=== PATIENT | male | born 1935 | race Caucasian/White ===

== ENCOUNTER → 2025-08-05 | Outpatient (CLI) | payer MEDICARE, SELFPAY ==
--- NOTE | 2025-08-05 10:46 | CDU_ITS ---
Reason For Study Reason For Study: Carotid stenosis Rt. Velocities/BP Lt. Velocities/BP Prox CCA 40.4/10.7 cm/sec. Prox CCA 45.8/9.5 cm/sec. Mid CCA 43/13.3 cm/sec. Mid CCA 43.6/13 cm/sec. Dist CCA 35.1/11.6 cm/sec. Dist CCA 35.1/12.3 cm/sec. Prox ICA 55.1/14.5 cm/sec. Prox ICA 96.1/34.8 cm/sec. Mid ICA 81.5/25.8 cm/sec. Mid ICA 72.8/22.5 cm/sec. Dist ICA 59.8/20.1 cm/sec. Dist ICA 91.2/24.9 cm/sec. Rt. ICA/CCA = 1.90. Lt. ICA/CCA = 2.20. Prox ECA 47.2/4.5 cm/sec. Prox ECA 33.6/3.7 cm/sec. Rt. Vert. 33/10.9 cm/sec. Lt. Vert. 40.9/15.4 cm/sec. Right Extracranial There is intimal thickening but no significant atherosclerotic plaque noted in the right common carotid artery. There is heterogeneous, irregular atherosclerotic plaque noted in the right internal carotid artery. There is heterogeneous, irregular atherosclerotic plaque noted in the right external carotid artery. Antegrade flow is noted in the right vertebral artery. Left Extracranial There is homogeneous, smooth atherosclerotic plaque noted in the left common carotid artery. There is heterogeneous, irregular atherosclerotic plaque noted in the left internal carotid artery. There is heterogeneous, irregular atherosclerotic plaque noted in the left external carotid artery. Antegrade flow is noted in the left vertebral artery. Procedure Carotid Duplex 80251. This is a Carotid Duplex examination using B-mode, color flow and specral Doppler. Exam performed in department. VL/Carotid Duplex Ultrasound Interpretation Summary Mild (<50%) stenosis right extracranial internal carotid. Mild (<50%) stenosis left extracranial internal carotid. Patent and antegrade vertebrals bilaterally. Mild (<50%) stenosis right extracr anial internal carotid. Mild (<50%) stenosis left extracranial internal carotid. Patent and antegrade vertebrals bilaterally. Limited due to calcific shadowing, alternative imaging may be beneficial. Ordering Physician: Jon Woodruff Performed By: Liliya Hare RVT
[2025-08-05 11:58] LABS: Cholesterol 104 mg/dL (<=200); Low Density Lipoprotein Calc. 63 mg/dL; Triglycerides 82 mg/dL; Very Low Density Lipoprotein 16 mg/dL (5-40); cholesterol:hdl ratio screen 4.21
== END | disposition home or self-care (01) ==
LOC: CVS 10:27
PROVIDERS: Referring Provider Internal Medicine Cardiovascular Disease; Visit Provider Internal Medicine Cardiovascular Disease
DX: I65.23 Occlusion and stenosis of bilateral carotid arteries (principal); I10 Essential (primary) hypertension; I35.0 Nonrheumatic aortic (valve) stenosis; E78.2 Mixed hyperlipidemia
CPT/HCPCS: 36415; 80061; 93880

== ENCOUNTER → 2025-08-26 | Outpatient (CLI) | payer MEDICARE, SELFPAY ==
--- NOTE | 2025-08-26 10:43 | ECHOD_ITS ---
Reason For Study Reason For Study: AORTIC VALVE STENOSIS Procedure This was a 2D Doppler, Color Flow transthoracic echocardiogram. Exam performed in department. Left Ventricle Normal LV size. Mild concentric left ventricular hypertrophy. The left ventricular ejection fraction is 45 %. At least stage I diastolic dysfunction. Right Ventricle Normal right ventricle. Atria There is severe biatrial dilatation. Mitral Valve Moderate prolapse of the posterior mitral valve leaflet. Moderate to severe anteriorly directed mitral valve regurgitation. Tricuspid Valve Mild-Moderate (1-2+) tricuspid valve insufficiency. Right ventricular systolic pressure estimated to be 78 mmHg. Aortic Valve Moderately calcified aortic valve. Mild aortic valve stenosis with mean peak gradient of 8 mmHg. Valve area 1.4 cm??. Trivial aortic valve insufficiency. Pulmonic Valve The pulmonic valve is not well visualized. Great Vessels Normal sized aortic root. Pericardium/Pleural Small loculated pericardial effusion. MMode/2D Measurements & Calculations LVIDd: 4.3 cm IVSd: 1.4 cm LVOT diam: 2.0 cm LVIDs: 3.0 cm LVPWd: 1.1 cm LVOT area: 3.2 cm2 RVDd: 4.2 cm FS: 30.7 % Ao root diam: 3.4 cm LAV(MOD-bp): 93.3 ml LVAd ap4: 34.0 cm2 LAV(MOD-bp) Indexed: 47.5 ml/m2 LVLd ap4: 8.4 cm LAV(MOD-sp2): 88.8 ml EDV(MOD-sp4): 114.7 ml LAV(MOD-sp4): 96.3 ml EDV(sp4-el): 116.9 ml LVAs ap4: 20.9 cm2 LVLs ap4: 7.2 cm ESV(MOD-sp4): 55.5 ml ESV(sp4-el): 51.6 ml EF(MOD-sp4): 51.6 % EF(sp4-el): 55.8 % SV(MOD-sp4): 59.2 ml SV(sp4-el): 65.3 ml LA A4 area: 28.6 cm2 SI(MOD-sp4): 30.2 ml/m2 LA dimension(2D): 5.1 cm RA A4 area: 29.6 cm2 TAPSE: 1.7 cm Doppler Measurements & Calculations MV E max papi: 130.4 cm/sec Ao V2 max: 197.1 cm/sec LV V1 max: 84.4 cm/sec Ao max P.6 mmHg LV V1 max P.9 mmHg Ao V2 mean: 135.3 cm/sec LV V1 mean P.4 mmHg Ao mean P.2 mmHg LV V1 mean: 54.0 cm/sec Ao V2 VTI: 30.4 cm LV V1 VTI: 13.7 cm AV (velocity ratio): 0.45 HUGO(I,D): 1.4 cm2 HUGO(V,D): 1.4 cm2 SV(LVOT): 43.3 ml PA V2 max: 51.5 cm/sec TR max papi: 396.9 cm/sec TR max P.0 mmHg ECHO/Echo Complete Interpretation Summary Mild concentric left ventricular hypertrophy. The left ventricular ejection fraction is 45 %. At least stage I diastolic dysfunction. There is severe biatrial dilatation. Moderate prolapse of the posterior mitral valve leaflet. Moderate to severe ant eriorly directed mitral valve regurgitation. Mild-Moderate (1-2+) tricuspid valve insufficiency. Right ventricular systolic pressure estimated to be 78 mmHg. Moderately calcified aortic valve. Mild aortic valve stenosis with mean peak gr adient of 8 mmHg. Valve area 1.4 cm??. Small loculated pericardial effusion. Consider CT scan chest for further evalua tion. Ordering Physician: Jon Woodruff Referring Physician: Jon Woodruff Performed By: Nelida Frost RDCS
== END | disposition home or self-care (01) ==
LOC: CVS 10:42
PROVIDERS: Referring Provider Internal Medicine Cardiovascular Disease; Visit Provider Internal Medicine Cardiovascular Disease
DX: I35.0 Nonrheumatic aortic (valve) stenosis (principal)
CPT/HCPCS: 93306

== ENCOUNTER 2025-09-10 12:38 | Inpatient (IN) | payer MEDICARE, SELFPAY ==
[2025-09-10] VITALS (13 sets, daily range): BP systolic 148–170; BP diastolic 55–122; PULSE 74–83; RESP 16–77; TEMP 36.6–36.8; O2SAT 84–95; BMI 25.9; BMI 22.8
--- NOTE | 2025-09-10 14:22 | EKG12_ITS ---
Test Reason : SOB Blood Pressure : */* mmHG Vent. Rate : 75 BPM Atrial Rate : * BPM P-R Int : * ms QRS Dur : 104 ms QT Int : 410 ms P-R-T Axes : * 37 46 degrees QTcB Int : 457 ms Atrial fibrillation Minimal voltage criteria for LVH, may be normal variant ( Brennan product ) Nonspecific T wave abnormality Abnormal ECG Confirmed by SONIA RODRIGES, RONNIE ([id number]), editor house organ LA ROMO ([id number]) on 09/13/2025 9:19:16 AM Referred By: Confirmed By: RONNIE SCOTT MD
--- NOTE | 2025-09-10 14:34 | ED.VIS.DYS ---
HPI History of Present Illness Chief Complaint: Shortness of Breath Informant: patient and spouse/S.O. Onset/Context/Timing Onset: Days Context: gradual Timing: Continuous Quality: Positive for Orthopnea Current Severity: Mild Maximum Severity: Mild Worsened by: Exertion and Lying flat Relieved by: Nothing Associated Symptoms Negative for cough Chest Pain: Positive for None Narrative Narrative: 89-year-old male for history of triple bypass with A-fib on Eliquis also history of myelodysplastic syndrome. History of CHF. EF of 45%. Patient states he is put on about 18 pounds of weight over the last week. Increase water both lower extremities. Decreased urine output. Denies any chest pain. He said he is more short of breath with any type of exertion lying supine. Lacks endurance. PE Risk Factors: Negative for Cancer, OCP + Smoking + > 35, Prior DVT or PE, Recent immobilization, Recent surgery or Recent travel Prior similar symptoms: Yes Recent Illness/Hospitalization: No PFSH PFSH Medical History Edema Atrial fibrillation Iron deficiency anemia Obstructive sleep apnea Lipoprotein deficiency disorder Diverticular disease of colon Essential hypertension History of pulmonary embolus (PE) (12/2007) Myelodysplastic syndrome Essential thrombocytosis Atherosclerosis of coronary artery of [place] heart without angina pectoris Home Medications ?Medication ?Instructions ?Recorded ?Last Taken ?Type cholecalciferol (vitamin D3) 125 125 mcg PO DAILY 07/14/21 Unknown History mcg (5,000 unit) capsule apixaban 5 mg tablet (Eliquis) 5 mg PO BID 07/29/25 Unknown History furosemide 20 mg tablet (Lasix) 20 mg PO QAM 07/29/25 Unknown History hydroxyurea 500 mg capsule 500 mg PO DAILY 07/29/25 Unknown History metoprolol succinate 100 mg 100 mg PO QDAY #90 tabs 07/29/25 Unknown Rx tablet,extended release 24 hr rosuvastatin 5 mg tablet 5 mg PO QDAY #90 tabs 07/29/25 Unknown Rx losartan 50 mg tablet 50 mg PO BID #180 tabs 09/08/25 Unknown Rx Allergy/AdvReac Type Severity Reaction Status Date / Time No Known Allergies Allergy Verified 09/10/25 12:39 Surgical History History of coronary artery bypass surgery (12/31/07) History of left heart catheterization (12/29/07) Social History Smoking Status: Former smoker substance use type: does not use ROS ROS ED ROS Narrative Orthopnea. Shortness of breath. Lower extremity edema. Weight gain. Constitutional Constitutional ED: Denies chills or fever(s) Eyes Eyes: Denies blurry vision ENT ENT ED: Denies ear pain Cardiovascular Cardiovascular: Denies chest pain Respiratory/Chest Respiratory/Chest: Denies cough or dyspnea Gastrointestinal Gastrointestinal: Denies abdominal pain Genitourinary Genitourinary ED: Reports other Details: Decreased urination. Dribbling. ; Denies dysuria or hematuria Musculoskeletal Musculoskeletal: Denies arthralgias or back pain Integumentary Denies abscess or Abrasions Neurologic Neurologic: Denies headache(s) Psychiatric Psychiatric: Denies anxiety or depression Endocrine Endocrinology: Denies cold intolerance Hematologic/Lymphatic Hematologic/Lymphatic: Denies easy bleeding, easy bruising or lymphadenopathy Allergic/Immunologic Allergic/Immunologic ED: Denies mouth swelling, tongue swelling or urticaria EXAM Physical Exam Narrative Exam Narrative: 89-year-old male sitting upright in bed Eitel signs are stable pulse ox 95% on room air. No hypoxia. No distress. at bedside. H EENT exam pupils round react light. Moist mutes members. Neck nontender. No JVD. Lungs clear to auscultation bilaterally. Heart A-fib. 4/6 diastolic murmur. Chest wall nontender. Abdomen soft nontender. External exam uncircumcised male edematous genitalia. Moving all 4 extremities. 2+ pitting edema both lower extremities. Calves nontender no cords. Neurologically he is awake alert. Answering questions following commands. Const Vital Signs: 09/10/25 12:39 09/10/25 12:50 09/10/25 13:32 Temperature 97.8 F Temperature Source Temporal Pulse Rate 83 74 Respiratory Rate 18 18 Respiratory Effort Normal Non-Labored Respiratory Depth Normal Respiratory Pattern Normal Blood Pressure 155/111 H 164/107 H Blood Pressure Mean 125 126 Pulse Ox 95 91 Oxygen Delivery Method Room Air Room Air Room Air 09/10/25 14:18 09/10/25 14:44 09/10/25 15:00 Temperature Temperature Source Pulse Rate 78 79 Respiratory Rate 18 30 H Respiratory Effort Respiratory Depth Respiratory Pattern Blood Pressure 168/107 H 149/55 H Blood Pressure Mean 127 86 Pulse Ox 93 93 92 Oxygen Delivery Method Room Air Room Air 09/10/25 16:00 Temperature Temperature Source Pulse Rate 74 Respiratory Rate 77 H Respiratory Effort Respiratory Depth Respiratory Pattern Blood Pressure 151/112 H Blood Pressure Mean 125 Pulse Ox 94 Oxygen Delivery Method MDM MDM MDM Narrative Medical decision making narrative: He does not have any endurance. Denies any fever or chills. 89-year-old male short of breath primarily orthopneic and with exertion. No chest pain. Weight gain of somewhere around 18 pounds. Suspect secondary to CHF. Cardiac workup. He is having difficulty urinating Curtis catheter will be placed. Most likely will receive a diuretic. Labs, exam and history are consistent with CHF. Patient be given IV Lasix. I have the hospitalist on page for admission. Patient is doing well at 5:49 PM. Awaiting admission. History & Record Review Discussion w/independent historian: Patient and Family Additional record(s) reviewed:: Prior inpatient record, Prior outpatient record, Prior ED visit and Prior labs Lab Data Attestation: I reviewed the patient's lab results. Lab results narrative: CBC shows a white count 13.1. H&H 12.5 and 40. Platelets 548. Chemistries show gap 11. Normal BUN and creatinine of 17 and 1. Glucose 86. Initial troponin 62. BNP 14,196. Chest x-ray consistent with CHF. Labs: Laboratory Results - last 24 hr 09/10/25 09/10/25 09/10/25 14:30 15:30 16:25 WBC 13.1 H RBC 4.27 L Hgb 12.5 L Hct 40.9 MCV 95.8 H MCH 29.3 MCHC 30.6 L RDW Std Deviation 96.4 H RDW Coeff of [place] 27.8 H Plt Count 548 H MPV 12.1 H Immature Gran % (Auto) 0.600 Neut % (Auto) 76.1 H Lymph % (Auto) 14.1 L [place] % (Auto) 7.0 Eos % (Auto) 1.3 Baso % (Auto) 0.9 Absolute Neuts (auto) 10.0 H Absolute Lymphs (auto) 1.84 Nucleated RBC % 0.3 Polychromasia 1+ Basophilic Stippling 1+ Ovalocytes 2+ Sodium Cancelled Cancelled 142 Potassium Cancelled Cancelled 4.7 Chloride Cancelled Cancelled 106 Carbon Dioxide Cancelled Cancelled 25.1 Anion Gap Cancelled Cancelled 11 BUN Cancelled Cancelled 17 Creatinine Cancelled Cancelled 1.08 Estim Creat Clear Calc Cancelled Cancelled 50.90 Est GFR (MDRD) Non-Af Cancelled Cancelled 66 BUN/Creatinine Ratio Cancelled Cancelled 15.3 Glucose Cancelled Cancelled 86 Calcium Cancelled Cancelled 9.2 Troponin T High Sens Cancelled Cancelled 62 H* NT pro BNP II Cancelled Cancelled 55701 H Radiography Chest X-Ray - ED: 2 View and Read by ED Physician Diagnostic Testing: Clinical Impression(s) from Imaging Studies Chest X-Ray 09/10/25 15:05 IMPRESSION: CHF with bilateral pleural effusions and bibasilar atelectasis. Follow-up recommended to ensure complete resolution Remote CABG Reading Location: [id number] Chest x-ray, 2 views, AP and lateral, interpreted by myself and radiologist. Shows CHF with bilateral small pleural effusions. Rhythm Strip Rhythm Strip: A-fib Rate: 75 Ectopy: None EKG Initial EKG: Attestation: I personally reviewed and interpreted this EKG as follows: Interpretation: Atrial Fibrillation Comments: A-fib rate of 75 no acute signs of HI or ischemia. Discharge Plan Dx/Rx/DC Orders Clinical Impression: Congestive heart failure, Chronic a-fib, Hx of CABG, Chronic anticoagulation, Myelodysplastic syndrome Disposition Disposition: Acute Care Hospital [facility]
[2025-09-10 14:45] LABS: Hematocrit 40.9 % (40-54); Hemoglobin 12.5 g/dL (13.0-16.5); Immature Granulocytes Count 0.080 X10^3/uL (0.0-0.0); Mean Corp Hgb Conc 30.6 g/dL (32-36); Mean Corpuscular Volume 95.8 fL (80-94); Mean Platelet Vol. 12.1 fl (6.2-12.0); NRBC Flagged by Analyzer 0.3 % (0-5); POSITIVE MORPHOLOGY YES; Platelet Count 548 K/mm3 (150-450); RBC Distribution Width CV 27.8 % (11.6-14.6); RBC Distribution Width SD 96.4 fl (35.1-43.9); Red Blood Count 4.27 M/mm3 (4.6-6.2); White Blood Count 13.1 K/mm3 (4.4-11.0)
--- NOTE | 2025-09-10 15:05 | RAD_ITS ---
PROCEDURE: CHEST PA AND LATERAL 09/10/2025 REASON FOR EXAM: CHEST PAIN TECHNIQUE: Procedure Code: RADCXR Modality: DX Procedure: CHEST PA AND LATERAL COMPARISON: None FINDINGS: Hardware: EKG leads overlie the chest Heart: Remote CABG Mediastinum: The mediastinal contour is unremarkable. Lungs: Chronic interstitial changes in both lung hicks with superimposed interstitial edema, bilateral pleural effusions and likely atelectasis. Findings suggest CHF. Follow-up recommended to ensure complete resolution Bones: Bony structures show degenerative change RAD/Chest PA and Lateral IMPRESSION: CHF with bilateral pleural effusions and bibasilar atelectasis. Follow-up antonio mmended to ensure complete resolution Remote CABG Reading Location: [id number]
--- OUTSIDE RECORDS SUMMARY | 2025-09-10 15:15 | XMS RPT_ITS | CCD ---
Author Organization [facility] Care Team Providers Care Member Of Congress Name Role Phone Ministerio Elias MD Primary Care Provider TRENT FOURNIER MD Attending Unavailbrandon ELIAS MD, DR MANDEL Primary Care Unavailable JADA RODRIGES, DR MANDEL Primary Care Unavailable TATE RODRIGES, DR LOUISE Consulting Unavailbrandon HOFFMAN MD, ARIA Bee Attending Unavailable Ministerio Elias MD Primary Care Provider [phone] Ministerio Elias MD Primary Care Provider Jada RODRIGES, Dr. Mandel Primary Care Provider [phone] Jada RODRIGES, Dr. Mandel Referring Provider [phone] Ranjan RODRIGES, Dr. Webb Attending Provider LYNNETTE BELLAMY Referring Unavailable NEENAFebruary FARM DEMONSTRATOR Admitting Unavailable NEENAFebruary FARM DEMONSTRATOR Primary Care Unavailable NEENAFebruary FARM DEMONSTRATOR Attending Unavailable MINISTERIO ELIAS MD Referring Unavailable DESMOND AMAYA Admitting Unavailable DESMOND AMAYA Primary Care Unavailable DESMOND AMAYA Attending Unavailable MINISTERIO ELIAS MD Consulting Unavailable PROVIDER, UNKNOWN Consulting Unavailable PROVIDER, UNKNOWN Consulting Unavailable PROVIDER, UNKNOWN Consulting Unavailable MINISTERIO ELIAS MD Admitting Unavailable MINISTERIO ELIAS MD Primary Care Unavailable MINISTERIO ELIAS MD Attending Unavailable MINISTERIO ELIAS MD Admitting Unavailable MINISTERIO ELIAS MD Primary Care Unavailable MINISTERIO ELIAS MD Attending Unavailable NEENAFebruary FARM DEMONSTRATOR Attending Unavailable LYNNETTE BELLAMY Referring Unavailable NEENAFebruary FARM DEMONSTRATOR Admitting Unavailable NEENAFebruary FARM DEMONSTRATOR Primary Care Unavailable MINISTERIO ELIAS MD Admitting Unavailable MINISTERIO ELIAS MD Primary Care Unavailable MINISTERIO ELIAS MD Consulting Unavailable MINISTERIO ELIAS MD Attending Unavailable PROVIDER, UNKNOWN Consulting Unavailable PROVIDER, UNKNOWN Consulting Unavailable PROVIDER, UNKNOWN Consulting Unavailable Latgianni RODRIGES, Dr. Mandel Primary Care Physician Ranjan RODRIGES, Dr. Webb Attending Physician Ranjan RODRIGES, Dr. Webb Referring Provider Care Physician, No Primary Primary Care Physicia n Unavailable Deidra RODRIGES, Dr. Morrison Attending Physician Chalino LOADER OPERATOR SUPERVISOR-C, Viv Attending Physician Care Physician, No Primary Primary Care Unava ilable Chalino CABA, Viv Attending Unavailable Ranjan, Jon Referring Unavailable Care Physician, No Primary Primary Care Unava ilable Prince Gay Attending Unavailable Ranjan, Jon Attending Unavailable Care Physician, No Primary Primary Care Unava ilable Ranjan, Jon Referring Unavailable Ranjan, Jon Attending Unavailable Care Physician, No Primary Primary Care Unava ilable Ranjan, Jon Referring Unavailable Ranjan, Jon Attending Unavailable Latouf, Butros Referring Unavailable Latouf, Butros Primary Care Unavailable Ranjan, Jon Attending Unavailable Care Physician, No Primary Primary Care Unava ilable JULIET RUIZ Attending Unavailable LATOUF, BUTROS Primary Care Unavailable LATOUF, BUTROS Primary Care Unavailable LATOUF, BUTROS Primary Care Unavailable JULIET RUIZ Attending Unavailable MASCI, EFRA A Referring Unavailable LATOUF, BUTROS Primary Care Unavailable LATOUF, BUTROS Primary Care Unavailable LATOUF, BUTROS Primary Care Unavailable KELIN, EFRA A Attending Unavailable MASCHeidi, EFRA A Referring Unavailable LATOUF, BUTROS Primary Care Unavailable LATOUF, BUTROS Primary Care Unavailable MASCI, EFRA A Referring Unavailable LATOUF, BUTROS Primary Care Unavailable MASCI, EFRA A Referring Unavailable LATOUF, BUTROS Primary Care Unavailable LATOUF, BUTROS Primary Care Unavailable Medications Current Medications Medication Drug Class(es) Dates Sig (Normalized) Sig (Original) apixaban 5 mg oral tablet (20 sources) Factor Xa Inhibitor Start: 07-29-2025 take 1 tablet by mouth twice daily take 1 tablet by mouth twice farrah ly apixaban (ELIQUIS) 5 mg tab(s) Take 5 mg by mouth two times a day. Active Comment on above: Take 5 mg by mouth t wo times a day. cholecalciferol 0.125 mg oral capsule (2 sources) Vitamin D Start: 07-14-2021 take 1 capsule by mouth once daily cholecalciferol, vitamin D3, (VITAMIN D3 ORAL) (20 sources) take 5000 [IU] by mouth once daily cholecalciferol, vitamin D3, (VITAMIN D3 ORAL) Take 5,000 Units by mouth once daily. Active take 5000 [IU] by mouth once farrah ly cholecalciferol, vitamin D3, (VITAMIN D3 ORAL) Take 5,000 Units by mouth once daily. 0 Active Comment on above: Take 5,000 Units by mouth once daily. furosemide 20 mg oral tablet (20 sources) Loop Diuretic Start: 07-29-2025 take 1 tablet by mouth once daily in the morning take 1 tablet by mouth once adithya y furosemide (LASIX) 20 mg tablet Take 20 mg by mouth once daily. Active Comment on above: Take 20 mg by mouth once daily. hydroxyurea 500 mg oral capsule (20 sources) Antimetabolite Start: 07-29-2025 take 1 capsule by mouth once daily Start: 11-06-2024 End: 01-25-2025 take 1 capsule by mouth once daily hydroxyurea (HYDREA) 500 mg capsule Indications: Essential thrombocytosis (HCC) Take 1 capsule by mouth once daily. 90 capsule 3 01/25/2025 Active Start: 06-21-2023 End: 11-06-2024 take 2 capsules by mouth once daily, then take 1 capsule by mouth once daily hydroxyurea (HYDREA) 500 mg capsule Indications: Essential thrombocytosis (HCC) Take 2 capsules by mouth once daily. TAKE 1 CAPSULE BY MOUTH ONCE DAILY. 180 capsule 3 06/21/2023 11/06/2024 Discontinued Start: 06-28-2021 End: 07-29-2025 take 1 capsule by mouth twice daily Hydroxyurea 500 mg capsule Discontinued 500 mg PO .COMPLEX June 28, 2021 8:22am July 29, 2025 9:59am 500 mg PO BID on ; Start: 05-09-2021 End: 06-21-2023 take 1 capsule by mouth once daily Hydroxyurea 500 mg capsule Discontinued 500 mg PO DAILY June 27, 2021 12:00am June 28, 2021 8:25am Comment on above: TAKE 1 CAPSULE BY MO [facility] ONCE DAILY ON SATURDAY, SATURDAY, SATURDAY, SATURDAY, AND ONE CAPSULE TWICE DAILY ON SATURDAY, SATURDAY, AND SATURDAY TAKE 1 CAPSULE BY MO [facility] ONCE DAILY. Take 2 capsules by [facility] once daily. TAKE 1 CAPSULE BY MOUTH ONCE DAILY. losartan potassium 50 mg oral tablet (20 sources) Angiotensin 2 Receptor Lexi Start: 07-14-2021 take 1 tablet by mouth once daily Start: 07-14-2021 End: 07-14-2021 take 1 tablet by mouth once daily Losartan 25 mg tablet Discontinued 25 mg PO DAILY July 14, 2021 12:00am July 14, 2021 2:52pm take 1 tablet by aramis twice daily losartan (COZAAR) 50 mg tablet Take 50 mg by mouth two times a day. 0 Active take 2 tablets by mo uth twice daily losartan (COZAAR) 25 mg tablet Take 50 mg by mouth twice daily. 0 Active take 1 tablet by aramis twice daily losartan (COZAAR) 25 mg tablet Take 25 mg by mouth twice daily. 0 Active Comment on above: Take 25 mg by mouth twice daily. Take 50 mg by mouth twice daily. Take 50 mg by mouth two times a day. 24 hr metoprolol succinate 100 mg extended release oral tablet (5 sources) beta-Adrenergic Lexi Start: 07-29-2025 End: 07-29-2025 take 1 tablet by mouth once daily Start: 07-29-2025 End: 07-29-2025 take 1 tablet by mouth twice daily Metoprolol Tartrate 25 mg tablet Discontinued 25 mg PO TWICE A DAY July 29, 2025 12:00am July 29, 2025 10:34am metoprolol tartrate, short a cting, (LOPRESSOR) 12.5 mg tab (20 sources) metoprolol tartr ate, short acting, (LOPRESSOR) 12.5 mg tab Take 25 mg by mouth two times a day. Active metoprolol tartr ate, short acting, (LOPRESSOR) 12.5 mg tab Take 25 mg by mouth two times a day. 0 Active metoprolol tartr ate, short acting, (LOPRESSOR) 12.5 mg tab Take 25 mg by mouth every 12 hours. 0 Active Comment on above: Take 25 mg by mouth every 12 hours. rosuvastatin calcium 5 mg oral tablet (20 sources) HMG-CoA Reductase Inhibitor Start: 07-29-2025 End: 07-29-2025 take 1 tablet by mouth once daily Start: 07-29-2025 End: 07-29-2025 take 1 tablet by mouth once daily Rosuvastatin 20 mg tablet Discontinued 20 mg PO daily July 29, 2025 12:00am July 29, 2025 10:38am Start: 07-14-2021 End: 07-15-2025 Rosuvastatin (Crestor) 10 mg tablet Discontinued 10 mg PO .M,W,F 60 3 July 14, 2021 12:00am July 15, 2025 4:20pm take 1 tablet by aramis th once daily rosuvastatin (CRESTOR) 20 mg tablet Take 20 mg by mouth once daily. Active Comment on above: Take 20 mg by mouth once daily. tiZANidine 2 mg oral tablet (5 sources) Central alpha-2 Adrenergic Agonist Start: 03-08-2025 take 1 tablet by mouth every six hours as needed tiZANidine (ZANAFLEX) 2 mg tablet Take 2 mg by mouth four times a day as needed. 03/08/2025 Active Completed/Discontinued Medications Medication Drug Class(es) Dates Sig (Normalized) Sig (Original) amLODIPine 5 mg oral tablet (20 sources) Dihydropyridine Calcium Channel Lexi Start: 07-29-2025 End: 07-29-2025 take 1 tablet by mouth once daily Amlodipine 5 mg tablet Discontinued 5 mg PO daily July 29, 2025 12:00am July 29, 2025 10:34am Start: 02-12-2024 take 1 tablet by aramis th once daily amLODIPine (NORVASC) 5 mg tablet Take 1 tablet by mouth once daily. 02/12/2024 Active Comment on above: Take 1 tablet by aramis th once daily. ascorbic acid 226 mg / beta carotene 48443 unt / cuprous oxide 0.8 mg / dl-alpha tocopheryl acetate 200 unt / zinc oxide 34.8 mg oral capsule (1 source) Vitamin C Start: 07-14-2021 End: 07-29-2025 Vitamins A,C,E-Mpyu-Xbwofz (Icaps Areds) 14,320-226-200 ayir-zf-pusg capsule Discontinued 1 NMA PO TWICE A DAY July 14, 2021 12:00am July 29, 2025 9:59am aspirin 81 mg delayed release oral tablet (20 sources) Platelet Aggregation Inhibitor, Nonsteroidal Anti-inflammatory Drug Start: 06-27-2021 End: 07-29-2025 Aspirin (Adult Low Dose Aspirin) 81 mg tablet,delayed release (DR/EC) Discontinued 81 mg PO DAILY June 27, 2021 12:00am July 29, 2025 10:39am Start: 08-19-2009 take 1 tablet by aramis th once daily ASPIRIN 81 MG CHEWABLE TAB Indications: Low grade myelodysplastic syndrome lesions (HCC) , Unspecified diseases of blood and blood-forming organs Take 81 mg by mouth once daily. 0 08/19/2009 Active Comment on above: Take one(1) tablet d aily. Take 81 mg by mouth once daily. carvedilol 12.5 mg oral tablet (18 sources) alpha-Adrenergic Lexi, beta-Adrenergic Lexi Start: 07-14-2021 End: 07-15-2025 take 6.25 mg by mouth twice daily at mealtime Carvedilol 12.5 mg tablet Discontinued 6.25 mg PO TWICE A DAY July 14, 2021 2:33pm July 15, 2025 4:20pm must administer with a meal/food Start: 06-27-2021 End: 07-14-2021 take 1 tablet by mouth twice daily at mealtime Carvedilol 12.5 mg tablet Discontinued 12.5 mg PO TWICE A DAY June 27, 2021 12:00am July 14, 2021 2:37pm must administer with a meal/food take 1 tablet by aramis th twice daily carvedilol (COREG) 25 mg tablet Take 25 mg by mouth twice daily. 0 Active Comment on above: Take 25 mg by mouth twice daily. CPAP (6 sources) End: 01-31-2025 CPAP Device and supplies: 5-20 cm h2o during sleep Started 03/24/2024 01/31/2025 Discontinued CPAP Device and supplies: 5-20 cm h2o during sleep Started 03/24/2024 Active simvastatin 20 mg oral tablet (16 sources) HMG-CoA Reductase Inhibitor Start: 06-27-2021 End: 07-14-2021 take 1 tablet by mouth at bedtime Simvastatin 20 mg tablet Discontinued 20 mg PO AT BEDTIME June 27, 2021 12:00am July 14, 2021 2:33pm Comment on above: Take 20 mg by mouth once daily. traMADol hydrochloride 50 mg oral tablet (5 sources) Opioid Agonist Start: 02-24-2025 End: 07-21-2025 take 1 tablet by mouth every eight hours as needed traMADol (ULTRAM) 50 mg tablet Take 50 mg by mouth three times a day as needed. 02/24/2025 07/21/2025 Discontinued Vit C,D-Pd-Zphlp-Lutein- Zeaxan (Preservision Areds-2) 250-90-40-1 mg capsule (2 sources) Start: 06-27-2021 End: 07-29-2025 take 2 capsules by mouth twice daily Vit C,M-Bv-Unqli-Lutei n-Zeaxan (Preservision Areds-2) 250-90-40-1 mg capsule Discontinued 1 {tbl} PO TWICE A DAY June 27, 2021 12:00am July 29, 2025 9:59am VIT C/E/ZN/COPPR/LUTEIN/ ZEAXAN (PRESERVISION AREDS 2 ORAL) (19 sources) End: 02-12-2024 VIT C/E/ZN/COPPR/LUTEI N/ZEAXAN (PRESERVISION AREDS 2 ORAL) Take 1 tablet by mouth twice daily. 0 02/12/2024 Discontinued VIT C/E/ZN/COPPR /LUTEIN/ZEAXAN (PRESERVISION AREDS 2 ORAL) Take 1 tablet by mouth twice daily. 0 Active Comment on above: Take 1 tablet by aramis th twice daily. Vitamins A,C,I-Qakb-Vwogxv (Icaps Areds) 14,320-226-200 ktut-kl-clmg capsule (1 source) Start: 07-14-2021 End: 07-29-2025 Vitamins A,C,E-Ggih-Hmmoni (Icaps Areds) 14,320-226-200 nxdu-ku-uqdv capsule Discontinued 1 NMA PO TWICE A DAY July 14, 2021 12:00am July 29, 2025 9:59am Problems Active Problems Problem Classification Problem Date Documented Da te Episodic/Chronic Cardiac dysrhythmias (5 sources) Atrial fibrillation; Translations: [Unspecified atrial fibrillation] Onset: 07-29-2025 07-29-2025 Chronic Coronary atherosclerosis and other heart disease (7 sources) Coronary arteriosclerosis; Translations: [Atherosclerotic heart disease of [place] coronary artery without angina pectoris] Onset: 07-29-2025 07-29-2025 Chronic Coronary atherosclerosis and other heart disease (1 source) Presence of aortocoronary bypass graft; Translations: [Presence of aortocoronary bypass graft] Onset: 07-29-2025 Episodic Deficiency and other anemia (3 sources) Macrocytic anemia; Translations: [Nutritional anemia, unspecified] 03-25-2024 Episodic Deficiency and other anemia (2 sources) Anemia; Translations: [Anemia, unspecified] 01-31-2025 Episodic Deficiency and other anemia (1 source) Anemia, unspecified; Translations: [Anemia, unspecified type] Onset: 07-21-2025 Episodic Disorders of lipid metabolism (9 sources) Dyslipidemia; Translations: [Hyperlipidemia, unspecified] Onset: 02-24-2025 07-29-2025 Chronic Essential hypertension (5 sources) Essential hypertension; Translations: [Essential (primary) hypertension] Onset: 07-29-2025 07-14-2021 Chronic Heart valve disorders (6 sources) Aortic valve stenosis; Translations: [Nonrheumatic aortic (valve) stenosis] Onset: 07-29-2025 07-29-2025 Chronic Malaise and fatigue (2 sources) Fatigue; Translations: [Other fatigue] 07-14-2021 Episodic Neoplasms of unspecified nature or uncertain behavior (20 sources) Essential thrombocythemia; Translations: [Essential (hemorrhagic) thrombocythemia] Onset: 12-28-2010 Chronic Occlusion or stenosis of precerebral arteries (2 sources) Bilateral stenosis of carotid arteries; Translations: [Occlusion and stenosis of bilateral carotid arteries] Onset: 08-13-2025 08-02-2025 Chronic Residual codes; unclassified (2 sources) Obstructive sleep apnea syndrome; Translations: [Obstructive sleep apnea (adult) (pediatric)] 07-15-2025 Chronic Residual codes; unclassified (3 sources) Obstructive sleep apnea (adult) (pediatric); Translations: [Obstructive sleep apnea (adult) (pediatric)] Onset: 07-12-2025 Chronic Residual codes; unclassified (4 sources) Bilateral lower limb edema; Translations: [Localized edema] 07-29-2025 Episodic Residual codes; unclassified (1 source) Localized edema; Translations: [Localized edema] Onset: 07-29-2025 Episodic Past or Other Problems Problem Classification Problem Date Documented Date Episodic/Chronic Deficiency and other anemia (1 source) Iron deficiency anemia, unspecified; Translations: [Iron deficiency anemia, unspecified] Onset: 02-24-2025 Episodic Deficiency and other anemia (1 source) Nutritional anemia, unspecified; Translations: [Macrocytic anemia] Onset: 01-25-2025 Episodic Neoplasms of unspecified nature or uncertain behavior (13 sources) Myelodysplastic syndrome (clinical); Translations: [Other myelodysplastic syndromes] Onset: 01-31-2025 01-31-2025 Episodic Other hematologic conditions (20 sources) Disorder of hematopoietic structure; Translations: [Disease of blood and blood-forming organs, unspecified] Onset: 09-24-2007 09-24-2007 Episodic Other non-epithelial cancer of skin (20 sources) Malignant neoplasm of skin; Translations: [Other and unspecified malignant neoplasm of skin, site unspecified] Onset: 12-10-2007 12-10-2007 Episodic Other screening for suspected conditions (not mental disorders or infectious disease) (3 sources) Raised prostate specific antigen; Translations: [Elevated prostate specific antigen [PSA]] Onset: 02-24-2025 07-14-2024 Episodic Results Test Name Value Interpretation Reference Range Facility [facility] 09-06-2025 [facility] Telephone (HEMAWS) KSENIA GALLARDO ([id number]) 1935 M Date Time Provider Department 09/06/25 EFRA NEVILLE During your visit today, we recorded the following information about you: Sarbjit Maldonado 09/06/2025 3:07 PM Signed Patient is calling in asking if reviewed his lab work results from 08/20/25? Please advise. Efra Helm DO 09/06/2025 3:22 PM Signed Yes, sorry I didn't address previously. Hemoglobin 10.9 g/dL which is stable compared to February and April of this year. Platelet count 412,000 which is slightly over normal. Recommend continuing same dose of Hydrea and rechecking on a monthly basis. DO Nayely Daugherty Melanie, LPN 09/06/2025 3:25 PM Signed Attempted to contact patient, jigar hernandez. DORITA Muhammad Melanie, LPN 09/06/2025 4:49 PM Signed Patient notified. Monalisa Laurent LPN Allergies As of Date: 09/06/2025 (No Known Allergies) Date Reviewed: 07/21/2025 Reviewed by: Juliet Ruiz APRN.FARM DEMONSTRATOR - Fully Assessed Reason for Visit: Results [95] Prescriptions as of 09/06/2025 - tiZANidine (ZANAFLEX) 2 mg tablet Take 2 mg by mouth four times a day as needed. - hydroxyurea (HYDREA) 500 mg capsule Take 1 capsule by mouth once daily. - apixaban (ELIQUIS) 5 mg tab(s) Take 5 mg by mouth two times a day. - furosemide (LASIX) 20 mg tablet Take 20 mg by mouth once daily. - amLODIPine (NORVASC) 5 mg tablet Take 1 tablet by mouth once daily. - metoprolol tartrate, short acting, (LOPRESSOR) 12.5 mg tab Take 25 mg by mouth two times a day. - cholecalciferol, vitamin D3, (VITAMIN D3 ORAL) Take 5,000 Units by mouth once daily. - rosuvastatin (CRESTOR) 20 mg tablet Take 20 mg by mouth once daily. - losartan (COZAAR) 50 mg tablet Take 50 mg by mouth once daily. - ASPIRIN 81 MG CHEWABLE TAB Take 81 mg by mouth once daily. Problem List As Of Date 09/06/2025 Noted Resolved BLOOD DISEASE NOS [D75.9] 09/24/2007 MALIG NEOPLASM SKIN NOS [173.9] 12/10/2007 Essential thrombocytosis [D47.3] 12/28/2010 MDS (myelodysplastic syndrome), low grade (HCC)*01/31/2025 Encounter Status:Closed by SARBJIT MALDONADO on 09/06/25 Normal [facility] Echo Completeon 08-26-2025 Echo Complete [facility] [address] [place] [address] Echo Complete 08/26/25 1047 MR#: [id number] Acct: [id number] Name: KSENIA GALLARDO Rep #: [id number] : [id number] 89 From: Jon Woodruff MD Attending Dr: Dr. Jon Woodruff MD Status: REG CLI Ordering Dr: Jon Woodruff MD Date: 08/26/25 Location: [facility] Sex: M C Admitted: Reason For Study Reason For Study: AORTIC VALVE STENOSIS Procedure This was a 2D Doppler, Color Flow transthoracic echocardiogram. Exam performed in department. Left Ventricle Normal LV size. Mild concentric left ventricular hypertrophy. The left ventricular ejection fraction is 45 %. At least stage I diastolic dysfunction. Right Ventricle Normal right ventricle. Atria There is severe biatrial dilatation. Mitral Valve Moderate prolapse of the posterior mitral valve leaflet. Moderate to severe anteriorly directed mitral valve regurgitation. Tricuspid Valve Mild-Moderate (1-2+) tricuspid valve insufficiency. Right ventricular systolic pressure estimated to be 78 mmHg. Aortic Valve Moderately calcified aortic valve. Mild aortic valve stenosis with mean peak gradient of 8 mmHg. Valve area 1.4 cm??. Trivial aortic valve insufficiency. Pulmonic Valve The pulmonic valve is not well visualized. Great Vessels Normal sized aortic root. Pericardium/Pleural Small loculated pericardial effusion. MMode/2D Measurements Calculations LVIDd: 4.3 cm IVSd: 1.4 cm LVOT diam: 2.0 cm LVIDs: 3.0 cm LVPWd: 1.1 cm LVOT area: 3.2 cm2 RVDd: 4.2 cm FS: 30.7 % Ao root diam: 3.4 cm LAV(MOD-bp): 93.3 ml LVAd ap4: 34.0 cm2 LAV(MOD-bp) Indexed: 47.5 ml/m2 LVLd ap4: 8.4 cm LAV(MOD-sp2): 88.8 ml EDV(MOD-sp4): 114.7 ml LAV(MOD-sp4): 96.3 ml EDV(sp4-el): 116.9 ml LVAs ap4: 20.9 cm2 LVLs ap4: 7.2 cm ESV(MOD-sp4): 55.5 ml ESV(sp4-el): 51.6 ml EF(MOD-sp4): 51.6 % EF(sp4-el): 55.8 % SV(MOD-sp4): 59.2 ml SV(sp4-el): 65.3 ml LA A4 area: 28.6 cm2 SI(MOD-sp4): 30.2 ml/m2 LA dimension(2D): 5.1 cm RA A4 area: 29.6 cm2 TAPSE: 1.7 cm Doppler Measurements Calculations MV E max papi: 130.4 cm/sec Ao V2 max: 197.1 cm/sec LV V1 max: 84.4 cm/sec Ao max P.6 mmHg LV V1 max P.9 mmHg Ao V2 mean: 135.3 cm/sec LV V1 mean P.4 mmHg Ao mean P.2 mmHg LV V1 mean: 54.0 cm/sec Ao V2 VTI: 30.4 cm LV V1 VTI: 13.7 cm AV (velocity ratio): 0.45 HUGO(I,D): 1.4 cm2 HUGO(V,D): 1.4 cm2 SV(LVOT): 43.3 ml PA V2 max: 51.5 cm/sec TR max papi: 396.9 cm/sec TR max P.0 mmHg ECHO/Echo Complete Interpretation Summary Mild concentric left ventricular hypertrophy. The left ventricular ejection fraction is 45 %. At least stage I diastolic dysfunction. There is severe biatrial dilatation. Moderate prolapse of the posterior mitral valve leaflet. Moderate to severe anteriorly directed mitral valve regurgitation. Mild-Moderate (1-2+) tricuspid valve insufficiency. Right ventricular systolic pressure estimated to be 78 mmHg. Moderately calcified aortic valve. Mild aortic valve stenosis with mean peak gradient of 8 mmHg. Valve area 1.4 cm??. Small loculated pericardial effusion. Consider CT scan chest for further evaluation. Ordering Physician: Jon Woodruff Referring Physician: Jon Woodruff Performed By: Nelida Frost RAYRAY 08/26/25 1304 Date Jon Woodruff MD CC: Dr. Jon Woodruff MD; No Primary Care Physician Date Dictated: 08/26/25 1047 Date Transcribed: 08/26/25 1304 Attorney General: Signed [facility] Differential pane l (Bld)on 08-20-2025 Basophils (Bld) [#/Vol] 0.11 10*3/uL High <0.11 [facility] Comment on above: Order Comment: Speci men Type: BLOOD SPECIMEN Ordering Facility: [facility] Address: [address] [place] [address] Performed By: #### 5 7021-8 #### [facility] CLIA [id number] [address] [place] [address] [place] Basophils/100 WBC (Bld) 1.1 % Normal [facility] Comment on above: Order Comment: Speci men Type: BLOOD SPECIMEN Ordering Facility: [facility] Address: [address] [place] [address] Performed By: #### 5 7021-8 #### [facility] CLIA [id number] [address] [place] [address] [place] Differential cell count method Nom (Bld) Auto Normal [facility] Comment on above: Order Comment: Speci men Type: BLOOD SPECIMEN Ordering Facility: [facility] Address: [address] [place] [address] Performed By: #### 5 7021-8 #### [facility] CLIA [id number] [address] [place] [address] [place] Eosinophils (Bld) [#/Vol] 0.20 10*3/uL Normal <0.46 [facility] Comment on above: Order Comment: Speci men Type: BLOOD SPECIMEN Ordering Facility: [facility] Address: [address] [place] [address] Performed By: #### 5 7021-8 #### [facility] CLIA [id number] [address] [place] [address] [place] Eosinophils/100 WBC (Bld) 2.0 % Normal [facility] Comment on above: Order Comment: Speci men Type: BLOOD SPECIMEN Ordering Facility: [facility] Address: [address] [place] [address] Performed By: #### 5 7021-8 #### [facility] CLIA [id number] [address] [place] [address] [place] Erythrocyte distribution width (RBC) [Ratio] 26.9 % High 11.5-15.0 [facility] Comment on above: Order Comment: Speci men Type: BLOOD SPECIMEN Ordering Facility: [facility] Address: [address] [place] [address] Performed By: #### 5 7021-8 #### [facility] CLIA [id number] [address] [place] [address] [place] Hematocrit (Bld) [Volume fraction] 35.2 % Low 39.0-51.0 [facility] Comment on above: Order Comment: Speci men Type: BLOOD SPECIMEN Ordering Facility: [facility] Address: [address] [place] [address] Performed By: #### 5 7021-8 #### [facility] [id number] [address] [place] [address] [place] Hemoglobin (Bld) [Mass/Vol] 10.9 g/dL Low 13.0-17.0 [facility] Comment on above: Order Comment: Speci men Type: BLOOD SPECIMEN Ordering Facility: [facility] Address: [address] [place] [address] Performed By: #### 5 7021-8 #### [facility] CLIA [id number] [address] [place] [address] [place] Immature granulocytes (Bld) [#/Vol] 0.05 10*3/uL Normal <0.10 [facility] Comment on above: Order Comment: Speci men Type: BLOOD SPECIMEN Ordering Facility: [facility] Address: [address] [place] [address] Performed By: #### 5 7021-8 #### [facility] [id number] [address] [place] [address] [place] Immature granulocytes/100 WBC (Bld) 0.5 % Normal [facility] Comment on above: Order Comment: Speci men Type: BLOOD SPECIMEN Ordering Facility: [facility] Address: [address] [place] [address] Performed By: #### 5 7021-8 #### [facility] CLIA [id number] [address] [place] [address] [place] Lymphocytes (Bld) [#/Vol] 1.77 10*3/uL Normal 1.00-4.00 [facility] Comment on above: Order Comment: Speci men Type: BLOOD SPECIMEN Ordering Facility: [facility] Address: [address] [place] [address] Performed By: #### 5 7021-8 #### [facility] CLIA [id number] [address] [place] [address] [place] Lymphocytes/100 WBC (Bld) 17.9 % Normal [facility] Comment on above: Order Comment: Speci men Type: BLOOD SPECIMEN Ordering Facility: [facility] Address: [address] [place] [address] Performed By: #### 5 7021-8 #### [facility] CLIA [id number] [address] [place] [address] [place] MCH (RBC) [Entitic mass] 28.8 pg Normal 26.0-34.0 [facility] Comment on above: Order Comment: Speci men Type: BLOOD SPECIMEN Ordering Facility: [facility] Address: [address] [place] [address] Performed By: #### 5 7021-8 #### [facility] CLIA [id number] [address] [place] [address] [place] MCHC (RBC) [Mass/Vol] 31.0 g/dL Normal 30.5-36.0 [facility] Comment on above: Order Comment: Speci men Type: BLOOD SPECIMEN Ordering Facility: [facility] Address: [address] [place] [address] Performed By: #### 5 7021-8 #### [facility] CLIA [id number] [address] [place] [address] [place] MCV (RBC) [Entitic vol] 93.1 fL Normal 80.0-100.0 [facility] Comment on above: Order Comment: Speci men Type: BLOOD SPECIMEN Ordering Facility: [facility] Address: [address] [place] [address] Performed By: #### 5 7021-8 #### [facility] CLIA [id number] [address] [place] [address] [place] Monocytes (Bld) [#/Vol] 0.65 10*3/uL Normal <0.87 [facility] Comment on above: Order Comment: Speci men Type: BLOOD SPECIMEN Ordering Facility: [facility] Address: [address] [place] [address] Performed By: #### 5 7021-8 #### [facility] CLIA [id number] [address] [place] [address] [place] Monocytes/100 WBC (Bld) 6.6 % Normal [facility] Comment on above: Order Comment: Speci men Type: BLOOD SPECIMEN Ordering Facility: [facility] Address: [address] [place] [address] Performed By: #### 5 7021-8 #### [facility] CLIA [id number] [address] [place] [address] [place] Neutrophils (Bld) [#/Vol] 7.13 10*3/uL Normal 1.45-7.50 [facility] Comment on above: Order Comment: Speci men Type: BLOOD SPECIMEN Ordering Facility: [facility] Address: [address] [place] [address] Performed By: #### 5 7021-8 #### [facility] CLIA [id number] [address] [place] [address] [place] Neutrophils/100 WBC (Bld) 71.9 % Normal [facility] Comment on above: Order Comment: Speci men Type: BLOOD SPECIMEN Ordering Facility: [facility] Address: [address] [place] [address] Performed By: #### 5 7021-8 #### [facility] CLIA [id number] [address] [place] [address] [place] Nucleated RBC (Bld) [#/Vol] 0.03 10*3/uL High <0.01 [facility] Comment on above: Order Comment: Speci men Type: BLOOD SPECIMEN Ordering Facility: [facility] Address: [address] [place] [address] Performed By: #### 5 7021-8 #### [facility] [id number] [address] [place] [address] [place] Nucleated RBC/100 WBC (Bld) [Ratio] 0.3 /100 WBC Normal [facility] Comment on above: Order Comment: Speci men Type: BLOOD SPECIMEN Ordering Facility: [facility] Address: [address] [place] [address] Performed By: #### 5 7021-8 #### [facility] [id number] [address] [place] [address] [place] Platelet mean volume (Bld) [Entitic vol] 11.0 fL Normal 9.0-12.7 [facility] Comment on above: Order Comment: Speci men Type: BLOOD SPECIMEN Ordering Facility: [facility] Address: [address] [place] [address] Performed By: #### 5 7021-8 #### [facility] [id number] [address] [place] [address] [place] Platelets (Bld) [#/Vol] 412 10*3/uL High 150-400 [facility] Comment on above: Order Comment: Speci men Type: BLOOD SPECIMEN Ordering Facility: [facility] Address: [address] [place] [address] Result Comment: No c lot detected. Performed By: #### 5 7021-8 #### [facility] CLIA [id number] [address] [place] [address] [place] RBC (Bld) [#/Vol] 3.78 10*6/uL Low 4.20-6.00 [facility] Comment on above: Order Comment: Speci men Type: BLOOD SPECIMEN Ordering Facility: [facility] Address: [address] [place] [address] Performed By: #### 5 7021-8 #### [facility] CLIA [id number] [address] [place] [address] [place] WBC (Bld) [#/Vol] 9.91 10*3/uL Normal 3.70-11.00 [facility] Comment on above: Order Comment: Speci men Type: BLOOD SPECIMEN Ordering Facility: [facility] Address: [address] [place] [address] Performed By: #### 5 7021-8 #### [facility] CLIA [id number] [address] [place] [address] [place] Calculated very low density lipoprotein (VLDL) cholesterol measurementOrdered By: Jon Woodruff on 08-05-2025 Calculated very low density lipoprotein (VLDL) cholesterol measurement 16 mg/dL 5-40 [facility] Carotid Duplex Ultrasoundon 08-05-2025 Carotid Duplex Ultrasound [facility] [address] [place] [address] Carotid Duplex Ultrasound 08/05/25 1059 MR#: [id number] Acct: [id number] Name: KSENIA GALLARDO Rep #: [id number] : 1935 89 From: Prince Gay MD Attending Dr: Dr. Jon Woodruff MD Status: REG CLI Ordering Dr: Jon Woodruff MD Date: 08/05/25 Location: CVS Sex: M C Admitted: Reason For Study Reason For Study: Carotid stenosis Rt. Velocities/BP Lt. Velocities/BP Prox CCA 40.4/10.7 cm/sec. Prox CCA 45.8/9.5 cm/sec. Mid CCA 43/13.3 cm/sec. Mid CCA 43.6/13 cm/sec. Dist CCA 35.1/11.6 cm/sec. Dist CCA 35.1/12.3 cm/sec. Prox ICA 55.1/14.5 cm/sec. Prox ICA 96.1/34.8 cm/sec. Mid ICA 81.5/25.8 cm/sec. Mid ICA 72.8/22.5 cm/sec. Dist ICA 59.8/20.1 cm/sec. Dist ICA 91.2/24.9 cm/sec. Rt. ICA/CCA = 1.90. Lt. ICA/CCA = 2.20. Prox ECA 47.2/4.5 cm/sec. Prox ECA 33.6/3.7 cm/sec. Rt. Vert. 33/10.9 cm/sec. Lt. Vert. 40.9/15.4 cm/sec. Right Extracranial There is intimal thickening but no significant atherosclerotic plaque noted in the right common carotid artery. There is heterogeneous, irregular atherosclerotic plaque noted in the right internal carotid artery. There is heterogeneous, irregular atherosclerotic plaque noted in the right external carotid artery. Antegrade flow is noted in the right vertebral artery. Left Extracranial There is homogeneous, smooth atherosclerotic plaque noted in the left common carotid artery. There is heterogeneous, irregular atherosclerotic plaque noted in the left internal carotid artery. There is heterogeneous, irregular atherosclerotic plaque noted in the left external carotid artery. Antegrade flow is noted in the left vertebral artery. Procedure Carotid Duplex 40579. This is a Carotid Duplex examination using B-mode, color flow and specral Doppler. Exam performed in department. VL/Carotid Duplex Ultrasound Interpretation Summary Mild (<50%) stenosis right extracranial internal carotid. Mild (<50%) stenosis left extracranial internal carotid. Patent and antegrade vertebrals bilaterally. Mild (<50%) stenosis right extracranial internal carotid. Mild (<50%) stenosis left extracranial internal carotid. Patent and antegrade vertebrals bilaterally. Limited due to calcific shadowing, alternative imaging may be beneficial. Ordering Physician: Jon Woodruff Performed By: Liliya Hare RVT 08/05/25 1500 Date Prince Gay MD CC: Dr. Jon Woodruff MD; No Primary Care Physician Date Dictated: 08/05/25 1059 Date Transcribed: 08/05/25 1500 Attorney General: Signed Normal [facility] Duplex ultrasound of carotid artery reportOrdered By: Prince Gay on 08-05-2025 Study report [facility] [address] [place] [address] Carotid Duplex Ultrasound 08/05/25 1059 MR#: [id number] Acct: [id number] Name: KSENIA GALLARDO Rep #:[id number] : 1935 89 From: Prince Balderas Attending Dr: Dr. Jon Woodruff MD Status: REG CLI Ordering Dr: Jon Woodruff MD Date: Location: CVS Sex: M C Admitted: Reason For Study Reason For Study: Carotid stenosis Rt. Velocities/BP Lt. Velocities/BP Prox CCA 40.4/10.7 cm/sec. Prox CCA 45.8/9.5 cm/sec. Mid CCA 43/13.3 cm/sec. Mid CCA 43.6/13 cm/sec. Dist CCA 35.1/11.6 cm/sec. Dist CCA 35.1/12.3 cm/sec. Prox ICA 55.1/14.5 cm/sec. Prox ICA 96.1/34.8 cm/sec. Mid ICA 81.5/25.8 cm/sec. Mid ICA 72.8/22.5 cm/sec. Dist ICA 59.8/20.1 cm/sec. Dist ICA 91.2/24.9 cm/sec. Rt. ICA/CCA = 1.90. Lt. ICA/CCA = 2.20. Prox ECA 47.2/4.5 cm/sec. Prox ECA 33.6/3.7 cm/sec. Rt. Vert. 33/10.9 cm/sec. Lt. Vert. 40.9/15.4 cm/sec. Right Extracranial There is intimal thickening but no significant atherosclerotic plaque noted in the right common carotid artery. There is heterogeneous, irregular atherosclerotic plaque noted in the right internal carotid artery. There is heterogeneous, irregular atherosclerotic plaque noted in the right external carotid artery. Antegrade flow is noted in the right vertebral artery. Left Extracranial There is homogeneous, smooth atherosclerotic plaque noted in the left common carotid artery. There is heterogeneous, irregular atherosclerotic plaque noted in the left internal carotid artery. There is heterogeneous, irregular atherosclerotic plaque noted in the left external carotid artery. Antegrade flowis noted in the left vertebral artery. Procedure Carotid Duplex [address]254. This is a Carotid Duplex examination using B-mode, color flow and specral Doppler. Exam performed in department. VL/Carotid Duplex Ultrasound Interpretation Summary Mild (<50%) stenosis right extracranial internal carotid. Mild (<50%) stenosis left extracranial internal carotid. Patent and antegrade vertebrals bilaterally. Mild (<50%) stenosis right extracranial internal carotid. Mild (<50%) stenosis left extracranial internal carotid. Patent and antegrade vertebrals bilaterally. Limited due to calcific shadowing, alternative imaging may be beneficial. Ordering Physician: Jon Woodruff Performed By: Liliya Hare RVT 08/05/25 1500 Date _ Prince Gay MD CC: Dr. Jon Woodruff MD; No Primary Care Physician ~ Date Dictated: 08/05/25 1059 Date Transcribed: 08/05/25 1500 Attorney General: Signed [facility] Work Phone: LDL calc ser/plasOrdered By: Jon Woodruff on 08-05-2025 Cholesterol in LDL [Mass/Vol] 63 mg/dL [facility] Comment on above: Nxoabyeztp=316-859 m g/dL & Higher Iuly=160 mg/dL or greaterFriedwald Equation for LDL-C Lipid Profileon 08-05-2025 CHOL:HDL 4.21 Normal [facility] Comment on above: Performed By: #### L 500.4100 #### [facility] [address] [place], [place], [id number] Cholesterol [Mass/Vol] 104 mg/dL Normal <=200 [facility] Comment on above: Result Comment: Chol esterol level, Desirable <200 mg/dL Borderline high cholesterol 200-239 mg/dL High cholesterol >=240 mg/dL Recommendations of the NCEP Adult Treatment Panel for the following risk-cutoff thresholds for the [place] population. Performed By: #### L 500.4100 #### [facility] [address] [place], [place], [id number] Cholesterol in HDL [Mass/Vol] 25 mg/dL Low [facility] Comment on above: Result Comment: [place]lin onal Cholesterol Education Program (NCEP) guidelines: <40 mg/dL: Low HDL-cholesterol (major risk factor for CHD) >= 60 mg/dL: High HDL-cholesterol (negative risk factor for CHD) HDL-cholesterol is affected by a number of factors, e.g. smoking, exercise, hormones, sex and age. Performed By: #### L 500.4100 #### [facility] [address] [place], [address] Cholesterol in LDL [Mass/Vol] 63 mg/dL Normal [facility] Comment on above: Result Comment: Bord oqppvq=015-956 mg/dL Higher Swyp=023 mg/dL or greater Friedwald Equation for LDL-C Performed By: #### L 500.4100 #### [facility] [address] [place], [address] Cholesterol in VLDL [Mass/Vol] 16 mg/dL Normal 5-40 [facility] Comment on above: Performed By: #### L 500.4100 #### [facility] [address] [place], [address] Triglyceride [Mass/Vol] 82 mg/dL Normal [facility] Comment on above: Result Comment: The drugs N-Acetylcysteine and Metamizole may falsely depress this assay. Normal range: <150 mg/dL Borderline High: 150-199 mg/dL High: 200-499 mg/dL Very High: >500 mg/dL Performed By: #### L 500.4100 #### [facility] [address] [place], [address] Screening total cholesterol/ high density lipoprotein (HDL) cholesterol ratioOrdered By: Jon Woodruff on 08-05-2025 Cholesterol.total/Chol esterol in HDL [Mass ratio] 4.21 {ratio} [facility] Serum or plasma cholesterol in HDL measurement (mass/volume)Ordered By: Jon Woodruff on 08-05-2025 Cholesterol in HDL [Mass/Vol] 25 mg/dL Low >40 [facility] Comment on above: National Cholesterol Education Program (NCEP) guidelines:<40 mg/dL: Low HDL-cholesterol (major risk factor for CHD)>= 60 mg/dL: High HDL-cholesterol (negative risk factor for CHD)HDL-cholesterol is affected by a number of factors, e.g. smoking, exercise, hormones, sex and age. Serum or plasma cholesterol measurement (mass/volume)Ordered By: Jon Woodruff on 08-05-2025 Cholesterol [Mass/Vol] 104 mg/dL <201 [facility] Comment on above: Cholesterol level, D esirable <200 mg/dLBorderline high cholesterol 200-239 mg/dLHigh cholesterol >=240 mg/dLRecommendations of the NCEP Adult Treatment Panel for the following risk-cutoff thresholds for the [place] population. Triglycerides measurementOrd ered By: Jon Woodruff on 08-05-2025 Triglyceride [Mass/Vol] 82 mg/dL <199 [facility] Comment on above: The drugs N-Acetylcy steine and Metamizole may falsely depress this assay. Normal range: <150 mg/dLBorderline High: 150-199 mg/dLHigh: 200-499 mg/dLVery High: >500 mg/dL Cardiology Visit Reporton Cardiology Visit Report [facility] [address] [place] [address] OFFICE VISIT Date of Service: 07/29/25 MR#: [id number] Acct: [id number] Name: KSENIA GALLARDO Rep #: [id number] : 1935 Provider: Dr. Jon Woodruff MD Age/Sex: 89/M Location: [facility] [place] Status: Signed HPI HPI History of Present Illness Details: This gentleman has past medical history significant for coronary artery disease status post three- vessel CABG in 2007, last coronary angiography revealed atretic VERA to the LAD however the white [place] LAD itself was noted to have only 30% lesion. SVGs to the diagonal and obtuse marginal branch were noted to be patent. Also history of aortic valve stenosis, atrial fibrillation, dyslipidemia and hypertension. Patient is here to establish cardiac care with us. Denies any chest pains or shortness of breath either at rest or with exertion. Denies orthopnea or PND. Complains of lower extremity edema since his medications were changed. Denies any palpitations. Patient was previously taking apixaban however he stopped it after experiencing a nosebleed. Denies any frequent falls. Intake Vital Signs 07/14/21 14:23 07/29/25 10:05 Height 6 ft 6 ft Weight: 169 lb 169 lb BMI 22.9 22.9 BP 144/84 H Blood Pressure Location Rt brachial Position Sitting Respiration 18 Pulse 100 Pulse Source Monitor Intake Visit Reasons: AFIB (NEENA) Imaging System Administrator Required: No Accompanied by: Is patient in pain?: No Allergies No Known Allergies Allergy (Unverified 07/29/25 09:52) Medications ???Medication ???Instructions ???Recorded ???Confirmed ???Type aspirin 81 mg tablet,delayed 81 mg PO DAILY 06/27/21 07/29/25 H istory release (Adult Low Dose Aspirin) cholecalciferol (vitamin D3) 125 125 mcg PO DAILY 07/14/21 07/29/25 History mcg (5,000 unit) capsule losartan 50 mg tablet 50 mg PO DAILY #90 tabs 07/14/21 0 07/15/25 Rx amlodipine 5 mg tablet 5 mg PO QDAY 07/29/25 07/29/25 His tory apixaban 5 mg tablet (Eliquis) 5 mg PO BID 07/29/25 07/29/25 Hist ory furosemide 20 mg tablet (Lasix) 20 mg PO QAM 07/29/25 07/29/25 His tory hydroxyurea 500 mg capsule 500 mg PO DAILY 07/29/25 07/29/25 History metoprolol tartrate 25 mg tablet 25 mg PO BID 07/29/25 07/29/25 His tory rosuvastatin 20 mg tablet 20 mg PO QDAY 07/29/25 07/29/25 Hi story Ejection fraction %: 55 Have you fallen in the past year?: Yes (tripped and slid down wall) [facility] Medical History (Updated 07/29/25 @ 10:[address] Jon Woodruff MD) Edema Atrial fibrillation Iron deficiency anemia Obstructive sleep apnea Lipoprotein deficiency disorder Diverticular disease of colon Essential hypertension History of pulmonary embolus (PE) (12/2007) Myelodysplastic syndrome Essential thrombocytosis Atherosclerosis of coronary artery of white earth heart without angina pectoris Surgical History History of coronary artery bypass surgery (12/31/07) History of left heart catheterization (12/29/07) Social History (Updated 07/15/25 @ 16:27 by Linnea Kelley LPN) Smoking Status: Former smoker substance use type: does not use ROS Const Const: Positive for fatigue and weakness Eyes Eyes: Negative for change in vision ENT ENT: Negative for dizziness or balance problems Cardio Chest Pain: No Palpitations: No Edema: Bilateral Resp Respiratory: Positive for SOB with activity; Negative for SOB at rest or SOB orthopnea SOB lying down GI GI: Negative nausea or heartburn Musc Musc: Negative for balance problems Neuro Neuro: Positive for weakness; Negative for dizziness, lightheadedness, near syncope or syncope Endo Endo: Positive for fatigue Cardiology Exam Exam Narrative No apparent distress. No carotid bruit. Heart sounds 1 and 2 noted. 3/6 systolic murmur at apex and base. Chest clear to auscultation bilaterally. Alert oriented x 3. 2+ bilateral lower extremity edema. Supplemental Info Supplemental Information Labs: No Data to Display Diagnostics: Electrocardiogram Pulmonary: No Data to Display Past Visits: Cardiology Visit 07/29/25 Assessment and Plan Assessment and Plan (1) Coronary artery disease: Status: Chronic Plan: CABG in 2007. VERA to the LAD atretic however white earth LAD without any significant lesions. Beta-blockers. Risk factor modification. Change metoprolol to extended release 100 mg daily. (2) History of coronary artery bypass surgery: Status: Acute Comment: CABG x 3:VERA to LAD, SVG to Diagonal and marginal 12/31/07 Plan: See #1 above. (3) Aortic valve stenosis: Status: Chronic Plan: Check echocardiogram. (4) Atrial fibrillation: Status: Chronic Plan: (more content not included)... Normal [facility] CBC W Auto Differential pane l (Bld)on 07-21-2025 Basophils (Bld) [#/Vol] 0.07 10*3/uL Normal <0.11 [facility] Comment on above: Order Comment: Mikey pires Type: BLOOD SPECIMEN Ordering Facility: [facility] Address: [address] [place] [address] Performed By: #### 5 7021-8 #### [facility] CLIA [id number] [address] [place], [place] [id number] [place] Basophils/100 WBC (Bld) 0.9 % Normal [facility] Comment on above: Order Comment: Mikey pires Type: BLOOD SPECIMEN Ordering Facility: [facility] Address: [address] [place] [address] Performed By: #### 5 7021-8 #### [facility] CLIA [id number] [address] [place] [address] [place] Differential cell count method Nom (Bld) Auto Normal [facility] Comment on above: Order Comment: Speci men Type: BLOOD SPECIMEN Ordering Facility: [facility] Address: [address] [place] [address] Performed By: #### 5 7021-8 #### [facility] CLIA [id number] [address] [place] [address] [place] Eosinophils (Bld) [#/Vol] 0.15 10*3/uL Normal <0.46 [facility] Comment on above: Order Comment: Speci men Type: BLOOD SPECIMEN Ordering Facility: [facility] Address: [address] [place] [address] Performed By: #### 5 7021-8 #### [facility] CLIA [id number] [address] [place] [address] [place] Eosinophils/100 WBC (Bld) 1.8 % Normal [facility] Comment on above: Order Comment: Speci men Type: BLOOD SPECIMEN Ordering Facility: [facility] Address: [address] [place] [address] Performed By: #### 5 7021-8 #### [facility] CLIA [id number] [address] [place] [address] [place] Erythrocyte distribution width (RBC) [Ratio] 26.6 % High 11.5-15.0 [facility] Comment on above: Order Comment: Speci men Type: BLOOD SPECIMEN Ordering Facility: [facility] Address: [address] [place], [place] [address] Performed By: #### 5 7021-8 #### [facility] CLIA [id number] [address] [place] [address] [place] Hematocrit (Bld) [Volume fraction] 39.1 % Normal 39.0-51.0 [facility] Comment on above: Order Comment: Speci men Type: BLOOD SPECIMEN Ordering Facility: [facility] Address: [address] [place] [address] Performed By: #### 5 7021-8 #### [facility] CLIA [id number] [address] [place] [address] [place] Hemoglobin (Bld) [Mass/Vol] 11.9 g/dL Low 13.0-17.0 [facility] Comment on above: Order Comment: Speci men Type: BLOOD SPECIMEN Ordering Facility: [facility] Address: [address] [place] [address] Performed By: #### 5 7021-8 #### [facility] CLIA [id number] [address] [place] [address] [place] Immature granulocytes (Bld) [#/Vol] 0.04 10*3/uL Normal <0.10 [facility] Comment on above: Order Comment: Speci men Type: BLOOD SPECIMEN Ordering Facility: [facility] Address: [address] [place] [address] Performed By: #### 5 7021-8 #### [facility] CLIA [id number] [address] [place] [address] [place] Immature granulocytes/100 WBC (Bld) 0.5 % Normal [facility] Comment on above: Order Comment: Speci men Type: BLOOD SPECIMEN Ordering Facility: [facility] Address: [address] [place] [address] Performed By: #### 5 7021-8 #### [facility] CLIA [id number] [address] [place] [address] [place] Lymphocytes (Bld) [#/Vol] 1.67 10*3/uL Normal 1.00-4.00 [facility] Comment on above: Order Comment: Speci men Type: BLOOD SPECIMEN Ordering Facility: [facility] Address: [address] [place] [address] Performed By: #### 5 7021-8 #### [facility] CLIA [id number] [address] [place] [address] [place] Lymphocytes/100 WBC (Bld) 20.4 % Normal [facility] Comment on above: Order Comment: Speci men Type: BLOOD SPECIMEN Ordering Facility: [facility] Address: [address] [place] [address] Performed By: #### 5 7021-8 #### [facility] CLIA [id number] [address] [place] [address] [place] MCH (RBC) [Entitic mass] 29.8 pg Normal 26.0-34.0 [facility] Comment on above: Order Comment: Speci men Type: BLOOD SPECIMEN Ordering Facility: [facility] Address: [address] [place] [address] Performed By: #### 5 7021-8 #### [facility] CLIA [id number] [address] [place] [address] [place] MCHC (RBC) [Mass/Vol] 30.4 g/dL Low 30.5-36.0 [facility] Comment on above: Order Comment: Speci men Type: BLOOD SPECIMEN Ordering Facility: [facility] Address: [address] [place] [address] Performed By: #### 5 7021-8 #### [facility] CLIA [id number] [address] [place] [address] [place] MCV (RBC) [Entitic vol] 97.8 fL Normal 80.0-100.0 [facility] Comment on above: Order Comment: Speci men Type: BLOOD SPECIMEN Ordering Facility: [facility] Address: [address] [place] [address] Performed By: #### 5 7021-8 #### [id number] [address] [place] [address] [place] Monocytes (Bld) [#/Vol] 0.53 10*3/uL Normal <0.87 [facility] Comment on above: Order Comment: Speci men Type: BLOOD SPECIMEN Ordering Facility: [facility] Address: [address] [place] [address] Performed By: #### 5 7021-8 #### [facility] CLIA [id number] [address] [place] [address] [place] Monocytes/100 WBC (Bld) 6.5 % Normal [facility] Comment on above: Order Comment: Speci men Type: BLOOD SPECIMEN Ordering Facility: [facility] Address: [address] [place] [address] Performed By: #### 5 7021-8 #### [facility] CLIA [id number] [address] [place] [address] [place] Neutrophils (Bld) [#/Vol] 5.74 10*3/uL Normal 1.45-7.50 [facility] Comment on above: Order Comment: Speci men Type: BLOOD SPECIMEN Ordering Facility: [facility] Address: [address] [place] [address] Performed By: #### 5 7021-8 #### [facility] CLIA [id number] [address] [place] [address] [place] Neutrophils/100 WBC (Bld) 69.9 % Normal [facility] Comment on above: Order Comment: Speci men Type: BLOOD SPECIMEN Ordering Facility: [facility] Address: [address] [place] [address] Performed By: #### 5 7021-8 #### [facility] CLIA [id number] [address] [place] [address] [place] Nucleated RBC (Bld) [#/Vol] 10*3/uL Normal <0.01 [facility] Comment on above: Order Comment: Speci men Type: BLOOD SPECIMEN Ordering Facility: [facility] Address: [address] [place] [address] Performed By: #### 5 7021-8 #### [facility] CLIA [id number] [address] [place] [address] [place] Nucleated RBC/100 WBC (Bld) [Ratio] 0.0 /100 WBC Normal [facility] Comment on above: Order Comment: Speci men Type: BLOOD SPECIMEN Ordering Facility: [facility] Address: [address] [place] [address] Performed By: #### 5 7021-8 #### [facility] CLIA [id number] [address] [place] [address] [place] Platelet mean volume (Bld) [Entitic vol] 10.7 fL Normal 9.0-12.7 [facility] Comment on above: Order Comment: Speci men Type: BLOOD SPECIMEN Ordering Facility: [facility] Address: [address] [place] [address] Performed By: #### 5 7021-8 #### [facility] CLIA [id number] [address] [place] [address] [place] Platelets (Bld) [#/Vol] 393 10*3/uL Normal 150-400 [facility] Comment on above: Order Comment: Speci men Type: BLOOD SPECIMEN Ordering Facility: [facility] Address: [address] [place] [address] Performed By: #### 5 7021-8 #### [facility] CLIA [id number] [address] [place] [address] [place] RBC (Bld) [#/Vol] 4.00 10*6/uL Low 4.20-6.00 [facility] Comment on above: Order Comment: Speci men Type: BLOOD SPECIMEN Ordering Facility: [facility] Address: [address] [place] [address] Performed By: #### 5 7021-8 #### [facility] CLIA [id number] [address] [place] [address] [place] WBC (Bld) [#/Vol] 8.20 10*3/uL Normal 3.70-11.00 [facility] Comment on above: Order Comment: Speci men Type: BLOOD SPECIMEN Ordering Facility: [facility] Address: [address] [id number] Performed By: #### 5 7021-8 #### [facility] CLIA [id number] [address] [place] CNOVSPon 07-21-2025 CNOVSP Visit (SP) Office (HEMAWS) GRIFFINMARICEL MUÑIZT ([id number]) 1935 M Date Time Provider Department 07/21/25 11:00 AM JULIET RUIZ During your visit today, we recorded the following information about you: Temperature Pulse Blood pressure Weight 97.5 degrees 91/minute 173/109 76.4 kg Juliet Ruiz APRN.FARM DEMONSTRATOR 07/21/2025 1:16 PM Signed Chief Complaint Patient presents with: Established Patient HPI: Ksenia Gallardo is a 89 year old male who presents here today for follow up ET/MDS. Per Dr. Neville's previous note: H/o essential thrombocytosis, BILL-2 positive, as well as myelodysplastic syndrome. He also has a history of coronary artery disease, status post CABG earlier in 2008. On Hydrea since 11/2009. Pt. here today with family member. Pt. self discontinued eliquis-prescribed by communications analyst. Appetite:I eat what I want when I want it. Wt. down 4# since last visit. Energy level:Poor. Denies fevers or recent illness. Resp:denies cough or sob Cardiac:denies chest pain/palpitations-fol lowed by cards GI:denies abd pain, n/v, moving bowels regularly :denies dysuria/hematuria Extrem:denies new pain Neuro:denies symptoms of neuropathy Skin:denies rashes Heme:denies bleeding, pt. stopped eliquis, taking baby asa +easy bruising The ROS is otherwise negative. Past medical history, appointments, medications, allergies reviewed. No changes. EXAM: BP 173/109 Pulse 91 Temp 36.4 ?C (97.5 ?F) (Temporal) Wt 76.4 kg (168 lb 6.9 oz) SpO2 98% BMI 24.66 kg/m? APPEARANCE Well appearing, alert, in no acute distress, well-hydrated HEART RRR with normal S1 and S2, no murmurs LUNG clear to auscultation LYMPH NODES No cervical lymphadenopathy, No supraclavicular lymphadenopathy, and No axillary lymphadenopathy. ABDOMEN bowel sounds normoactive, soft, non-tender EXTREMITIES No edema NEURO Awake, alert and oriented x 3, Normal gait, and No involuntary motions. SKIN Skin color, texture, turgor normal, no suspicious rashes or lesions LABS: Latest Ref Rng 04/21/2025 05/17/2025 07/21/2025 WBC 3.70 - 11.00 k/uL 9.70 9.20 8.20 RBC 4.20 - 6.00 m/uL 3.90 (L) 3.78 (L) 4.00 (L) Hemoglobin 13.0 - 17.0 g/dL 11.3 (L) 11.1 (L) 11.9 (L) Hematocrit 39.0 - 51.0 % 37.4 (L) 35.7 (L) 39.1 MCV 80.0 - 100.0 fL 95.9 94.4 97.8 MCH 26.0 - 34.0 pg 29.0 29.4 29.8 MCHC 30.5 - 36.0 g/dL 30.2 (L) 31.1 30.4 (L) RDW-CV 11.5 - 15.0 % 26.4 (H) 27.8 (H) 26.6 (H) Platelet Count 150 - 400 k/uL 457 (H) 572 (H) 393 MPV 9.0 - 12.7 fL 10.7 12.2 10.7 Neut% % 70.5 68.1 69.9 Abs Neut (ANC) 1.45 - 7.50 k/uL 6.83 6.27 5.74 Lymph% % 21.2 22.2 20.4 Abs Lymph 1.00 - 4.00 k/uL 2.06 2.04 1.67 [place]% % 5.9 6.3 6.5 Abs [place] <0.87 k/uL 0.57 0.58 0.53 Eosin% % 1.0 1.3 1.8 Abs Eosin <0.46 k/uL 0.10 0.12 0.15 Baso% % 0.9 0.8 0.9 Abs Baso <0.11 k/uL 0.09 0.07 0.07 Immature Gran % % 0.5 1.3 0.5 IMMATURE GRANS (ABS) <0.10 k/uL 0.05 0.12 (H) 0.04 NRBC /100 WBC 0.3 0.2 0.0 Absolute nRBC <0.01 k/uL 0.03 (H) 0.02 (H) <0.01 DTYPE Auto Auto Auto Iron studies: Pending ASSESSMENT/PLAN: 1. Essential thrombocytosis - ICD9: 238.71, ICD10: D47.3 (primary diagnosis) 2. MDS (myelodysplastic syndrome), low grade (HCC) - ICD9: 238.72, ICD10: D46.Z Per Dr. 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 -Diagnosed with atrial fibrillation and started on anticoagulation. -Bone marrow biopsy in detail. MDS/MPN overlap. -Reviewed CBC. Anemia overall stable. No bleeding issues. Discussed continued dosing hydroxyurea at 500 mg daily. Plan: -Continue Hydrea -Continue ASA daily. -Continue apixaban. -Will discuss luspatercept next OV. -Follow-up with cardiology and PCP for management of other modifiable cardiac risk factors including BP. - Overall tolerating hydrea/asa well. - Reviewed CBC with pt. and family member. - Iron studies pending. - Pt. asked same questions multiple times. - Advised pt. to continue current dose of hydrea. - Continue baby asa. - Advised pt. to call his communications analyst and let them know that he stopped eliquis. - Continue follow up with PCP for routine care. - Continue CBC monthly. - Follow up with Dr. Neville in 3 months with CBC/iron studies. - Pt. aware to call office with any questions/concerns. The patient indicates understanding of these issues and agrees with the plan. All documentation from previous visit of 04/21/25-Dr. Neville/myself was copied and pasted, documentation has been reviewed and edited as necessary for today's visit. Juliet Ruiz APRN.CNP Allergies As of Date: 07/21/2025 (No Known Allergies) Date Reviewed: 07/21/2025 Reviewed by: Juliet Ruiz APRN.FARM DEMONSTRATOR - Fully Assessed Reason for Visit: Established Patient [175] Primary Visit Diagnosis:Essential thrombocytosis [D47.3] Other Visit Diagnosis:MDS (myelodysplastic syndrome), low grade (HCC) [D46.Z] Follow (more content not included)... Normal [facility] Ferritin SerPl-ncon 2024 Ferritin [Mass/Vol] 482.0 ng/mL Normal 30.3-565.7 [facility] Comment on above: Order Comment: Speci men Type: BLOOD SPECIMEN Ordering Facility: [facility] Address: [address] [place], [place] [address] Performed By: #### 5 7021-8 #### [id number] [address] [place] [address] [place] Iron and Iron binding capaci [facility] 07-21-2025 Iron [Mass/Vol] 67 ug/dL Normal 41-186 [facility] Comment on above: Order Comment: Speci men Type: BLOOD SPECIMEN Ordering Facility: [facility] Address: [address] [place] [address] Performed By: #### 5 7021-8 #### [facility] CLIA [id number] [address] [place] [address] [place] Iron binding capacity [Mass/Vol] 252 ug/dL Normal 232-386 [facility] Comment on above: Order Comment: Speci men Type: BLOOD SPECIMEN Ordering Facility: [facility] Address: [address] [place] [address] Performed By: #### 5 7021-8 #### [facility] CLIA [id number] [address] [place] [address] Iron/TIBC [Molar ratio] 26.6 % Normal 15.0-57.0 [facility] Comment on above: Order Comment: Speci men Type: BLOOD SPECIMEN Ordering Facility: [facility] Address: [address] [place] [address] Performed By: #### 5 7021-8 #### [facility] CLIA [id number] [address] [place] [address] CMP with eGFRon 07-05-2025 AGE 89 years Normal [facility] Comment on above: Performed By: #### 2 53462 #### [facility],[address] [place] [address] Albumin [Mass/Vol] 3.8 g/dL Normal 3.4 - 5.0 [facility] Comment on above: Performed By: #### 2 65144 #### [facility],[address] [place] [address]262 Albumin/Globulin [Mass ratio] 2.0 {ratio} High 0.9 - 1.6 [facility] Comment on above: Performed By: #### 2 74854 #### [facility],[address] [place] [address] ALK PHOS 65 U/L Normal 46 - 116 [facility] Comment on above: Performed By: #### 2 97177 #### [facility],[address] [place] [address]4513 ALT [Catalytic activity/Vol] 23 U/L Normal 16 - 63 [facility] Comment on above: Performed By: #### 2 20885 #### [facility],[address] [place] [address]82 Anion gap [Moles/Vol] 12 mmol/L Normal 10 - 20 [facility] Comment on above: Performed By: #### 2 15353 #### [facility],[address] [place] [address] AST [Catalytic activity/Vol] 24 U/L Normal 15 - 37 [facility] Comment on above: Performed By: #### 2 77395 #### [facility],[address] [place] [address] B/C RATIO 10 ratio Normal 0 - 30 [facility] Comment on above: Performed By: #### 2 05786 #### [facility],[address] [place] [address] Bilirubin [Mass/Vol] 0.9 mg/dL Normal 0.2 - 1.0 [facility] Comment on above: Performed By: #### 2 09149 #### [facility],[address] [place] [address] Calcium [Mass/Vol] 9.0 mg/dL Normal 8.5 - 10.1 [facility] Comment on above: Performed By: #### 2 76799 #### [facility],[address] [place] [address] Chloride [Moles/Vol] 107 mmol/L Normal 98 - 107 [facility] Comment on above: Performed By: #### 2 35460 #### [facility],[address] [place] [address]16 CMP with eGFR Normal [facility] Comment on above: Result Comment: COMP REHENSIVE METABOLIC PANEL Performed By: #### 2 68160 #### [facility],[address] [place] [address] CO2 [Moles/Vol] 31.5 mmol/L Normal 21.0 - 32.0 [facility] Comment on above: Performed By: #### 2 77460 #### [facility],[address] [place] [address]853 Creatinine [Mass/Vol] 1.15 mg/dL Normal 0.70 - 1.30 [facility] Comment on above: Performed By: #### 2 10871 #### [facility],[address] [place] [address] 54782 eGFR 60 ML/MINUTE Normal 60 - 999 [facility] Comment on above: Performed By: #### 2 54793 #### [facility],[address] [place] [address]67 GFR/1.73 sq M.predicted among non-blacks MDRD (S/P/Bld) [Vol rate/Area] mL/min/{1.73_m2} Normal 60 - 999 [facility] Comment on above: Result Comment: ACCO RDING TO THE NATIONAL KIDNEY DISEASE EDUCATION PROGRAM(NKDE), A NORMAL eGFR IS A VALUE GREATER THAN OR EQUAL TO 60 ML/MIN/1.73 SQ METERS. CHRONIC KIDNEY DISEASE: <60mL/MIN/1.73 SQ METERS KIDNEY FAILURE: <15mL/MIN/1.73 SQ METERS THIS TEST SHOULD ONLY BE USED FOR PATIENTS 18 YEARS OF AGE AND OLDER. Performed By: #### 2 55396 #### [address] [address] Globulin (S) [Mass/Vol] 1.9 g/dL Normal 1.5 - 3.8 [facility] Comment on above: Performed By: #### 2 84082 #### [facility],[address] [place] [address] 12597 Glucose [Mass/Vol] 94 mg/dL Normal 74 - 106 [facility] Comment on above: Performed By: #### 2 01184 #### [address] [address] Potassium [Moles/Vol] 4.1 mmol/L Normal 3.5 - 5.1 [facility] Comment on above: Performed By: #### 2 20250 #### [facility],[address] [place] [address]002 Protein [Mass/Vol] 5.7 g/dL Low 6.4 - 8.2 [facility] Comment on above: Performed By: #### 2 81736 #### [facility],[address] [place] [address] Sodium [Moles/Vol] 146 mmol/L High 136 - 145 [facility] Comment on above: Performed By: #### 2 92913 #### [facility],[address] [place] [address] Urea nitrogen [Mass/Vol] 12 mg/dL Normal 7 - 18 [facility] Comment on above: Performed By: #### 2 92087 #### [facility],[address] [place] [address] MAGNESIUMon 07-05-2025 Magnesium [Mass/Vol] 2.2 mg/dL Normal 1.8 - 2.4 [facility] Comment on above: Performed By: #### 2 30125 #### [facility],[address] [place], [place] [address] CBC W Auto Differential pane l (Bld)on 05-17-2025 Basophils (Bld) [#/Vol] 0.07 10*3/uL Normal <0.11 [facility] Comment on above: Order Comment: Speci men Type: BLOOD SPECIMEN Ordering Facility: [facility] Address: [address] [place] [address] Performed By: #### 5 7021-8 #### [facility] CLIA [id number] [address] [place] [address] [place] Basophils/100 WBC (Bld) 0.8 % Normal [facility] Comment on above: Order Comment: Speci men Type: BLOOD SPECIMEN Ordering Facility: [facility] Address: [address] [place] [address] Performed By: #### 5 7021-8 #### [facility] CLIA [id number] [address] [place] [address] [place] Differential cell count method Nom (Bld) Auto Normal [facility] Comment on above: Order Comment: Speci men Type: BLOOD SPECIMEN Ordering Facility: [facility] Address: [facility] [place] [address] Performed By: #### 5 7021-8 #### [facility] CLIA [id number] [address] [place] [address] [place] Eosinophils (Bld) [#/Vol] 0.12 10*3/uL Normal <0.46 [facility] Comment on above: Order Comment: Speci men Type: BLOOD SPECIMEN Ordering Facility: [facility] Address: [address] [place] [address] Performed By: #### 5 7021-8 #### [facility] CLIA [id number] [address] [place] [address] [place] Eosinophils/100 WBC (Bld) 1.3 % Normal [facility] Comment on above: Order Comment: Speci men Type: BLOOD SPECIMEN Ordering Facility: [facility] Address: [address] [place] [address] Performed By: #### 5 7021-8 #### [facility] CLIA [id number] [address] [place] [address] [place] Erythrocyte distribution width (RBC) [Ratio] 27.8 % High 11.5-15.0 [facility] Comment on above: Order Comment: Speci men Type: BLOOD SPECIMEN Ordering Facility: [facility] Address: [address] [place] [address] Performed By: #### 5 7021-8 #### [facility] CLIA [id number] [address] [place] [address] [place] Hematocrit (Bld) [Volume fraction] 35.7 % Low 39.0-51.0 [facility] Comment on above: Order Comment: Speci men Type: BLOOD SPECIMEN Ordering Facility: [facility] Address: [address] [place] [address] Performed By: #### 5 7021-8 #### [facility] CLIA [id number] [address] [place] [address] [place] Hemoglobin (Bld) [Mass/Vol] 11.1 g/dL Low 13.0-17.0 [facility] Comment on above: Order Comment: Speci men Type: BLOOD SPECIMEN Ordering Facility: [facility] Address: [address] [place], [place] [address] Performed By: #### 5 7021-8 #### [facility] CLIA [id number] [address] [place] [address] [place] Immature granulocytes (Bld) [#/Vol] 0.12 10*3/uL High <0.10 [facility] Comment on above: Order Comment: Speci men Type: BLOOD SPECIMEN Ordering Facility: [facility] Address: [address] [place], [place] [address] Performed By: #### 5 7021-8 #### [facility] CLIA [id number] [address] [place] [address] [place] Immature granulocytes/100 WBC (Bld) 1.3 % Normal [facility] Comment on above: Order Comment: Speci men Type: BLOOD SPECIMEN Ordering Facility: [facility] Address: [address] [place] [address] Performed By: #### 5 7021-8 #### [facility] CLIA [id number] [address] [place] [address] [place] Lymphocytes (Bld) [#/Vol] 2.04 10*3/uL Normal 1.00-4.00 [facility] Comment on above: Order Comment: Speci men Type: BLOOD SPECIMEN Ordering Facility: [facility] Address: [address] [place] [address] Performed By: #### 5 7021-8 #### [facility] CLIA [id number] [address] [place], [place] [id number] [place] Lymphocytes/100 WBC (Bld) 22.2 % Normal [facility] Comment on above: Order Comment: Speci men Type: BLOOD SPECIMEN Ordering Facility: [facility] Address: [address] [place] [address] Performed By: #### 5 7021-8 #### [facility] CLIA [id number] [address] [place] [address] [place] MCH (RBC) [Entitic mass] 29.4 pg Normal 26.0-34.0 [facility] Comment on above: Order Comment: Speci men Type: BLOOD SPECIMEN Ordering Facility: [facility] Address: [address] [place] [address] Performed By: #### 5 7021-8 #### [facility] CLIA [id number] [address] [place] [address] [place] MCHC (RBC) [Mass/Vol] 31.1 g/dL Normal 30.5-36.0 [facility] Comment on above: Order Comment: Speci men Type: BLOOD SPECIMEN Ordering Facility: [facility] Address: [address] [place] [address] Performed By: #### 5 7021-8 #### [facility] CLIA [id number] [address] [place] [address] [place] MCV (RBC) [Entitic vol] 94.4 fL Normal 80.0-100.0 [facility] Comment on above: Order Comment: Speci men Type: BLOOD SPECIMEN Ordering Facility: [facility] Address: [address] [place] [address] Performed By: #### 5 7021-8 #### [facility] CLIA [id number] [address] [place] [address] [place] Monocytes (Bld) [#/Vol] 0.58 10*3/uL Normal <0.87 [facility] Comment on above: Order Comment: Speci men Type: BLOOD SPECIMEN Ordering Facility: [facility] Address: [address] [place] [address] Performed By: #### 5 7021-8 #### [facility] CLIA [id number] [address] [place] [address] [place] Monocytes/100 WBC (Bld) 6.3 % Normal [facility] Comment on above: Order Comment: Speci men Type: BLOOD SPECIMEN Ordering Facility: [facility] Address: [address] [place] [address] Performed By: #### 5 7021-8 #### [facility] CLIA [id number] [address] [place] [address] [place] Neutrophils (Bld) [#/Vol] 6.27 10*3/uL Normal 1.45-7.50 [facility] Comment on above: Order Comment: Speci men Type: BLOOD SPECIMEN Ordering Facility: [facility] Address: [address] [place] [address] Performed By: #### 5 7021-8 #### [facility] CLIA [id number] [address] [place] [address] [place] Neutrophils/100 WBC (Bld) 68.1 % Normal [facility] Comment on above: Order Comment: Speci men Type: BLOOD SPECIMEN Ordering Facility: [facility] Address: [address] [place] [address] Performed By: #### 5 7021-8 #### [facility] CLIA [id number] [address] [place] [address] [place] Nucleated RBC (Bld) [#/Vol] 0.02 10*3/uL High <0.01 [facility] Comment on above: Order Comment: Speci men Type: BLOOD SPECIMEN Ordering Facility: [facility] Address: [address] [place] [address] Performed By: #### 5 7021-8 #### [facility] CLIA [id number] [address] [place] [address] [place] Nucleated RBC/100 WBC (Bld) [Ratio] 0.2 /100 WBC Normal [facility] Comment on above: Order Comment: Speci men Type: BLOOD SPECIMEN Ordering Facility: [facility] Address: [address] [place] [address] Performed By: #### 5 7021-8 #### [facility] CLIA [id number] [address] [place] [address] [place] Platelet mean volume (Bld) [Entitic vol] 12.2 fL Normal 9.0-12.7 [facility] Comment on above: Order Comment: Speci lexis Type: BLOOD SPECIMEN Ordering Facility: [facility] Address: [address] [place] [address] Performed By: #### 5 7021-8 #### [facility] CLIA [id number] [address] [place] [address] [place] Platelets (Bld) [#/Vol] 572 10*3/uL High 150-400 [facility] Comment on above: Order Comment: Speci men Type: BLOOD SPECIMEN Ordering Facility: [facility] Address: [address] [place] [address] Result Comment: No c lot detected. Performed By: #### 5 7021-8 #### [facility] CLIA [id number] [address] [place] [address] [place] RBC (Bld) [#/Vol] 3.78 10*6/uL Low 4.20-6.00 [facility] Comment on above: Order Comment: Speci men Type: BLOOD SPECIMEN Ordering Facility: [facility] Address: [address] [place] [address] Performed By: #### 5 7021-8 #### [facility] CLIA [id number] [address] [place] [address] [place] WBC (Bld) [#/Vol] 9.20 10*3/uL Normal 3.70-11.00 [facility] Comment on above: Order Comment: Speci men Type: BLOOD SPECIMEN Ordering Facility: [facility] Address: [address] [place] [address] Performed By: #### 5 7021-8 #### [facility] CLIA [id number] [address] [place] [address] [place] CBC W Auto Differential pane l (Bld)on 04-21-2025 Basophils (Bld) [#/Vol] 0.09 10*3/uL Normal <0.11 [facility] Comment on above: Order Comment: Speci men Type: BLOOD SPECIMEN Ordering Facility: [facility] Address: [address] [place] [address] Performed By: #### 5 7021-8 #### [facility] CLIA [id number] [address] [place] [address] [place] Basophils/100 WBC (Bld) 0.9 % Normal [facility] Comment on above: Order Comment: Speci men Type: BLOOD SPECIMEN Ordering Facility: [facility] Address: [address] [place] [address] Performed By: #### 5 7021-8 #### [facility] CLIA [id number] [address] [place] [address] [place] Differential cell count method Nom (Bld) Auto Normal [facility] Comment on above: Order Comment: Speci men Type: BLOOD SPECIMEN Ordering Facility: [facility] Address: [address] [place] [address] Performed By: #### 5 7021-8 #### [facility] CLIA [id number] [address] [place] [address] [place] Eosinophils (Bld) [#/Vol] 0.10 10*3/uL Normal <0.46 [facility] Comment on above: Order Comment: Speci men Type: BLOOD SPECIMEN Ordering Facility: [facility] Address: [facility] [place] [address] Performed By: #### 5 7021-8 #### [facility] CLIA [id number] [address] [place] [address] [place] Eosinophils/100 WBC (Bld) 1.0 % Normal [facility] Comment on above: Order Comment: Speci men Type: BLOOD SPECIMEN Ordering Facility: [facility] Address: [address] [place] [address] Performed By: #### 5 7021-8 #### [facility] CLIA [id number] [address] [place] [address] [place] Erythrocyte distribution width (RBC) [Ratio] 26.4 % High 11.5-15.0 [facility] Comment on above: Order Comment: Speci men Type: BLOOD SPECIMEN Ordering Facility: [facility] Address: [address] [place] [address] Performed By: #### 5 7021-8 #### [facility] CLIA [id number] [address] [place] [address] [place] Hematocrit (Bld) [Volume fraction] 37.4 % Low 39.0-51.0 [facility] Comment on above: Order Comment: Speci men Type: BLOOD SPECIMEN Ordering Facility: [facility] Address: [address] [place] [address] Performed By: #### 5 7021-8 #### [facility] CLIA [id number] [address] [place] [address] [place] Hemoglobin (Bld) [Mass/Vol] 11.3 g/dL Low 13.0-17.0 [facility] Comment on above: Order Comment: Speci men Type: BLOOD SPECIMEN Ordering Facility: [facility] Address: [address] [place] [address] Performed By: #### 5 7021-8 #### [facility] CLIA [id number] [address] [place] [address] [place] Immature granulocytes (Bld) [#/Vol] 0.05 10*3/uL Normal <0.10 [facility] Comment on above: Order Comment: Speci men Type: BLOOD SPECIMEN Ordering Facility: [facility] Address: [address] [place] [address] Performed By: #### 5 7021-8 #### [facility] CLIA [id number] [address] [place] [address] [place] Immature granulocytes/100 WBC (Bld) 0.5 % Normal [facility] Comment on above: Order Comment: Speci men Type: BLOOD SPECIMEN Ordering Facility: [facility] Address: [address] [place] [address] Performed By: #### 5 7021-8 #### [facility] CLIA [id number] [address] [place] [address] [place] Lymphocytes (Bld) [#/Vol] 2.06 10*3/uL Normal 1.00-4.00 [facility] Comment on above: Order Comment: Speci men Type: BLOOD SPECIMEN Ordering Facility: [facility] Address: [address] [place] [address] Performed By: #### 5 7021-8 #### [facility] CLIA [id number] [address] [place] [address] [place] Lymphocytes/100 WBC (Bld) 21.2 % Normal [facility] Comment on above: Order Comment: Speci men Type: BLOOD SPECIMEN Ordering Facility: [facility] Address: [address] [place] [address] Performed By: #### 5 7021-8 #### [facility] CLIA [id number] [address] [place] [address] [place] MCH (RBC) [Entitic mass] 29.0 pg Normal 26.0-34.0 [facility] Comment on above: Order Comment: Speci men Type: BLOOD SPECIMEN Ordering Facility: [facility] Address: [address] [place] [address] Performed By: #### 5 7021-8 #### [facility] CLIA [id number] [address] [place] [address] [place] MCHC (RBC) [Mass/Vol] 30.2 g/dL Low 30.5-36.0 [facility] Comment on above: Order Comment: Speci men Type: BLOOD SPECIMEN Ordering Facility: [facility] Address: [address] [place] [address] Performed By: #### 5 7021-8 #### [facility] CLIA [id number] [address] [place] [address] [place] MCV (RBC) [Entitic vol] 95.9 fL Normal 80.0-100.0 [facility] Comment on above: Order Comment: Speci men Type: BLOOD SPECIMEN Ordering Facility: [facility] Address: [address] [place] [address] Performed By: #### 5 7021-8 #### [facility] CLIA [id number] [address] [place] [address] [place] Monocytes (Bld) [#/Vol] 0.57 10*3/uL Normal <0.87 [facility] Comment on above: Order Comment: Speci men Type: BLOOD SPECIMEN Ordering Facility: [facility] Address: [address] [place] [address] Performed By: #### 5 7021-8 #### [facility] CLIA [id number] [address] [place] [address] [place] Monocytes/100 WBC (Bld) 5.9 % Normal [facility] Comment on above: Order Comment: Speci men Type: BLOOD SPECIMEN Ordering Facility: [facility] Address: [address] [place] [address] Performed By: #### 5 7021-8 #### [facility] CLIA [id number] [address] [place] [address] [place] Neutrophils (Bld) [#/Vol] 6.83 10*3/uL Normal 1.45-7.50 [facility] Comment on above: Order Comment: Speci men Type: BLOOD SPECIMEN Ordering Facility: [facility] Address: [address] [place] [address] Performed By: #### 5 7021-8 #### [facility] CLIA [id number] [address] [place] [address] [place] Neutrophils/100 WBC (Bld) 70.5 % Normal [facility] Comment on above: Order Comment: Speci men Type: BLOOD SPECIMEN Ordering Facility: [facility] Address: [address] [place] [address] Performed By: #### 5 7021-8 #### [facility] CLIA [id number] [address] [place] [address] [place] Nucleated RBC (Bld) [#/Vol] 0.03 10*3/uL High <0.01 [facility] Comment on above: Order Comment: Speci men Type: BLOOD SPECIMEN Ordering Facility: [facility] Address: [address] [place] [address] Performed By: #### 5 7021-8 #### [facility] CLIA [id number] [address] [place] [address] [place] Nucleated RBC/100 WBC (Bld) [Ratio] 0.3 /100 WBC Normal [facility] Comment on above: Order Comment: Speci men Type: BLOOD SPECIMEN Ordering Facility: [facility] Address: [address] [place] [address] Performed By: #### 5 7021-8 #### [facility] CLIA [id number] [address] [place] [address] [place] Platelet mean volume (Bld) [Entitic vol] 10.7 fL Normal 9.0-12.7 [facility] Comment on above: Order Comment: Speci men Type: BLOOD SPECIMEN Ordering Facility: [facility] Address: [address] [place] [address] Performed By: #### 5 7021-8 #### [facility] CLIA [id number] [address] [place] [address] [place] Platelets (Bld) [#/Vol] 457 10*3/uL High 150-400 [facility] Comment on above: Order Comment: Speci men Type: BLOOD SPECIMEN Ordering Facility: [facility] Address: [address] [place] [address] Performed By: #### 5 7021-8 #### [facility] CLIA [id number] [address] [place] [address] [place] RBC (Bld) [#/Vol] 3.90 10*6/uL Low 4.20-6.00 [facility] Comment on above: Order Comment: Speci men Type: BLOOD SPECIMEN Ordering Facility: [facility] Address: [address] [place] [address] Performed By: #### 5 7021-8 #### [facility] CLIA [id number] [address] [place] [address] [place] WBC (Bld) [#/Vol] 9.70 10*3/uL Normal 3.70-11.00 [facility] Comment on above: Order Comment: Speci men Type: BLOOD SPECIMEN Ordering Facility: [facility] Address: [address] [place] [address] Performed By: #### 5 7021-8 #### [facility] CLIA [id number] [address] [place] [address] [place] CNOVSPon 04-21-2025 CNOVSP Visit (SP) Office ([facility]) KSENIA GALLARDO ([id number]) 1935 M Date Time Provider Department 04/21/25 11:00 AM JULIET RUIZ During your visit today, we recorded the following information about you: Pulse Respiration Blood pressure Weight 63/minute 14/minute 126/70 78.5 kg Juilet uRiz, [employer] 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 Per Dr. Neville's previous note: H/o essential thrombocytosis, BILL-2 positive, as well as myelodysplastic syndrome. He also has a history of coronary artery disease, status post CABG earlier in 2008. On Hydrea since 11/2009. Requested appointment today to discuss recent lab work and symptoms. Pt. here today with family member. Appetite:It's not great. Wt. down Energy level:Poor. Denies fevers or recent illness. Resp:denies cough or sob Cardiac:denies chest pain/palpitations-fol lowed by cards GI:denies abd pain, n/v, moving bowels regularly :denies dysuria/hematuria Extrem:denies new pain Neuro:denies symptoms of neuropathy Skin:denies rashes Heme:denies bleeding, on eliquis, +easy bruising The ROS is otherwise negative. Past medical history, appointments, medications, allergies reviewed. No changes. EXAM: BP 126/70 Pulse 63 Resp 14 Wt 78.5 kg (173 lb 1 oz) SpO2 95% BMI 25.34 kg/m? APPEARANCE Well appearing, alert, in no acute distress, well-hydrated HEART RRR with normal S1 and S2, no murmurs LUNG clear to auscultation LYMPH NODES No cervical lymphadenopathy, No supraclavicular lymphadenopathy, and No axillary lymphadenopathy. ABDOMEN bowel sounds normoactive, soft, non-tender EXTREMITIES chronic BLE edema NEURO Awake, alert and oriented x 3, using walking stick, and No involuntary motions. SKIN Skin color, texture, turgor normal, no suspicious rashes or lesions LABS: Latest Ref Rng 11/16/2024 03/24/2025 04/21/2025 WBC 3.70 - 11.00 k/uL 6.89 8.72 9.70 RBC 4.20 - 6.00 m/uL 3.64 (L) 3.81 (L) 3.90 (L) Hemoglobin 13.0 - 17.0 g/dL 10.7 (L) 11.2 (L) 11.3 (L) Hematocrit 39.0 - 51.0 % 34.5 (L) 36.4 (L) 37.4 (L) MCV 80.0 - 100.0 fL 94.8 95.5 95.9 MCH 26.0 - 34.0 pg 29.4 29.4 29.0 MCHC 30.5 - 36.0 g/dL 31.0 30.8 30.2 (L) RDW-CV 11.5 - 15.0 % 26.1 (H) 26.2 (H) 26.4 (H) Platelet Count 150 - 400 k/uL 424 (H) 474 (H) 457 (H) MPV 9.0 - 12.7 fL 10.7 11.5 10.7 Neut% % 64.4 70.2 70.5 Abs Neut (ANC) 1.45 - 7.50 k/uL 4.44 6.12 6.83 Lymph% % 26.6 21.4 21.2 Abs Lymph 1.00 - 4.00 k/uL 1.83 1.87 2.06 [place]% % 5.2 5.8 5.9 Abs [place] <0.87 k/uL 0.36 0.51 0.57 Eosin% % 2.6 1.4 1.0 Abs Eosin <0.46 k/uL 0.18 0.12 0.10 Baso% % 0.6 0.7 0.9 Abs Baso <0.11 k/uL 0.04 0.06 0.09 Immature Gran % % 0.6 0.5 0.5 IMMATURE GRANS (ABS) <0.10 k/uL 0.04 0.04 0.05 NRBC /100 WBC 0.0 0.3 0.3 Absolute nRBC <0.01 k/uL <0.01 0.03 (H) 0.03 (H) DTYPE Auto Auto Auto ASSESSMENT/PLAN: 1. Essential thrombocytosis - ICD9: 238.71, ICD10: D47.3 (primary diagnosis) 2. MDS (myelodysplastic syndrome), low grade (HCC) - ICD9: 238.72, ICD10: D46.Z 3. Anemia, unspecified type - ICD9: 285.9, ICD10: D64.[address] 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 -Diagnosed with atrial fibrillation and started on anticoagulation. -Bone marrow biopsy in detail. MDS/MPN overlap. -Reviewed CBC. Anemia overall stable. No bleeding issues. Discussed continued dosing hydroxyurea at 500 mg daily. Plan: -Continue Hydrea -Continue ASA daily. -Continue apixaban. -Will discuss luspatercept next OV. -Follow-up with cardiology and PCP for management of other modifiable cardiac risk factors including BP. - Overall tolerating hydrea/eliquis/asa well. - Reviewed CBC with pt. and family member. - Pt. asked same questions multiple times. - Advised pt. to continue current dose of hydrea. - Continue eliquis/asa. - Continue follow up with PCP for routine care. - Continue CBC monthly. - Follow up with Dr. Neville in 3 months with CBC/iron studies. - Pt. aware to call office with any questions/concerns. The patient indicates understanding of these issues and agrees with the plan. Discussed case with Dr. Neville who agrees with treatment plan. All documentation from previous visit of 01/25/25-Dr. Neville was copied and pasted, documentation has been reviewed and edited as necessary for today's visit. Juliet Ruiz APRN.MAXIMUS Referring Provider: EFRA NEVILLE [[id number]] Allergies As of Date: 04/21/2025 (No Known Allergies) Date Reviewed: 04/21/2025 Reviewed by: Juliet Ruiz APRN.FARM DEMONSTRATOR - Fully Assessed Reason for Visit: Recheck [92] Primary Visit Diagnosis:Essential thrombocytosis [D47.3] Other Visit Diagnoses:MDS (myelodysplastic syndrome), low grade (HCC) [D46.Z] Anemia, unspecified type [D64.9] Follow-up and Disposition Histor (more content not included)... [facility] ([facility]) GRIFFINMARY KAYKSENIA ([id number]) 1935 M Date Time Provider Department 04/21/25 EFRA NEVILLE During your visit today, we recorded the following information about you: Efra Neville, 04/21/2025 12:57 PM Signed Can let him know blood counts are stable. Continue current dose of Hydrea and recheck CBC in a month. Jacklyn Ortega LPN 04/21/2025 1:11 PM Signed No answer, will try again. DORITA Schwartz Melanie, LPN 04/21/2025 1:56 PM Signed Patient notified and is scheduled for labs in 1 month. Monalisa Laurent LPN Allergies As of Date: 04/21/2025 (No Known Allergies) Date Reviewed: 04/21/2025 Reviewed by: Juliet Ruiz APRN.FARM DEMONSTRATOR - Fully Assessed Reason for Visit: Results [95] Prescriptions as of 04/21/2025 - traMADol (ULTRAM) 50 mg tablet Take 50 mg by mouth three times a day as needed. - tiZANidine (ZANAFLEX) 2 mg tablet Take 2 mg by mouth four times a day as needed. - hydroxyurea (HYDREA) 500 mg capsule Take 1 capsule by mouth once daily. - apixaban (ELIQUIS) 5 mg tab(s) Take 5 mg by mouth two times a day. - furosemide (LASIX) 20 mg tablet Take 20 mg by mouth once daily. - amLODIPine (NORVASC) 5 mg tablet Take 1 tablet by mouth once daily. - metoprolol tartrate, short acting, (LOPRESSOR) 12.5 mg tab Take 25 mg by mouth two times a day. - cholecalciferol, vitamin D3, (VITAMIN D3 ORAL) Take 5,000 Units by mouth once daily. - rosuvastatin (CRESTOR) 20 mg tablet Take 20 mg by mouth once daily. - losartan (COZAAR) 50 mg tablet Take 50 mg by mouth once daily. - ASPIRIN 81 MG CHEWABLE TAB Take 81 mg by mouth once daily. Problem List As Of Date 04/21/2025 Noted Resolved BLOOD DISEASE NOS [D75.9] 09/24/2007 MALIG NEOPLASM SKIN NOS [173.9] 12/10/2007 Essential thrombocytosis [D47.3] 12/28/2010 MDS (myelodysplastic syndrome), low grade (HCC)*01/31/2025 Encounter Status:Closed by MONALISA LAURENT on 04/21/25 Normal [facility] CBC W Auto Differential pane l (Bld)on 03-24-2025 Basophils (Bld) [#/Vol] 0.06 10*3/uL Normal <0.11 [facility] Comment on above: Order Comment: Speci men Type: BLOOD SPECIMEN Ordering Facility: [facility] Address: [address] [place] [address] Performed By: #### 5 7021-8 #### [facility] CLIA [id number] [address] [place] [address] [place] Basophils/100 WBC (Bld) 0.7 % Normal [facility] Comment on above: Order Comment: Speci men Type: BLOOD SPECIMEN Ordering Facility: [facility] Address: [address] [place] [address] Performed By: #### 5 7021-8 #### [facility] CLIA [id number] [address] [place] [address] [place] Differential cell count method Nom (Bld) Auto Normal [facility] Comment on above: Order Comment: Speci men Type: BLOOD SPECIMEN Ordering Facility: [facility] Address: [address] [place] [address] Performed By: #### 5 7021-8 #### [facility] CLIA [id number] [address] [place] [address] [place] Eosinophils (Bld) [#/Vol] 0.12 10*3/uL Normal <0.46 [facility] Comment on above: Order Comment: Speci men Type: BLOOD SPECIMEN Ordering Facility: [facility] Address: [address] [place] [address] Performed By: #### 5 7021-8 #### [facility] CLIA [id number] [address] [place] [address] [place] Eosinophils/100 WBC (Bld) 1.4 % Normal [facility] Comment on above: Order Comment: Speci men Type: BLOOD SPECIMEN Ordering Facility: [facility] Address: [address] [place] [address] Performed By: #### 5 7021-8 #### [facility] CLIA [id number] [address] [place] [address] [place] Erythrocyte distribution width (RBC) [Ratio] 26.2 % High 11.5-15.0 [facility] Comment on above: Order Comment: Speci men Type: BLOOD SPECIMEN Ordering Facility: [facility] Address: [address] [place] [address] Performed By: #### 5 7021-8 #### [facility] CLIA [id number] [address] [place] [address] [place] Hematocrit (Bld) [Volume fraction] 36.4 % Low 39.0-51.0 [facility] Comment on above: Order Comment: Speci men Type: BLOOD SPECIMEN Ordering Facility: [facility] Address: [address] [place] [address] Performed By: #### 5 7021-8 #### [facility] CLIA [id number] [address] [place] [address] [place] Hemoglobin (Bld) [Mass/Vol] 11.2 g/dL Low 13.0-17.0 [facility] Comment on above: Order Comment: Speci men Type: BLOOD SPECIMEN Ordering Facility: [facility] Address: [address] [place] [address] Performed By: #### 5 7021-8 #### [facility] CLIA [id number] [address] [place] [address] [place] Immature granulocytes (Bld) [#/Vol] 0.04 10*3/uL Normal <0.10 [facility] Comment on above: Order Comment: Speci men Type: BLOOD SPECIMEN Ordering Facility: [facility] Address: [address] [place] [address] Performed By: #### 5 7021-8 #### [facility] CLIA [id number] [address] [place] [address] [place] Immature granulocytes/100 WBC (Bld) 0.5 % Normal [facility] [facility] Comment on above: Order Comment: Speci men Type: BLOOD SPECIMEN Ordering Facility: [facility] Address: [address] [place] [address] Performed By: #### 5 7021-8 #### [facility] CLIA [id number] [address] [place] [address] [place] Lymphocytes (Bld) [#/Vol] 1.87 10*3/uL Normal 1.00-4.00 [facility] Comment on above: Order Comment: Speci men Type: BLOOD SPECIMEN Ordering Facility: [facility] Address: [address] [place] [address] Performed By: #### 5 7021-8 #### [facility] CLIA [id number] [address] [place] [address] [place] Lymphocytes/100 WBC (Bld) 21.4 % Normal [facility] Comment on above: Order Comment: Speci men Type: BLOOD SPECIMEN Ordering Facility: [facility] Address: [address] [place] [address] Performed By: #### 5 7021-8 #### [facility] CLIA [id number] [address] [place] [address] [place] MCH (RBC) [Entitic mass] 29.4 pg Normal 26.0-34.0 [facility] Comment on above: Order Comment: Speci men Type: BLOOD SPECIMEN Ordering Facility: [facility] Address: [address] [place] [address] Performed By: #### 5 7021-8 #### [facility] CLIA [id number] [address] [place] [address] [place] MCHC (RBC) [Mass/Vol] 30.8 g/dL Normal 30.5-36.0 [facility] Comment on above: Order Comment: Speci men Type: BLOOD SPECIMEN Ordering Facility: [facility] Address: [address] [place] [address] Performed By: #### 5 7021-8 #### [facility] CLIA [id number] [address] [place] [address] [place] MCV (RBC) [Entitic vol] 95.5 fL Normal 80.0-100.0 [facility] Comment on above: Order Comment: Speci men Type: BLOOD SPECIMEN Ordering Facility: [facility] Address: [address] [place] [address] Performed By: #### 5 7021-8 #### [id number] [address] [place] [address] [place] Monocytes (Bld) [#/Vol] 0.51 10*3/uL Normal <0.87 [facility] Comment on above: Order Comment: Speci men Type: BLOOD SPECIMEN Ordering Facility: [facility] Address: [address] [place] [address] Performed By: #### 5 7021-8 #### [facility] CLIA [id number] [address] [place] [address] [place] Monocytes/100 WBC (Bld) 5.8 % Normal [facility] Comment on above: Order Comment: Speci men Type: BLOOD SPECIMEN Ordering Facility: [facility] Address: [address] [place] [address] Performed By: #### 5 7021-8 #### [facility] CLIA [id number] [address] [place] [address] [place] Neutrophils (Bld) [#/Vol] 6.12 10*3/uL Normal 1.45-7.50 [facility] Comment on above: Order Comment: Speci men Type: BLOOD SPECIMEN Ordering Facility: [facility] Address: [address] [place] [address] Performed By: #### 5 7021-8 #### [facility] CLIA [id number] [address] [place] [address] [place] Neutrophils/100 WBC (Bld) 70.2 % Normal [facility] Comment on above: Order Comment: Speci men Type: BLOOD SPECIMEN Ordering Facility: [facility] Address: [address] [place] [address] Performed By: #### 5 7021-8 #### [facility] CLIA [id number] [address] [place] [address] [place] Nucleated RBC (Bld) [#/Vol] 0.03 10*3/uL High <0.01 [facility] Comment on above: Order Comment: Speci men Type: BLOOD SPECIMEN Ordering Facility: [facility] Address: [address] [place] [address] Performed By: #### 5 7021-8 #### [facility] CLIA [id number] [address] [place] [address] [place] Nucleated RBC/100 WBC (Bld) [Ratio] 0.3 /100 WBC Normal [facility] Comment on above: Order Comment: Speci men Type: BLOOD SPECIMEN Ordering Facility: [facility] Address: [address] [place] [address] Performed By: #### 5 7021-8 #### [facility] CLIA [id number] [address] [place] [address] [place] Platelet mean volume (Bld) [Entitic vol] 11.5 fL Normal 9.0-12.7 [facility] Comment on above: Order Comment: Speci men Type: BLOOD SPECIMEN Ordering Facility: [facility] Address: [address] [place] [address] Performed By: #### 5 7021-8 #### [facility] CLIA [id number] [address] [place] [address] [place] Platelets (Bld) [#/Vol] 474 10*3/uL High 150-400 [facility] Comment on above: Order Comment: Speci men Type: BLOOD SPECIMEN Ordering Facility: [facility] Address: [address] [place] [address] Performed By: #### 5 7021-8 #### [facility] CLIA [id number] [address] [place] [address] [place] RBC (Bld) [#/Vol] 3.81 10*6/uL Low 4.20-6.00 [facility] Comment on above: Order Comment: Speci men Type: BLOOD SPECIMEN Ordering Facility: [facility] Address: [address] [place] [address] Performed By: #### 5 7021-8 #### [facility] CLIA [id number] [address] [place] [address] [place] WBC (Bld) [#/Vol] 8.72 10*3/uL Normal 3.70-11.00 [facility] Comment on above: Order Comment: Speci men Type: BLOOD SPECIMEN Ordering Facility: [facility] Address: [address] [place] [address] Performed By: #### 5 7021-8 #### [facility] CLIA [id number] [address] [place] [address] [place] FERRITIN [CCL]on 02-25-2025 Ferritin [Mass/Vol] 532.0 ng/mL Normal 30.3-565.7 [facility] Comment on above: Result Comment: [facility] [place] [id number] Kurtis Huntley III, M.D. [id number] Performed By: #### 2 53765 #### [facility],[address] [place] [address] 57664 T4, FREE [CCL]on 02-25-2025 Free T4 [Mass/Vol] 1.1 ng/dL Normal 0.9-1.7 [facility] Comment on above: Result Comment: [facility] [address] [place] [address] Kurtis Huntley III, M.D. [id number] Performed By: #### 2 89118 #### [facility],[address] [place] [address] 49038 CBC + DIFFon 02-24-2025 ANISO 1+ Normal [facility] Comment on above: Performed By: #### 2 46673 #### [facility],[address] [place] [address] 58499 Baso # 0.06 x10EE3/UL Normal 0.00 - 0.10 [facility] Comment on above: Performed By: #### 2 12554 #### [facility],[address] [place] [address] 26387 Basophils/100 WBC (Bld) 0.4 % Normal 0.0 - 2.0 [facility] Comment on above: Performed By: #### 2 29704 #### [facility],[address] [place] [address] 57970 CBC + DIFF Normal [facility] Comment on above: Result Comment: CBC- COMPLETE BLOOD COUNT Performed By: #### 2 42526 #### [facility],[address] [place] [address] 52972 CELL COUNT 100 Normal [facility] Comment on above: Performed By: #### 2 41369 #### [facility],[address] [place] [address] 01751 EO # 0.09 x10EE3/UL Normal 0.00 - 0.50 [facility] Comment on above: Performed By: #### 2 32865 #### [facility],[address] [place] [address] Eosinophils/100 WBC (Bld) 0.6 % Normal 0.0 - 7.0 [facility] Comment on above: Performed By: #### 2 98918 #### [facility],[address] [place] [address] Erythrocyte distribution width (RBC) [Ratio] 28.6 % High 12.0 - 15.6 [facility] Comment on above: Performed By: #### 2 64687 #### [facility],[address] [place] [address] Hematocrit (Bld) [Volume fraction] 38.7 % Low 40.0 - 52.0 [facility] Comment on above: Performed By: #### 2 25036 #### [facility],[address] [place], [place] [address] Hemoglobin (Bld) [Mass/Vol] 12.1 g/dL Low 13.0 - 17.5 [facility] Comment on above: Performed By: #### 2 98897 #### [facility],[address] [place] [address] 19102 Lymph # 2.18 x10EE3/UL Normal 0.80 - 2.80 [facility] Comment on above: Performed By: #### 2 65421 #### [facility],[address] [place], [place] [address] Lymphocytes/100 WBC (Bld) 15.4 % Low 20.0 - 45.0 [facility] Comment on above: Performed By: #### 2 78164 #### [facility],[address] [place] [address] 90604 Lymphocytes/100 WBC (Bld) 15 % Low 20 - 45 [facility] Comment on above: Performed By: #### 2 75925 #### [facility],[address] [place] [address] 00942 MANUAL DIFF SEE BELOW Normal [facility] Comment on above: Performed By: #### 2 80781 #### [facility],[address] [place] [address] MCH (RBC) [Entitic mass] 30 pg Normal 27 - 33 [facility] Comment on above: Performed By: #### 2 95389 #### [facility],[address] [place] [address] MCHC 31 X10 3 Low 32 - 36 [facility] Comment on above: Performed By: #### 2 10474 #### [facility],[address] [place], [place] [address] MCV (RBC) [Entitic vol] 97 fL Normal 81 - 98 [facility] Comment on above: Performed By: #### 2 05342 #### [facility],[address] [place] [address] MICROCYTES 1+ Normal [facility] Comment on above: Performed By: #### 2 05851 #### [facility],[address] [place], [place] [address] [place] # 0.53 x10EE3/UL Normal 0.20 - 1.00 [facility] Comment on above: Performed By: #### 2 54576 #### [facility],[address] [place], [place] [address] MONOS 8 % Normal 0 - 10 [facility] Comment on above: Performed By: #### 2 41065 #### [facility],[address] [place] [address] MONOS % 3.7 % Normal 0.0 - 10.0 [facility] Comment on above: Performed By: #### 2 73955 #### [facility],[address] [place] [address] Morphology Chau (Bld) [Interp] SEE BELOW Normal [facility] Comment on above: Performed By: #### 2 17969 #### [facility],[address] [place] [address] Neut # 11.29 x10EE3/UL High 1.50 - 7.10 [facility] Comment on above: Performed By: #### 2 08611 #### [facility],[address] [place] [address] Neutrophils/100 WBC (Bld) 79.8 % High 46.0 - 76.0 [facility] Comment on above: Performed By: #### 2 86602 #### [facility],[address] [place] [address] PLATELET 613 x10EE3/UL High 150 - 450 [facility] Comment on above: Performed By: #### 2 00865 #### [facility],[address] [place] [address] Platelet mean volume (Bld) [Entitic vol] 10.2 fL Normal 6.4 - 10.5 [facility] Comment on above: Result Comment: AUTO MATED DIFFERENTIAL Performed By: #### 2 75262 #### [facility],[address] [place], [place] [address] PLT EST INCREASED Normal [facility] Comment on above: Performed By: #### 2 62895 #### [place] [address] POLYCHROM 1+ Normal [facility] Comment on above: Performed By: #### 2 77066 #### [facility],[address] [place] [address] RBC 3.99 x 10EE6/UL Low 4.50 - 6.00 [facility] Comment on above: Performed By: #### 2 90818 #### [facility],[address] [place] [address] 35743 SEGS 77 % High 46 - 76 [facility] Comment on above: Performed By: #### 2 92594 #### [facility],[address] [place] [address] 42137 WBC 14.2 x 10EE3/UL High 4.5 - 10.8 [facility] Comment on above: Performed By: #### 2 46018 #### [facility],[address] [place] [address] 24215 Other 1+ OVALOCYTES Normal [facility] Comment on above: Performed By: #### 2 74109 #### [facility],[address] [place] [address] 47671 Baso # 0.07 x10EE3/UL Normal 0.00 - 0.10 [facility] Comment on above: Performed By: #### 2 95881 #### [facility],[address] [place] [address] 49324 Basophils/100 WBC (Bld) 0.5 % Normal 0.0 - 2.0 [facility] Comment on above: Performed By: #### 2 40485 #### [facility],[address] [place] [address] 90483 EO 3.0 % Normal 0.0 - 7.0 [facility] Comment on above: Performed By: #### 2 85649 #### [facility],[address] [place] [address] 73255 EO # 0.06 x10EE3/UL Normal 0.00 - 0.50 [facility] Comment on above: Performed By: #### 2 76212 #### [facility],[address] [place] [address] 69631 Eosinophils/100 WBC (Bld) 0.5 % Normal 0.0 - 7.0 [facility] Comment on above: Performed By: #### 2 88486 #### [facility],[address] [place] [address] 50666 Hematocrit (Bld) [Volume fraction] 35.6 % Low 40.0 - 52.0 [facility] Comment on above: Performed By: #### 2 43360 #### [facility],[address] [place] [address] 16989 Hemoglobin (Bld) [Mass/Vol] 11.6 g/dL Low 13.0 - 17.5 [facility] Comment on above: Performed By: #### 2 76700 #### [facility],[address] [place] [address] HYPOCHROM 1+ Normal [facility] Comment on above: Performed By: #### 2 34060 #### [facility],[address] [place] [address] 67358 Lymph # 1.47 x10EE3/UL Normal 0.80 - 2.80 [facility] Comment on above: Performed By: #### 2 09713 #### [facility],[address] [place] [address] 69290 Lymphocytes/100 WBC (Bld) 11.1 % Low 20.0 - 45.0 [facility] Comment on above: Performed By: #### 2 30807 #### [facility],[address] [place] [address] 49472 MCH (RBC) [Entitic mass] 31 pg Normal 27 - 33 [facility] Comment on above: Performed By: #### 2 27363 #### [facility],[address] [place] [address] 18313 MCHC 33 X10 3 Normal 32 - 36 [facility] Comment on above: Performed By: #### 2 45202 #### [facility],[address] [place] [address] 84309 MCV (RBC) [Entitic vol] 96 fL Normal 81 - 98 [facility] Comment on above: Performed By: #### 2 76285 #### [facility],[address] [place] [address] 14130 [place] # 0.58 x10EE3/UL Normal 0.20 - 1.00 [facility] Comment on above: Performed By: #### 2 56967 #### [facility],[address] [place] [address] 70118 MONOS % 4.4 % Normal 0.0 - 10.0 [facility] Comment on above: Performed By: #### 2 62793 #### [facility],[address] [place] [address] 18890 Neut # 11.13 x10EE3/UL High 1.50 - 7.10 [facility] Comment on above: Performed By: #### 2 21970 #### [facility],[address] [place] [address] 75329 Neutrophils/100 WBC (Bld) 83.6 % High 46.0 - 76.0 [facility] Comment on above: Performed By: #### 2 22614 #### [facility],[address] [place] [address] 85075 PLATELET 530 x10EE3/UL High 150 - 450 [facility] Comment on above: Performed By: #### 2 23468 #### [facility],[address] [place] [address] 72055 Platelet mean volume (Bld) [Entitic vol] 9.9 fL Normal 6.4 - 10.5 [facility] Comment on above: Result Comment: AUTO MATED DIFFERENTIAL Performed By: #### 2 20746 #### [facility],[address] [place] [address] 65476 RBC 3.70 x 10EE6/UL Low 4.50 - 6.00 [facility] Comment on above: Performed By: #### 2 67409 #### [facility],[address] [place] [address] 57999 SEGS 89 % High 46 - 76 [facility] Comment on above: Performed By: #### 2 42591 #### [facility],[address] [place] [address] 04705 WBC 13.3 x 10EE3/UL High 4.5 - 10.8 [facility] Comment on above: Performed By: #### 2 39873 #### [facility],[address] [place] [address] 15373 CHEST 1 VIEWon 02-24-2025 CHEST 1 VIEW [place] [address] Patient: KSENIA GALLARDO Phone#: : [phone] Age: 89 Gender: M Pt. Type: ER Account: [id number] Location: [facility] Ordering: DESMOND AMAYA Exam Date: 02/24/2025/12:01 Family Phys: MINISTERIO JADA Charge Code: [id number] Physician: Archer Order #: [id number] Dose#: PROCEDURE: X-RAY CHEST 1 VIEW COMPARISON: None. INDICATIONS: Trauma. FINDINGS: LUNGS: Bilateral increased interstitial markings. VASCULATURE: Increased vascularity CARDIAC: Cardiomegaly MEDIASTINUM: Normal. No visible mass or adenopathy. PLEURA: Elevation of the right hemidiaphragm. Atelectasis at the left lung base. BONES: Median sternotomy wires are present. OTHER: Monitoring leads project across the thorax. CONCLUSION: 1. Cardiomegaly increased pulmonary vascularity, correlate for CHF 2. Increased interstitial markings most likely secondary to interstitial edema given the above findings though cannot exclude infiltrates. Dictated by: Regina Rogers MD on 02/24/2025 at 12:32 Approved by: Regina Rogers MD on 02/24/2025 at 12:33 Normal [facility] CMP with eGFRon 02-24-2025 AGE 89 years Normal [facility] Comment on above: Performed By: #### 2 62331 #### [facility],[address] [place] [address] 38430 Albumin [Mass/Vol] 4.3 g/dL Normal 3.4 - 5.0 [facility] Comment on above: Performed By: #### 2 60816 #### [facility],[address] [place] [address] 99613 Albumin/Globulin [Mass ratio] 1.4 {ratio} Normal 0.9 - 1.6 [facility] Comment on above: Performed By: #### 2 60051 #### [facility],[address] [place] [address] 03170 ALK PHOS 66 U/L Normal 46 - 116 [facility] Comment on above: Performed By: #### 2 95762 #### [facility],[address] [place] [address] 79936 ALT [Catalytic activity/Vol] 26 U/L Normal 16 - 63 [facility] Comment on above: Performed By: #### 2 68860 #### [facility],[address] [place] [address] 06719 Anion gap [Moles/Vol] 11 mmol/L Normal 10 - 20 [facility] Comment on above: Performed By: #### 2 57865 #### [facility],[address] [place] [address] 22474 AST [Catalytic activity/Vol] 29 U/L Normal 15 - 37 [facility] Comment on above: Performed By: #### 2 11767 #### [facility],[address] [place] [address] 44159 B/C RATIO 16 ratio Normal 0 - 30 [facility] Comment on above: Performed By: #### 2 45654 #### [facility],[address] [place] [address] 99290 Bilirubin [Mass/Vol] 1.6 mg/dL High 0.2 - 1.0 [facility] Comment on above: Performed By: #### 2 69817 #### [facility],[address] [place] [address] 48234 Calcium [Mass/Vol] 9.0 mg/dL Normal 8.5 - 10.1 [facility] Comment on above: Performed By: #### 2 46854 #### [facility],[address] [place] [address] 99156 Chloride [Moles/Vol] 106 mmol/L Normal 98 - 107 [facility] Comment on above: Performed By: #### 2 92686 #### [facility],[address] [place] [address] 28149 CMP with eGFR Normal [facility] Comment on above: Result Comment: COMP REHENSIVE METABOLIC PANEL Performed By: #### 2 82386 #### [facility],[address] [place] [address] 65706 CO2 [Moles/Vol] 28.5 mmol/L Normal 21.0 - 32.0 [facility] Comment on above: Performed By: #### 2 68598 #### [facility],[address] [place] [address] 92477 Creatinine [Mass/Vol] 1.04 mg/dL Normal 0.70 - 1.30 [facility] Comment on above: Performed By: #### 2 46087 #### [facility],[address] [place] [address] 34246 GFR/1.73 sq M.predicted among non-blacks MDRD (S/P/Bld) [Vol rate/Area] mL/min/{1.73_m2} Normal 60 - 999 [facility] Comment on above: Performed By: #### 2 43556 #### [facility],[address] [place] [address] 76714 Result Comment: ACCO RDING TO THE NATIONAL KIDNEY DISEASE EDUCATION PROGRAM(NKDE), A NORMAL eGFR IS A VALUE GREATER THAN OR EQUAL TO 60 ML/MIN/1.73 SQ METERS. CHRONIC KIDNEY DISEASE: <60mL/MIN/1.73 SQ METERS KIDNEY FAILURE: <15mL/MIN/1.73 SQ METERS THIS TEST SHOULD ONLY BE USED FOR PATIENTS 18 YEARS OF AGE AND OLDER. Globulin (S) [Mass/Vol] 3.1 g/dL Normal 1.5 - 3.8 [facility] Comment on above: Performed By: #### 2 62849 #### [facility],[address] [place] [address] 10701 Glucose [Mass/Vol] 113 mg/dL High 74 - 106 [facility] Comment on above: Performed By: #### 2 50382 #### [facility],[address] [place] [address] 73083 Potassium [Moles/Vol] 4.6 mmol/L Normal 3.5 - 5.1 [facility] Comment on above: Performed By: #### 2 22912 #### [facility],[address] [place] [address] 62051 Protein [Mass/Vol] 7.4 g/dL Normal 6.4 - 8.2 [facility] Comment on above: Performed By: #### 2 43857 #### [facility],[address] [place] [address] 19108 Sodium [Moles/Vol] 141 mmol/L Normal 136 - 145 [facility] Comment on above: Performed By: #### 2 17981 #### [facility],[address] [place] [address] 47043 Urea nitrogen [Mass/Vol] 17 mg/dL Normal 7 - 18 [facility] Comment on above: Performed By: #### 2 78467 #### [facility],[address] [place] [address] 69015 AGE 89 years Normal [facility] Comment on above: Performed By: #### 2 93656 #### [facility],[address] [place] [address] 43348 Albumin [Mass/Vol] 4.1 g/dL Normal 3.4 - 5.0 [facility] Comment on above: Performed By: #### 2 77030 #### [facility] [place] [address] 46721 Albumin/Globulin [Mass ratio] 1.4 {ratio} Normal 0.9 - 1.6 [facility] Comment on above: Performed By: #### 2 14466 #### [facility],[address] [place] [address] 64402 ALK PHOS 65 U/L Normal 46 - 116 [facility] Comment on above: Performed By: #### 2 80222 #### [facility],[address] [place] [address] 24273 ALT [Catalytic activity/Vol] 24 U/L Normal 16 - 63 [facility] Comment on above: Performed By: #### 2 [id number] #### [facility],[address] [place] [address] 88388 Anion gap [Moles/Vol] 12 mmol/L Normal 10 - 20 [facility] Comment on above: Performed By: #### 2 03984 #### [facility],[address] [place] [address] 27501 AST [Catalytic activity/Vol] 27 U/L Normal 15 - 37 [facility] Comment on above: Performed By: #### 2 76630 #### [facility],[address] [place] [address] 24967 B/C RATIO 18 ratio Normal 0 - 30 [facility] Comment on above: Performed By: #### 2 46487 #### [facility],[address] [place] [address] 48970 Bilirubin [Mass/Vol] 1.6 mg/dL High 0.2 - 1.0 [facility] Comment on above: Performed By: #### 2 57075 #### [facility],[address] [place] [address] 28319 Calcium [Mass/Vol] 8.8 mg/dL Normal 8.5 - 10.1 [facility] Comment on above: Performed By: #### 2 58680 #### [facility],[address] [place] [address] 69535 Chloride [Moles/Vol] 105 mmol/L Normal 98 - 107 [facility] Comment on above: Performed By: #### 2 05837 #### [facility],[address] [place] [address] 89936 CMP with eGFR Normal [facility] Comment on above: Result Comment: COMP REHENSIVE METABOLIC PANEL Performed By: #### 2 65368 #### [facility],[address] [place] [address] 57286 CO2 [Moles/Vol] 27.8 mmol/L Normal 21.0 - 32.0 [facility] Comment on above: Performed By: #### 2 11183 #### [facility],[address] [place] [address] 73002 Creatinine [Mass/Vol] 1.07 mg/dL Normal 0.70 - 1.30 [facility] Comment on above: Performed By: #### 2 34993 #### [facility],[address] [place] [address] 99067 GFR/1.73 sq M.predicted among non-blacks MDRD (S/P/Bld) [Vol rate/Area] mL/min/{1.73_m2} Normal 60 - 999 [facility] Comment on above: Performed By: #### 2 00517 #### [facility],[address] [place] [address] 33563 Result Comment: ACCO RDING TO THE NATIONAL KIDNEY DISEASE EDUCATION PROGRAM(NKDE), A NORMAL eGFR IS A VALUE GREATER THAN OR EQUAL TO 60 ML/MIN/1.73 SQ METERS. CHRONIC KIDNEY DISEASE: <60mL/MIN/1.73 SQ METERS KIDNEY FAILURE: <15mL/MIN/1.73 SQ METERS THIS TEST SHOULD ONLY BE USED FOR PATIENTS 18 YEARS OF AGE AND OLDER. Globulin (S) [Mass/Vol] 3.0 g/dL Normal 1.5 - 3.8 [facility] Comment on above: Performed By: #### 2 04149 #### [facility],[address] [place] [address] 58761 Glucose [Mass/Vol] 124 mg/dL High 74 - 106 [facility] Comment on above: Performed By: #### 2 82822 #### [facility],[address] [place] [address] 90152 Potassium [Moles/Vol] 4.1 mmol/L Normal 3.5 - 5.1 [facility] Comment on above: Performed By: #### 2 52965 #### [facility],[address] [place] [address] 19766 Protein [Mass/Vol] 7.1 g/dL Normal 6.4 - 8.2 [facility] Comment on above: Performed By: #### 2 30042 #### [facility],[address] [place] [address] 56180 Sodium [Moles/Vol] 141 mmol/L Normal 136 - 145 [facility] Comment on above: Performed By: #### 2 30913 #### [facility],[address] [place] [address] 05777 Urea nitrogen [Mass/Vol] 19 mg/dL High 7 - 18 [facility] Comment on above: Performed By: #### 2 63784 #### [facility],[address] [place] [address] 44845 CORONAVIRUS (SARS) ANTIGEN T ESTon 02-24-2025 EXTERNAL QC DONE? YES Normal [facility] Comment on above: Performed By: #### 2 68063 #### [facility],[address] [place] [address] 98900 INTERNAL CONTROL PASS Normal [facility] Comment on above: Performed By: #### 2 42263 #### [facility],[address] [place] [address] 69041 SARS ANTIGEN Negative Normal NORMAL: NEGATIVE [facility] Comment on above: Performed By: #### 2 33463 #### [facility],[address] [place] [address] 57860 SEND TO ? NO Normal [facility] Comment on above: Result Comment: SARS -CoV-2 THIS TEST IS BEING USED UNDER THE FDA EUA PROCEDURE. THIS ASSAY HAS BEEN VALIDATED AT [facility] FOR USE WITH NASAL AND NASOPHARYNGEAL SWAB SPECIMENS. INTERPRETIVE DATA TEST RESULTS SHOULD ALWAYS BE CONSIDERED IN THE CONTEXT OF CLINICAL OBSERVATIONS AND EPIDEMIOLOGICAL DATA IN MAKING FINAL DIAGNOSIS AND PATIENT MANAGEMENT DECISIONS. PATIENT MANAGEMENT SHOULD FOLLOW CURRENT CDC GUIDELINES. THE CARON SARS ANTIGEN ROB DOES NOT DIFFERENTIATE BETWEEN SARS-CoV & SARS-CoV-2. A POSITIVE TEST RESULT INDICATES THE PRESENCE OF SARS-CoV-2 NUCLEOCAPSID PROTEIN ANTIGEN, AND THE PATIENT IS INFECTED WITH THE VIRUS AND PRESUMED TO BE CONTAGIOUS. A NEGATIVE TEST RESULT FOR THIS TEST MEANS THAT SARS-CoV-2 NUCLEOCAPSID PROTEIN ANTIGEN WAS NOT PRESENT IN THE SPECIMEN ABOVE THE LIMIT OF DETECTION. HOWEVER, A NEGATIVE RESULT DOES NOT RULE OUT COVID-19 AND SHOULD NOT BE USED THE SOLE BASIS FOR TREATMENT OR PATIENT MANAGEMENT DECISIONS. A NEGATIVE RESULT DOES NOT EXCLUDE THE POSSIBILITY OF COVID-19. NEGATIVE RESULTS, FROM PATIENTS WITH SYMPTOM ONSET BEYOND FIVE DAYS, SHOULD BE TREATED PRESUMPTIVE AND CONFIRMATION WITH A MOLECULAR ASSAY, IF NECESSARY, FOR PATIENT MANAGEMENT, MAY BE PERFORMED. WHEN DIAGNOSTIC TESTING IS NEGATIVE, THE POSSIBLILTY OF A FALSE NEGATIVE RESULT SHOULD BE CONSIDERED IN THE CONTEXT OF A PATIENT'S RECENT EXPOSURES AND THE PRESENCE OF CLINICAL SIGNS AND SYMPTOMS CONSISTENT WITH COVID-19. THE POSSIBILITY OF A FALSE NEGATIVE RESULT SHOULD ESPECIALLY BE CONSIDERED IF THE PATIENT'S RECENT EXPOSURES OR CLINICAL PRESENTATION INDICATE THAT COVID-19 IS LIKELY, AND DIAGNOSTIC TESTS FOR OTHER CAUSES OF ILLNESS (e.g., OTHER RESPIRATORY ILLNESS) ARE NEGATIVE. IF COVID-19 IS STILL SUSPECTED BASED ON EXPOSURE HISTORY TOGETHER WITH OTHER CLINICAL FINDINGS, RE-TESTING SHOULD BE CONSIDERED BY HEALTHCARE PROVIDERS IN CONSULTATION WITH PUBLIC HEALTH AUTHORITIES. Performed By: #### 2 [id number] #### [address] [address] [address] BRAIN W/O CONTRASTon 04-0 CT BRAIN W/O CONTRAST [place] [address] Patient: KSENIA GALLARDO Phone#: : 1935 Age: 89 Gender: M Pt. Type: ER Account: [id number] Location: 052 Ordering: DESMOND AMAYA Exam Date: 02/24/2025/12:23 Family Phys: BUTROS LATOUF Charge Code: [id number] Physician: Archer Order #: [id number] Dose#: 52.30 PROCEDURE: CT BRAIN WITHOUT CONTRAST COMPARISON: None. INDICATIONS: Trauma. TECHNIQUE: CT images were obtained without contrast material. All CT scans at this facility use dose modulation, iterative reconstruction, and/or weight based dosing when appropriate to reduce radiation dose to as low as reasonably achievable. IV CONTRAST: No IV contrast used,0ml TOTAL DOSE: 52.30 CTDIvol(mGy) FINDINGS: CEREBRUM: No edema, hemorrhage, mass. Global atrophy. Periventricular patchy deep cerebral white matter hypodensities, in a patient this age group most consistent with small vessel ischemic disease. Bilateral lacunar infarcts in the basal ganglia. CEREBELLUM: No edema, hemorrhage, mass. Global atrophy. BRAINSTEM: No edema, hemorrhage, mass, or inappropriate atrophy. CSF SPACES: Ventricles, cisterns, and sulci are proportionate to the degree of atrophy and symmetric in size and configuration. No subarachnoid hemorrhage, or mass. SKULL: No mass or other significant visible lesion. SINUSES: Limited views demonstrate no significant mucosal thickening or fluid. ORBITS: [place] ocular lenses are absent. OTHER: Atherosclerotic calcifications of the intracranial arteries. Material in the left external auditory canal, likely cerumen. CONCLUSION: 1. No appreciable acute intracranial abnormality. Note: An acute ischemic event or extension of a chronic ischemic process may not be initially evident on CT. 2. Global atrophy and atherosclerosis 3. Small vessel ischemic disease Continued Report - Page 2 of 2 Patient: KSENIA GALLARDO Phone#: : 1935 Age: 89 Gender: M Pt. Type: ER Account: [id number] Location: 052 Ordering: DESMOND AMAYA Exam Date: 02/24/2025/12:23 Family Phys: BUTROS LATOUF Charge Code: [id number] Physician: Archer Order #: [id number] Dose#: 52.30 Dictated by: Regina Rogers MD on 02/24/2025 at 12:39 Approved by: Regina Rogers MD on 02/24/2025 at 12:44 Normal [facility] CT CERVICAL W/O CONTRASTon 0 02-24-2025 CT CERVICAL W/O CONTRAST [address] [address] Patient: KSENIA GALLARDO Phone#: : 1935 Age: 89 Gender: M Pt. Type: ER Account: [id number] Location: [facility] Ordering: DESMOND AMAYA Exam Date: 02/24/2025/12:23 Family Phys: MINISTERIO ELIAS Charge Code: [id number] Physician: Archer Order #: [id number] Dose#: 13.00 PROCEDURE: CT CERVICAL WITHOUT CONTRAST COMPARISON: None. INDICATIONS: Trauma. TECHNIQUE: Multi-planar CT images were created without intravenous contrast. All CT scans at this facility use dose modulation, iterative reconstruction, and/or weight-based dosing when appropriate to reduce radiation dose to as low as reasonably achievable. IV CONTRAST: No IV contrast used,0ml TOTAL DOSE: 13.00 CTDIvol(mGy) FINDINGS: CRANIOCERVICAL AREA: Normal foramen magnum with no Chiari malformation. PARASPINAL AREA: Normal with no visible mass. BONES: Degenerative changes of the right TMJ. Vertebral bodies are maintained in height and alignment. No fracture or subluxation. Dens is intact. The lateral masses are symmetric. CERVICAL DISC LEVELS: C2-C3: Posterior disc bulge contributes to spinal canal narrowing. C3-C4: Disc height loss, uncovertebral hypertrophy and facet arthropathy contributes to severe right osseous foraminal narrowing C4-C5: Disc height loss and uncovertebral hypertrophy contributes to moderate right and mild left osseous foraminal narrowing C5-C6: Disc height loss and disc bulge contributes to at least mild bilateral foraminal narrowing C6-C7: Disc height loss without significant osseous foraminal narrowing C7-T1: Disc height loss without significant osseous foraminal narrowing CONCLUSION: 1. No appreciable acute osseous abnormality. 2. Multilevel degenerative changes with multilevel osseous foraminal narrowing. [address] [address] Patient: KSENIA GALLARDO Phone#: : 1935 Age: 89 Gender: M Pt. Type: ER Account: [id number] Location: 052 Ordering: DESMOND AMAYA Exam Date: 02/24/2025/12:23 Family Phys: BUTROS LATOUF Charge Code: [id number] Physician: Archer Order #: [id number] Dose#: 13.00 Dictated by: Regina Rogers MD on 02/24/2025 at 12:44 Approved by: Regina Rogers MD on 02/24/2025 at 12:48 Normal [facility] CT LUMBAR W/O CONTRASTon CT LUMBAR W/O CONTRAST [address] [address] Patient: KSENIA GALLARDO Phone#: : 1935 Age: 89 Gender: M Pt. Type: ER Account: [id number] Location: 052 Ordering: DESMOND LEMMÓNICA Exam Date: 02/24/2025/12:28 Family Phys: BUTROS LATOUF Charge Code: [id number] Physician: Archer Order #: [id number] Dose#: 35.80 PROCEDURE: CT LUMBAR SPINE WITHOUT CONTRAST COMPARISON: None. INDICATIONS: Fall with pain. TECHNIQUE: After obtaining the patient's consent, multi-planar CT images were created without intravenous contrast material. All CT scans at this facility use dose modulation, iterative reconstruction, and/or weight based dosing when appropriate to reduce radiation dose to as low as reasonably achievable. IV CONTRAST: No IV contrast used,0ml TOTAL DOSE: 35.80 CTDIvol(mGy) FINDINGS: PARASPINAL AREA: Normal with no visible mass. BONES: Acute fracture of the superior endplate of T12, series 6, image 40 and series 5, image 45. The fracture line involves the anterior and middle columns. Acute fractures of the right L1 and L2 transverse processes. Grade 1 anterolisthesis of L4 on L5. Facet arthropathy in the lower lumbar spine. Mild leftward curvature of the lumbar spine. Hemangiomas noted in the L4 and L1 vertebral bodies. OTHER: Small left pleural effusion. Low-attenuation lesions in the kidneys, incompletely characterized without contrast. Diverticulosis of the sigmoid colon. Calcifications in the gallbladder. LUMBAR DISC LEVELS: L1-L2: Disc height loss contributes to at least mild bilateral osseous foraminal narrowing L2-L3: Disc height loss contributes to at least mild bilateral osseous foraminal narrowing. L3-L4: Disc height loss and facet arthropathy contributes to at least moderate right and mild left osseous foraminal narrowing in the spinal canal narrowing L4-L5: Circumferential disc bulge and anterolisthesis contributes to at least moderate spinal canal narrowing. Continued Report - Page 2 of 2 Patient: KSENIA GALLARDO Phone#: : 1935 Age: 89 Gender: M Pt. Type: ER Account: [id number] Location: [facility] Ordering: DESMOND AMAYA Exam Date: 02/24/2025/12:28 Family Phys: MINISTERIO ELIAS Charge Code: [id number] Physician: Archer Order #: [id number] Dose#: 35.80 L5-S1: No significant disc/facet abnormality, spinal stenosis, or foraminal stenosis. CONCLUSION: 1. T12 superior endplate compression fracture involving the anterior and middle columns. 2. L1 and L2 right acute transverse process fractures 3. Cholelithiasis 4. 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 Medication Administration Record [address] [address] [id number] 02/24/2025 Patient: KSENIA GALLARDO Sex: Male : 1935 Age: 89y MEASUREMENTS: Wt: 78.9 kg, Ht/Wellington: 72.0 in, BMI: 23.60 ALLERGIES: No known drug allergies Medication Ordered Medication Administration Date/Time 1 of 1 Normal [facility] ED NURSES CLINICAL NOTEon ED NURSES CLINICAL NOTE Nurse Narrative Nurse Clinical Narrative [facility] [address] [place] [address] [id number] 02/24/2025 Patient: KSENIA GALLARDO Sex: Male : 1935 Age: 89y Disposition: Discharge to Home Disposition Decision Time: 14:14 02/24/2025 Departure Time: 14:49 02/24/2025 TRIAGE Arrived by private vehicle. Historian: (patient). Patient has a primary care physician. Primary physician (Jada). Triage time: 10:59 02/24/2025. Acuity: LEVEL 3. Chief Complaint: FALL. Slipped. (Pt tripped over his left foot, causing him to slide down the wall. Pt landed on his right side.). Location of injuries: right yarsani, lower back and right hand. Occurred at home. Occurred 22:00 02/23/2025. No loss of consciousness. Patient is on anticoagulation (blood thinner) therapy: includes eliquis. Pre-hospital notification of patient arrival was not received. 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 SEPSIS SCREEN: NEGATIVE. SIRS criteria negative. No possible sources of infection. -- 11:02/24/25 EDT Janna Anand R.N. 11:18 02/24/25. BP: 164/94 MAP: 117. HR: 87. RR: 14. O2 saturation: 94% Temperature: 97.9 F. Pain level now 10. -- 11:02/24/25 EDT Janna Anand R.N. Measurements: 11:02/24/25 Wt: 78.9 kg, Ht/Wellington: 72.0 in, BMI: 23.60 -- 11:02/24/25 EDT Janna Anand R.N. 1 of 4 Nurse Narrative Medications: losartan 50 mg tablet: 50 mg once a day for hypertension. -- 11:02/24/25 EDT Janna Anand R.N. amLODIPine 5 mg tablet: 5 mg once a day . -- 11:02/24/25 JERRYT Janna Anand R.N. rosuvastatin 20 mg tablet -- 11:02/24/25 JERRYT Janna Anand R.N.Updated through eRx -- 11:02/24/25 JERRYT Kota Santiago R.N. metoprolol tartrate 25 mg tablet: 1 tablet twice a day. -- 11:02/24/25 JERRYT Kota Santiago R.N. Eliquis 5 mg tablet: 1 tablet twice a day. -- 11:02/24/25 JERRYT Kota Santiago R.N. Vitamin D3 125 mcg (5,000 unit) tablet: 1 tablet once a day. -- 11:02/24/25 JERRYT Kota Santiago R.N. aspirin 81 mg tablet,delayed release: 1 tablet once a day. -- 11:02/24/25 JERRYT Kota Santiago R.N. hydroxyurea 500 mg capsule: TAKE 1 CAPSULE BY MOUTH ONCE DAILY Stopped 02/24/2025. -- 11:02/24/25 JERRYT Kota Santiago R.N. hydroxyurea 500 mg capsule: TAKE 1 CAPSULE BY MOUTH ONCE DAILY -- 11:02/24/25 JERRYT Kota Santiago R.N. rosuvastatin 20 mg tablet: 1 tablet once a day. -- 11:02/24/25 JERRYT Kota Santiago R.N. Allergies: no known drug allergies -- 11:02/24/25 JERRYT Janna Anand R.N. Problems: Hypertension -- 11:09 02/24/25 TOBIAS Anand R.N. Hypercholesterolemia -- 11:02/24/25 JERRYT Janna Anand R.N. Atrial Fibrillation -- 11:10 02/24/25 JERRYT Janna Anand R.N. Anemia -- 11:10 02/24/25 JERRYT Janna Anand R.N. Leukemia. (BILL 2) -- 11:12 02/24/25 JERRYT Janna Anand R.N. Skin Cancer -- 11:13 02/24/25 JERRYT Janna Anand R.N. ADDITIONAL SURGERIES: Coronary Artery Bypass Graft -- 11:12 02/24/25 TOBIAS Anand R.N. Adenoidectomy -- 11:13 02/24/25 TOBIAS Anand R.N. Appendectomy -- 11:02/24/25 TOBIAS Anand R.N. Tonsillectomy -- 11:02/24/25 TOBIAS Anand R.N. Skin disease screening -- 11:02/24/25 TOBIAS Anand R.N. 2 of 4 Nurse Narrative History 10:59 02/24/25. PAST MEDICAL HX: Other immunizations: received pneumonia: first and second dose. SOCIAL HX: Never smoker. No alcohol use or drug use. The patient has not traveled outside the [place] Infectious disease exposure: No infectious disease exposure. ABUSE ASSESSMENT: The patient answered yes to the question(s) Do you feel safe in your home? and no to the question(s) Are you afraid to go home?. SELF HARM ASSESSMENT: Self harm assessment was performed. The patient answered no to the question(s) Have you recently felt down, depressed, or hopeless? and Do you have thoughts of harming or killing yourself?. -- 11:02/24/25 TOBIAS Anand R.N. 11:48 02/24/25. FALL RISK ASSESSMENT: Fall risk assessment completed. Risk factors identified include patient age greater than 65 years, history of fall and impairment of mobility. Fall interventions initiated. Side rails up x2. Bed in low position. Brakes on. Patient identified as a fall risk. Call light in reach of patient. Instructed not to get up without assistance. -- 11:53 02/24/25 TOBIAS Anand R.N. Interventions 10:59 02/24/25. Advanced care plan discussed with patient. Patient does not have advanced directive. Patient has a living will (full code). -- 11:02/24/25 TOBIAS Anand R.N. PHYSICAL ASSESSMENT 11:02/24/25. Ambulatory to room. GENERAL / NEURO / PSYCH: Alert. Oriented X 4. ( Pt tripped over his left shoe causing him to slide down the wall. Pt had no LOC.). HEENT: Head: tenderness and swelling present in the right forehead. RESPIRATORY: Respirations not labored. Chest nontender. Breath sounds within nor (more content not included)... Normal [facility] ED ORDER SHEET (CPOE ONLY)on 02-24-2025 ED ORDER SHEET (CPOE ONLY) Order Sheet Order Sheet [facility] [address] [place] [address] [id number] 02/24/2025 Patient: KSENIA GALLARDO Sex: Male : 1935 Age: 89y MEASUREMENTS: Wt: 78.9 kg, Ht/Wellington: 72.0 in, BMI: 23.60 ALLERGIES: No known drug allergies MEDICATION/IV/DRIP/FL UID ORDERS Order Description Priority Entered Acknowledged Completed LAB ORDERS Order Description Priority Entered Acknowledged Collected Completed CBC w Diff Stat Stat 11:06 02/24/2025 11:21 02/24/2025 Lazaro Lawrence D.OSonali R.Brandon CMP Stat Stat 11:06 02/24/2025 11:21 02/24/2025 Lazaro Lawrence D.OSonali RCarlos Troponin-I Stat Stat 11:06 02/24/2025 11:21 02/24/2025 Lazaro Lawrence D.O. RCarlos EKG - ED Stat Stat 11:06 02/24/2025 11:21 02/24/2025 Desmond Anand, 1 of 3 Order Sheet Janie Amaya RCarlos Urinalysis Stat Stat 11:06 02/24/2025 11:21 02/24/2025 Lazaro Lawrence D.O. RCarlos Flu Swab (Influenzae Stat 11:06 02/24/2025 11:21 02/24/2025 AAg) Stat Lazaro Lawrence D.O. RCarlos Rapid COVID (SARS) Stat 11:06 02/24/2025 11:21 02/24/2025 ANTIGEN TEST Stat Lazaro Lawrence D.O. RSonaliNSonali DIAGNOSTIC STUDY ORDERS Order Description Priority Entered Acknowledged Completed Chest 1V Stat Stat 11:06 02/24/2025 11:21 Desmond Amaya, 02/24/2025 Janie Anand, R.N. Reason for Study: weakness CT Brain wo Cont Stat Stat 11:06 02/24/2025 11:21 Desmond Amaya, 02/24/2025 Janie Anand, R.N. Reason for Study: Head Injury CT C-Spine wo Cont Stat Stat 11:06 02/24/2025 11:21 Desmond Amaya, 02/24/2025 Janie Anand, R.N. Reason for Study: Trauma/Injury 2 of 3 Order Sheet Hand R 3V Stat Stat 11:06 02/24/2025 11:21 Desmond Amaya, 02/24/2025 Janie Anand, R.N. Reason for Study: Trauma/Injury CT L-Spine wo Cont Stat Stat 11:06 02/24/2025 11:21 Desmond Amaya, 02/24/2025 Janie Anand, R.N. Reason for Study: fall with pain US RUQ Stat Stat 13:04 02/24/2025 13:09 Desmond Amaya, 02/24/2025 Sherrie.Elizabeth Anand, R.N. Reason for Study: cholelithasis on ct with elevated bilirubin STAFF ORDERS Order Description Priority Entered Acknowledged Collected Completed IV Saline Lock 11:06 02/24/2025 11:21 02/24/2025 Lazaro Lawrence D.O. R.N. [Electronically signed by Desmond Amaya D.O. (02/24/2025 14:20 EDT)] 3 of 3 Normal [facility] ED PHYSICIAN CLINICAL REPORT on 02-24-2025 ED PHYSICIAN CLINICAL REPORT Narrative Physician Clinical [address] [address] [id number] 02/24/2025 Patient: KSENIA GALLARDO Sex: Male : 1935 Age: 89y Disposition: Discharge Disposition Decision Time: 14:14 02/24/2025 Measurements Wt: 78.9 kg, Ht/Wellington: 72.0 in, BMI: 23.60 Initial Vital Sign Measured Time BP MAP HR RR O2Sat ETCO2 Temp Pain GCS RTS 11:18 02/24/2025 164/94 117 87 14 94% 97.9 F 3 Time Seen: 11:02 02/24/2025. Arrived- By private vehicle. Historian- patient. HISTORY OF PRESENT ILLNESS Chief Complaint: FALL. Location of injuries- head, lower back and right hand. (Patient became off balance while taking off his sweatshirt last night at home. Fell back against the wall and slid down. Has some pain to his right head as well as hand. Also has some pain in his lower back. Today feeling weak. Denies any fever, chills, nausea, vomiting, chest pain, shortness of breath, abdominal pain, urinary symptoms.). PAST HISTORY Anemia Atrial Fibrillation Hypercholesterolemia Hypertension Narrative Leukemia: (BILL 2) Skin Cancer Surgeries: Adenoidectomy Appendectomy Coronary Artery Bypass Graft Skin disease screening Tonsillectomy Medications: amLODIPine 5 mg tablet: 5 mg once a day . aspirin 81 mg tablet,delayed release: 1 tablet once a day. Eliquis 5 mg tablet: 1 tablet twice a day. hydroxyurea 500 mg capsule: TAKE 1 CAPSULE BY MOUTH ONCE DAILY hydroxyurea 500 mg capsule: TAKE 1 CAPSULE BY MOUTH ONCE DAILY Stopped 02/24/2025. losartan 50 mg tablet: 50 mg once a day for hypertension. metoprolol tartrate 25 mg tablet: 1 tablet twice a day. rosuvastatin 20 mg tablet: 1 tablet once a day. Vitamin D3 125 mcg (5,000 unit) tablet: 1 tablet once a day. Allergies: no known drug allergies SOCIAL HISTORY No alcohol use or drug use. ADDITIONAL NOTES The nursing notes have been reviewed. PHYSICAL EXAM Vital Signs: Have been reviewed. Appearance: Alert. No acute distress. Head: Head non-tender. No swelling of head. Eyes: EOM intact. Narrative ENT: No dental injury. Pharynx normal. Neck: Painless ROM. Non-tender. CVS: Heart sounds normal. Pulses normal. Respiratory: Breath sounds normal. Chest nontender. Abdomen: No visible injury. Soft and nontender. Back: Moderate soft-tissue and vertebral tenderness in the lumbar area. Skin: (Ecchymosis to the right dorsal hand). Extremities: Pelvis stable. Extremities atraumatic. Neuro: No motor deficit. No sensory deficit. LABS, X-RAYS, AND EKG 12-LEAD EKG: EKG time: 10:54 02/24/2025. Normal sinus rhythm. Rate: 85. Normal P waves. Non-specific ST segment / T wave abnormalities. PVC. The study has been interpreted contemporaneously by me. Interpretation time: 10:56 02/24/2025. X-Rays: Right hand negative. The X-rays were independently viewed by me and interpreted by the radiologist. CT C-Spine: No acute disease. CT Head: No acute disease. Laboratory Tests: CBC + DIFF Final LOS: 02/24/2025 11:58:00 EDT MsgRcvd: 02/24/2025 13:00 EDT Lab Test Result Reference Status Received Comments 02/24/2025 13:00 CBC-COMPLETE CBC + DIFF Final EDT BLOOD COUNT 13.3 x 10/UL 02/24/2025 13:00 WBC 4.5 - 10.8 Final Above high normal EDT 3.70 x 10/UL 02/24/2025 13:00 RBC 4.50 - 6.00 Final Below low normal EDT 11.6 g/dl 02/24/2025 13:00 HEMOGLOBIN 13.0 - 17.5 Final Below low normal EDT 3 of 23 Narrative Lab Test Result Reference Status Received Comments 35.6 % 02/24/2025 13:00 HEMATOCRIT 40.0 - 52.0 Final Below low normal EDT 02/24/2025 13:00 MCV 96 fl 81 - 98 Final EDT 02/24/2025 13:00 MCH 31 pg 27 - 33 Final EDT 02/24/2025 13:00 MCHC 33 X10 3 32 - 36 Final EDT 28.6 % 02/24/2025 13:00 RDW/CV 12.0 - 15.6 Final Above high normal EDT 530 x10/UL 02/24/2025 13:00 PLATELET 150 - 450 Final Above high normal EDT 02/24/2025 13:00 AUTOMATED MPV 9.9 fl 6.4 - 10.5 Final EDT DIFFERENTIAL 83.6 % 02/24/2025 13:00 NEUT % 46.0 - 76.0 Final Above high normal EDT 11.1 % 02/24/2025 13:00 LYMPH % 20.0 - 45.0 Final Below low normal EDT 02/24/2025 13:00 MONOS % 4.4 % 0.0 - 10.0 Final EDT 02/24/2025 13:00 EO % 0.5 % 0.0 - 7.0 Final EDT 02/24/2025 13:00 BASO % 0.5 % 0.0 - 2.0 Final EDT 02/24/2025 13:00 Lymph # 1.47 x10/UL 0.80 - 2.80 Final EDT 4 of 23 Narrative Lab Test Result Reference Status Received Comments 11.13 x10/UL 02/24/2025 13:00 Neut # 1.50 - 7.10 Final Above high normal EDT 02/24/2025 13:00 [place] # 0.58 x10/UL 0.20 - 1.00 Final EDT 02/24/2025 13:00 EO # 0.06 x10/UL 0.00 - 0.50 Final EDT 02/24/2025 13:00 Baso # 0.07 x10/UL 0.00 - 0.10 Final EDT 02/24/2025 13:00 MANUAL DIFF SEE BELOW Final EDT 89 % (more content not included)... Normal [facility] [place] [facility] ED [facility] BILLon 02-24-[address] [place] [address] [id number] 02/24/2025 Patient: KSENIA GALLARDO Sex: Male : 1935 Age: 89y Item Professional Category Description Facility Code Code Quantity Fee Total Nurse/E/M EMERGENCY 207331 1 $0.00 $0.00 DEPARTMENT VISIT HIGH/URGENT SEVERITY (04222-91) Grand Total $0.00 Providers Desmond Amaya D.O. Chief Complaint FALL. Principal Diagnosis Stable T12 fracture. Stable L1 transverse process fracture; stable L2 transverse process fracture. Cholelithiasis. Urinary tract infection. 1 of 2 [facility] ICD-10 Codes N39.0: Urinary tract infection, site not specified S22.081A: Stable burst fracture of T11-T12 vertebra, initial encounter for closed fracture K80.20: Calculus of gallbladder without cholecystitis without obstruction 2 of 2 Normal [facility] [place] [facility] ED VISIT SUMMARYon ED VISIT SUMMARY Visit Overview Visit Overview [facility] [address] [place] [address] [phone] 02/24/2025 Patient: KSENIA GALLARDO Sex: Male : 1935 Age: 89y 02/24/2025 03:18 PM EDT ED Arrival:10:52 02/24/2025 EDT Status: Recent Travel:no Language:eng Adv Directive:No Isolation Status: Ethnicity:N Fall Risk:risk Infectious Disease Exposure:no Measurements:6' / 182.9 Self-Harm Status:risk Sepsis Screen:negative cm 174.0 lb / 78.9 kg Chief Complaint:slipped, (22:00 02/23/2025), ([place]), and (Pt tripped over his left foot, causing him to slide down the wall. Pt landed on his right side. ) ALLERGIES No Known Drug Allergies HOME MEDICATIONS amLODIPine 5 mg tablet: 5 mg once a day . aspirin 81 mg tablet,delayed release: 1 tablet once a day. Eliquis 5 mg tablet: 1 tablet twice a day. hydroxyurea 500 mg capsule: TAKE 1 CAPSULE BY MOUTH ONCE DAILY Stopped 02/24/2025. 1 of 4 Visit Overview hydroxyurea 500 mg capsule: TAKE 1 CAPSULE BY MOUTH ONCE DAILY losartan 50 mg tablet: 50 mg once a day for hypertension. metoprolol tartrate 25 mg tablet: 1 tablet twice a day. rosuvastatin 20 mg tablet: 1 tablet once a day. Vitamin D3 125 mcg (5,000 unit) tablet: 1 tablet once a day. PAST MEDICAL HISTORY / PROBLEMS Anemia Atrial Fibrillation Hypercholesterolemia Hypertension Leukemia. (BILL 2) Other immunizations: received pneumonia: first and second dose Skin Cancer PAST SURGICAL HISTORY Adenoidectomy Appendectomy Coronary Artery Bypass Graft Skin disease screening Tonsillectomy SOCIAL HISTORY Smoking status: No Alcohol use: No Drug use: No ED COURSE MEDICATIONS GIVEN IN EMERGENCY DEPARTMENT IV SITE INFORMATION INTAKE OUTPUT 2 of 4 Visit Overview REASSESMENT (most recent) 12:45 02/24/25. The patient reports no complaints and the patient is resting quietly. Call light placed in reach. Side rails up x 2. Bed placed in lowest position. Brakes of bed on. VITAL SIGNS First Vitals Last Vitals Temp 11:18 02/24/25 97.9 F Temp 14:49 02/24/25 98.2 F BP 11:18 02/24/25 164/94 BP 14:49 02/24/25 164/92 HR 11:18 02/24/25 87 HR 14:49 02/24/25 92 RR 11:18 02/24/25 14 RR 14:49 02/24/25 16 O2 Sat 11:18 02/24/25 94% O2 Sat 14:49 02/24/25 97% Pain 11:18 02/24/25 3 Pain 14:49 02/24/25 0 ETCO2 11:18 02/24/25 ETCO2 14:49 02/24/25 GCS 11:18 02/24/25 GCS 14:49 02/24/25 RTS 11:18 02/24/25 RTS 14:49 02/24/25 PROCEDURES NURSING INTERVENTIONS LABS / STUDIES LABS / STUDIES ORDERED CBC w Diff Chest 1V CMP CT Brain wo Cont CT C-Spine wo Cont CT L-Spine wo Cont EKG - ED Flu Swab (Influenzae AAg) Hand R 3V Rapid COVID (SARS) ANTIGEN TEST Troponin-I Urinalysis US RUQ 3 of 4 Visit Overview CLINICAL IMPRESSION CHOLELITHIASIS STABLE L1 TRANSVERSE PROCESS FRACTURE; STABLE L2 TRANSVERSE PROCESS FRACTURE STABLE T12 FRACTURE URINARY TRACT INFECTION 4 of 4 Normal [facility] [place] [facility] ED VITALS FLOW SHEETon 02-24 ED VITALS FLOW SHEET Vitals Vital Sign Flow Sheet [facility] [address] [facility] [facility] [place] [address] [phone] 02/24/2025 Patient: KSENIA GALLARDO Sex: Male : 1935 Age: 89y Measurements Wt: 78.9 kg, Ht/[place]: 72.0 in, BMI: 23.60 Measured Time BP MAP HR RR O2Sat ETCO2 Temp Pain GCS RTS 14:49 02/24/2025 164/92 116 92 16 97% 98.2 F 0 14:40 02/24/2025 87 90% 14:35 02/24/2025 88 93% 14:30 02/24/2025 80 90% 14:29 02/24/2025 162/87 118 88 14:25 02/24/2025 90 92% 14:20 02/24/2025 80 92% 14:15 02/24/2025 88 93% 14:14 02/24/2025 158/100 110 86 14:10 02/24/2025 85 95% 14:05 02/24/2025 85 88% 14:00 02/24/2025 88 93% 13:59 02/24/2025 156/90 107 84 13:55 02/24/2025 84 91% 13:50 02/24/2025 91 93% 1 of 2 Vitals Measured Time BP MAP HR RR O2Sat ETCO2 Temp Pain GCS RTS 13:45 02/24/2025 92 94% 13:44 02/24/2025 155/95 115 89 13:40 02/24/2025 89 95% 13:35 02/24/2025 90 93% 13:30 02/24/2025 88 90% 13:30 02/24/2025 166/99 127 91 13:25 02/24/2025 85 95% 13:20 02/24/2025 95 96% 13:15 02/24/2025 78% 13:05 02/24/2025 86 88% 13:00 02/24/2025 81 93% 12:59 02/24/2025 164/104 124 90 12:55 02/24/2025 88 92% 12:50 02/24/2025 87 93% 12:45 02/24/2025 84 91% 12:44 02/24/2025 151/93 112 91 12:40 02/24/2025 82 94% 11:18 02/24/2025 164/94 117 87 14 94% 97.9 F 3 2 of 2 Normal [facility] [place] [facility] Ferritin SerPl-mCncon 2024 Ferritin [Mass/Vol] 532.0 ng/mL Normal 30.3-565.7 [facility] Comment on above: Order Comment: Speci men Type: BLOOD SPECIMEN Ordering Facility: [facility] Address: [facility] [place] [address] Performed By: #### 5 7021-8 #### [facility] CLIA [id number] [address] [id number] [place] HAND RT MIN 3 VIEWSon 2024 HAND RT MIN 3 VIEWS [facility] [address] [place], [place] [address] Patient: KSENIA GALLARDO Phone#: : 1935 Age: 89 Gender: M Pt. Type: ER Account: [id number] Location: [facility] Ordering: DESMOND AMAYA Exam Date: 02/24/2025/12:02 Family Phys: MINISTERIO ELIAS Charge Code: [id number] Physician: Archer Order #: [id number] Dose#: PROCEDURE: X-RAY HAND RT COMPLETE MIN 3 VIEWS COMPARISON: None. INDICATIONS: Trauma. FINDINGS: BONES: Diffuse bony demineralization. Joint space loss, sclerosis and subluxation at the 1st carpometacarpal articulation. Spurring at the base of the 4th and 5th middle phalanx. Spurring at the 5th DIP articulation. Joint space loss at the 2nd and 3rd MCP articulation. Joint space loss at the 2nd DIP articulation. No fracture or dislocation. SOFT TISSUES: Negative. No visible soft tissue swelling. EFFUSION: None visible. OTHER: Negative. CONCLUSION: 1. No acute osseous abnormality 2. Chronic changes at the 1st metacarpal articulation 3. Polyarticular osteoarthritis changes Dictated by: Regina Rogers MD on 02/24/2025 at 12:33 Approved by: Regina Rogers MD on 02/24/2025 at 12:37 Normal [facility] [place] [facility] INFLUENZA VIRUS RAPID A/Bon 02-24-2025 INFLUENZA VIRUS RAPID A/B INFLUENZA A NEGATIVE INFLUENZA B NEGATIVE INTERNAL NEG QC PASS INTERNAL POS QC PASS EXTERNAL QC DONE? YES SEND TO IC? NO A NEGATIVE TEST RESULT DOES NOT EXCLUDE INFECTION WITH INFLUENZA A OR B. THEREFORE, THE RESULTS OBTAINED FROM THIS FLU TEST SHOULD BE USED IN CONJUCTION WITH CLINICAL FINDINGS TO MAKE AN ACCURATE DIAGNOSIS. A POSITIVE RESULT DOES NOT RULE OUT CO-INFECTIONS WITH OTHER PATHOGENS OR IDENTIFY ANY SPECIFIC INFLUENZA A VIRUS SUBTYPE.CO-INFECTION WITH INFLUENZA A AND B IS RARE. IT IS RECOMMENDED THAT DUAL POSITIVE RESULTS BE CONFIRMED BY VIRAL CULTURE OR AN FDA-CLEARED INFLUENZA A AND B MOLECULAR ASSAY. INDIVIDUALS WHO HAVE RECEIVED NASALLY ADMINISTERED INFLUENZA A VACCINE MAY TEST POSITIVE IN COMMERCIALLY AVAILABLE INFLUENZA RAPID DIAGNOSTIC TESTS FOR UP TO THREE DAYS. RESULT CRITICAL? NO Normal [facility] [place] [facility] Comment on above: Performed By: #### 2 13120 #### [facility] [place] [facility],[address] [place] [address]3957 IRON AND TIBCon 02-24-2025 %SATURATION 17 % Normal [facility] Comment on above: Performed By: #### 2 67771 #### [facility] [place] [facility],[address] [place] [address]1269 Iron [Mass/Vol] 49 ug/dL Low 65 - 175 [facility] Comment on above: Performed By: #### 2 89997 #### [facility] [place] [facility],[address] [place] [address] 45817 TIBC 291 ug/dl Normal 250 - 450 [facility] [place] [facility] Comment on above: Performed By: #### 2 61736 #### [facility] [place] [facility],[address] [place] [address] 44874 UIBC 242 ug/dL Normal 155 - 355 [facility] [place] [facility] Comment on above: Performed By: #### 2 09283 #### [facility] [place] [facility],[address] [place] [address] 72663 LIPID PROFILEon 02-24-2025 Cholesterol [Mass/Vol] 97 mg/dL Normal 0 - 240 [facility] Comment on above: Performed By: #### 2 33421 #### [facility] [place] [facility],[address] [place] [address] 83584 Cholesterol in HDL [Mass/Vol] 36 mg/dL Low 40 - 60 [facility] [place] [facility] Comment on above: Performed By: #### 2 81518 #### [facility] [place] [facility],[address] [place] [address] 86518 Cholesterol in LDL [Mass/Vol] 50 mg/dL Normal 0 - 129 [facility] [place] [facility] Comment on above: Performed By: #### 2 02787 #### [facility] [place] [facility],[address] [place] [address] Cholesterol.total/Chol esterol in HDL [Mass ratio] 2.7 {ratio} Normal 0.0 - 5.0 [facility] [place] [facility] Comment on above: Performed By: #### 2 52376 #### [facility] [place] [facility],[address] [place] [address] Lipid 1996 panel Normal [facility] Comment on above: Result Comment: LIPI D PROFILE Performed By: #### 2 36049 #### [facility] [place] [facility],[address] [place] [address] Triglyceride [Mass/Vol] 53 mg/dL Normal 0 - 150 [facility] [place] [facility] Comment on above: Performed By: #### 2 10772 #### [facility] [place] [facility],[address] [place] [address] T4 Free SerPl-mCncon 025 Free T4 [Mass/Vol] 1.1 ng/dL Normal 0.9-1.7 [facility] Comment on above: Order Comment: Speci men Type: BLOOD SPECIMEN Ordering Facility: [facility] Address: [address] [place] [address] Performed By: #### 5 7021-8 #### [facility] CLIA [id number] [address] [place] [address] [place] TROPONINon 02-24-2025 HS TROPONIN 18.6 pg/mL Normal 0.0 - 76.2 [facility] [place] [facility] Comment on above: Performed By: #### 2 37228 #### [facility] [place] [facility],[address] [place], [place] [address] TSHon 02-24-2025 TSH Qn 6.42 m[IU]/L High 0.35 - 3.74 [facility] Comment on above: Performed By: #### 2 19438 #### [facility] [place] [facility],[address] [place], [place] [address] URINALYSISon 02-24-2025 Amorphous 1+ Normal [facility] [place] [facility] Comment on above: Performed By: #### 2 41843 #### [facility] [place] [facility],[address] [place] [address] 93026 Bacteria 1+ Normal [facility] [place] [facility] Comment on above: Performed By: #### 2 42357 #### [facility] [place] [facility],[address] [place] [address] 32672 Bilirubin Ql (U) Negative Normal NORMAL: NEGATIVE [facility] [place] [facility] Comment on above: Performed By: #### 2 70539 #### [facility] [place] [facility],[address] [place] [address] Casts SEE BELOW Normal [facility] [place] [facility] Comment on above: Performed By: #### 2 01510 #### [facility] [place] [facility],[address] [place], [place] [address] Clarity (U) clear Normal NORMAL: CLEAR [facility] Comment on above: Performed By: #### 2 40846 #### [facility] [place] [facility],[address] [place], [place] [address] Color (U) zeinab Normal NORMAL: YELLOW [facility] [place] [facility] Comment on above: Performed By: #### 2 22700 #### [facility] [place] [facility],[address] [place] [address] 44426 Crystals LM Nom (Urine sed) NONE Normal [facility] [place] [facility] Comment on above: Performed By: #### 2 84603 #### [facility] [place] [facility],[address] [place] [address] 27790 Epi Cells FEW Normal [facility] Comment on above: Performed By: #### 2 24605 #### [facility] [place] [facility],[address] [place] [address] 63374 Glucose Ql (U) NORM Normal NORMAL: NORMAL [facility] [place] [facility] Comment on above: Performed By: #### 2 29718 #### [facility] [place] [facility],[address] [place] [address] 89826 Hemoglobin Ql (U) 10 Abnormal NORMAL: NEGATIVE [facility] [place] [facility] Comment on above: Performed By: #### 2 24872 #### [facility] [place] [facility],[address] [place] [address] 06119 Hyaline 1-5 Normal NORMAL: NONE [facility] Comment on above: Performed By: #### 2 38641 #### [facility] [place] [facility],[address] [place] [address] 15097 Ketone Negative Normal NORMAL: NEGATIVE [facility] [place] [facility] Comment on above: Performed By: #### 2 99974 #### [facility] [place] [facility],[address] [place] [address] Leukocytes 100 Abnormal NORMAL: NEGATIVE [facility] [place] [facility] Comment on above: Performed By: #### 2 41348 #### [facility] [place] [facility],[address] [place] [address] Mucous 1+ Normal [facility] [place] [facility] Comment on above: Performed By: #### 2 49223 #### [facility] [place] [facility],[address] [place] [address] 14320 Nitrite Ql (U) Negative Normal NORMAL: NEGATIVE [facility] Comment on above: Performed By: #### 2 07452 #### [facility] [place] [facility],[address] [place] [address] 96007 pH (U) 6 [pH] Normal NORMAL: 5.0-8.0 [facility] Comment on above: Performed By: #### 2 11426 #### [facility] [place] [facility],[address] [place] [address] 58915 Protein Ql (U) 100 Abnormal NORMAL: NEGATIVE [facility] Comment on above: Performed By: #### 2 11386 #### [facility] [place] [facility],[address] [place] [address] 95313 Rbc 0-5 Normal 0-3/hpf [facility] Comment on above: Performed By: #### 2 30329 #### [facility] [place] [facility],[address] [place], [place] [address] Sp Shirley 1.020 Normal NORMAL: 1.010-1.030 [facility] Comment on above: Performed By: #### 2 64587 #### [facility] [place] [facility],[address] [place] [address] Specimen Type UNSPECIFIED Normal [facility] Comment on above: Performed By: #### 2 03026 #### [facility] [place] [facility],[address] [place] [address] Urinalysis dipstick W Reflex Microscopic panel (U) SEE BELOW Normal [facility] [place] [facility] Comment on above: Result Comment: MICR OSCOPIC Performed By: #### 2 87776 #### [facility] [place] [facility],[address] [place] [address] Urobilinog 1 Abnormal NORMAL: NORMAL [facility] Comment on above: Performed By: #### 2 57165 #### [facility] [place] [facility],[address] [place] [address] Wbc 11-15 Normal 0-5/hpf [facility] Comment on above: Performed By: #### 2 15122 #### [facility] [place] [facility],[address] [place] [address] Yeast NONE Normal [facility] Comment on above: Performed By: #### 2 06652 #### [facility] [place] [facility],[address] [place] [address] US RUQ (GB/PANCREAS)on 02-24 US RUQ (GB/PANCREAS) [place] [address] Patient: KSENIA GALLARDO Phone#: : 1935 Age: 89 Gender: M Pt. Type: ER Account: [id number] Location: 2 Ordering: DESMOND AMAYA Exam Date: 02/24/2025/13:10 Family Phys: BUTROS LATOUF Charge Code: [id number] Physician: Archer Order #: [id number] Dose#: PROCEDURE: RUQ (GB) ULTRASOUND COMPARISON: None. INDICATIONS: Cholelithisis FINDINGS: LIVER: Hepatic cysts are present in the right lobe. BILIARY: Gallbladder calculi are present measuring 12 and 8 millimeters respectively. The common bile duct is 7.2 millimeters. Intraductal calculus is not demonstrated. There is no evidence of intrahepatic biliary dilatation. PANCREAS: Normal. No visible mass, abnormal atrophy, or ductal dilatation. RIGHT KIDNEY: There is a 3.2 centimeter right renal cyst. OTHER: Negative. CONCLUSION: 1. Cholelithiasis. 2. Common bile duct is 7.2 millimeters in diameter. Intraductal calculus is not demonstrated. 3. Right hepatic cysts 4. Right renal cyst. DICTATED BY: KIARRA MAURO MD ON 02/24/2025 AT 14:00 APPROVED BY: KIARRA MAURO MD ON 02/24/2025 AT 14:04 Normal [facility] CBC W Auto Differential pane l (Bld)on 01-25-2025 Basophils (Bld) [#/Vol] 0.09 10*3/uL Normal <0.11 [facility] Comment on above: Order Comment: Speci men Type: BLOOD SPECIMEN Ordering Facility: [facility] Address: [address] [place] [address] Performed By: #### 5 7021-8 #### [facility] CLIA [id number] [address] [place] [address] [place] Basophils/100 WBC (Bld) 0.9 % Normal [facility] Comment on above: Order Comment: Speci men Type: BLOOD SPECIMEN Ordering Facility: [facility] Address: [address] [place] [address] Performed By: #### 5 7021-8 #### [facility] CLIA [id number] [address] [place] [address] [place] Differential cell count method Nom (Bld) Auto Normal [facility] Comment on above: Order Comment: Speci men Type: BLOOD SPECIMEN Ordering Facility: [facility] Address: [address] [place] [address] Performed By: #### 5 7021-8 #### [facility] CLIA [id number] [address] [place] [address] [place] Eosinophils (Bld) [#/Vol] 0.21 10*3/uL Normal <0.46 [facility] Comment on above: Order Comment: Speci men Type: BLOOD SPECIMEN Ordering Facility: [facility] Address: [address] [place] [address] Performed By: #### 5 7021-8 #### [facility] CLIA [id number] [address] [place] [address] [place] Eosinophils/100 WBC (Bld) 2.1 % Normal [facility] Comment on above: Order Comment: Speci men Type: BLOOD SPECIMEN Ordering Facility: [facility] Address: [address] [place] [address] Performed By: #### 5 7021-8 #### [facility] CLIA [id number] [address] [place] [address] [place] Erythrocyte distribution width (RBC) [Ratio] 26.8 % High 11.5-15.0 [facility] Comment on above: Order Comment: Speci men Type: BLOOD SPECIMEN Ordering Facility: [facility] Address: [address] [place] [address] Performed By: #### 5 7021-8 #### [facility] CLIA [id number] [address] [place] [address] [place] Hematocrit (Bld) [Volume fraction] 37.8 % Low 39.0-51.0 [facility] Comment on above: Order Comment: Speci men Type: BLOOD SPECIMEN Ordering Facility: [facility] Address: [address] [place] [address] Performed By: #### 5 7021-8 #### [facility] CLIA [id number] [address] [place] [address] [place] Hemoglobin (Bld) [Mass/Vol] 11.3 g/dL Low 13.0-17.0 [facility] Comment on above: Order Comment: Speci men Type: BLOOD SPECIMEN Ordering Facility: [facility] Address: [address] [place] [address] Performed By: #### 5 7021-8 #### [facility] CLIA [id number] [address] [place] [address] [place] Immature granulocytes (Bld) [#/Vol] 0.04 10*3/uL Normal <0.10 [facility] Comment on above: Order Comment: Speci men Type: BLOOD SPECIMEN Ordering Facility: [facility] Address: [address] [place] [address] Performed By: #### 5 7021-8 #### [facility] CLIA [id number] [address] [place] [address] [place] Immature granulocytes/100 WBC (Bld) 0.4 % Normal [facility] Comment on above: Order Comment: Speci men Type: BLOOD SPECIMEN Ordering Facility: [facility] Address: [address] [place] [address] Performed By: #### 5 7021-8 #### [facility] CLIA [id number] [address] [place] [address] [place] Lymphocytes (Bld) [#/Vol] 2.42 10*3/uL Normal 1.00-4.00 [facility] Comment on above: Order Comment: Speci men Type: BLOOD SPECIMEN Ordering Facility: [facility] Address: [address] [place] [address] Performed By: #### 5 7021-8 #### [facility] CLIA [id number] [address] [place] [address] [place] Lymphocytes/100 WBC (Bld) 24.3 % Normal [facility] Comment on above: Order Comment: Speci men Type: BLOOD SPECIMEN Ordering Facility: [facility] Address: [address] [place] [address] Performed By: #### 5 7021-8 #### [facility] CLIA [id number] [address] [place] [address] STATES [facility] MCH (RBC) [Entitic mass] 29.6 pg Normal 26.0-34.0 [facility] Comment on above: Order Comment: Speci men Type: BLOOD SPECIMEN Ordering Facility: [facility] Address: [address] [place] [address] Performed By: #### 5 7021-8 #### [facility] CLIA [id number] [address] [place] [address] [place] MCHC (RBC) [Mass/Vol] 29.9 g/dL Low 30.5-36.0 [facility] Comment on above: Order Comment: Speci men Type: BLOOD SPECIMEN Ordering Facility: [facility] Address: [address] [place] [address] Performed By: #### 5 7021-8 #### [id number] [address] [place] [address] [place] MCV (RBC) [Entitic vol] 99.0 fL Normal 80.0-100.0 [facility] Comment on above: Order Comment: Speci men Type: BLOOD SPECIMEN Ordering Facility: [facility] Address: [address] [place] [address] Performed By: #### 5 7021-8 #### [facility] CLIA [id number] [address] [place] [address] [place] Monocytes (Bld) [#/Vol] 0.56 10*3/uL Normal <0.87 [facility] Comment on above: Order Comment: Speci men Type: BLOOD SPECIMEN Ordering Facility: [facility] Address: [address] [place] [address] Performed By: #### 5 7021-8 #### [id number] [address] [place] [address] [place] Monocytes/100 WBC (Bld) 5.6 % Normal [facility] Comment on above: Order Comment: Speci men Type: BLOOD SPECIMEN Ordering Facility: [facility] Address: [address] [place] [address] Performed By: #### 5 7021-8 #### [facility] CLIA [id number] [address] [place] [address] [place] Neutrophils (Bld) [#/Vol] 6.65 10*3/uL Normal 1.45-7.50 [facility] Comment on above: Order Comment: Speci men Type: BLOOD SPECIMEN Ordering Facility: [facility] Address: [address] [place] [address] Performed By: #### 5 7021-8 #### [facility] CLIA [id number] [address] [place] [address] [place] Neutrophils/100 WBC (Bld) 66.7 % Normal [facility] Comment on above: Order Comment: Speci men Type: BLOOD SPECIMEN Ordering Facility: [facility] Address: [address] [place] [address] Performed By: #### 5 7021-8 #### [facility] CLIA [id number] [address] [place] [address] [place] Nucleated RBC (Bld) [#/Vol] 0.03 10*3/uL High <0.01 [facility] Comment on above: Order Comment: Speci men Type: BLOOD SPECIMEN Ordering Facility: [facility] Address: [address] [place] [address] Performed By: #### 5 7021-8 #### [facility] CLIA [id number] [address] [place] [address] [place] Nucleated RBC/100 WBC (Bld) [Ratio] 0.3 /100 WBC Normal [facility] Comment on above: Order Comment: Speci men Type: BLOOD SPECIMEN Ordering Facility: [facility] Address: [address] [place], [place] [address] Performed By: #### 5 7021-8 #### [facility] CLIA [id number] [address] [place] [address] [place] Platelet mean volume (Bld) [Entitic vol] 11.4 fL Normal 9.0-12.7 [facility] Comment on above: Order Comment: Speci men Type: BLOOD SPECIMEN Ordering Facility: [facility] Address: [address] [place], [place] [address] Performed By: #### 5 7021-8 #### [facility] CLIA [id number] [address] [place] [address] [place] Platelets (Bld) [#/Vol] 488 10*3/uL High 150-400 [facility] Comment on above: Order Comment: Speci men Type: BLOOD SPECIMEN Ordering Facility: [facility] Address: [address] [place], [place] [address] Performed By: #### 5 7021-8 #### [facility] CLIA [id number] [address] [place] [address] [place] RBC (Bld) [#/Vol] 3.82 10*6/uL Low 4.20-6.00 [facility] Comment on above: Order Comment: Speci men Type: BLOOD SPECIMEN Ordering Facility: [facility] Address: [address] [place] [address] Performed By: #### 5 7021-8 #### [facility] CLIA [id number] [address] [place] [address] [place] WBC (Bld) [#/Vol] 9.97 10*3/uL Normal 3.70-11.00 [facility] Comment on above: Order Comment: Speci men Type: BLOOD SPECIMEN Ordering Facility: [facility] Address: [address] [place] [address] Performed By: #### 5 7021-8 #### [facility] MANAS [id number] [address] [place] [address] [place] CNOVSPon 01-25-2025 CNOVSP Visit (SP) Office (HEMAWS) ZOYAKSENIA ([id number]) 1935 M Date Time Provider Department 01/25/25 10:10 AM EFRA NEVILLE During your visit today, we recorded the following information about you: Temperature Pulse Blood pressure Weight 97.1 degrees 78/minute 167/95 84.4 kg Efra Neville DO 01/31/2025 7:43 PM Signed Diagnosis: 1) ET with possible MDS. HPI: The patient is a 89-year-old male who has a history of essential thrombocytosis, BILL-2 positive, as well as myelodysplastic syndrome. He also has a history of coronary artery disease, status post CABG earlier in 2008. On Hydrea since 11/2009. Requested appointment today to discuss recent lab work and symptoms. Interim history: No subjective change. All verified today. Continues apixaban for atrial fibrillation. Remains on ASA--endorses has been inconsistently taking. No unusual bleeding. No excessive bruising. Fatigued, but stable. Swelling in the ankles--left chronic since CABG. PMH, medications and allergies personally reviewed by me today. Any changes documented in appropriate section. ROS: Constitutional: No episodes of fever or acute infection otherwise since last seen. Neuro: Denies PITTMAN, vertigo and imbalance. No symptoms of neuropathy. HEENT: No recent change in voice or hearing. Resp: No chronic or recurring cough. No wheezing or sputum production. No history of hemoptysis. CVS: See above. GI: Denies reflux, n/v, change in bowel habits and abdominal pain. : No dysuria or gross hematuria. Endo: No hot flashes. Derm: No rash. MS: No musculoskeletal pain including joint, bone and back pain. Heme: See above. Psych: Normal mood. PHYSICAL EXAM: Vitals: Blood pressure 167/95, pulse 78, temperature 36.2 ?C (97.1 ?F), temperature source Temporal, weight 84.4 kg (186 lb), SpO2 98%. Fatiuged-appearing and in no acute distress. EYES: Sclerae are anicteric bilaterally. LYMPHATIC: There is no palpable cervical or supraclavicular adenopathy. CARDIOVASCULAR: Rhythm is regular with occasional ectopy. ABDOMEN: The abdomen is nondistended. Stable mild splenomegaly. No tenderness. Extremities: B/L symmetric swelling LEs. ASSESSMENT AND PLAN: (D47.3) Essential thrombocytosis (HCC) (primary encounter diagnosis) (D64.9) Anemia, unspecified type -ET with overlap MDS. -Diagnosed with atrial fibrillation and started on anticoagulation. -Bone marrow biopsy in detail. MDS/MPN overlap. -Reviewed CBC. Anemia overall stable. No bleeding issues. Discussed continued dosing hydroxyurea at 500 mg daily. Plan: -Continue Hydrea -Continue ASA daily. -Continue apixaban. -Will discuss luspatercept next OV. -Follow-up with cardiology and PCP for management of other modifiable cardiac risk factors including BP. Portions of this documentation were copied and pasted from my previous office visit note dated 06/23/2024 in order to provide a cohesive continuity of the history. The note has been reviewed and edited and updated as necessary. Efra Neville DO Referring Provider: EFRA NEVILLE [[id number]] Allergies As of Date: 01/25/2025 (No Known Allergies) Date Reviewed: 01/25/2025 Reviewed by: Char Santiago Ma, MA - Fully Assessed Reason for Visit: Established Patient [175] Primary Visit Diagnosis:Essential thrombocytosis [D47.3] Other Visit Diagnoses:MDS (myelodysplastic syndrome), low grade (HCC) [D46.Z] Anemia, unspecified type [D64.9] Order(s):hydroxyurea (HYDREA) 500 mg capsuleTake 1 capsule by mouth once daily.Disp: 90 capsuleRfl: 3 Level of Service: OFFICE/OUTPATIENT ESTABLISHED MOD MDM 30 MIN [41531] Additional E/M codes: VISIT CPLX INHERENT EANDM ASSOC WITH MED * Follow-up and Disposition History for Encounter Date Provider Department Center 01/25/2025 [id number] NEVILLE [facility] Prescriptions as of 01/31/2025 - hydroxyurea (HYDREA) 500 mg capsule Take 1 capsule by mouth once daily. - apixaban (ELIQUIS) 5 mg tab(s) Take 5 mg by mouth two times a day. - furosemide (LASIX) 20 mg tablet Take 20 mg by mouth once daily. - amLODIPine (NORVASC) 5 mg tablet Take 1 tablet by mouth once daily. - metoprolol tartrate, short acting, (LOPRESSOR) 12.5 mg tab Take 25 mg by mouth two times a day. - cholecalciferol, vitamin D3, (VITAMIN D3 ORAL) Take 5,000 Units by mouth once daily. - rosuvastatin (CRESTOR) 20 mg tablet Take 20 mg by mouth once daily. - losartan (COZAAR) 50 mg tablet Take 50 mg by mouth once daily. - ASPIRIN 81 MG CHEWABLE TAB Take 81 mg by mouth once daily. Problem List As Of Date 01/25/2025 Noted Resolved BLOOD DISEASE NOS [D75.9] 09/24/2007 MALIG NEOPLASM SKIN NOS [173.9] 12/10/2007 Essential thrombocytosis [D47.3] 12/28/2010 Encounter Status:Closed by EFRA NEVILLE on 01/31/25 [facility] 11-22-2024 [facility] Telephone (HILDA) KSENIA GALLARDO ([id number]) 1935 M Date Time Provider Department 11/22/24 EFRA NEVILLE During your visit today, we recorded the following information about you: Efra Neville, 11/22/2024 12:16 PM Signed Blood counts are still doing well. Continue Hydrea 500 mg daily and recheck CBC with office visit in about 2 months. Dali Loza LPN 11/23/2024 8:41 AM Signed Spoke with pt. Informed to continue Hydrea 500 mg daily recheck CBC and OV in about [address] Neville. Informed our PSS will reach out to him to get appts. Scheduled . Pt. Voiced understanding DORITA Quan Angela 11/23/2024 10:49 AM Signed Spoke with patient and scheduled as directed Ashley Pineda Allergies As of Date: 11/22/2024 (No Known Allergies) Date Reviewed: 07/14/2024 Reviewed by: Linnea Diamond LPN - Fully Assessed Reason for Visit: Results [95] Prescriptions as of 11/23/2024 - hydroxyurea (HYDREA) 500 mg capsule Take 1 capsule by mouth once daily. - CPAP Device and supplies: 5-20 cm h2o during sleep Started 03/24/2024 - apixaban (ELIQUIS) 5 mg tab(s) Take 5 mg by mouth two times a day. - furosemide (LASIX) 20 mg tablet Take 20 mg by mouth once daily. - amLODIPine (NORVASC) 5 mg tablet Take 1 tablet by mouth once daily. - metoprolol tartrate, short acting, (LOPRESSOR) 12.5 mg tab Take 25 mg by mouth two times a day. - cholecalciferol, vitamin D3, (VITAMIN D3 ORAL) Take 5,000 Units by mouth once daily. - rosuvastatin (CRESTOR) 20 mg tablet Take 20 mg by mouth once daily. - losartan (COZAAR) 50 mg tablet Take 50 mg by mouth once daily. - ASPIRIN 81 MG CHEWABLE TAB Take 81 mg by mouth once daily. Problem List As Of Date 11/22/2024 Noted Resolved BLOOD DISEASE NOS [D75.9] 09/24/2007 MALIG NEOPLASM SKIN NOS [173.9] 12/10/2007 Essential thrombocytosis [D47.3] 12/28/2010 Encounter Status:Closed by ASHLEY PINEDA on 11/23/24 Normal [facility] CBC W Auto Differential pane l (Bld)on 11-16-2024 Basophils (Bld) [#/Vol] 0.04 10*3/uL Normal <0.11 [facility] Comment on above: Order Comment: Speci men Type: BLOOD SPECIMEN Ordering Facility: [facility] Address: [address] [place] [address] Performed By: #### 5 7021-8 #### [facility] CLIA [id number] [address] [place] [address] [place] Basophils/100 WBC (Bld) 0.6 % Normal [facility] Comment on above: Order Comment: Speci men Type: BLOOD SPECIMEN Ordering Facility: [facility] Address: [address] [place] [address] Performed By: #### 5 7021-8 #### [facility] CLIA [id number] [address] [place] [address] [place] Differential cell count method Nom (Bld) Auto Normal [facility] Comment on above: Order Comment: Speci men Type: BLOOD SPECIMEN Ordering Facility: [facility] Address: [address] [place] [address] Performed By: #### 5 7021-8 #### [facility] CLIA [id number] [address] [place] [address] [place] Eosinophils (Bld) [#/Vol] 0.18 10*3/uL Normal <0.46 [facility] Comment on above: Order Comment: Speci men Type: BLOOD SPECIMEN Ordering Facility: [facility] Address: [address] [place] [address] Performed By: #### 5 7021-8 #### [facility] CLIA [id number] [address] [place] [address] [place] Eosinophils/100 WBC (Bld) 2.6 % Normal [facility] Comment on above: Order Comment: Speci men Type: BLOOD SPECIMEN Ordering Facility: [facility] Address: [address] [place] [address] Performed By: #### 5 7021-8 #### [facility] CLIA [id number] [address] [place] [address] [place] Erythrocyte distribution width (RBC) [Ratio] 26.1 % High 11.5-15.0 [facility] Comment on above: Order Comment: Speci men Type: BLOOD SPECIMEN Ordering Facility: [facility] Address: [address] [place] [address] Performed By: #### 5 7021-8 #### [facility] CLIA [id number] [address] [place] [address] [place] Hematocrit (Bld) [Volume fraction] 34.5 % Low 39.0-51.0 [facility] Comment on above: Order Comment: Speci men Type: BLOOD SPECIMEN Ordering Facility: [facility] Address: [address] [place] [address] Performed By: #### 5 7021-8 #### [facility] CLIA [id number] [address] [place] [address] [place] Hemoglobin (Bld) [Mass/Vol] 10.7 g/dL Low 13.0-17.0 [facility] Comment on above: Order Comment: Speci men Type: BLOOD SPECIMEN Ordering Facility: [facility] Address: [address] [place] [address] Performed By: #### 5 7021-8 #### [facility] CLIA [id number] [address] [place] [address] [place] Immature granulocytes (Bld) [#/Vol] 0.04 10*3/uL Normal <0.10 [facility] Comment on above: Order Comment: Speci men Type: BLOOD SPECIMEN Ordering Facility: [facility] Address: [address] [place] [address] Performed By: #### 5 7021-8 #### [facility] CLIA [id number] [address] [place] [address] [place] Immature granulocytes/100 WBC (Bld) 0.6 % Normal [facility] Comment on above: Order Comment: Speci men Type: BLOOD SPECIMEN Ordering Facility: [facility] Address: [address] [place] [id number] Performed By: #### 5 7021-8 #### [facility] CLIA [id number] [address] [place] [address] [place] Lymphocytes (Bld) [#/Vol] 1.83 10*3/uL Normal 1.00-4.00 [facility] Comment on above: Order Comment: Speci men Type: BLOOD SPECIMEN Ordering Facility: [facility] Address: [address] [place] [address] Performed By: #### 5 7021-8 #### [facility] CLIA [id number] [address] [place] [address] [place] Lymphocytes/100 WBC (Bld) 26.6 % Normal [facility] Comment on above: Order Comment: Speci men Type: BLOOD SPECIMEN Ordering Facility: [facility] Address: [address] [place] [address] Performed By: #### 5 7021-8 #### [facility] CLIA [id number] [address] [place] [address] [place] MCH (RBC) [Entitic mass] 29.4 pg Normal 26.0-34.0 [facility] Comment on above: Order Comment: Speci men Type: BLOOD SPECIMEN Ordering Facility: [facility] Address: [address] [place] [address] Performed By: #### 5 7021-8 #### [facility] CLIA [id number] [address] [place] [address] [place] MCHC (RBC) [Mass/Vol] 31.0 g/dL Normal 30.5-36.0 [facility] Comment on above: Order Comment: Speci men Type: BLOOD SPECIMEN Ordering Facility: [facility] Address: [address] [place] [address] Performed By: #### 5 7021-8 #### [facility] CLIA [id number] [address] [place] [address] [place] MCV (RBC) [Entitic vol] 94.8 fL Normal 80.0-100.0 [facility] Comment on above: Order Comment: Speci men Type: BLOOD SPECIMEN Ordering Facility: [facility] Address: [address] [place] [address] Performed By: #### 5 7021-8 #### [facility] CLIA [id number] [address] [place] [address] [place] Monocytes (Bld) [#/Vol] 0.36 10*3/uL Normal <0.87 [facility] Comment on above: Order Comment: Speci men Type: BLOOD SPECIMEN Ordering Facility: [facility] Address: [address] [place] [address] Performed By: #### 5 7021-8 #### [facility] CLIA [id number] [address] [place] [address] [place] Monocytes/100 WBC (Bld) 5.2 % Normal [facility] Comment on above: Order Comment: Speci men Type: BLOOD SPECIMEN Ordering Facility: [facility] Address: [address] [place] [address] Performed By: #### 5 7021-8 #### [facility] CLIA [id number] [address] [place] [address] [place] Neutrophils (Bld) [#/Vol] 4.44 10*3/uL Normal 1.45-7.50 [facility] Comment on above: Order Comment: Speci men Type: BLOOD SPECIMEN Ordering Facility: [facility] Address: [address] [place] [address] Performed By: #### 5 7021-8 #### [facility] CLIA [id number] [address] [place] [address] [place] Neutrophils/100 WBC (Bld) 64.4 % Normal [facility] Comment on above: Order Comment: Speci men Type: BLOOD SPECIMEN Ordering Facility: [facility] Address: [address] [place] [address] Performed By: #### 5 7021-8 #### [facility] CLIA [id number] [address] [place] [address] [place] Nucleated RBC (Bld) [#/Vol] 10*3/uL Normal <0.01 [facility] Comment on above: Order Comment: Speci men Type: BLOOD SPECIMEN Ordering Facility: [facility] Address: [address] [place] [address] Performed By: #### 5 7021-8 #### [facility] CLIA [id number] [address] [place] [address] [place] Nucleated RBC/100 WBC (Bld) [Ratio] 0.0 /100 WBC Normal [facility] Comment on above: Order Comment: Speci men Type: BLOOD SPECIMEN Ordering Facility: [facility] Address: [address] [place] [address] Performed By: #### 5 7021-8 #### [facility] CLIA [id number] [address] [place] [address] [place] Platelet mean volume (Bld) [Entitic vol] 10.7 fL Normal 9.0-12.7 [facility] Comment on above: Order Comment: Speci men Type: BLOOD SPECIMEN Ordering Facility: [facility] Address: [address] [place] [address] Performed By: #### 5 7021-8 #### [facility] CLIA [id number] [address] [place] [address] [place] Platelets (Bld) [#/Vol] 424 10*3/uL High 150-400 [facility] Comment on above: Order Comment: Speci men Type: BLOOD SPECIMEN Ordering Facility: [facility] Address: [address] [place] [address] Performed By: #### 5 7021-8 #### [facility] CLIA [id number] [address] [place] [address] [place] RBC (Bld) [#/Vol] 3.64 10*6/uL Low 4.20-6.00 [facility] Comment on above: Order Comment: Speci men Type: BLOOD SPECIMEN Ordering Facility: [facility] Address: [address] [place], [place] [address] Performed By: #### 5 7021-8 #### [facility] CLIA [id number] [address] [place] [address] [place] WBC (Bld) [#/Vol] 6.89 10*3/uL Normal 3.70-11.00 [facility] Comment on above: Order Comment: Speci men Type: BLOOD SPECIMEN Ordering Facility: [facility] Address: [address] [place], [place] [address] Performed By: #### 5 7021-8 #### [facility] CLIA [id number] [address] [place] [address] [place] CBC W Auto Differential pane l (Bld)on 09-16-2024 Basophils (Bld) [#/Vol] 0.06 10*3/uL Normal <0.11 [facility] Comment on above: Order Comment: Speci men Type: BLOOD SPECIMEN Ordering Facility: [facility] Address: [address] [place] [address] Performed By: #### 5 7021-8 #### [facility] CLIA [id number] [address] [place] [address] [place] Basophils/100 WBC (Bld) 0.8 % Normal [facility] Comment on above: Order Comment: Speci men Type: BLOOD SPECIMEN Ordering Facility: [facility] Address: [address] [place] [address] Performed By: #### 5 7021-8 #### [facility] CLIA [id number] [address] [place] [address] [place] Differential cell count method Nom (Bld) Auto Normal [facility] Comment on above: Order Comment: Speci men Type: BLOOD SPECIMEN Ordering Facility: [facility] Address: [address] [place] [address] Performed By: #### 5 7021-8 #### [facility] CLIA [id number] [address] [place] [address] [place] Eosinophils (Bld) [#/Vol] 0.13 10*3/uL Normal <0.46 [facility] Comment on above: Order Comment: Speci men Type: BLOOD SPECIMEN Ordering Facility: [facility] Address: [address] [place] [address] Performed By: #### 5 7021-8 #### [id number] [address] [place] [address] [place] Eosinophils/100 WBC (Bld) 1.7 % Normal [facility] Comment on above: Order Comment: Speci men Type: BLOOD SPECIMEN Ordering Facility: [facility] Address: [address] [place] [address] Performed By: #### 5 7021-8 #### [facility] [id number] [address] [place] [address] [place] Erythrocyte distribution width (RBC) [Ratio] 25.2 % High 11.5-15.0 [facility] Comment on above: Order Comment: Speci men Type: BLOOD SPECIMEN Ordering Facility: [facility] Address: [address] [place] [address] Performed By: #### 5 7021-8 #### [facility] CLIA [id number] [address] [place] [address] [place] Hematocrit (Bld) [Volume fraction] 38.1 % Low 39.0-51.0 [facility] Comment on above: Order Comment: Speci men Type: BLOOD SPECIMEN Ordering Facility: [facility] Address: [address] [place] [address] Performed By: #### 5 7021-8 #### [facility] CLIA [id number] [address] [place] [address] [place] Hemoglobin (Bld) [Mass/Vol] 11.7 g/dL Low 13.0-17.0 [facility] Comment on above: Order Comment: Speci men Type: BLOOD SPECIMEN Ordering Facility: [facility] Address: [address] [place], [place] [address] Performed By: #### 5 7021-8 #### [facility] CLIA [id number] [address] [place] [address] [place] Immature granulocytes (Bld) [#/Vol] 0.03 10*3/uL Normal <0.10 [facility] Comment on above: Order Comment: Speci men Type: BLOOD SPECIMEN Ordering Facility: [facility] Address: [address] [place] [address] Performed By: #### 5 7021-8 #### [facility] CLIA [id number] [address] [place] [address] [place] Immature granulocytes/100 WBC (Bld) 0.4 % Normal [facility] Comment on above: Order Comment: Speci men Type: BLOOD SPECIMEN Ordering Facility: [facility] Address: [address] [place] [address] Performed By: #### 5 7021-8 #### [facility] CLIA [id number] [address] [place] [address] [place] Lymphocytes (Bld) [#/Vol] 1.80 10*3/uL Normal 1.00-4.00 [facility] Comment on above: Order Comment: Speci men Type: BLOOD SPECIMEN Ordering Facility: [facility] Address: [address] [place] [address] Performed By: #### 5 7021-8 #### [facility] CLIA [id number] [address] [place] [address] [place] Lymphocytes/100 WBC (Bld) 23.3 % Normal [facility] Comment on above: Order Comment: Speci men Type: BLOOD SPECIMEN Ordering Facility: [facility] Address: [address] [place] [address] Performed By: #### 5 7021-8 #### [facility] CLIA [id number] [address] [place] [address] [place] MCH (RBC) [Entitic mass] 29.3 pg Normal 26.0-34.0 [facility] Comment on above: Order Comment: Speci men Type: BLOOD SPECIMEN Ordering Facility: [facility] Address: [address] [place] [address] Performed By: #### 5 7021-8 #### [id number] [address] [place] [address] [place] MCHC (RBC) [Mass/Vol] 30.7 g/dL Normal 30.5-36.0 [facility] Comment on above: Order Comment: Speci men Type: BLOOD SPECIMEN Ordering Facility: [facility] Address: [address] [place] [address] Performed By: #### 5 7021-8 #### [id number] [address] [place] [address] [place] MCV (RBC) [Entitic vol] 95.5 fL Normal 80.0-100.0 [facility] Comment on above: Order Comment: Speci men Type: BLOOD SPECIMEN Ordering Facility: [facility] Address: [address] [place] [address] Performed By: #### 5 7021-8 #### [facility] CLIA [id number] [address] [place] [address] [place] Monocytes (Bld) [#/Vol] 0.46 10*3/uL Normal <0.87 [facility] Comment on above: Order Comment: Speci men Type: BLOOD SPECIMEN Ordering Facility: [facility] Address: [address] [place] [address] Performed By: #### 5 7021-8 #### [facility] CLIA [id number] [address] [place] [address] [place] Monocytes/100 WBC (Bld) 6.0 % Normal [facility] Comment on above: Order Comment: Speci men Type: BLOOD SPECIMEN Ordering Facility: [facility] Address: [address] [place] [address] Performed By: #### 5 7021-8 #### [facility] CLIA [id number] [address] [place] [address] [place] Neutrophils (Bld) [#/Vol] 5.23 10*3/uL Normal 1.45-7.50 [facility] Comment on above: Order Comment: Speci men Type: BLOOD SPECIMEN Ordering Facility: [facility] Address: [address] [place] [address] Performed By: #### 5 7021-8 #### [facility] CLIA [id number] [address] [place] [address] [place] Neutrophils/100 WBC (Bld) 67.8 % Normal [facility] Comment on above: Order Comment: Speci men Type: BLOOD SPECIMEN Ordering Facility: [facility] Address: [address] [place] [address] Performed By: #### 5 7021-8 #### [facility] CLIA [id number] [address] [place] [address] [place] Nucleated RBC (Bld) [#/Vol] 0.02 10*3/uL High <0.01 [facility] Comment on above: Order Comment: Speci men Type: BLOOD SPECIMEN Ordering Facility: [facility] Address: [address] [place] [address] [place] [address] Performed By: #### 5 7021-8 #### [facility] CLIA [id number] [address] [place] [address] [place] Nucleated RBC/100 WBC (Bld) [Ratio] 0.3 /100 WBC Normal [facility] Comment on above: Order Comment: Speci men Type: BLOOD SPECIMEN Ordering Facility: [facility] Address: [address] [place] [address] Performed By: #### 5 7021-8 #### [facility] CLIA [id number] [address] [place] [address] [place] Platelet mean volume (Bld) [Entitic vol] 10.5 fL Normal 9.0-12.7 [facility] Comment on above: Order Comment: Speci men Type: BLOOD SPECIMEN Ordering Facility: [facility] Address: [facility] [place] [id number] Performed By: #### 5 7021-8 #### [facility] CLIA [id number] [address] [place] [address] [place] Platelets (Bld) [#/Vol] 398 10*3/uL Normal 150-400 [facility] Comment on above: Order Comment: Speci men Type: BLOOD SPECIMEN Ordering Facility: [facility] Address: [address] [place] [address] Performed By: #### 5 7021-8 #### [facility] CLIA [id number] [address] [place] [address] [place] RBC (Bld) [#/Vol] 3.99 10*6/uL Low 4.20-6.00 [facility] Comment on above: Order Comment: Speci men Type: BLOOD SPECIMEN Ordering Facility: [facility] Address: [address] [place] [address] Performed By: #### 5 7021-8 #### [facility] CLIA [id number] [address] [place] [address] [place] WBC (Bld) [#/Vol] 7.71 10*3/uL Normal 3.70-11.00 [facility] Comment on above: Order Comment: Speci men Type: BLOOD SPECIMEN Ordering Facility: [facility] Address: [address] [place] [address] [place] [address] Performed By: #### 5 7021-8 #### [facility] CLIA [id number] [address] [place] [id number] [place] UA DIP, URINE (POC)on 2023 BILIRUBIN UA (POCT) Negative Negative [facility] CLARITY UA (POCT) Slightly Cloudy [facility] COLOR UA (POCT) Dark yellow [facility] GLUCOSE UA (POCT) Negative Negative mg/dL [facility] Hemoglobin Ql (U) Negative Negative [facility] Interpretation and review of laboratory results Abnormal [facility] KETONE UA (POCT) Negative Negative mg/dL [facility] LEUKOCYTES UA (POCT) Trace Abnormal Negative [facility] NITRITE UA (POCT) Negative Negative [facility] PH UA (POCT) 6.0 4.5 - 8.0 [facility] Protein Ql (U) 30 mg/dL Abnormal Negative [facility] SPECIFIC GRAVITY UA (POCT) 1.025 1.005 - 1.030 [facility] UROBILINOGEN UA (POCT) 0.2 Mary l E.U./dL [facility] Location:[facility], [address] [facility], [place], [place], [address] [place] [address] POINT OF CARE [facility] BONE MARROW BIOPSYon 024 Juliet Ruiz APRN.CNP 06/04/2024 2:17 PM BONE MARROW BIOPSY Date/Start Time: 06/04/2024 1:40 PM Date/Stop Time: 06/04/2024 1:57 PM Performed by: Juliet Ruiz APRN.FARM DEMONSTRATOR Authorized by: Juliet Ruiz APRN.CNP Where was Patient When this Procedure was Performed [facility] Ambulatory Informed Consent Consent Obtained: Written Okay Protocol A moment to CARE was completed. SIGN IN Personnel directly involved with the procedure wore the appropriate PPE. Special Equipment: Yes Patient/Surrogate Stated/Verified: Patient name, Date of , Relevant allergies and Intended procedure TIME OUT Intended patient and procedure match the source document(s). Consent documented and matches the intended procedure. Relevant labs, photos, and/or imaging studies have been reviewed. Correct side/site marked and visible. Medications required for procedure verified. No fire risk assessment and interventions applicable. No implant(s) inserted. Pre-Procedure Details: The area was prepped with povidone Iodine (Betadine) and allowed to dry. A sterile partial body drape was applied following the usual aseptic technique. Medications: Local Anesthesia (see MAR): Lidocaine 1% Procedure Details: Patient Position: Left lateral decubitus Aspiration Laterality: Unilateral Aspiration Site: Right posterior superior iliac crest Biopsy Laterality: Unilateral Biopsy Site: Right posterior sperior iliac crest Plerts biopsy system was used. Using aseptic technique, bone marrow aspiration was performed. A touch prep was taken. Core biopsy was obtained 1 cm. The core biopsy was confirmed. Number of External Insertion Sites: 1 Pressure dressing applied to Bone Marrow site(s). Hemostasis maintained. Assisting Clinician(s): Jacklyn Ortega LPN, Karly Tafoya MA Post-Procedure Details: Patient Tolerance: Patient tolerated the procedure well with no immediate complications Immediate Complications: N/A Estimated Blood Loss: none Specimens Sent: bone marrow analysis, bone marrow chromosome analysis, DNA extraction and flow cytometry Teaching Complete: Bone Marrow Biopsy Post-procedure teaching complete Post-procedure care was reviewed and explained. Patient instructed to communicate complaints of redness, swelling, increased or unresolved pain, bleeding chills, bruising, and/or fever. Patient verbalized understanding. SIGN OUT All specimen containers correctly labeled. All instruments, equipment, possible retained foreign bodies accounted for. Post-procedure follow-up management communicated and Plan of Care Visit completed when applicable [facility] FOLATE, SERUMon 03-26-2024 Folate [Mass/Vol] 8.4 ng/mL 4.7 - PINF ng/mL [facility] No Panel Informationon 03-26 Interpretation and review of laboratory results Normal [facility] VITAMIN B12on 03-26-2024 Cobalamin (Vitamin B12) [Mass/Vol] 391 pg/mL 232 - 1245 pg/mL [facility] CBC W Auto Differential pane l (Bld)on 03-25-2024 Basophils (Bld) [#/Vol] 0.11 10*3/uL [facility] Basophils/100 WBC (Bld) 1.2 % [facility] Differential cell count method Nom (Bld) Auto [facility] Eosinophils (Bld) [#/Vol] 0.15 10*3/uL [facility] Eosinophils/100 WBC (Bld) 1.7 % [facility] Erythrocyte distribution width (RBC) [Ratio] 26.8 % High 11.5 - 15.0 % [facility] Hematocrit (Bld) [Volume fraction] 33.8 % Low 39.0 - 51.0 % [facility] Hemoglobin (Bld) [Mass/Vol] 10.2 g/dL Low 13.0 - 17.0 g/dL [facility] Immature granulocytes (Bld) [#/Vol] 0.04 10*3/uL [facility] Immature granulocytes/100 WBC (Bld) 0.4 % [facility] Interpretation and review of laboratory results Abnormal [facility] Lymphocytes (Bld) [#/Vol] 1.86 10*3/uL [facility] Lymphocytes/100 WBC (Bld) 20.8 % [facility] MCH (RBC) [Entitic mass] 30.7 pg 26.0 - 34.0 pg [facility] MCHC (RBC) [Mass/Vol] 30.2 g/dL Low 30.5 - 36.0 g/dL [facility] MCV (RBC) [Entitic vol] 101.8 fL High 80.0 - 100.0 fL [facility] Monocytes (Bld) [#/Vol] 0.47 10*3/uL [facility] Monocytes/100 WBC (Bld) 5.3 % [facility] Neutrophils (Bld) [#/Vol] 6.30 10*3/uL [facility] Neutrophils/100 WBC (Bld) 70.6 % [facility] Nucleated RBC (Bld) [#/Vol] 0.04 10*3/uL [facility] Nucleated RBC/100 WBC (Bld) [Ratio] 0.4 % /100 WBC [facility] Platelet mean volume (Bld) [Entitic vol] 11.6 fL 9.0 - 12.7 fL [facility] Platelets (Bld) [#/Vol] 513 10*3/uL High [facility] RBC (Bld) [#/Vol] 3.32 10*6/uL Low 4.20 - 6.0 0 m/uL [facility] WBC (Bld) [#/Vol] 8.93 10*3/uL [facility] Comprehensive metabolic 2000 panelOrdered By: Anne Marie Nieto on 03-25-2024 Albumin [Mass/Vol] 4.6 g/dL 3.9 - 4.9 g/dL [facility] ALP [Catalytic activity/Vol] 58 U/L 38 - 113 U/L [facility] ALT [Catalytic activity/Vol] 14 U/L 10 - 54 U/L [facility] Anion gap [Moles/Vol] 7 mmol/L Low 9 - 18 mmol/L [facility] AST [Catalytic activity/Vol] 19 U/L 14 - 40 U/L [facility] Bilirubin [Mass/Vol] 0.7 mg/dL 0.2 - 1 .3 mg/dL [facility] Calcium [Mass/Vol] 9.9 mg/dL 8.5 - 10. 2 mg/dL [facility] Chloride [Moles/Vol] 108 mmol/L High 97 - 10 5 mmol/L [facility] CO2 [Moles/Vol] 26 mmol/L 22 - 30 mmol/L [facility] Creatinine [Mass/Vol] 0.92 mg/dL 0.73 - 1.22 mg/dL [facility] GFR/1.73 sq M.predicted among non-blacks MDRD (S/P/Bld) [Vol rate/Area] 80 mL/min/{1.73_m2} - PINF [facility] Comment on above: Estimated Glomerular Filtration Rate (eGFR) is calculated using the 2020 CKD-EPI creatinine equation. This equation utilizes serum creatinine, sex, and age as parameters. The creatinine assay has traceable calibration to isotope dilution-mass spectrometry. Refer to KDIGO guidelines for clinical interpretation. In patients with unstable renal function, e.g. those with acute kidney injury, the eGFR may not accurately reflect actual GFR. Glucose [Mass/Vol] 86 mg/dL 74 - 99 mg/dL [facility] Comment on above: The [place] Diab[employer] s Association (ADA) provides guidance for cutoff values for fasting glucose and random glucose. The ADA defines fasting as no caloric intake for at least 8 hours. Fasting plasma glucose results between 100 to 125 mg/dL indicate increased risk for diabetes (prediabetes). Fasting plasma glucose results greater than or equal to 126 mg/dL meet the criteria for diagnosis of diabetes. In the absence of unequivocal hyperglycemia, results should be confirmed by repeat testing. In a patient with classic symptoms of hyperglycemia or hyperglycemic crisis, random plasma glucose results greater than or equal to 200 mg/dL meet the criteria for diagnosis of diabetes. Reference: Standards of Medical Care in Diabetes 2016, [place] [employer]. Diabetes Care. 2016.39(Suppl 1). Interpretation and review of laboratory results Abnormal [facility] Potassium [Moles/Vol] 4.1 mmol/L 3.7 - 5.1 mmol/L [facility] Protein [Mass/Vol] 7.3 g/dL 6.3 - 8.0 g/dL [facility] Sodium [Moles/Vol] 141 mmol/L 136 - 144 mmol/L [facility] Urea nitrogen [Mass/Vol] 14 mg/dL 9 - 24 mg/dL [facility] FERRITINon 03-25-2024 Ferritin [Mass/Vol] 657.0 ng/mL High 30.3 - 5 65.7 ng/mL [facility] Free T4 [Mass/Vol]on Interpretation and review of laboratory results Normal [facility] Iron and Iron binding capaci ty panelon 03-25-2024 Interpretation and review of laboratory results Normal [facility] Iron [Mass/Vol] 73 ug/dL 41 - 186 ug/dL [facility] Iron binding capacity [Mass/Vol] 256 ug/dL 232 - 386 ug/dL [facility] Iron/TIBC [Molar ratio] 28.5 % 15.0 - 57.0 % [facility] No Panel Informationon 03-25 Interpretation and review of laboratory results Abnormal [facility] T4 FREE/FREE THYROXINEon Free T4 [Mass/Vol] 1.1 ng/dL 0.9 - 1.7 ng/dL [facility] THYROID STIMULATING HORMONEo n 03-25-2024 TSH Qn 5.420 m[IU]/L High [facility] CBC W Auto Differential pane l (Bld)on 10-14-2023 Basophils (Bld) [#/Vol] 0.04 10*3/uL <0.11 k/uL [facility] Basophils/100 WBC (Bld) 0.9 % [facility] Differential cell count method Nom (Bld) Auto [facility] Eosinophils (Bld) [#/Vol] 0.07 10*3/uL <0.46 k/uL [facility] Eosinophils/100 WBC (Bld) 1.5 % [facility] Erythrocyte distribution width (RBC) [Ratio] 27.5 % High 11.5 - 15.0 % [facility] Hematocrit (Bld) [Volume fraction] 30.6 % Low 39.0 - 51.0 % [facility] Hemoglobin (Bld) [Mass/Vol] 9.5 g/dL Low 13.0 - 17.0 g/dL [facility] Immature granulocytes (Bld) [#/Vol] <0.10 k/uL [facility] Immature granulocytes/100 WBC (Bld) 0.2 % [facility] Lymphocytes (Bld) [#/Vol] 1.71 10*3/uL 1.00 - 4.00 k/uL [facility] Lymphocytes/100 WBC (Bld) 36.5 % [facility] MCH (RBC) [Entitic mass] 31.5 pg 26.0 - 34.0 pg [facility] MCHC (RBC) [Mass/Vol] 31.0 g/dL 30.5 - 36.0 g/dL [facility] MCV (RBC) [Entitic vol] 101.3 fL High 80.0 - 100.0 fL [facility] Monocytes (Bld) [#/Vol] 0.30 10*3/uL <0.87 k/uL [facility] Monocytes/100 WBC (Bld) 6.4 % [facility] Neutrophils (Bld) [#/Vol] 2.55 10*3/uL 1.45 - 7.50 k/uL [facility] Neutrophils/100 WBC (Bld) 54.5 % [facility] Nucleated RBC (Bld) [#/Vol] 0.03 10*3/uL High <0.01 k/uL [facility] Nucleated RBC/100 WBC (Bld) [Ratio] 0.6 /100 WBC [facility] Platelet mean volume (Bld) [Entitic vol] 11.2 fL 9.0 - 12.7 fL [facility] Platelets (Bld) [#/Vol] 314 10*3/uL 150 - 400 k/uL [facility] RBC (Bld) [#/Vol] 3.02 10*6/uL Low 4.20 - 6.0 0 m/uL [facility] WBC (Bld) [#/Vol] 4.68 10*3/uL 3.70 - 11. 00 k/uL [facility] .GFRon 08-20-2022 GFR >60 Normal [facility] ([place] Comment on above: Result Comment: GFR Population mean for , Non- Americans Ages 20-29 = 116 mL/min/1.73 sq.m. Ages 30-39 = 107 mL/min/1.73 sq.m. Ages 40-49 = 99 mL/min/1.73 sq.m. Ages 50-59 = 93 mL/min/1.73 sq.m. Ages 60-69 = 85 mL/min/1.73 sq.m. Ages 70+ = 75 mL/min/1.73 sq.m. Chronic Kidney Disease: Less than 60 mL/min/1.73 square meters End Stage Renal Disease: Less than 15 mL/min/1.73 square meters Performed By: #### G FR, BMP #### [place] [address] GFR Non- >60 Normal [facility] ([place]) Comment on above: Result Comment: GFR Population mean for , Non- Americans Ages 20-29 = 116 mL/min/1.73 sq.m. Ages 30-39 = 107 mL/min/1.73 sq.m. Ages 40-49 = 99 mL/min/1.73 sq.m. Ages 50-59 = 93 mL/min/1.73 sq.m. Ages 60-69 = 85 mL/min/1.73 sq.m. Ages 70+ = 75 mL/min/1.73 sq.m. Chronic Kidney Disease: Less than 60 mL/min/1.73 square meters End Stage Renal Disease: Less than 15 mL/min/1.73 square meters Performed By: #### G FR, BMP #### [place] [id number] BMPon 08-20-2022 BUN/Creatinine Ratio 20.9 ratio Normal 10.0-22.0 [facility] ([place]) Comment on above: Performed By: #### Mike LOVETT, BMP #### [address] [address] Calcium [Mass/Vol] 9.2 mg/dL Normal 8.7-10.4 [facility] ([place]) Comment on above: Performed By: #### Mike LOVETT, BMP #### [address] [address] Chloride [Moles/Vol] 108 mmol/L Normal 98-110 [facility] ([place] Comment on above: Performed By: #### Mike LOVETT, BMP #### [address] [address] CO2 [Moles/Vol] 31 mmol/L Normal 22-32 [facility] ([place]) Comment on above: Performed By: #### Mike LOVETT, BMP #### [address] [address] Creatinine [Mass/Vol] 0.91 mg/dL Normal 0.60-1.40 [facility] ([place]) Comment on above: Performed By: #### Mike LOVETT, BMP #### [address] [address] Electrolyte Balance 4.0 mEq/L Normal 4.0-15.0 [facility] ([place]) Comment on above: Performed By: #### Mike LOVETT, BMP #### [address] [address] Glucose [Mass/Vol] 82 mg/dL Normal 82-115 [facility] ([place] Comment on above: Performed By: #### Mike LOVETT, BMP #### [address] [address] Potassium [Moles/Vol] 4.4 mmol/L Normal 3.5-5.0 [facility] ([place]) Comment on above: Performed By: #### Mike LOVETT, BMP #### [address] [address] Sodium [Moles/Vol] 143 mmol/L Normal 136-145 [facility] ([place]) Comment on above: Performed By: #### G FR, BMP #### [facility] [address] [place] [address] Urea nitrogen [Mass/Vol] 19.0 mg/dL Normal 8.0-22.0 [facility] ([place]) Comment on above: Performed By: #### G FR, BMP #### [facility] [address] [place] [address] Vital Signs Date Time Vital Sign Value Performing Clinician Facility 07-29-2025 10:05-0400 Body height 182.[address] Ministerio Elias MD Work Phone: [facility] 07-29-2025 10:05-0400 Body mass index (BMI) [Ratio] 22.9 kg/m2 Dr. Ministerio Elias MD Work Phone: [facility] 07-29-2025 10:05-0400 Body weight 76.[address] Ministerio Elias MD Work Phone: [facility] 07-29-2025 10:05-0400 Diastolic blood pressure 84 mm[Hg] Dr. Ministerio Elias MD Work Phone: [facility] 07-29-2025 10:05-0400 Heart rate 100 /min Dr. Ministerio Elias MD Work Phone: [facility] 07-29-2025 10:05-0400 Respiratory rate 18 /min Dr. Ministerio Elias MD Work Phone: [facility] 07-29-2025 10:05-0400 Systolic blood pressure 144 mm[Hg] Dr. Ministerio Elias MD Work Phone: [facility] 07-21-2025 10:49-0400 Body mass index (BMI) [Ratio] 24.66 kg/m2 Juliet Ruiz APRN.FARM DEMONSTRATOR Work Phone: [facility] 07-21-2025 10:49-0400 Body temperature 97.5 [degF] Juliet Ruiz APRN.FARM DEMONSTRATOR Work Phone: [facility] 07-21-2025 10:49-0400 Body weight 76.4 kg Woodburn Ruiz ARTILLERY MAINTENANCE SUPERVISOR.FARM DEMONSTRATOR Work Phone: [facility] 07-21-2025 10:49-0400 Diastolic blood pressure 109 mm[Hg] Juliet Ruiz ARTILLERY MAINTENANCE SUPERVISOR.FARM DEMONSTRATOR Work Phone: [facility] 07-21-2025 10:49-0400 Heart rate 91 /min Juliet Ruiz ARTILLERY MAINTENANCE SUPERVISOR.FARM DEMONSTRATOR Work Phone: [facility] 07-21-2025 10:49-0400 SaO2% (BldA) [Mass fraction] 98 % Woodburn Ruiz ARTILLERY MAINTENANCE SUPERVISOR.FARM DEMONSTRATOR Work Phone: [facility] 07-21-2025 10:49-0400 Systolic blood pressure 173 mm[Hg] Juliet Ruiz ARTILLERY MAINTENANCE SUPERVISOR.FARM DEMONSTRATOR Work Phone: [facility] 04-21-2025 11:04-0400 Diastolic blood pressure 70 mm[Hg] Juliet Ruiz ARTILLERY MAINTENANCE SUPERVISOR.FARM DEMONSTRATOR Work Phone: [facility] 04-21-2025 11:04-0400 Systolic blood pressure 126 mm[Hg] Juliet Ruiz ARTILLERY MAINTENANCE SUPERVISOR.FARM DEMONSTRATOR Work Phone: [facility] 04-21-2025 10:58-0400 Heart rate 63 /min Juliet Ruiz ARTILLERY MAINTENANCE SUPERVISOR.FARM DEMONSTRATOR Work Phone: [facility] 04-21-2025 10:58-0400 Respiratory rate 14 /min Woodburn Ruiz ARTILLERY MAINTENANCE SUPERVISOR.FARM DEMONSTRATOR Work Phone: [facility] 04-21-2025 10:58-0400 SaO2% (BldA) [Mass fraction] 95 % Juliet Ruiz ARTILLERY MAINTENANCE SUPERVISOR.FARM DEMONSTRATOR Work Phone: [facility] 04-21-2025 10:57-0400 Body mass index (BMI) [Ratio] 25.34 kg/m2 Juliet Ruiz ARTILLERY MAINTENANCE SUPERVISOR.FARM DEMONSTRATOR Work Phone: [facility] 04-21-2025 10:57-0400 Body weight 78.5 kg Juliet Ruiz ARTILLERY MAINTENANCE SUPERVISOR.FARM DEMONSTRATOR Work Phone: [facility] 01-25-2025 10:02-0500 Body mass index (BMI) [Ratio] 27.24 kg/m2 Efra Neville DO Work Phone: [facility] 01-25-2025 10:02-0500 Body temperature 97.11 [degF] Efra Castroi DO Work Phone: [facility] 01-25-2025 10:02-0500 Body weight 84.37 kg Efra Castroi DO Work Phone: [facility] 01-25-2025 10:02-0500 Diastolic blood pressure 95 mm[Hg] Efra Castroi DO Work Phone: [facility] 01-25-2025 10:02-0500 Heart rate 78 /min Efra Castroi DO Work Phone: [facility] 01-25-2025 10:02-0500 SaO2% (BldA) [Mass fraction] 98 % Efra Castroi DO Work Phone: [facility] 01-25-2025 10:02-0500 Systolic blood pressure 167 mm[Hg] Efra Castroi DO Work Phone: [facility] 07-14-2024 15:07-0400 Body mass index (BMI) [Ratio] 26.5 kg/m2 Epifanio Gunderson PA-C Work Phone: [facility] 07-14-2024 15:07-0400 Body temperature 98.1 [degF] Epifanio Gunderson PA-C Work Phone: [facility] 07-14-2024 15:07-0400 Body weight 82.1 kg Epifanio Gunderson PA-C Work Phone: [facility] 07-14-2024 15:07-0400 Diastolic blood pressure 88 mm[Hg] Epifanio Gunderson PA-C Work Phone: [facility] 07-14-2024 15:07-0400 Heart rate 98 /min Epifanio Gunderson PA-C Work Phone: [facility] [facility] 07-14-2024 15:07-0400 Respiratory rate 16 /min Epifanio Gunderson PA-C Work Phone: [facility] 07-14-2024 15:07-0400 SaO2% (BldA) [Mass fraction] 98 % Epifanio Gunderson PA-C Work Phone: [facility] 07-14-2024 15:07-0400 Systolic blood pressure 130 mm[Hg] Epifanio Gunderson PA-C Work Phone: [facility] 06-23-2024 11:32-0400 Body mass index (BMI) [Ratio] 26.87 kg/m2 Efra Masci DO Work Phone: [facility] 06-23-2024 11:32-0400 Body temperature 98.1 [degF] Efra Masci DO Work Phone: [facility] 06-23-2024 11:32-0400 Body weight 83.23 kg Efra Masci DO Work Phone: [facility] 06-23-2024 11:32-0400 Diastolic blood pressure 92 mm[Hg] Efra Masci DO Work Phone: [facility] 06-23-2024 11:32-0400 Heart rate 104 /min Efra Masci DO Work Phone: [facility] 06-23-2024 11:32-0400 SaO2% (BldA) [Mass fraction] 100 % Efra Masci DO Work Phone: [facility] 06-23-2024 11:32-0400 Systolic blood pressure 140 mm[Hg] Efra Masci DO Work Phone: [facility] 06-04-2024 14:02-0400 Diastolic blood pressure 89 mm[Hg] Juliet Ruiz ARTILLERY MAINTENANCE SUPERVISOR.FARM DEMONSTRATOR Work Phone: [facility] 06-04-2024 14:02-0400 Heart rate 103 /min Juliet Ruiz ARTILLERY MAINTENANCE SUPERVISOR.FARM DEMONSTRATOR Work Phone: [facility] 06-04-2024 14:02-0400 Systolic blood pressure 152 mm[Hg] Juliet Ruiz ARTILLERY MAINTENANCE SUPERVISOR.FARM DEMONSTRATOR Work Phone: [facility] 06-04-2024 13:41-0400 Body temperature 97.9 [degF] Juliet Ruiz ARTILLERY MAINTENANCE SUPERVISOR.FARM DEMONSTRATOR Work Phone: [facility] 06-04-2024 13:41-0400 Respiratory rate 12 /min Juliet Ruiz ARTILLERY MAINTENANCE SUPERVISOR.FARM DEMONSTRATOR Work Phone: [facility] 06-04-2024 13:41-0400 SaO2% (BldA) [Mass fraction] 95 % Juliet Ruiz ARTILLERY MAINTENANCE SUPERVISOR.FARM DEMONSTRATOR Work Phone: [facility] 05-15-2024 10:21-0400 Body mass index (BMI) [Ratio] 26.94 kg/m2 Efra Masci DO Work Phone: [facility] 05-15-2024 10:21-0400 Body temperature 97.7 [degF] Efra Masci DO Work Phone: [facility] 05-15-2024 10:21-0400 Body weight 83.46 kg Efra Masci DO Work Phone: [facility] 05-15-2024 10:21-0400 Diastolic blood pressure 91 mm[Hg] Efra Masci DO Work Phone: [facility] 05-15-2024 10:21-0400 Heart rate 100 /min Efra Masci DO Work Phone: [facility] 05-15-2024 10:21-0400 SaO2% (BldA) [Mass fraction] 97 % Efra Masci DO Work Phone: [facility] 05-15-2024 10:21-0400 Systolic blood pressure 152 mm[Hg] Efra Masci DO Work Phone: [facility] 03-25-2024 10:34-0400 Body mass index (BMI) [Ratio] 27.16 kg/m2 Efra Masci DO Work Phone: [facility] 03-25-2024 10:34-0400 Body temperature 98.1 [degF] Efra Masci DO Work Phone: [facility] 03-25-2024 10:34-0400 Body weight 84.14 kg Efra Masci DO Work Phone: [facility] 03-25-2024 10:34-0400 Diastolic blood pressure 88 mm[Hg] Efra Masci DO Work Phone: [facility] 03-25-2024 10:34-0400 Heart rate 76 /min Efra Masci DO Work Phone: [facility] 03-25-2024 10:34-0400 SaO2% (BldA) [Mass fraction] 99 % Efra Masci DO Work Phone: [facility] 03-25-2024 10:34-0400 Systolic blood pressure 144 mm[Hg] Efra Masci DO Work Phone: [facility] 02-12-2024 11:00-0400 Body temperature 97.81 [degF] Juliet Ruiz ARTILLERY MAINTENANCE SUPERVISOR.FARM DEMONSTRATOR Work Phone: [facility] 02-12-2024 11:00-0400 Body weight 82.83 kg Juliet Ruiz ARTILLERY MAINTENANCE SUPERVISOR.FARM DEMONSTRATOR Work Phone: [facility] 02-12-2024 11:00-0400 Diastolic blood pressure 95 mm[Hg] Juliet Ruiz ARTILLERY MAINTENANCE SUPERVISOR.FARM DEMONSTRATOR Work Phone: [facility] 02-12-2024 11:00-0400 Heart rate 73 /min Juliet Ruiz ARTILLERY MAINTENANCE SUPERVISOR.FARM DEMONSTRATOR Work Phone: [facility] 02-12-2024 11:00-0400 SaO2% (BldA) [Mass fraction] 99 % Woodburn Ruiz ARTILLERY MAINTENANCE SUPERVISOR.FARM DEMONSTRATOR Work Phone: [facility] 02-12-2024 11:00-0400 Systolic blood pressure 147 mm[Hg] Woodburn Ruiz ARTILLERY MAINTENANCE SUPERVISOR.FARM DEMONSTRATOR Work Phone: [facility] 11-07-2022 11:15-0500 Diastolic blood pressure 90 mm[Hg] Efra Masci DO Work Phone: [facility] 11-07-2022 11:15-0500 Systolic blood pressure 141 mm[Hg] Efra Masci DO Work Phone: [facility] 11-07-2022 11:11-0500 Body height 178 cm Efra Masci DO Work Phone: [facility] 11-07-2022 11:11-0500 Body temperature 97.5 [degF] Efra Masci DO Work Phone: [facility] 11-07-2022 11:11-0500 Body weight 82.1 kg Efra Masci DO Work Phone: [facility] 11-07-2022 11:11-0500 Heart rate 63 /min Efra Masci DO Work Phone: [facility] 11-07-2022 11:11-0500 Respiratory rate 18 /min Efra Masci DO Work Phone: [facility] 11-07-2022 11:11-0500 SaO2% (BldA) [Mass fraction] 98 % Efra Masci DO Work Phone: [facility] 05-09-2022 10:56-0400 Body temperature 98.1 [degF] Efra Masci DO Work Phone: [facility] 05-09-2022 10:56-0400 Body weight 80.74 kg Efra Masci DO Work Phone: [facility] 05-09-2022 10:56-0400 Diastolic blood pressure 95 mm[Hg] Efra Masci DO Work Phone: [facility] 05-09-2022 10:56-0400 Heart rate 72 /min Efra Masci DO Work Phone: [facility] 05-09-2022 10:56-0400 SaO2% (BldA) [Mass fraction] 98 % Efra Masci DO Work Phone: [facility] 05-09-2022 10:56-0400 Systolic blood pressure 182 mm[Hg] Efra Masci DO Work Phone: [facility] Encounters Encounter Date Encounter Type Care Provider Facility Start: 08-26-2025 ambulatory Jon Ranjan Facility:[facility] Start: 08-20-2025 End: 08-20-2025 ambulatory MINISTERIO ELIAS Facility:[facility] Start: 08-16-2025 End: 08-16-2025 ambulatory MINISTERIO RODRIGES [facility] Start: 08-05-2025 Non-patient / Non-visit Viv BARROSO -[facility] Work Phone: Start: 08-05-2025 ambulatory No Primary Car e Physician Facility:[facility] Start: 08-05-2025 Non-patient / Non-visit Dr. Prince swann MD -[facility] Start: 08-05-2025 End: 08-05-[address] Ministerio Elias MD Work Phone: -Cardiovascular Services Start: 08-05-2025 End: 08-05-[address] Jon Woodruff MD -[facility] Work Phone: Start: 08-05-2025 End: 08-05-2025 ambulatory Jon Ranjan Facility:[facility] Start: 07-29-2025 End: 07-29-[address] Jon Woodruff MD -[facility] Work Phone: Start: 07-29-2025 End: 07-29-[address] Ministerio Elias MD Work Phone: -[facility] Start: 07-21-2025 End: 07-21-2025 Patient encounter procedure Juliet Ruiz APRN.FARM DEMONSTRATOR Work Phone: Hematology/Oncology Start: 07-21-2025 End: 07-21-2025 ambulatory Juliet Ruiz APRN.FARM DEMONSTRATOR Work Phone: Hematology/Oncology Comment on above: Essential thrombocyt osis (Primary Dx); MDS (myelodysplastic syndrome), low grade (HCC) Start: 07-12-2025 End: 07-12-2025 [facility] Start: 07-05-2025 End: 07-05-2025 ambulatory LYNNETTE BELLAMY [facility] Start: 05-18-2025 End: 05-18-2025 Refill Efra Neville DO Work Phone: Hematology/Oncology Comment on above: Refill Request; Open ed In Error Start: 05-17-2025 End: 07-17-2025 Follow-up encounter Efra Neville DO Work Phone: Hematology/Oncology Start: 05-17-2025 End: 05-17-2025 ambulatory [facility] Facility:[facility] Start: 04-21-2025 End: 04-21-2025 Telephone encounter Efra Neville DO Work Phone: Hematology/Oncology Comment on above: Results Start: 04-21-2025 End: 04-21-2025 Patient encounter procedure Juliet Ruiz APRN.FARM DEMONSTRATOR Work Phone: Hematology/Oncology Start: 04-21-2025 End: 04-21-2025 ambulatory Juliet Ruiz APRN.FARM DEMONSTRATOR Work Phone: Hematology/Oncology Comment on above: Essential thrombocyt osis (Primary Dx); MDS (myelodysplastic syndrome), low grade (HCC); Anemia, unspecified type Start: 03-24-2025 End: 03-29-2025 Follow-up encounter Efra Neville DO Work Phone: [place] Provider Adult Start: 03-24-2025 End: 03-24-2025 ambulatory [facility] Facility:[facility] Start: 02-24-2025 End: 02-24-2025 ambulatory MINISTERIO RODRIGES [facility] Start: 02-24-2025 End: 02-24-2025 Emergency department patient visit MINISTERIO RODRIGES [facility] Start: 01-25-2025 End: 01-25-2025 Office outpatient visit 25 minutes Efra Neville DO Work Phone: Hematology/Oncology Comment on above: Essential thrombocyt osis (Primary Dx); MDS (myelodysplastic syndrome), low grade (HCC); Anemia, unspecified type Start: 01-25-2025 End: 01-25-2025 ambulatory [facility] Facility:[facility] Start: 11-22-2024 End: 11-23-2024 Telephone encounter Efra Andry Kelin DO Work Phone: Hematology/Oncology Comment on above: Results Start: 11-16-2024 End: 11-16-2024 ambulatory EFRA Andry CASTROHeidi Facility:[facility] Start: 11-06-2024 End: 11-06-2024 Refill Efra Neville DO Work Phone: Hematology/Oncology Comment on above: Refill Request Start: 09-16-2024 End: 09-16-2024 ambulatory EFRA Andry KELIN Facility:[facility] Start: 08-20-2024 End: 08-24-2024 Telephone encounter Efra Neville DO Work Phone: Hematology/Oncology Comment on above: Results Start: 07-14-2024 End: 07-14-2024 Patient encounter procedure Epifanio Gunderson PA-C Work Phone: Urology Comment on above: Elevated PSA (Primar y Dx) Start: 07-13-2024 End: 07-13-2024 Chart abstracting Epifanio Gunderson PA-C Work Phone: Urology Start: 07-13-2024 End: 07-13-2024 Telephone encounter Efra Neville DO Work Phone: Hematology/Oncology Comment on above: Results Start: 07-08-2024 End: 07-08-2024 Subsequent hospital visit by physician [facility] Work Phone: Radiology Comment on above: Essential thrombocyt osis (HCC) [D47.3] Start: 06-24-2024 Telephone encounter Efra garsia DO Work Phone: Hematology/Oncology Comment on above: Follow Up Start: 06-23-2024 End: 06-23-2024 ambulatory Efra Neville DO Work Phone: Hematology/Oncology Comment on above: Essential thrombocyt osis (HCC) (Primary Dx) Start: 06-23-2024 End: 06-23-2024 Patient encounter procedure Efra Neville DO Work Phone: Hematology/Oncology Start: 06-04-2024 End: 06-04-2024 ambulatory Juliet Ruiz ARTILLERY MAINTENANCE SUPERVISOR.FARM DEMONSTRATOR Work Phone: Hematology/Oncology Comment on above: Essential thrombocyt osis (HCC) (Primary Dx); Macrocytic anemia Start: 06-04-2024 End: 06-04-2024 Patient encounter procedure Juliet Joseph ARTILLERY MAINTENANCE SUPERVISOR.FARM DEMONSTRATOR Work Phone: Hematology/Oncology Start: 05-19-2024 Telephone encounter Efra Fournier ci DO Work Phone: Hematology/Oncology Comment on above: Future Appointment Start: 05-15-2024 End: 05-15-2024 ambulatory Efra Castroi DO Work Phone: Hematology/Oncology Comment on above: Essential thrombocyt osis (HCC) (Primary Dx); Macrocytic anemia Start: 05-15-2024 End: 05-15-2024 Patient encounter procedure Efra Wilde Masci DO Work Phone: Hematology/Oncology Start: 04-28-2024 Telephone encounter Efra Fournier ci DO Work Phone: Hematology/Oncology Comment on above: Results Start: 04-02-2024 Telephone encounter Efra Fournier ci DO Work Phone: Hematology/Oncology Comment on above: Results Start: 03-25-2024 End: 03-25-2024 ambulatory Efra Wilde Masci DO Work Phone: Hematology/Oncology Comment on above: Essential thrombocyt osis (HCC) (Primary Dx); Macrocytic anemia Start: 03-25-2024 End: 03-25-2024 Patient encounter procedure Efra Andry Masci DO Work Phone: Hematology/Oncology Start: 03-19-2024 Telephone encounter Efra Fournier ci DO Work Phone: Hematology/Oncology Comment on above: Results Start: 02-13-2024 Telephone encounter Juliet cárdenas APRN.FARM DEMONSTRATOR Work Phone: Hematology/Oncology Comment on above: Results Start: 02-12-2024 End: 02-12-2024 ambulatory Juliet Ruiz ARTILLERY MAINTENANCE SUPERVISOR.FARM DEMONSTRATOR Work Phone: Hematology/Oncology Comment on above: Essential thrombocyt osis (HCC) (Primary Dx) Start: 02-12-2024 End: 02-12-2024 Patient encounter procedure Juliet Ruiz ARTILLERY MAINTENANCE SUPERVISOR.FARM DEMONSTRATOR [facility] Phone: [facility] Start: 02-10-2024 Telephone encounter Mona Infante ight Work Phone: Hematology/Oncology Comment on above: Appointment Start: 10-14-2023 Telephone encounter Efra garsia DO Work Phone: Hematology/Oncology Comment on above: Results (Elevated TS H) Start: 10-14-2023 End: 10-14-2023 Patient encounter procedure Lab [facility] Comment on above: Essential thrombocyt osis (HCC) Start: 10-11-2023 Orders Only Efra Mason Work Phone: Hematology/Oncology Comment on above: Essential thrombocyt osis (HCC) (Primary Dx) Start: 08-09-2023 Orders Only Efra Mason Work Phone: Hematology/Oncology Comment on above: Essential thrombocyt osis (HCC) (Primary Dx) Start: 07-19-2023 Telephone encounter Efra garsia DO Work Phone: Hematology/Oncology Comment on above: Results Start: 07-17-2023 Orders Only Efra Mason Work Phone: Hematology/Oncology Comment on above: Essential thrombocyt osis (HCC) (Primary Dx) Start: 06-21-2023 Telephone encounter Efra garsia DO Work Phone: Hematology/Oncology Comment on above: Results (CBC. Increa se dose of Hydrea.) Start: 06-20-2023 Orders Only Efra Mason Work Phone: Hematology/Oncology Comment on above: Essential thrombocyt osis (HCC) (Primary Dx) Start: 05-09-2023 Telephone encounter Efra garsia DO Work Phone: Hematology/Oncology Comment on above: Appointment Start: 05-08-2023 Orders Only Efra Balderas O Work Phone: Hematology/Oncology Comment on above: Essential thrombocyt osis (HCC) (Primary Dx) Start: 04-26-2023 Telephone encounter Epifanio kamara PA-C Work Phone: Urology Comment on above: Appointment Start: 02-04-2023 Telephone encounter Efra garsia DO Work Phone: Hematology/Oncology Comment on above: Results Start: 02-01-2023 Orders Only Efra Balderas O Work Phone: Hematology/Oncology Comment on above: Essential thrombocyt osis (HCC) (Primary Dx) Start: 11-07-2022 End: 11-07-2022 ambulatory Efra Neville DO Work Phone: Hematology/Oncology Comment on above: Essential thrombocyt osis (HCC) (Primary Dx) Start: 11-07-2022 End: 11-07-2022 Patient encounter procedure Efra Neville DO Work Phone: [facility] [employer] Start: 11-06-2022 Orders Only Efra Balderas O Work Phone: Hematology/Oncology Comment on above: Essential thrombocyt osis (HCC) (Primary Dx) Start: 08-20-2022 End: 08-20-[address] MINISTERIO ELIAS MD Facility:A Start: 06-07-2022 ambulatory TRENT FOURNIER MD cility:A Start: 05-09-2022 End: 05-09-2022 ambulatory Efra Neville DO Work Phone: Hematology/Oncology Comment on above: Essential thrombocyt osis (Primary Dx) Start: 05-09-2022 End: 05-09-2022 Patient encounter procedure Efra Neville DO Work Phone: [facility] [employer] Start: 05-08-2022 Orders Only Efra Balderas O Work Phone: Hematology/Oncology Comment on above: Essential thrombocyt osis (HCC) (Primary Dx) Procedures Date Procedure Procedure Detail Performing Clinician Start: 02-24-2025 PSA screening LYNNETTE BELLAMY Comment on above: Performed By: [id number] #### [facility],[address] [place] [address] Start: 02-24-2025 Urinalysis LYNNETTE BELLAMY Comment on above: Result Comment: URIN ALYSIS Performed By: #### [id number] #### [facility],[address] [place] [address] Start: 07-14-2024 Urnls dip stick/tabl et rgnt auto w/o microscopy Epifanio Gunderson PA-C Work Phone: Start: 06-04-2024 Diagnostic bone destiny ow biopsies & aspirations Juliet Ruiz ARTILLERY MAINTENANCE SUPERVISOR.FARM DEMONSTRATOR Work Phone: Start: 10-14-2023 Blood count complete auto&auto difrntl wbc Efra Andry Kelin DO Work Phone: Start: 12-31-2007 History of coronary artery bypass grafting History of coronary artery bypass surgery Dr. Jon Woodruff MD Comment on above: CABG x 3:VERA to LAD , SVG to Diagonal and marginal 12/31/07 Plan of Treatment Date Care Activity Detail Author Start: 03-25-2027 Diabetes Screening Diabetes Screenin [facility] Start: 10-22-2026 Diabetes Screening Diabetes Screenin [facility] Start: 10-22-2025 End: 10-22-2025 ambulatory [facility] Comment on above: CBC/iron studies. 3 MTH OV* LABS EARLI ER Start: 09-17-2025 End: 09-17-2025 ambulatory 09/17/2025 11:00 AM EDT Results Only [facility] [address] [place] [address] QMO CBC [facility] Comment on above: QMO CBC Start: 08-20-2025 End: 08-20-2025 ambulatory 08/20/2025 11:00 AM EDT Results Only [facility] [address] [place] [address] QMO CBC [facility] Comment on above: QMO CBC Start: 07-29-2025 End: 07-29-2025 Evaluation of diagnostic study results [facility] Start: 07-26-2025 Influenza vaccination C [facility] Start: 07-21-2025 End: 07-21-2025 ambulatory [facility] Comment on above: CBC/iron studies 3 MO OV/LABS EARLY* Start: 06-21-2025 End: 06-21-2025 ambulatory 06/21/2025 10:30 AM EDT Results Only [facility] [address] [place] [address] QMO CBC [facility] Comment on above: QMO CBC Start: 05-21-2025 End: 05-21-2025 ambulatory 05/21/2025 10:30 AM EDT Results Only [facility] [address] [place] [address] QMO CBC [facility] [place] [facility] Comment on above: QMO CBC Start: 04-21-2025 End: 04-21-2025 ambulatory [facility] Comment on above: (SO)CBC 3MO OV/EARLY LABS* Start: 03-24-2025 End: 03-24-2025 ambulatory 03/24/2025 1:00 PM EDT Results Only [facility] [address] [place] [address] (SO[facility] Comment on above: (SO)CBC Start: 02-24-2025 End: 02-24-2025 ambulatory 02/24/2025 1:00 PM EDT Results Only [facility] [address] [place] [address] (SO)CBC [place] [place] [facility] Comment on above: (SO)CBC Start: 01-25-2025 End: 01-25-2025 ambulatory [facility] Comment on above: (SO)CBC 2MO OV/EARLY LABS* Start: 2024 Advance Directive Discussion Advance Directive Discussion [facility] Start: 11-16-2024 End: 11-16-2024 ambulatory 11/16/2024 10:00 AM EST Results Only [facility] [place] [facility] [address] [place] [address] CBC [facility] [place] [facility] Comment on above: CBC Start: 09-16-2024 End: 09-16-2024 ambulatory 09/16/2024 10:00 AM EDT Results Only [facility] [address] [place] [address] Q2WK (SO) CBC* [facility] [place] [facility] Comment on above: Q2WK (SO) CBC* Start: 08-19-2024 End: 08-19-2024 ambulatory 08/19/2024 10:45 AM EDT Results Only [facility] [address] [place] [address] Q2WK (SO) CBC* [facility] [place] [facility] Comment on above: Q2WK (SO) CBC* Start: 08-05-2024 End: 08-05-2024 ambulatory 08/05/2024 10:45 AM EDT Results Only [facility] [address] [place] [address] Q2WK (SO) CBC* [facility] [place] [facility] Comment on above: Q2WK (SO) CBC* Start: 07-26-2024 Covid-19 Vaccine ( season) Covid-19 Vaccine ( season) [facility] Start: 07-26-2024 Influenza vaccination C [facility] Start: 07-22-2024 End: 07-22-2024 ambulatory 07/22/2024 10:45 AM EDT Results Only [facility] [address] [place] [address] Q2WK (SO) CBC* [facility] Comment on above: Q2WK (SO) CBC* Start: 07-14-2024 End: 07-14-2024 Patient encounter procedure 07/14/2024 3:00 PM EDT Office Visit Urology [address] [place] [address] Epifanio Gunderson PA-C [address] [place] [id number] Elevated PSA Urology Comment on above: Elevated PSA Start: 07-08-2024 End: 07-08-2024 ambulatory 07/08/2024 10:45 AM EDT Results Only [place] [facility] [address] [place] [address] Q2WK (SO) CBC* [facility] Comment on above: Q2WK (SO) CBC* Start: 07-08-2024 End: 07-08-2024 Patient encounter procedure 07/08/2024 10:00 AM EDT Appointment Radiology [address] [place] [address] Essential thrombocytosis (HCC) [D47.3] Radiology Comment on above: Essential thrombocyt osis (HCC) [D47.3] Start: 06-23-2024 End: 06-23-2024 ambulatory [facility] Comment on above: OV/CBC* OV* Start: 06-04-2024 End: 09-03-2024 DNA EXTRACTION BONE MARROW (BUFFY COAT) [facility] Work Phone: Comment on above: Expected: 06/04/2024 , Expires: 09/03/2024 Start: 06-04-2024 End: 09-03-2024 FLOW CYTOMETRY FOR LEUKEMIA/LYMPHOMA (FCLL) [facility] Comment on above: Expected: 06/04/2024 , Expires: 09/03/2024 Start: 06-04-2024 End: 06-04-2024 ambulatory [facility] Comment on above: CBC* CBC/BMBX/PBSX2* Start: 06-01-2024 End: 06-01-2024 ambulatory 06/01/2024 1:30 PM EDT Visit (SP) Office Hematology/Oncology [address] [place] [address] Juliet Ruiz APRN.FARM DEMONSTRATOR [address] [place] [address] CBC/BMBX/PBSX2* Hematology/Oncology Comment on above: CBC/BMBX/PBSX2* Start: 05-15-2024 End: 05-15-2024 ambulatory [facility] Comment on above: CBC/iron studies 3MO OV/LABS EARLY* Start: 04-17-2024 End: 04-17-2024 ambulatory 04/17/2024 11:00 AM EDT Results Only [facility] [address] [place] [address] CBC* [facility] Comment on above: CBC* Start: 03-25-2024 End: 06-24-2024 COPPER BLOOD [facility] Work Phone: Comment on above: Expected: 03/25/2024 , Expires: 06/24/2024 Start: 03-25-2024 End: 06-24-2024 Methylmalonate [Moles/volume] in Serum or Plasma [facility] Comment on above: Expected: 03/25/2024 , Expires: 06/24/2024 Start: 03-25-2024 End: 03-25-2024 ambulatory 03/25/2024 10:50 AM EDT Visit (SP) Office Hematology/Oncology [address] [place] [address] Efra Neville DO [address] [place] [address] OV/DISCUSS MEDICATION CONCERNS PER 03/19 TE* Hematology/Oncology Comment on above: OV/DISCUSS MEDICATIO N CONCERNS PER 03/19 TE* Start: 2023 Advance Directive Discussion Advance Directive Discussion [facility] Start: 2023 Behavioral Health Screening Behavioral Health Screening [facility] Start: 2023 Depression Assessment Depression Ass essment [facility] Start: 10-14-2023 End: 01-13-2024 CBC W Auto Differential panel - Blood CBC + DIFF Lab STAT Essential thrombocytosis (HCC) Expected: 10/14/2023, Expires: 01/13/2024 [facility] Work Phone: Comment on above: Expected: 10/14/2023 , Expires: 01/13/2024 Start: 08-12-2023 End: 10-12-2023 CBC W Auto Differential panel - Blood CBC + DIFF Lab STAT Essential thrombocytosis (HCC) Expected: 08/12/2023, Expires: 10/12/2023 [facility] Work Phone: Comment on above: Expected: 08/12/2023 , Expires: 10/12/2023 Start: 07-26-2023 Covid-19 Vaccine () Covid-19 Vaccine () [facility] Start: 07-26-2023 Influenza vaccination [facility] Start: 07-18-2023 End: 09-17-2023 CBC W Auto Differential panel - Blood CBC + DIFF Lab STAT Essential thrombocytosis (HCC) Expected: 07/18/2023, Expires: 09/17/2023 [facility] Work Phone: Comment on above: Expected: 07/18/2023 , Expires: 09/17/2023 Start: 06-21-2023 End: 08-21-2023 CBC W Auto Differential panel - Blood CBC + DIFF Lab STAT Essential thrombocytosis (HCC) Expected: 06/21/2023, Expires: 08/21/2023 [facility] Work Phone: Comment on above: Expected: 06/21/2023 , Expires: 08/21/2023 Start: 05-10-2023 End: 07-10-2023 CBC W Auto Differential panel - Blood CBC + DIFF Lab STAT Essential thrombocytosis (HCC) Expected: 05/10/2023, Expires: 07/10/2023 [facility] Work Phone: Comment on above: Expected: 05/10/2023 , Expires: 07/10/2023 Start: 05-04-2023 DIABETES SCREEN DIABETES SCREEN [facility] Start: 05-04-2023 Diabetes Screening Diabetes Screenin g [facility] Start: 02-04-2023 End: 04-06-2023 CBC W Auto Differential panel - Blood CBC + DIFF Lab STAT Essential thrombocytosis (HCC) Expected: 02/04/2023, Expires: 04/06/2023 [facility] Work Phone: Comment on above: Expected: 02/04/2023 , Expires: 04/06/2023 Start: 2022 ADVANCE DIRECTIVE DISCUSSION ADVANCE DIRECTIVE DISCUSSION [facility] Start: 2022 DEPRESSION ASSESSMENT DEPRESSION ASS ESSMENT [facility] Start: 11-07-2022 End: 01-07-2023 CBC W Auto Differential panel - Blood CBC + DIFF Lab STAT Essential thrombocytosis (HCC) Expected: 11/07/2022, Expires: 01/07/2023 [facility] Work Phone: Comment on above: Expected: 11/07/2022 , Expires: 01/07/2023 Start: 07-26-2022 Influenza vaccination [facility] Start: 05-09-2022 End: 07-09-2022 CBC W Auto Differential panel - Blood CBC + DIFF Lab STAT Essential thrombocytosis (HCC) Expected: 05/09/2022, Expires: 07/09/2022 [facility] Work Phone: Comment on above: Expected: 05/09/2022 , Expires: 07/09/2022 Start: 2021 ADVANCE DIRECTIVE DISCUSSION ADVANCE DIRECTIVE DISCUSSION [facility] Start: 2021 DEPRESSION ASSESSMENT DEPRESSION ASS ESSMENT [facility] Start: 2010 RSV Vaccine (1 - 1-d ose 75+ series) RSV Vaccine (1 - 1-dose 75+ series) [facility] Start: 12-02-2009 Pneumococcal Vaccine : 65+ (2 - PCV) Pneumococcal Vaccine: 65+ (2 - PCV) [facility] Start: 12-02-2009 PNEUMOCOCCAL: 65+ (2 - PCV) PNEUMOCOCCAL: 65+ (2 - PCV) [facility] Start: 09-25-2009 Medicare Annual Well ness Visit Medicare Annual Wellness Visit [facility] Start: 1995 RSV Vaccine (1 - 1-d ose 60+ series) RSV Vaccine (1 - 1-dose 60+ series) [facility] Start: 1985 SHINGRIX VACCINE (1 of 2) SHINGRIX VACCINE (1 of 2) [facility] Start: 1954 SHINGRIX VACCINE (1 of 2) SHINGRIX VACCINE (1 of 2) [facility] Start: 1954 Urine microalbumin profile [facility] Start: 1953 Anxiety Screening Anxiety Screening [facility] Start: 1953 Depression Screening Depression Scre ening [facility] Start: 1940 COVID-19 VACCINE (#1) COVID-19 VACCI NE (#1) [facility] Start: 05-25-1936 COVID-19 VACCINE (#1) COVID-19 VACCI NE (#1) [facility] BONE MARROW ANALYSIS BONE MARROW ANALYSIS Lab Routine Essential thrombocytosis (HCC) Macrocytic anemia 06/04/2024 1:54 PM EDT [facility] BONE MARROW CHROMOSO ME ANAL BONE MARROW CHROMOSOME ANAL Lab Routine Essential thrombocytosis (HCC) Macrocytic anemia 06/04/2024 1:54 PM EDT [facility] FLOW CYTOMETRY FOR LEUKEMIA/LYMPHOMA (FCLL) PERFORMABLE FLOW CYTOMETRY FOR LEUKEMIA/LYMPHOMA (FCLL) PERFORMABLE Lab Routine Essential thrombocytosis (HCC) Macrocytic anemia 06/04/2024 2:34 PM EDT [facility] Lipid 1996 panel - S piter or Plasma [facility] Carotid arteries [facility] End: 07-23-2025 US Spleen US ABD SPLEEN Radiology Routine Essential thrombocytosis (HCC) 1 Occurrences starting 06/23/2024 until 07/23/2025 [facility] Work Phone: Comment on above: 1 Occurrences starti ng 06/23/2024 until 07/23/2025 US Spleen US ABD SPLEEN Ra diology Routine Essential thrombocytosis (HCC) 07/08/2024 10:16 AM EDT [facility] Work Phone: [facility] Immunizations Immunization Date Immunization Notes Care Provider Delaney elodiaalexis 08-19-2009 influenza virus vacc ine, unspecified formulation Efra Castroheidi DO Work Phone: [facility] 12-02-2008 pneumococcal polysaccharide vaccine, 23 valent Efra Neville DO Work Phone: [facility] Work Phone: Payers Date Payer Category Payer Self-pay 2009 Medicare [id number] 2000 Medicare MEDICARE MEDICAR E A AND B [id number] 2000-Present [phone] [place] [address] Medicare [id number] 2000 Medicare [id number] 1935 Unknown [id number] 1935 Unknown [id number] 1935 Unknown [id number] 1935 Unknown [id number] 1935 Unknown [id number] 1935 Unknown [id number] 1935 Unknown [id number] 1935 Unknown [id number] [id number] Unknown [id number] Unknown [id number] Unknown [id number] Unknown [id number] Unknown [id number] Unknown [id number] Social History Date Type Detail Facility Start: 09-23-2007 End: 07-15-2025 Tobacco smoking status NHIS Ex-smoker [facility] Start: 03-25-1957 End: 09-23-1958 History of tobacco use Current smoker [facility] Start: 03-25-1957 End: 09-23-1958 History of tobacco use Cigarette Smoker [facility] Start: 11-08-2021 End: 07-13-2024 Alcohol intake Current drinker of alcohol (finding) [facility] Start: 12-22-2007 History SDOH Alcohol Comment very occ beer [facility] Start: 1935 Sex Assigned At Not on file [facility] Start: 09-23-2007 End: 08-12-2023 Cigarettes smoked current (pack per day) - Reported 1 [facility] Start: 09-23-2007 End: 07-14-2024 Tobacco use and exposure Smokeless tobacco non-user [facility] Work Phone: Start: 11-07-2022 End: 08-12-2023 Tobacco use panel [facility] Start: 10-26-2012 Adult Depression Screening Assessment 0 [facility] Start: 07-14-2024 End: 07-21-2025 Alcoholic beverage intake Ex-drinker (finding) [facility] How often to you hav e a drink containing alcohol? Monthly or less [facility] How many standard drinks containing alcohol do you have on a typical day? 1 or 2 [facility] How often do you hav e 6 or more drinks on 1 occasion? Less than monthly [facility] Start: 1935 Sex Assigned At Male [facility] Functional Status Date Assessment Result Facility 07-21-2025 Total score [AUDIT-C] 2 07/21/20 10:55 AM EDT Karly Tafoya MA [facility] 06-28-2015 Are you deaf, or do you have serious difficulty hearing No 06/28/2015 10:00 AM EDT Dali Loza LPN No [facility] 06-28-2015 Are you blind, or do you have serious difficulty seeing, even when wearing glasses No 06/28/2015 10:00 AM EDT Dali Loza LPN No [facility] 06-28-2015 Do you have serious difficulty walking or climbing stairs No 06/28/2015 10:00 AM EDDali Zambrano LPN No [facility] 06-28-2015 Do you have difficul ty dressing or bathing No 06/28/2015 10:00 AM EDDali Zambrano LPN No [facility] 06-28-2015 Because of a physica l, mental, or emotional condition, do you have difficulty doing errands alone such as visiting a physician's office or shopping No 06/28/2015 10:00 AM Dali Burnett LPN No [facility] Mental Status Date Assessment Result Facility 06-28-2015 Because of a physica l, mental, or emotional condition, do you have serious difficulty concentrating, remembering, or making decisions No 06/28/2015 10:00 AM EDDali Zambrano LPN No [facility] Clinical Notes 12-31-2007 to 07-29-2025 Note Date & Type Note Facility 07-29-2025 Progress note [facility] 07-29-2025 Progress note Note Date/Time July 29, 2025 10:39am [facility] [address] [place] [address] OFFICE VISIT Date of Service: 07/29/25 MR#: [id number] Acct: [id number] Name: KSENIA GALLARDO Rep #: [id number] : 1935 Provider: Dr. Erasto Woodruff MD Age/Sex: 89/M Location: [facility] Status: Signed HPI HPI History of Present Illness Details: This gentleman has past medical history significant for coronary artery disease status post three-vessel CABG in 2007, last coronary angiography revealed atretic VERA to the LAD however the white earth LAD itself was noted to have only 30%lesion. SVGs to the diagonal and obtuse marginal branch were noted to be patent. Also history of aortic valve stenosis, atrial fibrillation, dyslipidemia and hypertension. Patient is here to establish cardiac care with us. Denies any chest pains or shortness of breath either at rest or with exertion. Denies orthopnea or PND. Complains of lower extremity edema since his medications were changed. Denies any palpitations. Patient was previously taking apixaban however he stopped it after experiencing a nosebleed. Denies any frequent falls. Intake Vital Signs 07/14/21 14:23 07/29/25 10:05 Height 6 ft 6 ft Weight: 169 lb 169 lb BMI 22.9 22.9 BP 144/84 H Blood Pressure Location Rt brachial Position Sitting Respiration 18 Pulse 100 Pulse Source Monitor Intake Visit Reasons: AFIB (NEENA) Imaging System Administrator Required: No Accompanied by: Is patient in pain?: No Allergies No Known Allergies Allergy (Unverified 07/29/25 09:52) Medications ?Medication ?Instructions ?Recorded ?Confirmed ?Type aspirin 81 mg tablet,delayed 81 mg PO DAILY 06/27/21 0 07/29/25 History release (Adult Low Dose Aspirin) cholecalciferol (vitamin D3) 125 125 mcg PO DAILY 06/2607/29/25 History mcg (5,000 unit) capsule losartan 50 mg tablet 50 mg PO DAILY #90 tabs 06/2607/15/25 Rx amlodipine 5 mg tablet 5 mg PO QDAY 07/29/25 History apixaban 5 mg tablet (Eliquis) 5 mg PO BID 07/29/25 History furosemide 20 mg tablet (Lasix) 20 mg PO QAM 07/29/25 07/29/25 History hydroxyurea 500 mg capsule 500 mg PO DAILY 07/29/25 History metoprolol tartrate 25 mg tablet 25 mg PO BID 07/29/25 07/29/25 History rosuvastatin 20 mg tablet 20 mg PO QDAY 07/29/2507/29 History Ejection fraction %: 55 Have you fallen in the past year?: Yes (tripped and slid down wall) [facility] Medical History (Updated 07/29/25 @ 10:[address] Jon Woodruff MD) Edema Atrial fibrillation Iron deficiency anemia Obstructive sleep apnea Lipoprotein deficiency disorder Diverticular disease of colon Essential hypertension History of pulmonary embolus (PE) (12/2007) Myelodysplastic syndrome Essential thrombocytosis Atherosclerosis of coronary artery of white earth heart without angina pectoris Surgical History History of coronary artery bypass surgery (12/31/07) History of left heart catheterization (12/29/07) Social History (Updated 07/15/25 @ 16:27 by Linnea Kelley LPN) Smoking Status: Former smoker substance use type: does not use ROS Const Const: Positive for fatigue and weakness Eyes Eyes: Negative for change in vision ENT ENT: Negative for dizziness or balance problems Cardio Chest Pain: No Palpitations: No Edema: Bilateral Resp Respiratory: Positive for SOB with activity; Negative for SOB at rest or SOB orthopnea\SOB lying down GI GI: Negative nausea or heartburn Musc Musc: Negative for balance problems Neuro Neuro: Positive for weakness; Negative for dizziness, lightheadedness, near syncope or syncope Endo Endo: Positive for fatigue Cardiology Exam Exam Narrative No apparent distress. No carotid bruit. Heart sounds 1 and 2 noted. 3/6 systolic murmur at apex and base. Chest clear to auscultation bilaterally. Alertoriented x 3. 2+ bilateral lower extremity edema. Supplemental Info Supplemental Information Labs: No Data to Display Diagnostics: Electrocardiogram Pulmonary: No Data to Display Past Visits: Cardiology Visit 07/29/25 Assessment and Plan Assessment and Plan (1) Coronary artery disease: Status: Chronic Plan: CABG in 2007. VERA to the LAD atretic however white earth LAD without any significant lesions. Beta-blockers. Risk factor modification. Change metoprolol to extended [id number] mg daily. (2) History of coronary artery bypass surgery: Status: Acute Comment: CABG x 3:VERA to LAD, SVG to Diagonal and marginal 12/31/07 Plan: See #1 above. (3) Aortic valve stenosis: Status: Chronic Plan: Check echocardiogram. (4) Atrial fibrillation: Status: Chronic Plan: Ventricular rate on the higher side. Increase metoprolol to extended release 100 mg daily. I had a detailed discussion with the patient regarding risks benefits of oral anticoagulation. It was agreed that he will restart on apixaban 5 mg twice daily. If he has recurrent nosebleeds, he was advised to let us know and also see ENT. As we are starting patient on apixaban, I will discontinue his aspirin. (5) Essential hypertension: Status: Chronic Plan: Losartan, metoprolol, furosemide. He has lower extremity edema that most likely is an adverse effect of amlodipine. Stop amlodipine. Increase metoprolol as noted above. (6) Dyslipidemia: Status: Chronic Plan: Patient not taking his rosuvastatin regularly. Counseled. Agrees to start taking 5 mg once daily. Check lipid profile. (7) Bilateral lower extremity edema: Status: Chronic Plan: Stop amlodipine as noted above. Orders: Orders 12 Lead EKG performed by [facility] Today I48.91 - Unspecified atrial fibrillation Plan Details Follow Up: 3 Months Coding Level of Care Code Off vis,new,level 4 Diagnoses Coronary artery disease I25.10 History of coronary artery bypass surgery Z95.1 Aortic valve stenosis I35.0 Atrial fibrillation I48.91 Essential hypertension I10 Dyslipidemia E78.5 Bilateral lower extremity edema R60.0 Coding Level of Care Code Off vis,new,level 4 Diagnoses Coronary artery disease I25.10 History of coronary artery bypass surgery Z95.1 Aortic valve stenosis I35.0 Atrial fibrillation I48.91 Essential hypertension I10 Dyslipidemia E78.5 Bilateral lower extremity edema R60.0 Clinical Quality Measures Falls Risk Screening/Assistive Devices Have you fallen in the past year?: Yes (tripped and slid down wall) Cardiac Ejection fraction %: 55 07/29/25 1039 <Electronically signed by Jon Woodruff MD> Date _ Jon Woodruff MD Cosigner Signature: Date (if applicable) CC: ~ [employer] Work Phone: 1(544) 170-525408-27-2025 NoteHNO ID: [id number] Author: JULIET RUIZ APRN.[employer] Service: ? Author Type: Nurse Practitioner Type: Progress Notes Filed: 07/21/2025 13:16 Note Text: Chief Complaint Patient presents with: Established Patient HPI: Ksenia Gallardo is a 89 year old male who presents here today for follow up ET/MDS. Per Dr. Neville's previous note: H/o essential thrombocytosis, BILL-2 positive, as well as myelodysplastic syndrome. He also has a history of coronary artery disease, status post CABG earlier in 2008. On Hydrea since 11/2009. Pt. here today with family member. Pt. self discontinued eliquis-prescribed by communications analyst. Appetite:I eat what I want when I want it. Wt. down 4# since last visit. Energy level:Poor. Denies fevers or recent illness. Resp:denies cough or sob Cardiac:denies chest pain/palpitations-followed by cards GI:denies abd pain, n/v, moving bowels regularly :denies dysuria/hematuria Extrem:denies new pain Neuro:denies symptoms of neuropathy Skin:denies rashes Heme:denies bleeding, pt. stopped eliquis, taking baby asa +easy bruising The ROS is otherwise negative. Past medical history, appointments, medications, allergies reviewed. No changes. EXAM: BP 173/109 Pulse 91 Temp 36.4 ?C (97.5 ?F) (Temporal) Wt 76.4 kg (168 lb 6.9 oz) SpO2 98% BMI 24.66 kg/m? APPEARANCE Well appearing, alert, in no acute distress, well-hydrated HEART RRR with normal S1 and S2, no murmurs LUNG clear to auscultation LYMPH NODES No cervical lymphadenopathy, No supraclavicular lymphadenopathy, and No axillary lymphadenopathy. ABDOMEN bowel sounds normoactive, soft, non-tender EXTREMITIES No edema NEURO Awake, alert and oriented x 3, Normal gait, and No involuntary motions. SKIN Skin color, texture, turgor normal, no suspicious rashes or lesions LABS: Latest Ref Rng 04/21/2025 05/17/2025 07/21/2025 WBC 3.70 - 11.00 k/uL 9.70 9.20 8.20 RBC 4.20 - 6.00 m/uL 3.90 (L) 3.78 (L) 4.00 (L) Hemoglobin 13.0 - 17.0 g/dL 11.3 (L) 11.1 (L) 11.9 (L) Hematocrit 39.0 - 51.0 % 37.4 (L) 35.7 (L) 39.1 MCV 80.0 - 100.0 fL 95.9 94.4 97.8 MCH 26.0 - 34.0 pg 29.0 29.4 29.8 MCHC 30.5 - 36.0 g/dL 30.2 (L) 31.1 30.4 (L) RDW-CV 11.5 - 15.0 % 26.4 (H) 27.8 (H) 26.6 (H) Platelet Count 150 - 400 k/uL 457 (H) 572 (H) 393 MPV 9.0 - 12.7 fL 10.7 12.2 10.7 Neut% % 70.5 68.1 69.9 Abs Neut (ANC) 1.45 - 7.50 k/uL 6.83 6.27 5.74 Lymph% % 21.2 22.2 20.4 Abs Lymph 1.00 - 4.00 k/uL 2.06 2.04 1.67 [place]% % 5.9 6.3 6.5 Abs [place] <0.87 k/uL 0.57 0.58 0.53 Eosin% % 1.0 1.3 1.8 Abs Eosin <0.46 k/uL 0.10 0.12 0.15 Baso% % 0.9 0.8 0.9 Abs Baso <0.11 k/uL 0.09 0.07 0.07 Immature Gran % % 0.5 1.3 0.5 IMMATURE GRANS (ABS) <0.10 k/uL 0.05 0.12 (H) 0.04 NRBC /100 WBC 0.3 0.2 0.0 Absolute nRBC <0.01 k/uL 0.03 (H) 0.02 (H) <0.01 DTYPE Auto Auto Auto Iron studies: Pending ASSESSMENT/PLAN: 1. Essential thrombocytosis - ICD9: 238.71, ICD10: D47.3 (primary diagnosis) 2. MDS (myelodysplastic syndrome), low grade (HCC) - ICD9: 238.72, ICD10: D46.Z Per Dr. 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 -Diagnosed with atrial fibrillation and started on anticoagulation. -Bone marrow biopsy in detail. MDS/MPN overlap. -Reviewed CBC. Anemia overall stable. No bleeding issues. Discussed continued dosing hydroxyurea at 500 mg daily. Plan: -Continue Hydrea -Continue ASA daily. -Continue apixaban. -Will discuss luspatercept next OV. -Follow-up with cardiology and PCP for management of other modifiable cardiac risk factors including BP. - Overall tolerating hydrea/asa well. - Reviewed CBC with pt. and family member. - Iron studies pending. - Pt. asked same questions multiple times. - Advised pt. to continue current dose of hydrea. - Continue baby asa. - Advised pt. to call his communications analyst and let them know that he stopped eliquis. - Continue follow up with PCP for routine care. - Continue CBC monthly. - Follow up with Dr. Neville in 3 months with CBC/iron studies. - Pt. aware to call office with any questions/concerns. The patient indicates understanding of these issues and agrees with the plan. All documentation from previous visit of 04/21/25-Dr. Neville/myself was copied and pasted, documentation has been reviewed and edited as necessary for today's visit. Juliet Ruiz APRN.[facility] History of Present illness Narrative* Juliet Ruiz APRN.[facility] - 07/21/2025 10:38 AM EDT Chief Complaint Patient presents with: Established Patient HPI: Ksenia Gallardo is a 89 year old male who presents here today for follow up ET/MDS. Per Dr. Neville's previous note: H/o essential thrombocytosis, BILL-2 positive, as well as myelodysplastic syndrome. He also has a history of coronary artery disease, status post CABG earlier in 2008. On Hydrea since 11/2009. Pt. here today with family member. Pt. self discontinued eliquis-prescribed by communications analyst. Appetite:I eat what I want when I want it. Wt. down 4# since last visit. Energy level:Poor. Denies fevers or recent illness. Resp:denies cough or sob Cardiac:denies chest pain/palpitations-followed by cards GI:denies abd pain, n/v, moving bowels regularly :denies dysuria/hematuria Extrem:denies new pain Neuro:denies symptoms of neuropathy Skin:denies rashes Heme:denies bleeding, pt. stopped eliquis, taking baby asa +easy bruising The ROS is otherwise negative. Past medical history, appointments, medications, allergies reviewed. No changes. EXAM: BP 173/109 Pulse 91 Temp 36.4 C (97.5 F) (Temporal) Wt 76.4 kg (168 lb 6.9 oz) SpO2 98% BMI 24.66 kg/m APPEARANCE Well appearing, alert, in no acute distress, well-hydrated HEART RRR with normal S1 and S2, no murmurs LUNG clear to auscultation LYMPH NODES No cervical lymphadenopathy, No supraclavicular lymphadenopathy, and No axillary lymphadenopathy. ABDOMEN bowel sounds normoactive, soft, non-tender EXTREMITIES No edema NEURO Awake, alert and oriented x 3, Normal gait, and No involuntary motions. SKIN Skin color, texture, turgor normal, no suspicious rashes or lesions LABS: Latest Ref Rng 04/21/2025 05/17/2025 07/21/2025 WBC 3.70 - 11.00 k/uL 9.70 9.20 8.20 RBC 4.20 - 6.00 m/uL 3.90 (L) 3.78 (L) 4.00 (L) Hemoglobin 13.0 - 17.0 g/dL 11.3 (L) 11.1 (L) 11.9 (L) Hematocrit 39.0 - 51.0 % 37.4 (L) 35.7 (L) 39.1 MCV 80.0 - 100.0 fL 95.9 94.4 97.8 MCH 26.0 - 34.0 pg 29.0 29.4 29.8 MCHC 30.5 - 36.0 g/dL 30.2 (L) 31.1 30.4 (L) RDW-CV 11.5 - 15.0 % 26.4 (H) 27.8 (H) 26.6 (H) Platelet Count 150 - 400 k/uL 457 (H) 572 (H) 393 MPV 9.0 - 12.7 fL 10.7 12.2 10.7 Neut% % 70.5 68.1 69.9 Abs Neut (ANC) 1.45 - 7.50 k/uL 6.83 6.27 5.74 Lymph% % 21.2 22.2 20.4 Abs Lymph 1.00 - 4.00 k/uL 2.06 2.04 1.67 [place]% % 5.9 6.3 6.5 Abs [place] <0.87 k/uL 0.57 0.58 0.53 Eosin% % 1.0 1.3 1.8 Abs Eosin <0.46 k/uL 0.10 0.12 0.15 Baso% % 0.9 0.8 0.9 Abs Baso <0.11 k/uL 0.09 0.07 0.07 Immature Gran % % 0.5 1.3 0.5 IMMATURE GRANS (ABS) <0.10 k/uL 0.05 0.12 (H) 0.04 NRBC /100 WBC 0.3 0.2 0.0 Absolute nRBC <0.01 k/uL 0.03 (H) 0.02 (H) <0.01 DTYPE Auto Auto Auto Iron studies: Pending ASSESSMENT/PLAN: 1. Essential thrombocytosis - ICD9: 238.71, ICD10: D47.3 (primary diagnosis) 2. MDS (myelodysplastic syndrome), low grade (HCC) - ICD9: 238.72, ICD10: D46.Z Per Dr. 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 -Diagnosed with atrial fibrillation and started on anticoagulation. -Bone marrow biopsy in detail. MDS/MPN overlap. -Reviewed CBC. Anemia overall stable. No bleeding issues. Discussed continued dosing hydroxyurea at500 mg daily. Plan: -Continue Hydrea -Continue ASA daily. -Continue apixaban. -Will discuss luspatercept next OV. -Follow-up with cardiology and PCP for management of other modifiable cardiac risk factors including BP. - Overall tolerating hydrea/asa well. - Reviewed CBC with pt. and family member. - Iron studies pending. - Pt. asked same questions multiple times. - Advised pt. to continue current dose of hydrea. - Continue baby asa. - Advised pt. to call his communications analyst and let them know that he stopped eliquis. - Continue follow up with PCP for routine care. - Continue CBC monthly. - Follow up with Dr. Neville in 3 months with CBC/iron studies. - Pt. aware to call office with any questions/concerns. The patient indicates understanding of these issues and agrees with the plan. All documentation from previous visit of 04/21/25-Dr. Neville/myself was copied and pasted, documentation has been reviewed and edited as necessary for today's visit. Juliet Ruiz APRN.FARM DEMONSTRATOR documented in this encounterB[facility]06[facility] Progress note* Result Encounter Note - Efra Neville DO - 05/17/2025 1:26 PM EDT Continue current dose of Hydrea 1 capsule daily. Recheck CBC in 2 months. [facility] Miscellaneous Notes* Result Encounter Note - Efra Neville DO - 05/17/2025 1:26 PM EDT Continue current dose of Hydrea 1 capsule daily. Recheck CBC in 2 months. documented in this encounterBrec[facility]ville [facility]05-28-[facility]25 Telephone encounter Note * Telephone Encounter - Monalisa Laurent LPN - 04/21/2025 1:56 PM EDT Patient notified and is scheduled for labs in 1 month. Monalisa Laurent LPN [facility]05-28-2025 Miscellaneous Notes* Telephone Encounter - Monalisa Laurent LPN - 04/21/2025 1:56 PM EDT Patient notified and is scheduled for labs in 1 month. Monalisa Laurent LPN * Telephone Encounter - Jacklyn Ortega LPN - 04/21/2025 1:11 PM EDT No answer, will try again. Jacklyn Ortega LPN * Telephone Encounter - Efra Neville DO - 04/21/2025 12:55 PM EDT Can let him know blood counts are stable. Continue current dose of Hydrea and recheck CBC in a month. documented in this encounterBrec[facility]05-28-[facility]25 Telephone encounter Note * Telephone Encounter - Jacklyn Ortega LPN - 04/21/2025 1:11 PM EDT No answer, will try again. Jacklyn Ortega LPN [facility]05-28-2025 Telephone encounter Note* Telephone Encounter - Efra Neville DO - 04/21/2025 12:55 PM EDT Can let him know blood counts are stable. Continue current dose of Hydrea and recheck CBC in a month. [facility]05-28-[facility]25 NoteHNO ID: [id number] Author: JULIET RUIZ APRN.FARM DEMONSTRATOR Service: ? Author Type: Nurse Practitioner Type: Progress Notes Filed: 04/21/2025 14:06 Note Text: Chief Complaint Patient presents with: Recheck HPI: Ksenia Gallardo is a 89 year old male who presents here today for follow up ET/MDS. Per Dr. Neville's previous note: H/o essential thrombocytosis, BILL-2 positive, as well as myelodysplastic syndrome. He also has a history of coronary artery disease, status post CABG earlier in 2008. On Hydrea since 11/2009. Requested appointment today to discuss recent lab work and symptoms. Pt. here today with family member. Appetite:It's not great. Wt. down Energy level:Poor. Denies fevers or recent illness. Resp:denies cough or sob Cardiac:denies chest pain/palpitations-followed by cards GI:denies abd pain, n/v, moving bowels regularly :denies dysuria/hematuria Extrem:denies new pain Neuro:denies symptoms of neuropathy Skin:denies rashes Heme:denies bleeding, on eliquis, +easy bruising The ROS is otherwise negative. Past medical history, appointments, medications, allergies reviewed. No changes. EXAM: BP 126/70 Pulse 63 Resp 14 Wt 78.5 kg (173 lb 1 oz) SpO2 95% BMI 25.34 kg/m? APPEARANCE Well appearing, alert, in no acute distress, well-hydrated HEART RRR with normal S1 and S2, no murmurs LUNG clear to auscultation LYMPH NODES No cervical lymphadenopathy, No supraclavicular lymphadenopathy, and No axillary lymphadenopathy. ABDOMEN bowel sounds normoactive, soft, non-tender EXTREMITIES chronic BLE edema NEURO Awake, alert and oriented x 3, using walking stick, and No involuntary motions. SKIN Skin color, texture, turgor normal, no suspicious rashes or lesions LABS: Latest Ref Rng 11/16/2024 03/24/2025 04/21/2025 WBC 3.70 - 11.00 k/uL 6.89 8.72 9.70 RBC 4.20 - 6.00 m/uL 3.64 (L) 3.81 (L) 3.90 (L) Hemoglobin 13.0 - 17.0 g/dL 10.7 (L) 11.2 (L) 11.3 (L) Hematocrit 39.0 - 51.0 % 34.5 (L) 36.4 (L) 37.4 (L) MCV 80.0 - 100.0 fL 94.8 95.5 95.9 MCH 26.0 - 34.0 pg 29.4 29.4 29.0 MCHC 30.5 - 36.0 g/dL 31.0 30.8 30.2 (L) RDW-CV 11.5 - 15.0 % 26.1 (H) 26.2 (H) 26.4 (H) Platelet Count 150 - 400 k/uL 424 (H) 474 (H) 457 (H) MPV 9.0 - 12.7 fL 10.7 11.5 10.7 Neut% % 64.4 70.2 70.5 Abs Neut (ANC) 1.45 - 7.50 k/uL 4.44 6.12 6.83 Lymph% % 26.6 21.4 21.2 Abs Lymph 1.00 - 4.00 k/uL 1.83 1.87 2.06 [place]% % 5.2 5.8 5.9 Abs [place] <0.87 k/uL 0.36 0.51 0.57 Eosin% % 2.6 1.4 1.0 Abs Eosin <0.46 k/uL 0.18 0.12 0.10 Baso% % 0.6 0.7 0.9 Abs Baso <0.11 k/uL 0.04 0.06 0.09 Immature Gran % % 0.6 0.5 0.5 IMMATURE GRANS (ABS) <0.10 k/uL 0.04 0.04 0.05 NRBC /100 WBC 0.0 0.3 0.3 Absolute nRBC <0.01 k/uL <0.01 0.03 (H) 0.03 (H) DTYPE Auto Auto Auto ASSESSMENT/PLAN: 1. Essential thrombocytosis - ICD9: 238.71, ICD10: D47.3 (primary diagnosis) 2. MDS (myelodysplastic syndrome), low grade (HCC) - ICD9: 238.72, ICD10: D46.Z 3. Anemia, unspecified type - ICD9: 285.9, ICD10: D64.[address] 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 -Diagnosed with atrial fibrillation and started on anticoagulation. -Bone marrow biopsy in detail. MDS/MPN overlap. -Reviewed CBC. Anemia overall stable. No bleeding issues. Discussed continued dosing hydroxyurea at 500 mg daily. Plan: -Continue Hydrea -Continue ASA daily. -Continue apixaban. -Will discuss luspatercept next OV. -Follow-up with cardiology and PCP for management of other modifiable cardiac risk factors including BP. - Overall tolerating hydrea/eliquis/asa well. - Reviewed CBC with pt. and family member. - Pt. asked same questions multiple times. - Advised pt. to continue current dose of hydrea. - Continue eliquis/asa. - Continue follow up with PCP for routine care. - Continue CBC monthly. - Follow up with Dr. Neville in 3 months with CBC/iron studies. - Pt. aware to call office with any questions/concerns. The patient indicates understanding of these issues and agrees with the plan. Discussed case with Dr. Neville who agrees with treatment plan. All documentation from previous visit of 01/25/25-Dr. Neville was copied and pasted, documentation has been reviewed and edited as necessary for today's visit. Juliet Ruiz APRN.[facility]05-28-2025 History of Present illness Narrative* Juliet Ruiz APRN.FARM DEMONSTRATOR - 04/21/2025 11:02 AM EDT Chief Complaint Patient presents with: Recheck HPI: Ksenia Gallardo is a 89 year old male who presents here today for follow up ET/MDS. Per Dr. Neville's previous note: H/o essential thrombocytosis, BILL-2 positive, as well as myelodysplastic syndrome. He also has a history of coronary artery disease, status post CABG earlier in 2008. On Hydrea since 11/2009. Requested appointment today to discuss recent lab work and symptoms. Pt. here today with family member. Appetite:It's not great. Wt. down Energy level:Poor. Denies fevers or recent illness. Resp:denies cough or sob Cardiac:denies chest pain/palpitations-followed by cards GI:denies abd pain, n/v, moving bowels regularly :denies dysuria/hematuria Extrem:denies new pain Neuro:denies symptoms of neuropathy Skin:denies rashes Heme:denies bleeding, on eliquis, +easy bruising The ROS is otherwise negative. Past medical history, appointments, medications, allergies reviewed. No changes. EXAM: BP 126/70 Pulse 63 Resp 14 Wt 78.5 kg (173 lb 1 oz) SpO2 95% BMI 25.34 kg/m APPEARANCE Well appearing, alert, in no acute distress, well-hydrated HEART RRR with normal S1 and S2, no murmurs LUNG clear to auscultation LYMPH NODES No cervical lymphadenopathy, No supraclavicular lymphadenopathy, and No axillary lymphadenopathy. ABDOMEN bowel sounds normoactive, soft, non-tender EXTREMITIES chronic BLE edema NEURO Awake, alert and oriented x 3, using walking stick, and No involuntary motions. SKIN Skin color, texture, turgor normal, no suspicious rashes or lesions LABS: Latest Ref Rng 11/16/2024 03/24/2025 04/21/2025 WBC 3.70 - 11.00 k/uL 6.89 8.72 9.70 RBC 4.20 - 6.00 m/uL 3.64 (L) 3.81 (L) 3.90 (L) Hemoglobin 13.0 - 17.0 g/dL 10.7 (L) 11.2 (L) 11.3 (L) Hematocrit 39.0 - 51.0 % 34.5 (L) 36.4 (L) 37.4 (L) MCV 80.0 - 100.0 fL 94.8 95.5 95.9 MCH 26.0 - 34.0 pg 29.4 29.4 29.0 MCHC 30.5 - 36.0 g/dL 31.0 30.8 30.2 (L) RDW-CV 11.5 - 15.0 % 26.1 (H) 26.2 (H) 26.4 (H) Platelet Count 150 - 400 k/uL 424 (H) 474 (H) 457 (H) MPV 9.0 - 12.7 fL 10.7 11.5 10.7 Neut% % 64.4 70.2 70.5 Abs Neut (ANC) 1.45 - 7.50 k/uL 4.44 6.12 6.83 Lymph% % 26.6 21.4 21.2 Abs Lymph 1.00 - 4.00 k/uL 1.83 1.87 2.06 [place]% % 5.2 5.8 5.9 Abs [place] <0.87 k/uL 0.36 0.51 0.57 Eosin% % 2.6 1.4 1.0 Abs Eosin <0.46 k/uL 0.18 0.12 0.10 Baso% % 0.6 0.7 0.9 Abs Baso <0.11 k/uL 0.04 0.06 0.09 Immature Gran % % 0.6 0.5 0.5 IMMATURE GRANS (ABS) <0.10 k/uL 0.04 0.04 0.05 NRBC /100 WBC 0.0 0.3 0.3 Absolute nRBC <0.01 k/uL <0.01 0.03 (H) 0.03 (H) DTYPE Auto Auto Auto ASSESSMENT/PLAN: 1. Essential thrombocytosis - ICD9: 238.71, ICD10: D47.3 (primary diagnosis) 2. MDS (myelodysplastic syndrome), low grade (HCC) - ICD9: 238.72, ICD10: D46.Z 3. Anemia, unspecified type - ICD9: 285.9, ICD10: D64.[address] 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 -Diagnosed with atrial fibrillation and started on anticoagulation. -Bone marrow biopsy in detail. MDS/MPN overlap. -Reviewed CBC. Anemia overall stable. No bleeding issues. Discussed continued dosing hydroxyurea at500 mg daily. Plan: -Continue Hydrea -Continue ASA daily. -Continue apixaban. -Will discuss luspatercept next OV. -Follow-up with cardiology and PCP for management of other modifiable cardiac risk factors including BP. - Overall tolerating hydrea/eliquis/asa well. - Reviewed CBC with pt. and family member. - Pt. asked same questions multiple times. - Advised pt. to continue current dose of hydrea. - Continue eliquis/asa. - Continue follow up with PCP for routine care. - Continue CBC monthly. - Follow up with Dr. Neville in 3 months with CBC/iron studies. - Pt. aware to call office with any questions/concerns. The patient indicates understanding of these issues and agrees with the plan. Discussed case with Dr. Neville who agrees with treatment plan. All documentation from previous visit of 01/25/25-Dr. Neville was copied and pasted, documentation has been reviewed and edited as necessary for today's visit. Juliet Ruiz APRN.FARM DEMONSTRATOR documented in this encounterB[facility]05-[facility] Telephone encounter Note * Telephone Encounter - Monalisa Laurent LPN - 03/25/2025 8:07 AM EDT Left detailed message on patient's identified VM. Monalisa Laurent LPN [facility]05-01-2025 Miscellaneous Notes* Telephone Encounter - Monalisa Laurent LPN - 03/25/2025 8:07 AM EDT Left detailed message on patient's identified VM. Monalisa Laurent LPN * Result Encounter Note - Efra Neville DO - 03/24/2025 5:09 PM EDT Blood counts are stable. Continue current dose of Hydrea. Recheck as scheduled. documented in this encounterBrec[facility]ville [facility]04-30-[facility]25 Progress note* Result Encounter Note - Efra Neville DO - 03/24/2025 5:09 PM EDT Blood counts are stable. Continue current dose of Hydrea. Recheck as scheduled. [facility]04-02-2025 NoteDischarge Instructions Discharge Summary [address] [place] [address] [id number] 02/24/2025 Patient: KSENIA GALLARDO Sex: Male : 1935 Age: 89y Thank you for visiting [facility]. You have been evaluated today by Desmond Amaya D.O. for the following condition(s): Principal Diagnosis Stable T12 fracture. Stable L1 transverse process fracture; stable L2 transverse process fracture. Cholelithiasis. Urinary tract infection. INSTRUCTIONS Prescription Medications: tramadol 50 mg tablet: Take 1 tablet by mouth three times a day as needed for pain for 3 days, dispense 9 tablet. Refills 0. Pharmacy: [facility] [id number] [place] [address]. cephalexin 500 mg capsule: Take 1 capsule by mouth twice a day for 7 days, dispense 14 capsule. Refills 0. Pharmacy: [facility] [id number] [place] [address]. Follow-up: Follow up with your healthcare provider in three days. Call for an appointment. Follow-up with: Madhav Xiong, Orthopedics, Phone: [phone], [place], [place] Follow up in three days.Call for 1 of 19 Discharge Instructions an appointment. Pieter Maciel MD, [facility], General Surgery, Phone: [phone], [address], [place] [address]. Follow up in three days. Call for an appointment. You have been given the following additional information: Bladder Infection, Male (Adult) Vertebral Compression Fracture TRAMADOL - ORAL CEPHALEXIN - ORAL Patient Signature Facility [facility] Supervisor Date/Time General Instructions with ExitWriter [address] [place] [address] [phone] 02/24/2025 Patient: KSENIA GALLARDO Sex: Male : 1935 Age: 89y Thank you for visiting [facility]. You have been evaluated today by Desmond Amaya D.O. for the following condition(s): Principal Diagnosis Stable T12 fracture. Stable L1 transverse process fracture; stable L2 transverse process fracture. Cholelithiasis. Urinary tract infection. INSTRUCTIONS 2 of 19 Discharge Instructions Prescription Medications: tramadol 50 mg tablet: Take 1 tablet by mouth three times a day as needed for pain for 3 days, dispense 9 tablet. Refills 0. Pharmacy: [facility] [id number] [place] [address]. cephalexin 500 mg capsule: Take 1 capsule by mouth twice a day for 7 days, dispense 14 capsule. Refills 0. Pharmacy: [facility] [id number] [place] [address]. Follow-up: Follow up with your healthcare provider in three days. Call for an appointment. Follow-up with: Madhav Xiong, Orthopedics, Phone: [phone], [place] Follow up in three days.Call for an appointment. Pieter Maciel MD, [facility], General Surgery, Phone: [phone], [address] [address]. Follow up in three days. Call for an appointment. ADDITIONAL INFORMATION Bladder Infection, Male (Adult) You have a bladder infection. 3 of 19 Discharge Instructions Urine is normally free of bacteria. But bacteria can get into the urinary tract from the skin around the rectum. Or it may travel in the blood from other parts of the body. This is called a urinary tract infection (UTI). An infection can occur anywhere in the urinary tract. It could be in a kidney (pyelonephritis) or in the bladder (cystitis) and urethra (urethritis). The urethra is the tube that drains urine from the bladder through the tip of the penis. The most common place for a UTI is in the bladder. This is called a bladder infection. Most bladderinfections are easily treated. They are not serious unless the infection spreads up to the kidney. The terms bladder infection, UTI, and cystitis are often used to describe the same thing. But they aren't always the same. Cystitis is an inflammation of the bladder. The most common cause of cystitis is an infection. Keep in mind: Infections in the urine are called UTIs. Cystitis is often caused by a UTI. Not all UTIs and cases of cystitis are bladder infections. Bladder infections are the most common type of cystitis. Symptoms of a bladder infection The infection causes inflammation in the urethra and bladder. This inflammation causes many of the symptoms. The most common symptoms of a bladder infection are: Pain or burning when urinating Having to go more often than normal Feeling like you need to go right away Only a small amount of urine comes out Blood in urine Discomfort in your belly (abdomen), often in the lower belly, above the pubic bone Cloudy (more content not included)...[facility]03-03-2025 NoteHNO ID: [id number] Author: EFRA NEVILLE, DO Service: ? Author Type: Physician Type: Progress Notes Filed: 01/31/2025 19:43 Note Text: Diagnosis: 1) ET with possible MDS. HPI: The patient is a 89-year-old male who has a history of essential thrombocytosis, BILL-2 positive, as well as myelodysplastic syndrome. He also has a history of coronary artery disease, status post CABG earlier in 2008. On Hydrea since 11/2009. Requested appointment today to discuss recent lab work and symptoms. Interim history: No subjective change. All verified today. Continues apixaban for atrial fibrillation. Remains on ASA--endorses has been inconsistently taking. No unusual bleeding. No excessive bruising. Fatigued, but stable. Swelling in the ankles--left chronic since CABG. PMH, medications and allergies personally reviewed by me today. Any changes documented in appropriate section. ROS: Constitutional: No episodes of fever or acute infection otherwise since last seen. Neuro: Denies PITTMAN, vertigo and imbalance. No symptoms of neuropathy. HEENT: No recent change in voice or hearing. Resp: No chronic or recurring cough. No wheezing or sputum production. No history of hemoptysis. CVS: See above. GI: Denies reflux, n/v, change in bowel habits and abdominal pain. : No dysuria or gross hematuria. Endo: No hot flashes. Derm: No rash. MS: No musculoskeletal pain including joint, bone and back pain. Heme: See above. Psych: Normal mood. PHYSICAL EXAM: Vitals: Blood pressure 167/95, pulse 78, temperature 36.2 ?C (97.1 ?F), temperature source Temporal, weight 84.4 kg (186 lb), SpO2 98%. Fatiuged-appearing and in no acute distress. EYES: Sclerae are anicteric bilaterally. LYMPHATIC: There is no palpable cervical or supraclavicular adenopathy. CARDIOVASCULAR: Rhythm is regular with occasional ectopy. ABDOMEN: The abdomen is nondistended. Stable mild splenomegaly. No tenderness. Extremities: B/L symmetric swelling LEs. ASSESSMENT AND PLAN: (D47.3) Essential thrombocytosis (HCC) (primary encounter diagnosis) (D64.9) Anemia, unspecified type -ET with overlap MDS. -Diagnosed with atrial fibrillation and started on anticoagulation. -Bone marrow biopsy in detail. MDS/MPN overlap. -Reviewed CBC. Anemia overall stable. No bleeding issues. Discussed continued dosing hydroxyurea at 500 mg daily. Plan: -Continue Hydrea -Continue ASA daily. -Continue apixaban. -Will discuss luspatercept next OV. -Follow-up with cardiology and PCP for management of other modifiable cardiac risk factors including BP. Portions of this documentation were copied and pasted from my previous office visit note dated 06/23/2024 in order to provide a cohesive continuity of the history. The note has been reviewed and edited and updated as necessary. Efra Neville, [facility]03-03-2025 History of Present illness Narrative* Efra Neville, DO - 01/25/2025 10:35 AM EST Diagnosis: 1) ET with possible MDS. HPI: The patient is a 89-year-old male who has a history of essential thrombocytosis, BILL-2 positive, as well as myelodysplastic syndrome. He also has a history of coronary artery disease, status post CABG earlier in 2008. On Hydrea since 11/2009. Requested appointment today to discuss recent lab work and symptoms. Interim history: No subjective change. All verified today. Continues apixaban for atrial fibrillation. Remains on ASA--endorses has been inconsistently taking. No unusual bleeding. No excessive bruising. Fatigued, but stable. Swelling in the ankles--left chronic since CABG. PMH, medications and allergies personally reviewed by me today. Any changes documented in appropriate section. ROS: Constitutional: No episodes of fever or acute infection otherwise since last seen. Neuro: Denies PITTMAN, vertigo and imbalance. No symptoms of neuropathy. HEENT: No recent change in voice or hearing. Resp: No chronic or recurring cough. No wheezing or sputum production. No history of hemoptysis. CVS: See above. GI: Denies reflux, n/v, change in bowel habits and abdominal pain. : No dysuria or gross hematuria. Endo: No hot flashes. Derm: No rash. MS: No musculoskeletal pain including joint, bone and back pain. Heme: See above. Psych: Normal mood. PHYSICAL EXAM: Vitals: Blood pressure 167/95, pulse 78, temperature 36.2 C (97.1 F), temperature source Temporal, weight 84.4 kg (186 lb), SpO2 98%. Fatiuged-appearing and in no acute distress. EYES: Sclerae are anicteric bilaterally. LYMPHATIC: There is no palpable cervical or supraclavicular adenopathy. CARDIOVASCULAR: Rhythm is regular with occasional ectopy. ABDOMEN: The abdomen is nondistended. Stable mild splenomegaly. No tenderness. Extremities: B/L symmetric swelling LEs. ASSESSMENT AND PLAN: (D47.3) Essential thrombocytosis (HCC) (primary encounter diagnosis) (D64.9) Anemia, unspecified type -ET with overlap MDS. -Diagnosed with atrial fibrillation and started on anticoagulation. -Bone marrow biopsy in detail. MDS/MPN overlap. -Reviewed CBC. Anemia overall stable. No bleeding issues. Discussed continued dosing hydroxyurea at500 mg daily. Plan: -Continue Hydrea -Continue ASA daily. -Continue apixaban. -Will discuss luspatercept next OV. -Follow-up with cardiology and PCP for management of other modifiable cardiac risk factors including BP. Portions of this documentation were copied and pasted from my previous office visit note dated 06/23/2024 in order to provide a cohesive continuity of the history. The note has been reviewed and edited and updated as necessary. Efra Neville DO documented in this encounterBrecksville [facility]12-30-[facility] Telephone encounter Note * Telephone Encounter - Ashley Pineda - 11/23/2024 10:48 AM EST Spoke with patient and scheduled as directed Ashley Pineda [facility]12-30-2024 Miscellaneous Notes* Telephone Encounter - Ashley Pineda - 11/23/2024 10:48 AM EST Spoke with patient and scheduled as directed Ashley Pineda * Telephone Encounter - Dali Loza LPN - 11/23/2024 8:36 AM EST Spoke with pt. Informed to continue Hydrea 500 mg daily recheck CBC and OV in about [address] Neville. Informed our PSS will reach out to him to get appts. Scheduled . Pt. Voiced understanding Dali Loza LPN * Telephone Encounter - Efra Neville DO - 11/22/2024 12:15 PM EST Blood counts are still doing well. Continue Hydrea 500 mg daily and recheck CBC with office visit in about 2 months. documented in this encounterBrec[facility]ville [facility]12-30-2024 Telephone encounter Note * Telephone Encounter - Dali Loza LPN - 11/23/2024 8:36 AM EST Spoke with pt. Informed to continue Hydrea 500 mg daily recheck CBC and OV in about [address] Neville. Informed our PSS will reach out to him to get appts. Scheduled . Pt. Voiced understanding Dali Loza LPN [facility]12-29-2024 Telephone encounter Note* Telephone Encounter - Efra Neville DO - 11/22/2024 12:15 PM EST Blood counts are still doing well. Continue Hydrea 500 mg daily and recheck CBC with office visit in about 2 months. [facility]09-30-2024 Telephone encounter Note* Telephone Encounter - Ashley Pineda - 08/24/2024 9:20 AM EDT Spoke with patient and scheduled Ashley Pineda [facility]09-30-2024 Miscellaneous Notes* Telephone Encounter - Ashley Pineda - 08/24/2024 9:20 AM EDT Spoke with patient and scheduled Ashley Pineda * Telephone Encounter - Rachel Bland - 08/20/2024 1:53 PM EDT Left message for patient to return call. When he calls, please schedule CBC* on or around 09/17/24. Rachel Bland * Telephone Encounter - Dali Loza LPN - 08/20/2024 11:44 AM EDT Spoke with pts. , as pt. Is outside somewhere, Informed labs look good continue Hydrea 500 mg daily, recheck in 1 month. PSS please reach out to schedule pt. For CBC in 1 month. Dali Loza LPN * Telephone Encounter - Monalisa Laurent LPN - 08/20/2024 8:09 AM EDT Message left for patient to contact office. Monalisa Laurent LPN * Telephone Encounter - Monalisa Laurent LPN - 08/20/2024 8:09 AM EDT ----- Message from Efra Neville DO sent at 08/19/2024 5:09 PM EDT ----- Can let him know blood counts are doing very well. Continue Hydrea 500 mg daily and recheck CBC in a month. documented in this encounterBrecksville [facility]09-26-2024 Telephone encounter Note * Telephone Encounter - Rachel Bland - 08/20/2024 1:53 PM EDT Left message for patient to return call. When he calls, please schedule CBC* on or around 09/17/24. Rachel Bland [facility] [facility]09-26-2024 Telephone encounter Note* Telephone Encounter - Dali Loza LPN - 08/20/2024 11:44 AM EDT Spoke with pts. , as pt. Is outside somewhere, Informed labs look good continue Hydrea 500 mg daily, recheck in 1 month. PSS please reach out to schedule pt. For CBC in 1 month. Dali Loza LPN [facility]09-26-2024 Telephone encounter Note* Telephone Encounter - Monalisa Laurent LPN - 08/20/2024 8:09 AM EDT Message left for patient to contact office. Monalisa Laurent LPN [facility]09-26-2024 Telephone encounter Note* Telephone Encounter - Monalisa Laurent LPN - 08/20/2024 8:09 AM EDT ----- Message from Efra Neville DO sent at 08/19/2024 5:09 PM EDT ----- Can let him know blood counts are doing very well. Continue Hydrea 500 mg daily and recheck CBC in a month. [facility]08-20-2024 History of Present illness Narrative* Epifanio Gunderson PA-C - 07/14/2024 8:17 PM EDT Images from the original note were not included. [facility] NEW PATIENT CLINIC NOTE SERVICE DATE: July 14, 2024 NAME: Ksenia Gallardo CHIEF COMPLAINT: Elevated PSA HISTORY OF PRESENT ILLNESS: Ksenia Gallardo is a 88 year old male an new patient here for Elevated PSA The patient reports having labs done with his PCP but was unaware of there being a PSA lab included He was notified of the elevated PSA of 15.12 with % Free 9% Which is most likely to be benign prostate tissue We discussed PSA results and if he would like to continue following PSA and further testing to possible biopsy He expressed no desire to have a biopsy or any further PSA's LUTS: No LUTS LABS: PSA (ng/mL) Date Value 05/25/2024 15.12 No results found for: TESTOST Hematocrit (%) Date Value 07/08/2024 34.5 06/23/2024 32.9 06/04/2024 28.1 11/08/2021 33.4 09/18/2021 35.0 08/07/2021 31.3 PSA (ng/mL) Date Value 05/25/2024 15.12 Creatinine Date Value Ref Range Status 03/25/2024 0.92 0.73 - 1.22 mg/dL Final 10/22/2023 0.98 0.73 - 1.22 mg/dL Final 05/04/2020 0.84 0.73 - 1.22 mg/dL Final MEDICATIONS: apixaban (ELIQUIS) 5 mg tab(s) Take 5 mg by mouth two times a day. furosemide (LASIX) 20 mg tablet Take 20 mg by mouth once daily. amLODIPine (NORVASC) 5 mg tablet Take 1 tablet by mouth once daily. metoprolol tartrate, short acting, (LOPRESSOR) 12.5 mg tab Take 25 mg by mouth two times a day. cholecalciferol, vitamin D3, (VITAMIN D3 ORAL) Take 5,000 Units by mouth once daily. hydroxyurea (HYDREA) 500 mg capsule Take 2 capsules by mouth once daily. TAKE 1 CAPSULE BY MOUTH ONCE DAILY. (Patient taking differently: Take 1,000 mg by mouth two times a day. Taking 1 capsule every evening and 1 capsule in the am on Tuesdays, , Saturdays and Sundays to = 11 capsules perweek.) rosuvastatin (CRESTOR) 20 mg tablet Take 20 mg by mouth once daily. losartan (COZAAR) 50 mg tablet Take 50 mg by mouth once daily. ASPIRIN 81 MG CHEWABLE TAB Take 81 mg by mouth once daily. 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 No date: CAD (coronary artery disease) No date: Carotid artery plaque, bilateral No date: Cataract No date: Constipation No date: Diverticulosis No date: Elevated prostate specific antigen (PSA) No date: Elevated TSH No date: Essential hypertension, benign No date: Essential thrombocytosis (HCC) No date: Exudative age-related macular degeneration, unspecified laterality, unspecified stage (HCC) No date: HDL deficiency No date: Hemorrhoids No date: History of colonic polyps No date: History of kidney stones No date: History of pulmonary embolism No date: History of skin cancer No date: HTN (hypertension), benign No date: Hypercholesteremia No date: BILL-2 gene mutation No date: Leg cramps No date: Lower extremity edema No date: Macrocytosis No date: Mitral valve prolapse No date: Obstructive sleep apnea No date: Pure hypercholesterolemia No date: Thrombocytosis No date: Vision changes No date: Weakness generalized PAST SURGICAL HISTORY: PAST SURGICAL HISTORY No date: ADENOIDECTOMY PRIMARY <AGE 12 Comment: Adenoidectomy No date: APPENDECTOMY No date: CORONARY ARTERY BYPASS GRAFT HX No date: EXCISION PILONIDAL CYST/SINUS SIMPLE No date: EXCISION/SURGICAL PLANING SKIN NOSE RHINOPHYMA 08/2022: IR RT HEART CATH Comment: At [place] 10/2015: LASER SURGERY OF EYE; Right 08/20/2022: LEFT HEART CATH,PERCUTANEOUS 2011: PAST SURGICAL HISTORY OF Comment: cataract removal bilat No date: TONSILLECTOMY PRIMARY/SECONDARY <AGE 12 Comment: Tonsillectomy FAMILY HISTORY: FAMILY HISTORY Problem Relation Age of Onset Heart Father AGE 72 Arthritis Mother other (LEUKEMIA) Other NEPHEW SOCIAL HISTORY: Social Connections: Not on file REVIEW OF SYSTEMS: GENERAL: No fever, chills, weight loss, or fatigue. ENMT: Negative CARDIOVASCULAR:NO CHEST PAIN, PALPITATIONS, ANKLE EDEMA RESPIRATORY: No chronic cough, wheezing, dyspnea, hemoptysis. GENITOURINARY: SEE HPI MUSCULOSKELETAL:NO CHRONIC BACK PAIN, ARTHRITIS, CHRONIC NECK PAIN SKIN: NO VARICOSE VEINS, RASH, ABNORMAL ITCHING HEME/LYMPH/IMMUNE:Negative for prolonged bleeding, bruising easily or swollen nodes NEUROLOGICAL: NO HEADACHES, NUMBNESS, SEIZURES, STROKE DIABETES: No All other systems reviewed and are negative PHYSICAL EXAMINATION: Blood pressure 130/88, pulse 98, temperature 36.7 C (98.1 F), temperature source Temporal, resp. rate 16, weight 82.1 kg (181 lb), SpO2 98%. GENERAL: WNL nutrition, no deformities, healthy appearing NEURO: Awake, alert and oriented x 3 and Normal gait PSYCH: No signs of depression, anxiety, or agitation ENMT (Ear, Nose, Mouth, Throat): No masses, adenopathy, icterus. Thyroid nonpalpable RESP: NL effort, no retractions or purse-lip breathing. CV: No extremity swelling, varices, edema, pallor, erythema GASTROINTESTINAL: Soft, nontender, nondistended, no masses. HERNIAS: None SKIN: No rash, lesions No palpable lymphadenopathy MUSCULOSKELETAL: Extremities normal. No deformities, edema, clubbing or skin discoloration. PROBLEM LIST REVIEW: Yes LABS: Results for orders placed or performed in visit on 07/14/24 UA DIP, URINE (POC) Result Value Ref Range GLUCOSE UA (POCT) Negative Negative mg/dL BILIRUBIN UA (POCT) Negative Negative KETONE UA (POCT) Negative Negative mg/dL SPECIFIC GRAVITY UA (POCT) 1.025 1.005 - 1.030 HEMOGLOBIN/BLOOD UA (POCT) Negative Negative PH UA (POCT) 6.0 4.5 - 8.0 PROTEIN UA (POCT) 30 (A) Negative mg/dL UROBILINOGEN UA (POCT) 0.2 Normal E.U./dL NITRITE UA (POCT) Negative Negative LEUKOCYTES UA (POCT) Trace (A) Negative COLOR UA (POCT) Dark yellow CLARITY UA (POCT) Slightly Cloudy PROCEDURES: PVR: 0 ml ASSESSMENT/PLAN: 1. Elevated PSA - ICD9: 790.93, ICD10: R97.20 PSA - 15.12 with % Free of 9 % - POST VOID RESIDUAL - 0 ml > Patient PSA shows a likelihood of benign prostate and patient has expressed he is no longer going to get PSA labs in the future > No follow up required if not having further PSA's KISHA Levy, MT, PA-C * Linnea Diamond LPN - 07/14/2024 2:59 PM EDT Verified name and date of . CC Post Void Residual HPI: Ksenia Gallardo is a 88 year old male. The patient is here now for an appointment with KISHA Levy, PARK, TONY. Procedure: Explained procedure to patient and verbalizes understanding. Performed a PVR. Patient urinated and instructed to empty bladder as much as possible just prior to having PVR done using bladder ultrasound scanner. Results of scan: 0 mL The patient tolerated the procedure well. Plan: Appointment with Epifanio. [facility] Telephone encounter Note * Telephone Encounter - Dali Loza LPN - 07/13/2024 8:22 AM EDT Spoke with pts. informed of Ultrasound results. Voiced understanding. Dali Loza LPN [facility]08-19-2024 Miscellaneous Notes* Telephone Encounter - Dali Loza LPN - 07/13/2024 8:22 AM EDT Spoke with pts. informed of Ultrasound results. Voiced understanding. Dali Loza LPN * Telephone Encounter - Dali Loza LPN - 07/13/2024 7:33 AM EDT ----- Message from Efra Neville DO sent at 07/11/2024 3:03 PM EDT ----- Spleen enlarged on US. Not unexpected and nothing specific needs to be done. [facility] in this encounterB[facility] Telephone encounter Note * Telephone Encounter - Dali Loza LPN - 07/13/2024 7:33 AM EDT ----- Message from Efra Neville DO sent at 07/11/2024 3:03 PM EDT ----- Spleen enlarged on US. Not unexpected and nothing specific needs to be done. [facility]08-14-2024 History of Present illness Narrative* Ananya Howell RDMS - 07/08/2024 10:00 AM EDT Radiology Service Progress Note PATIENT NAME: Ksenia Gallardo DATE OF SERVICE: July 08, 2024 TIME: 11:32 AM PATIENT IDENTITY VERIFICATION COMPLETED USING TWO (2) IDENTIFIERS: Name and Date of confirmedby patient verbally. FALL SCREENING: Has the patient had 2 falls in the last year or 1 fall with injury or currently using an Ambulatory Assistive Device (Walker, Cane, Wheelchair, Crutches, etc.)? No PATIENT GENDER DATA: Male PATIENT RELEVANT IMPLANT DATA REVIEWED: Not Applicable PATIENT PRESENTS WITH AN IMPLANTABLE OR ATTACHED VIDEO SYSTEMS ENGINEER: No RADIOLOGY DEPARTMENT: Ultrasound PERIPHERAL IV DATA: Not applicable SIGNED BY: Ananya Howell RDMS RVT July 08, 2024 11:32 AM documented in this encounterB[facility] Telephone encounter Note * Telephone Encounter - Jacklyn Ortega LPN - 06/25/2024 10:15 AM EDT Patient notified and voices understanding. Next few lab apt scheduled. Jacklyn Ortega LPN [facility]08-01-2024 Miscellaneous Notes* Telephone Encounter - Jacklyn Ortega LPN - 06/25/2024 10:15 AM EDT Patient notified and voices understanding. Next few lab apt scheduled. Jacklyn Ortega LPN * Telephone Encounter - Efra Neville DO - 06/24/2024 4:37 PM EDT Let him know that I spoke with an MDS specialist at [facility]. He agreed with the current dose ofHydrea 500 mg a day. Because he is both on aspirin and Plavix we can let the platelet count run higher if need be even into the 600-700,000 range. As I discussed with Ksenia at the office visit, we will check CBC every 2 weeks for the time being until we establish more stability at the current dose of Hydrea. Efra Neville DO documented in this encounterBrecksville [facility]07-[facility] Telephone encounter Note * Telephone Encounter - Efra Neville DO - 06/24/2024 4:37 PM EDT Let him know that I spoke with an MDS specialist at [facility]. He agreed with the current dose ofHydrea 500 mg a day. Because he is both on aspirin and Plavix we can let the platelet count run higher if need be even into the 600-700,000 range. As I discussed with Ksenia at the office visit, we will check CBC every 2 weeks for the time being until we establish more stability at the current dose of Hydrea. 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 HPI: The patient is a 88-year-old male who has a history of essential thrombocytosis, BILL-2 positive, as well as myelodysplastic syndrome. He also has a history of coronary artery disease, status post CABG earlier in 2008. On Hydrea since 11/2009. Requested appointment today to discuss recent lab work and symptoms. Interim history: Continues apixaban for atrial fibrillation. Remains on ASA--endorses has been inconsistently taking. No unusual bleeding. No excessive bruising. Fatigued. Swelling in the ankles--left chronic since CABG. PMH, medications and allergies personally reviewed by me today. Any changes documented in appropriate section. ROS: Constitutional: No episodes of fever or acute infection otherwise since last seen. Neuro: Denies PITTMAN, vertigo and imbalance. No symptoms of neuropathy. HEENT: No recent change in voice or hearing. Resp: No chronic or recurring cough. No wheezing or sputum production. No history of hemoptysis. CVS: See above. GI: Denies reflux, n/v, change in bowel habits and abdominal pain. : No dysuria or gross hematuria. Endo: No hot flashes. Derm: No rash. MS: No musculoskeletal pain including joint, bone and back pain. Heme: See above. Psych: Normal mood. PHYSICAL EXAM: Vitals: Blood pressure 140/92, pulse 104, temperature 36.7 C (98.1 F), temperature source Temporal,weight 83.2 kg (183 lb 8 oz), SpO2 100%. Fatiuged-appearing and in no acute distress. EYES: Sclerae are anicteric bilaterally. LYMPHATIC: There is no palpable cervical or supraclavicular adenopathy. RESPIRATORY: Clear throughout. CARDIOVASCULAR: Rhythm is regular with occasional ectopy. ABDOMEN: The abdomen is nondistended. Stable mild splenomegaly. No tenderness. Extremities: B/L symmetric swelling LEs. 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 -Difficult to keep platelets at optimal level due to worsening anemia. -He has become more fatigued and has less stamina. -Diagnosed with atrial fibrillation and started on anticoagulation. No bleeding issues. No unusual bruising. Remains on aspirin although had been inconsistently taking it. -I reviewed the results of bone marrow biopsy in detail. MDS/MPN overlap. -Recent worsening anemia with increase in Hydrea dose. CBC today shows improvement in anemia with hydroxyurea dose reduced to 500 mg daily. Plan: -Continue Hydrea to 500 mg daily. -Continue ASA daily. -Continue apixaban. -Monitor CBC every 2 weeks for the time being. -Will discuss with MDS staff at [facility]. -Follow-up with cardiology and PCP for management of other modifiable cardiac risk factors including BP. Portions of this documentation were copied and pasted from previous office visit notes in order to provide a cohesive continuity of the history. The note has been reviewed and edited and updated as necessary. I spent a total of 20 minutes on the date of the service which included preparing to see the patient, [id number] patient care, completing clinical documentation, obtaining and/or reviewing separately obtained history, performing a medically appropriate examination, counseling and educating the pat ient/family/caregiver, ordering medications, tests, or procedures, and communicating results to thepatient/family/caregiver. Efra Neville DO documented in this encounterBrec[facility]ville [facility] Note* Addendum Note - Juliet Ruiz APRN.CNP - 06/04/2024 2:33 PM EDTAddended by: JULIET RUIZ on: 06/04/2024 02:33 PM Modules accepted: Orders [facility]07-11-2024 Miscellaneous Notes* Addendum Note - Juliet Ruiz APRN.CNP - 06/04/2024 2:33 PM EDTAddended by: JULIET RUIZ on: 06/04/2024 02:33 PM Modules accepted: Orders * Addendum Note - Jacklyn Ortega LPN - 06/04/2024 2:28 PM EDTAddended by: JACKLYN ORTEGA on: 06/04/2024 02:28 PM Modules accepted: Orders documented in this encounterBrecksville [facility]07[facility] Note* Addendum Note - Jacklyn Ortega LPN - 06/04/2024 2:28 PM EDTAddended by: JACKLYN ORTEGA on: 06/04/2024 02:28 PM Modules accepted: Orders [facility]07-11-2024 Procedure note* Juliet Ruiz APRN.CNP - 06/04/2024 2:14 PM EDTAssociated Order(s): BONE MARROW BIOPSY Post-Procedure Diagnose(s): Macrocytic anemia; Essential thrombocytosis (HCC) BEDSIDE PROCEDURE NOTE BONE MARROW BIOPSY Date/Start Time: 06/04/2024 1:40 PM Date/Stop Time: 06/04/2024 1:57 PM Performed by: Juliet Ruiz APRN.[employer]ARM DEMON[employer]ATOR Authorized by: Juliet Ruiz APRN.CNP Where was Patient When this Procedure was Performed [facility] Informed Consent Consent Obtained: Written Okay Protocol A moment to CARE was completed. SIGN IN Personnel directly involved with the procedure wore the appropriate PPE. Special Equipment: Yes Patient/Surrogate Stated/Verified: Patient name, Date of , Relevant allergies and Intended procedure TIME OUT Intended patient and procedure match the source document(s). Consent documented and matches the intended procedure. Relevant labs, photos, and/or imaging studies have been reviewed. Correct side/site marked and visible. Medications required for procedure verified. No fire risk assessment and interventions applicable. No implant(s) inserted. Pre-Procedure Details: The area was prepped with povidone Iodine (Betadine) and allowed to dry. A sterile partial body drape was applied following the usual aseptic technique. Medications: Local Anesthesia (see MAR): Lidocaine 1% Procedure Details: Patient Position: Left lateral decubitus Aspiration Laterality: Unilateral Aspiration Site: Right posterior superior iliac crest Biopsy Laterality: Unilateral Biopsy Site: Right posterior sperior iliac crest OnControl biopsy system was used. Using aseptic technique, bone marrow aspiration was performed. A touch prep was taken. Core biopsy was obtained 1 cm. The core biopsy was confirmed. Number of External Insertion Sites: 1 Pressure dressing applied to Bone Marrow site(s). Hemostasis maintained. Assisting Clinician(s): Jacklyn Ortega LPN, Karly Tafoya MA Post-Procedure Details: Patient Tolerance: Patient tolerated the procedure well with no immediate complications Immediate Complications: N/A Estimated Blood Loss: none Specimens Sent: bone marrow analysis, bone marrow chromosome analysis, DNA extraction and flow cytometry Teaching Complete: Bone Marrow Biopsy Post-procedure teaching complete Post-procedure care was reviewed and explained. Patient instructed to communicate complaints of redness, swelling, increased or unresolved pain, bleeding chills, bruising, and/or fever. Patient verbalized understanding. SIGN OUT All specimen containers correctly labeled. All instruments, equipment, possible retained foreign bodies accounted for. Post-procedure follow-up management communicated and Plan of Care Visit completed when applicable SIGNATURE: Juliet Ruiz APRN.CNP PATIENT NAME: Ksenia Gallardo DATE: June 04, 2024 TIME: 2:14 PM [facility]07-11-2024 Procedure note* Juliet Ruiz APRN.CNP - 06/04/2024 2:14 PM EDTAssociated Order(s): BONE MARROW BIOPSY Post-Procedure Diagnose(s): Macrocytic anemia; Essential thrombocytosis (HCC) BEDSIDE PROCEDURE NOTE BONE MARROW BIOPSY Date/Start Time: 06/04/2024 1:40 PM Date/Stop Time: 06/04/2024 1:57 PM Performed by: Juliet Ruiz APRN.[employer] Authorized by: Juliet Ruiz APRN.CNP Where was Patient When this Procedure was Performed [facility] Informed Consent Consent Obtained: Written Okay Protocol A moment to CARE was completed. SIGN IN Personnel directly involved with the procedure wore the appropriate PPE. Special Equipment: Yes Patient/Surrogate Stated/Verified: Patient name, Date of , Relevant allergies and Intended procedure TIME OUT Intended patient and procedure match the source document(s). Consent documented and matches the intended procedure. Relevant labs, photos, and/or imaging studies have been reviewed. Correct side/site marked and visible. Medications required for procedure verified. No fire risk assessment and interventions applicable. No implant(s) inserted. Pre-Procedure Details: The area was prepped with povidone Iodine (Betadine) and allowed to dry. A sterile partial body drape was applied following the usual aseptic technique. Medications: Local Anesthesia (see MAR): Lidocaine 1% Procedure Details: Patient Position: Left lateral decubitus Aspiration Laterality: Unilateral Aspiration Site: Right posterior superior iliac crest Biopsy Laterality: Unilateral Biopsy Site: Right posterior sperior iliac crest OnControl biopsy system was used. Using aseptic technique, bone marrow aspiration was performed. A touch prep was taken. Core biopsy was obtained 1 cm. The core biopsy was confirmed. Number of External Insertion Sites: 1 Pressure dressing applied to Bone Marrow site(s). Hemostasis maintained. Assisting Clinician(s): Jacklyn Ortega LPN, Karly Tafoya MA Post-Procedure Details: Patient Tolerance: Patient tolerated the procedure well with no immediate complications Immediate Complications: N/A Estimated Blood Loss: none Specimens Sent: bone marrow analysis, bone marrow chromosome analysis, DNA extraction and flow cytometry Teaching Complete: Bone Marrow Biopsy Post-procedure teaching complete Post-procedure care was reviewed and explained. Patient instructed to communicate complaints of redness, swelling, increased or unresolved pain, bleeding chills, bruising, and/or fever. Patient verbalized understanding. SIGN OUT All specimen containers correctly labeled. All instruments, equipment, possible retained foreign bodies accounted for. Post-procedure follow-up management communicated and Plan of Care Visit completed when applicable SIGNATURE: Juliet Ruiz APRN.[employer] PATIENT NAME: Ksenia Gallardo DATE: June 04, 2024 TIME: 2:14 PM documented in this encounterBrecksville [facility]07[facility] Nurse Note* Jacklyn Ortega LPN - 06/04/2024 1:41 PM EDT Pt discharged to home with friend after BMBX with dry sterile dressing in place. No drainage noted.Post-procedure care reviewed with patient. Pt to call with any complaints of redness, swelling, increased or unresolved pain, bleeding, chills, bruising, and/or fever. Pt verbalized understanding. Jacklyn Ortega LPN [facility]07-11-2024 Nurse Note* Jacklyn Ortega LPN - 06/04/2024 1:41 PM EDT Pt discharged to home with friend after BMBX with dry sterile dressing in place. No drainage noted.Post-procedure care reviewed with patient. Pt to call with any complaints of redness, swelling, increased or unresolved pain, bleeding, chills, bruising, and/or fever. Pt verbalized understanding. Jacklyn Ortega LPN documented in this encounterBrecksville [facility]06[facility] Telephone encounter Note * Telephone Encounter - Mia Mark - 05/20/2024 10:06 AM EDT Patient accepted 06/04 appointments [facility] Work Phone: [phone]) 114-978806-26-2024 Miscellaneous Notes* Telephone Encounter - Mia Mark - 05/20/2024 10:06 AM EDT Patient accepted 06/04 appointments * Telephone Encounter - Rachel Bland - 05/19/2024 3:15 PM EDT Left message for patient to return call. When he calls, please advise that we cannot do his Bone Marrow Biopsy on 06/01 and offer him the rescheduled appointments on 06/04. If that date does not work, please reschedule for another date and adjust/reschedule the follow up appointment accordingly. Rachel Bland documented in this encounterBrecksville [facility]06-[facility] Telephone encounter Note * Telephone Encounter - Rachel Bland - 05/19/2024 3:15 PM EDT Left message for patient to return call. When he calls, please advise that we cannot do his Bone Marrow Biopsy on 06/01 and offer him the rescheduled appointments on 06/04. If that date does not work, please reschedule for another date and adjust/reschedule the follow up appointment accordingly. Rachel Bland [facility]06-21-2024 Instructions* Patient Instructions* Efra Neville DO - 05/15/2024 11:06 AM EDT Continue ASA daily. Take hydroxyurea capsule daily. Hold apixaban day prior to and day of bone marrow biopsy. Resume the following day. documented in this encounterBrecksville [facility]06-[facility] History of Present illness Narrative* Efra Neville DO - 05/15/2024 10:52 AM EDT Diagnosis: 1) ET with possible MDS. HPI: The patient is a 88-year-old male who has a history of essential thrombocytosis, BILL-2 positive, as well as myelodysplastic syndrome. He also has a history of coronary artery disease, status post CABG earlier in 2008. On Hydrea since 11/2009. Requested appointment today to discuss recent lab work and symptoms. Interim history: Continues apixaban for atrial fibrillation. Remains on ASA--endorses has been inconsistently taking. No unusual bleeding. No excessive bruising. Fatigued. Swelling in the ankles--left chronic since CABG. PMH, medications and allergies personally reviewed by me today. Any changes documented in appropriate section. ROS: Constitutional: No episodes of fever or acute infection otherwise since last seen. Neuro: Denies PITTMAN, vertigo and imbalance. No symptoms of neuropathy. HEENT: No recent change in voice or hearing. Resp: No chronic or recurring cough. No wheezing or sputum production. No history of hemoptysis. CVS: See above. GI: Denies reflux, n/v, change in bowel habits and abdominal pain. : No dysuria or gross hematuria. Endo: No hot flashes. Derm: No rash. MS: No musculoskeletal pain including joint, bone and back pain. Heme: See above. Psych: Normal mood. PHYSICAL EXAM: Vitals: Blood pressure 152/91, pulse 100, temperature 36.5 C (97.7 F), temperature source Temporal,weight 83.5 kg (184 lb), SpO2 97%. Fatiuged-appearing and in no acute distress. EYES: Sclerae are anicteric bilaterally. LYMPHATIC: There is no palpable cervical or supraclavicular adenopathy. RESPIRATORY: Clear throughout. CARDIOVASCULAR: Rhythm is regular with occasional ectopy. ABDOMEN: The abdomen is nondistended. Stable mild splenomegaly. No tenderness. Extremities: B/L symmetric swelling LEs. LABS: Latest Ref Rng 02/12/2024 03/25/2024 04/17/2024 05/15/2024 WBC 3.70 - 11.00 k/uL 8.93 5.78 3.05 (L) RBC 4.20 - 6.00 m/uL 3.32 (L) 3.19 (L) 2.62 (L) Hemoglobin 13.0 - 17.0 g/dL 10.2 (L) 10.1 (L) 8.5 (L) Hematocrit 39.0 - 51.0 % 33.8 (L) 32.8 (L) 27.5 (L) MCV 80.0 - 100.0 fL 101.8 (H) 102.8 (H) 105.0 (H) MCH 26.0 - 34.0 pg 30.7 31.7 32.4 MCHC 30.5 - 36.0 g/dL 30.2 (L) 30.8 30.9 RDW-CV 11.5 - 15.0 % 26.8 (H) 26.5 (H) 27.5 (H) Platelet Count 150 - 400 k/uL 513 (H) 276 254 MPV 9.0 - 12.7 fL 11.6 11.2 12.5 Neut% % 70.6 60.6 51.1 Abs Neut (ANC) 1.45 - 7.50 k/uL 6.30 3.50 1.56 Lymph% % 20.8 31.0 40.7 Abs Lymph 1.00 - 4.00 k/uL 1.86 1.79 1.24 [place]% % 5.3 5.5 5.9 Abs [place] <0.87 k/uL 0.47 0.32 0.18 Eosin% % 1.7 1.9 1.6 Abs Eosin <0.46 k/uL 0.15 0.11 0.05 Baso% % 1.2 0.7 0.7 Abs Baso <0.11 k/uL 0.11 (H) 0.04 <0.03 Immature Gran % % 0.4 0.3 0.0 IMMATURE GRANS (ABS) <0.10 k/uL 0.04 <0.03 <0.03 NRBC /100 WBC 0.4 0.5 0.0 Absolute nRBC <0.01 k/uL 0.04 (H) 0.03 (H) <0.01 DTYPE Auto Auto Auto Iron 41 - 186 ug/dL 115 73 TIBC 232 - 386 ug/dL 247 256 Transferrin Saturation 15.0 - 57.0 % 46.6 28.5 Ferritin 30.3 - 565.7 ng/mL 822.0 (H) 657.0 (H) TSH 0.270 - 4.200 mIU/L 5.420 (H) Free T4 0.9 - 1.7 ng/dL 1.1 Vitamin B12 232 - 1,245 pg/mL 391 Methylmalonic Acid <=0.40 umol/L 0.35 Folate >4.7 ng/mL 8.4 ASSESSMENT AND PLAN: (D47.3) Essential thrombocytosis (HCC) (primary encounter diagnosis) (D64.9) Anemia, unspecified type -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 -Difficult to keep platelets at optimal level due to worsening anemia. -He has become more fatigued and has less stamina. -Diagnosed with atrial fibrillation and started on anticoagulation. No bleeding issues. No unusual bruising. Remains on aspirin although has been inconsistently taking it. -Reviewed trends in his counts. Progressive anemia despite very small dose increase of Hydrea. Plan: -Decrease Hydrea to 500 mg daily. -Continue ASA daily. -Bone marrow biopsy. Consented. -Hold apixaban day prior to and day of bone marrow biopsy. Resume the following day. -Follow-up with cardiology and PCP for management of other modifiable cardiac risk factors including BP. Portions of this documentation were copied and pasted from previous office visit notes in order to provide a cohesive continuity of the history. The note has been reviewed and edited and updated as necessary. I spent a total of 20 minutes on the date of the service which included preparing to see the patient, [id number] patient care, completing clinical documentation, obtaining and/or reviewing separately obtained history, performing a medically appropriate examination, counseling and educating the pat ient/family/caregiver, ordering medications, tests, or procedures, communicating with other HCPs (not separately reported), and communicating results to the patient/family/caregiver. Efra Neville DO documented in this encounterB[facility] Telephone encounter Note * Telephone Encounter - Monalisa Laurent LPN - 04/29/2024 8:06 AM EDT Patient is aware of all information and will have labs as scheduled. Patient is currently taking hydrea 12 capsules per week, 2 capsules Saturday thru Saturday and 1 capsule on Saturdays and Sundays. Monalisa Laurent LPN [facility]06-05-2024 Miscellaneous Notes* Telephone Encounter - Monalisa Laurent LPN - 04/29/2024 8:06 AM EDT Patient is aware of all information and will have labs as scheduled. Patient is currently taking hydrea 12 capsules per week, 2 capsules Saturday thru Saturday and 1 capsule on Saturdays and Sundays. Monalisa Laurent LPN * Telephone Encounter - Efra Neville DO - 04/28/2024 4:44 PM EDT Anemia overall stable. Platelet count comfortably under 400,000. Continue current dose of Hydrea and recheck CBC in about a month. Efra Neville DO * Telephone Encounter - Mia Mark - 04/28/2024 2:24 PM EDT Patient requesting 04/17 lab results documented in this encounterBrec[facility]06-[facility] Telephone encounter Note * Telephone Encounter - Efra Neville DO - 04/28/2024 4:44 PM EDT Anemia overall stable. Platelet count comfortably under 400,000. Continue current dose of Hydrea and recheck CBC in about a month. Efra Neville DO [facility]06-04-[facility] Telephone encounter Note* Telephone Encounter - Mia Mark - 04/28/2024 2:24 PM EDT Patient requesting 04/17 lab results [facility] Work Phone: [phone]) 368-778605-10-2024 Telephone encounter Note* Telephone Encounter - Jacklyn Ortega LPN - 04/03/2024 10:55 AM EDT Pt notified to increase his weekly dose from 11 a week to 12 a week, 2 M-F and 1 on S and S. Jacklyn Ortega LPN [facility]05-10[facility] Miscellaneous Notes* Telephone Encounter - Jacklyn Ortega LPN - 04/03/2024 10:55 AM EDT Pt notified to increase his weekly dose from 11 a week to 12 a week, 2 M-F and 1 on S and S. Jacklyn Ortega LPN * Telephone Encounter - Monalisa Laurent LPN - 04/02/2024 4:24 PM EDT Based on lab results, patient will need to increase his Hydrea to 1 capsule twice a day Saturday through Saturday and 1 capsule once daily on Saturdays and Sundays. Recheck CBC in 1 month. I left a message asking the patient to contact the office. Monalisa Laurent LPN documented in this encounterBrec[facility]05-[facility] Telephone encounter Note * Telephone Encounter - Monalisa Laurent LPN - 04/02/2024 4:24 PM EDT Based on lab results, patient will need to increase his Hydrea to 1 capsule twice a day Saturday through Saturday and 1 capsule once daily on Saturdays and Sundays. Recheck CBC in 1 month. I left a message asking the patient to contact the office. Monalisa Laurent LPN [facility]05-01-[facility]24 History of Present illness Narrative* Efra Neville DO - 03/25/2024 10:57 AM EDT Diagnosis: 1) ET with possible MDS. HPI: The patient is a 88-year-old male who has a history of essential thrombocytosis, BILL-2 positive, as well as myelodysplastic syndrome. He also has a history of coronary artery disease, status post CABG earlier in 2008. On Hydrea since 11/2009. Requested appointment today to discuss recent lab work and symptoms. Interim history: [facility] Was placed on apixaban. Remains on ASA. No unusual bleeding. No excessive bruising. Less energy and endurance. Swelling in the ankles--left chronic since CABG. Gets palpitations with exertion. Have been adjusting hydroxyurea due to anemia. PMH, medications and allergies personally reviewed by me today. Any changes documented in appropriate section. ROS: Constitutional: No episodes of fever or acute infection otherwise since last seen. Neuro: Denies PITTMAN, vertigo and imbalance. No symptoms of neuropathy. HEENT: No recent change in voice or hearing. Resp: No chronic or recurring cough. No wheezing or sputum production. No history of hemoptysis. CVS: See above. GI: Denies reflux, n/v, change in bowel habits and abdominal pain. : No dysuria or gross hematuria. Endo: No hot flashes. Derm: No rash. MS: No musculoskeletal pain including joint, bone and back pain. Heme: See above. Psych: Normal mood. PHYSICAL EXAM: Vitals: Blood pressure 144/88, pulse 76, temperature 36.7 C (98.1 F), temperature source Temporal, weight 84.1 kg (185 lb 8 oz), SpO2 99%. Fatiuged-appearing and in no acute distress. EYES: Sclerae are anicteric bilaterally. LYMPHATIC: There is no palpable cervical or supraclavicular adenopathy. RESPIRATORY: Clear throughout. CARDIOVASCULAR: Rhythm is regular with occasional ectopy. ABDOMEN: The abdomen is nondistended. There is stable mild splenomegaly. No tenderness. Extremities: B/L symmetric swelling LEs. LABS: ASSESSMENT AND PLAN: (D47.3) Essential thrombocytosis (HCC) (primary encounter diagnosis) (D64.9) Anemia, unspecified type -ET with possible MDS. -Difficult to keep platelets at optimal level due to worsening anemia. Is macrocytic. -He has become more fatigued and has less stamina. -Diagnosed with atrial fibrillation and started on anticoagulation. No bleeding issues. No unusual bruising. Remains on aspirin. -Discussed plan to workup anemia further. Plan: -Continue Hydrea 1 capsule a day on Saturday, Saturday and Saturday and 2 capsules once daily all other days. -Continue ASA daily. -Follow-up with cardiology and PCP for management of other modifiable cardiac risk factors including BP. -CBC and workup for macrocytic anemia today Portions of this documentation were copied and pasted from previous office visit notes in order to provide a cohesive continuity of the history. The note has been reviewed and edited and updated as necessary. I spent a total of 20 minutes on the date of the service which included preparing to see the patient, [id number] patient care, completing clinical documentation, obtaining and/or reviewing separately obtained history, performing a medically appropriate examination, counseling and educating the pat ient/family/caregiver, ordering medications, tests, or procedures, communicating with other HCPs (not separately reported), and communicating results to the patient/family/caregiver. Efra Neville DO documented in this encounterBrec[facility]04-26-[facility] Telephone encounter Note * Telephone Encounter - Rachel Bland - 03/20/2024 8:27 AM EDT Lab scheduled as directed. Spoke with patient and scheduled on 03/25. Rachel Bland [facility]04-26-2024 Miscellaneous Notes* Telephone Encounter - Rachel Bland - 03/20/2024 8:27 AM EDT Lab scheduled as directed. Spoke with patient and scheduled on 03/25. Rachel Bland * Telephone Encounter - Dali Loza LPN - 03/19/2024 3:42 PM EDT Pt. Notified increase Hydrea back to 1 capsule every evening and 1 capsule in the am on Tuesdays, , Saturdays and Sundays to = 11 capsules per week. Recheck CBC in a month. Pt. Voiced understanding. PSS 04/17 @ 11:00 on lab schedule for CBC Also wanting to get in sooner than 05/15 for OV if possible. Dali Loza LPN * Telephone Encounter - Efra Neville DO - 03/19/2024 3:26 PM EDT Advise increase Hydrea back to 1 capsule every evening and 1 capsule in the am on Tuesdays, , Saturdays and Sundays to = 11 capsules per week. Recheck CBC in a month. Efra Neville DO documented in this encounterBrec[facility]04-25-2024 Telephone encounter Note * Telephone Encounter - Dali Loza LPN - 03/19/2024 3:42 PM EDT Pt. Notified increase Hydrea back to 1 capsule every evening and 1 capsule in the am on Tuesdays, , Saturdays and Sundays to = 11 capsules per week. Recheck CBC in a month. Pt. Voiced understanding. PSS 04/17 @ 11:00 on lab schedule for CBC Also wanting to get in sooner than 05/15 for OV if possible. Dali Loza LPN [facility]04-25-2024 Telephone encounter Note* Telephone Encounter - Efra Neville DO - 03/19/2024 3:26 PM EDT Advise increase Hydrea back to 1 capsule every evening and 1 capsule in the am on Tuesdays, , Saturdays and Sundays to = 11 capsules per week. Recheck CBC in a month. Efra Neville DO [facility]03-21-2024 Miscellaneous Notes* Telephone Encounter - Candice Ruiz - 02/13/2024 1:26 PM EDT Called patient and scheduled as directed. Candice Jackson * Telephone Encounter - Juliet Ruiz APRN.CNP - 02/13/2024 12:58 PM EDT Follow up with Dr. Neville in 3 months with CBC/iron studies. Thank you. Juliet Ruiz APRN.[employer] documented in this encounterBrecksville [facility]03-21-2024 Miscellaneous Notes* Telephone Encounter - Dali Loza LPN - 02/13/2024 11:33 AM EDT Pt.. Notified to decrease Hydrea to 1 capsule daily. Recheck CBC in 1 month. Pt. Voiced understanding Dali Loza LPN * Telephone Encounter - Dali Loza LPN - 02/13/2024 8:28 AM EDT Left message on voicemail that I will attempt to contact him later today to discuss medication change. Dali Loza LPN * Telephone Encounter - Dali Loza LPN - 02/13/2024 7:33 AM EDT ----- Message from Efra Neville DO sent at 02/12/2024 4:53 PM EDT ----- Advise him to decrease Hydrea dose to 1 capsule every day rather than current dose of 1 capsule every evening and 1 capsule in the am on Tuesdays, , Saturdays and Sundays to = 11 capsules per week. Recheck CBC in a month. documented in this encounterBrecksville [facility]03-20-2024 History of Present illness Narrative* Juliet Ruiz APRN.[employer]ARM [employer] - 02/12/2024 10:53 AM EDT Chief Complaint Patient presents with: Established Patient HPI: Ksenia Gallardo is a 88 year old male who presents here today for follow up ET. Per Dr. Neville's previous note: H/o essential thrombocytosis, BILL-2 positive, as well as myelodysplastic syndrome. He also has a history of coronary artery disease, status post CABG earlier in 2008. On Hydrea since 11/2009. Appetite:Good. Wt. down 5# Energy level:I'm active. Denies fevers or recent illness. Resp:denies cough or sob Cardiac:denies chest pain/palpitations GI:denies abd pain, n/v, moving bowels regularly :denies dysuria/hematuria Extrem:denies pain Neuro:denies symptoms of neuropathy Skin:denies rashes Heme:denies bleeding, [facility] The ROS is otherwise negative. Past medical history, appointments, medications, allergies reviewed. No changes. EXAM: BP 147/95 Pulse 73 Temp 36.6 C (97.8 F) (Temporal) Wt 82.8 kg (182 lb 9.6 oz) SpO2 99% BMI 26.74 kg/m APPEARANCE Well appearing, alert, in no acute distress, well-hydrated, well nourished. HEART RRR with normal S1 and S2, no murmurs LUNG clear to auscultation LYMPH NODES No cervical lymphadenopathy, No supraclavicular lymphadenopathy, and No axillary lymphadenopathy. ABDOMEN bowel sounds normoactive, soft, non-tender EXTREMITIES chronic BLE edema NEURO Awake, alert and oriented x 3, Normal gait, and No involuntary motions. SKIN Skin color, texture, turgor normal, no suspicious rashes or lesions LABS: Latest Ref Rn 11/21/2023 01/20/2024 02/12/2024 WBC 3.70 - 11.00 k/uL 7.47 4.46 4.84 RBC 4.20 - 6.00 m/uL 3.04 (L) 3.50 (L) 3.03 (L) Hemoglobin 13.0 - 17.0 g/dL 9.7 (L) 10.7 (L) 9.8 (L) Hematocrit 39.0 - 51.0 % 32.0 (L) 34.5 (L) 31.2 (L) MCV 80.0 - 100.0 fL 105.3 (H) 98.6 103.0 (H) MCH 26.0 - 34.0 pg 31.9 30.6 32.3 MCHC 30.5 - 36.0 g/dL 30.3 (L) 31.0 31.4 RDW-CV 11.5 - 15.0 % 27.8 (H) 25.4 (H) 27.4 (H) Platelet Count 150 - 400 k/uL 398 280 317 MPV 9.0 - 12.7 fL 11.9 11.0 11.2 Neut% % 64.4 52.7 57.7 Abs Neut (ANC) 1.45 - 7.50 k/uL 4.81 2.35 2.79 Lymph% % 25.2 39.5 31.6 Abs Lymph 1.00 - 4.00 k/uL 1.88 1.76 1.53 [place]% % 8.0 4.7 8.7 Abs [place] <0.87 k/uL 0.60 0.21 0.42 Eosin% % 1.3 2.0 1.0 Abs Eosin <0.46 k/uL 0.10 0.09 0.05 Baso% % 0.7 0.7 0.8 Abs Baso <0.11 k/uL 0.05 0.03 0.04 Immature Gran % % 0.4 0.4 0.2 IMMATURE GRANS (ABS) <0.10 k/uL 0.03 <0.03 <0.03 NRBC /100 WBC 0.4 0.4 0.6 Absolute nRBC <0.01 k/uL 0.03 (H) 0.02 (H) 0.03 (H) DTYPE Auto Auto Auto Iron studies: Pending ASSESSMENT/PLAN: 1. Essential thrombocytosis (HCC) - ICD9: 238.71, ICD10: D47.3 - Tolerating hydrea well. - Reviewed CBC with pt. - Iron studies pending. - Continue hydrea at current dose. - Continue follow up with PCP/Cards. - Follow up pending iron studies. - Pt. aware to call office with any questions/concerns. The patient indicates understanding of these issues and agrees with the plan. All documentation from previous visit of 08/12/23-Dr. Neville was copied and pasted, documentation hasbeen reviewed and edited as necessary for today's visit. Juliet Ruiz APRN.[employer] documented in this encounterBrecksville [facility]03-19-2024 Miscellaneous Notes* Telephone Encounter - Dali Loza LPN - 02/11/2024 4:53 PM EDT Spoke with pt. Will see Juliet tomorrow. Dali Loza LPN * Telephone Encounter - Dali Loza LPN - 02/11/2024 3:26 PM EDT Left detailed message on home answering machine that pt. Will be seeing Juliet tomorrow instead of Mona. Dali Loza LPN * Telephone Encounter - Mia Mark - 02/11/2024 2:31 PM EDT 3rd attempt. Unable to leave vm. phone ringing busy. Scheduling patient with Juliet for same time slot. * Telephone Encounter - Chelsey Aldana - 02/11/2024 8:59 AM EDT Phone is ringing busy * Telephone Encounter - Chelsey Aldana - 02/10/2024 1:05 PM EDT Called patient and unable to reach and could not leave a VM and emergency contact number not in service. We need to R/S appt with Mona on the documented in this encounterBrecksville [facility]11-30-2023 Miscellaneous Notes* Telephone Encounter - Janae Nicole - 10/24/2023 8:30 AM EST Pt scheduled as directed * Telephone Encounter - Monalisa Laurent LPN - 10/24/2023 8:21 AM EST Patient notified. PSS- please schedule patient for a lab appointment for CBC 11/21/2023 @ 10:00.Patient is aware of date and time. Monalisa Laurent LPN * Telephone Encounter - Efra Neville DO - 10/24/2023 5:14 AM EST Let him know recent labs suggest underactive thyroid function. Fax labs to PCP and ask him to follow up for management of that. Continue Hydrea 1 tablet daily, all days of the week for now and recheck CBC in about 4-6 weeks. Efra Neville DO documented in this encounterBrecksville [facility]11-21-2023 Miscellaneous Notes* Result Encounter Note - Efra Neville DO - 10/15/2023 5:46 AM EST Please confirm his current dose of Hydrea. Efra Neville DO documented in this encounterBrecksville [facility]08-28-2023 Miscellaneous Notes* Telephone Encounter - Monalisa Laurent LPN - 07/22/2023 10:51 AM EDT Patient is parker of all information and verbalized understanding. Patient is already scheduled for labs and OV on 08/12/2023. Monalisa Laurent LPN * Telephone Encounter - Dali Garcia LPN - 07/22/2023 8:16 AM EDT Left message for pt. To contact office concerning recent lab results, and Dr. Neville notation. Dali Garcia LPN * Telephone Encounter - Efra Neville DO - 07/19/2023 5:10 PM EDT His blood counts are doing better. Continue same dose of Hydrea, 1 capsule a day on Saturday, Saturday and Saturday and 2 capsules once daily all other days. Recheck CBC in a month. Efra Neville DO documented in this encounterBrecksville [facility]07-28-2023 Miscellaneous Notes* Telephone Encounter - Rachel Bland - 06/21/2023 2:30 PM EDT Scheduled as directed. Rachel Bland * Telephone Encounter - Dali Garcia LPN - 06/21/2023 1:44 PM EDT Spoke with pt. Given information concerning lab results, changing dose of hydrea. Hydrea1 capsule a day on Saturday, Saturday and Saturday and 2 capsules once daily all other days. Newrx sent to pharmacy. Recheck CBC in 1 month PSS please put on lab schedule 07/18 @ 10 am. (Pt. aware) Dali Garcia LPN * Telephone Encounter - Efra Neville DO - 06/21/2023 1:09 PM EDT Can let him know that his anemia has improved but platelets are up a little higher. I would like him to change the Hydrea to 1 capsule a day on Saturday, Saturday and Saturday and 2 capsules once daily all other days. For convenience sake, I sent a new prescription but is going to see a take 2 capsules once daily. I did not want to confuse the pharmacy so he should follow the instructions above. Recheck CBC in a month. Efra Neville DO documented in this encounterBrecksville [facility]06-19-2023 Miscellaneous Notes* Telephone Encounter - Rachel Bland - 05/13/2023 9:18 AM EDT Scheduled as directed. Rachel Bland * Telephone Encounter - Monalisa Laurent LPN - 05/13/2023 8:59 AM EDT Patient aware of all information and verbalized understanding. PSS- please schedule a labs appointment/ CBC, for 06/21/2023 @ 11:00. No need to notify patient, heis aware. Monalisa Laurent LPN * Telephone Encounter - Efra Neville DO - 05/10/2023 5:57 PM EDT Can let him know his platelet count is increased but the anemia is stable. I advise continuing the same dose of Hydrea for now and recheck CBC in about 6 weeks. Efra Neville DO * Telephone Encounter - Janae Diggs - 05/09/2023 4:27 PM EDT Spoke with pt and scheduled * Telephone Encounter - Monalisa Laurent LPN - 05/09/2023 3:27 PM EDT PSS- please contact patient to reschedule tomorrow's (05/10/2023)OV to July. Patient is aware and knows to come in tomorrow for labs only. We will be using that appointment time for another patient. Monalisa Laurent LPN documented in this encounterBrecksville [facility]06-02-2023 Miscellaneous Notes* Telephone Encounter - Linnea Diamond LPN - 04/26/2023 1:03 PM EDT Called office of Dr. Mandel, left message requesting any other urology records. Ones in scanned documents are available if no other records. Linnea Diamond LPN documented in this encounterBrecksville [facility]03-13-2023 Miscellaneous Notes* Telephone Encounter - Jacklyn Ortega LPN - 02/04/2023 2:35 PM EDT Pt notified and voices understanding. Jacklyn Ortega LPN * Telephone Encounter - Efra Neville DO - 02/04/2023 2:22 PM EDT His blood counts are stable. Continue same dose of Hydrea. Follow-up as scheduled. Efra Neville DO documented in this encounterBrecksville [facility]12-14-2022 History of Present illness Narrative* Efra Neville DO - 11/07/2022 11:48 AM EST Diagnosis: 1) ET with possible MDS. HPI: The patient is a 86-year-old male who has a history of essential thrombocytosis, BILL-2 positive, as well as myelodysplastic syndrome. He also has a history of coronary artery disease, status post CABG earlier in 2008. On Hydrea since 12/04. Interim history: Underwent cardiac catheterization since last seen. No need for stents. No h/o exertional chest pain/pressure. More edema lower legs. No dyspnea with normal activity. No unusual bleeding. PMH, medications and allergies as below personally reviewed by me today. Any changes documented in appropriate section. ROS: Constitutional: No episodes of fever or acute infection otherwise since last seen. Neuro: Denies PITTMAN, vertigo and imbalance. No symptoms of neuropathy. HEENT: No recent change in voice or hearing. Resp: No chronic or recurring cough. No wheezing or sputum production. No history of hemoptysis. CVS: See above. GI: Denies reflux, n/v, change in bowel habits and abdominal pain. : No dysuria or gross hematuria. Endo: No hot flashes. Derm: No rash. MS: No musculoskeletal pain including joint, bone and back pain. Heme: See above. Psych: Normal mood. PHYSICAL EXAM: Vitals: Blood pressure 141/90, pulse 63, temperature 36.4 C (97.5 F), temperature source Temporal, resp. rate 18, height 178 cm (5' 10.08), weight 82.1 kg (181 lb), SpO2 98 %. Fatiuged-appearing and in no acute distress. EYES: Sclerae are anicteric bilaterally. NECK: Supple. LYMPHATIC: There is no palpable cervical or supraclavicular adenopathy. RESPIRATORY: Normal respiratory excursion. CARDIOVASCULAR: Rhythm is regular. ABDOMEN: The abdomen is nondistended. There is stable mild splenomegaly. No tenderness. Extremities: No swelling or edema noted today. SKIN: No jaundice or rash. No petechiae. 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 No focal motor weakness. LABS: Component Latest Ref Rng & Units 11/08/2021 02/05/2022 05/09/2022 08/06/2022 11/07/2022 WBC 3.70 - 11.00 k/uL 7.57 7.66 8.37 8.66 8.48 RBC 4.20 - 6.00 m/uL 3.53 (L) 3.67 (L) 3.83 (L) 3.94 (L) 3.92 (L) Hemoglobin 13.0 - 17.0 g/dL 10.5 (L) 10.2 (L) 10.3 (L) 10.8 (L) 11.0 (L) Hematocrit 39.0 - 51.0 % 33.4 (L) 33.0 (L) 34.0 (L) 34.3 (L) 36.1 (L) MCV 80.0 - 100.0 fL 94.6 89.9 88.8 87.1 92.1 MCH 26.0 - 34.0 pg 29.7 27.8 26.9 27.4 28.1 MCHC 30.5 - 36.0 g/dL 31.4 30.9 30.3 (L) 31.5 30.5 RDW-CV 11.5 - 15.0 % 25.4 (H) 26.5 (H) 28.1 (H) 26.8 (H) 28.0 (H) Platelet Count 150 - 400 k/uL 389 400 419 (H) 419 (H) 462 (H) MPV 9.0 - 12.7 fL 11.7 11.3 11.1 10.5 11.4 Neut% % 68.5 66.8 68.8 66.5 67.5 Abs Neut (ANC) 1.45 - 7.50 k/uL 5.18 5.12 5.76 5.76 5.72 Lymph% % 22.3 21.8 21.1 24.0 23.6 Abs Lymph 1.00 - 4.00 k/uL 1.69 1.67 1.77 2.08 2.00 [place]% % 6.7 7.3 6.6 6.5 5.5 Abs [place] <0.87 k/uL 0.51 0.56 0.55 0.56 0.47 Eosin% % 1.6 2.0 1.7 1.4 1.8 Abs Eosin <0.46 k/uL 0.12 0.15 0.14 0.12 0.15 Baso% % 0.9 0.9 0.8 0.7 0.9 Abs Baso <0.11 k/uL 0.07 0.07 0.07 0.06 0.08 Immature Gran % % 1.2 1.0 0.9 0.7 IMMATURE GRANS (ABS) <0.10 k/uL 0.09 0.08 0.08 0.06 NRBC /100 WBC 0.5 0.4 0.2 Absolute nRBC <0.01 k/uL 0.03 (H) 0.04 (H) 0.03 (H) 0.02 (H) DTYPE Auto Auto Auto Nucleated Reds 0 /100 WBC 0.4 (H) Diff Type Auto Diff ASSESSMENT AND PLAN: (D47.3) Essential thrombocytosis (HCC) (primary encounter diagnosis) (D64.9) Anemia, unspecified type -ET with possible MDS. -Continues to tolerate Hydrea well without symptomatic effect. -Platelet count under better control. -Higher doses of Hydrea causes more symptomatic anemia. -Again reviewed the natural history, treated course, and prognosis of ET. -Hasn't been monitoring BP at home. Plan: -Continue Hydrea to 500 mg daily. -Continue ASA daily. -Follow-up with cardiology and PCP for management of other modifiable cardiac risk factors including BP. -CBC in 3 months. -OV in 6 months. Portions of this documentation were copied and pasted from previous office visit notes in order to provide a cohesive continuity of the history. The note has been reviewed and edited and updated as necessary. Efra Neville DO [facility] of Present illness Narrative* Efra Neville DO - 05/09/2022 11:17 AM EDT Diagnosis: 1) ET with possible MDS. HPI: The patient is a 85-year-old male who has a history of essential thrombocytosis, BILL-2 positive, as well as myelodysplastic syndrome. He also has a history of coronary artery disease, status post CABG earlier in 2008. On Hydrea since 12/04. Interim history: Has Holter monitor on. Seen by cardiology in [place]. Evidently this is routine testing. He hadstress test as well. No cardiac symptoms. No symptoms of chest pain or pressure. He is not short ofbreath at rest or with exertion. Loss of generalized in last few years. No unusual bleeding or unexplained bruising. Receiving intraocular for MD in [place]. 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 IOP went way up. PMH, medications and allergies as below personally reviewed by me today. Any changes documented in appropriate section. ROS: Constitutional: No episodes of fever or acute infection otherwise since last seen. Neuro: Denies PITTMAN, vertigo and imbalance. No symptoms of neuropathy. HEENT: No recent change in voice or hearing. Resp: No chronic or recurring cough. No wheezing or sputum production. No history of hemoptysis. CVS: See above. GI: Denies reflux, n/v, change in bowel habits and abdominal pain. : No dysuria or gross hematuria. Endo: No hot flashes. Derm: No rash. MS: No musculoskeletal pain including joint, bone and back pain. Heme: See above. Psych: Normal mood. PHYSICAL EXAM: Vitals: Blood pressure 182/95, pulse 72, temperature 36.7 C (98.1 F), temperature source Temporal, weight 80.7 kg (178 lb), SpO2 98 %. Fatiuged-appearing and in no acute distress. EYES: Sclerae are anicteric bilaterally. NECK: Supple. LYMPHATIC: There is no palpable cervical or supraclavicular adenopathy. RESPIRATORY: Normal respiratory excursion. CARDIOVASCULAR: Rhythm is regular. ABDOMEN: The abdomen is nondistended. There is mild splenomegaly. No tenderness. Extremities: No swelling or edema noted today. SKIN: No jaundice or rash. No petechiae. 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 No focal motor weakness. LABS: Component Latest Ref Rng & Units 05/04/2020 08/08/2020 08/07/2021 11/08/2021 02/05/2022 05/09/2022 WBC 3.70 - 11.00 k/uL 4.98 5.41 4.60 7.57 7.66 8.37 RBC 4.20 - 6.00 m/uL 3.48 (L) 3.60 (L) 3.18 (L) 3.53 (L) 3.67 (L) 3.83 (L) Hemoglobin 13.0 - 17.0 g/dL 11.1 (L) 11.2 (L) 10.4 (L) 10.5 (L) 10.2 (L) 10.3 (L) Hematocrit 39.0 - 51.0 % 34.8 (L) 35.6 (L) 31.3 (L) 33.4 (L) 33.0 (L) 34.0 (L) MCV 80.0 - 100.0 fL 100.0 98.9 98.4 94.6 89.9 88.8 MCH 26.0 - 34.0 pg 31.9 31.1 32.7 29.7 27.8 26.9 MCHC 30.5 - 36.0 g/dL 31.9 31.5 33.2 31.4 30.9 30.3 (L) RDW-CV 11.5 - 15.0 % 25.2 (H) 25.2 (H) 24.5 (H) 25.4 (H) 26.5 (H) 28.1 (H) Platelet Count 150 - 400 k/uL 413 (H) 390 348 389 400 419 (H) MPV 9.0 - 12.7 fL 11.2 11.6 12.1 11.7 11.3 11.1 Neut% % 68.1 62.6 61.0 68.5 66.8 68.8 Abs Neut (ANC) 1.45 - 7.50 k/uL 3.38 3.38 2.79 5.18 5.12 5.76 Lymph% % 21.9 27.4 28.0 22.3 21.8 21.1 Abs Lymph 1.00 - 4.00 k/uL 1.09 1.48 1.29 1.69 1.67 1.77 [place]% % 8.0 7.6 9.1 6.7 7.3 6.6 Abs [place] <0.87 k/uL 0.40 0.41 0.42 0.51 0.56 0.55 Eosin% % 1.2 1.7 1.5 1.6 2.0 1.7 Abs Eosin <0.46 k/uL 0.06 0.09 0.07 0.12 0.15 0.14 Baso% % 0.8 0.7 0.4 0.9 0.9 0.8 Abs Baso <0.11 k/uL 0.04 0.04 <0.03 0.07 0.07 0.07 Immature Gran % % 1.2 1.0 IMMATURE GRANS (ABS) <0.10 k/uL 0.09 0.08 NRBC /100 WBC 0.5 0.4 Absolute nRBC <0.01 k/uL 0.03 (H) 0.02 (H) 0.02 (H) 0.03 (H) 0.04 (H) 0.03 (H) DTYPE Auto Auto Nucleated Reds 0 /100 WBC 0.6 (H) 0.4 (H) 0.4 (H) 0.4 (H) Diff Type Auto Diff Auto Diff Auto Diff Auto Diff ASSESSMENT AND PLAN: (D47.3) Essential thrombocytosis (HCC) (primary encounter diagnosis) (D64.9) Anemia, unspecified type -ET with MDS. -Continues to tolerate Hydrea well without symptomatic effect. -Platelet count under better control. -Higher doses of Hydrea causes more symptomatic anemia. -Again reviewed the natural history, treated course, and prognosis of ET. -He is stressed today over his recent medical issues particularly macular degeneration. Plan: -Continue Hydrea to 500 mg daily. -Continue ASA daily. -Follow-up with cardiology. -Again advised him to take his blood pressure every morning before breakfast and drinking coffee, record the values and follow-up with his PCP in about 2 weeks. He expressed an understanding and agreed to do so. -CBC in 3 months. -OV in 6 months. Portions of this documentation were copied and pasted from previous office visit notes in order to provide a cohesive continuity of the history. The note has been reviewed and edited and updated as necessary. Efra Neville DO documented in this [facility]* Diagnosis Onset Date Resolution Status Admit Date History of coronary artery bypass surgery December 31, 2007 acute Septemb er 2024 9:46am Aortic valve stenosis chronic Sep tember 2024 9:46am Atrial fibrillation chronic Septe mber 2024 9:46am Bilateral lower extremity edema chronic July 29, 025 9:46am Coronary artery disease chronic S eptember 2024 9:46am Dyslipidemia chronic July 9:46am Essential hypertension chronic Se ptember 2024 9:46am [facility] Work Phone: Evaluation note* Diagnosis Essential thrombocytosis (HCC)- Primary Essential thrombocythemia documented [facility]* Diagnosis Essential thrombocytosis- Primary Essential thrombocythemia [facility] Diagnosis Essential thrombocytosis (HCC)- Primary Essential thrombocythemia [facility] Diagnosis Essential thrombocytosis (HCC)- Primary Essential thrombocythemia [facility] Diagnosis Essential thrombocytosis (HCC)- Primary Essential thrombocythemia [facility] Diagnosis Essential thrombocytosis (HCC)- Primary Essential thrombocythemia [facility] Diagnosis Essential thrombocytosis (HCC)- Primary [facility]ential thrombocythemia [facility] Essential thrombocytosis Essential thrombocythemia documented [facility]* Diagnosis Essential thrombocytosis (HCC)- Primary Essential thrombocythemia [facility] Diagnosis Essential thrombocytosis (HCC) Essential thrombocythemia [facility] Diagnosis Essential thrombocytosis (HCC)- Primary [facility]ocythemia [facility] Diagnosis Essential thrombocytosis (HCC)- Primary Essential thrombocythemia Macrocytic anemia Unspecified deficiency anemia [facility] Diagnosis Essential thrombocytosis (HCC)- Primary Essential thrombocythemia Macrocytic anemia Unspecified deficiency anemia [facility] Diagnosis Essential thrombocytosis (HCC)- Primary Essential thrombocythemia Macrocytic anemia Unspecified deficiency anemia [facility] Diagnosis Essential thrombocytosis (HCC)- Primary Essential thrombocythemia [facility]* Diagnosis Essential thrombocytosis (HCC) Essential thrombocythemia [facility] Diagnosis Elevated PSA- Primary Elevated prostate specific antigen (PSA) [facility] Diagnosis Essential thrombocytosis Essential thrombocythemia [facility]* Diagnosis Essential thrombocytosis- Primary Essential thrombocythemia MDS (myelodysplastic syndrome), low grade (HCC) Low grade myelodysplastic syndrome lesions Anemia, unspecified type [facility]* Diagnosis Essential thrombocytosis- Primary Essential thrombocythemia MDS (myelodysplastic syndrome), low grade (HCC) Low grade myelodysplastic syndrome lesions Anemia, unspecified type [facility]* Diagnosis Essential thrombocytosis- Primary Essential thrombocythemia MDS (myelodysplastic syndrome), low grade (HCC) Low grade myelodysplastic syndrome lesions documented in this encounter [facility] for referral (narrative)* Diagnostic Procedure Only (Routine) - Authorized Specialty Diagnoses / Procedures Referred By Lucy mi Referred To Contact [facility] Diagnoses Essential thrombocytosis (HCC) Procedures US ABD SPLEEN US ABDOMINAL REAL TIME W/IMAGE LIMITED Efra Neville DO [address] [place] [address] [place] [id number] Referral ID Status Reason Start Date Expiration Date Visits Requested Visits Authorized [id number] Authorized Auto-Generat ed Referral 06/23/2024 07/23/2025 1 1 [facility] for referral (narrative)No reason for referral information availableInd[facility] Work Phone: Summary Purpose Family History No Family History Records FoundNo Family History Records FoundNo Family History Records FoundNo Family History Records Found Advance Directives No Advanced Directives Records FoundNo Advanced Directives Records FoundNo Advanced Directives Records FoundNo Advanced Directives Records Found Chief Complaint and Reason for Visit Chief Complaint Admit Date AFIB (NEENA) July 29, 2025 9:46am Reason for Visit Admit Date History of coronary artery bypass surger y July 29, 2025 9:46am Aortic valve stenosis July 29 9:46am Atrial fibrillation July 29, 2025 9:46am Bilateral lower extremity edema Septembe r 2024 9:46am Coronary artery disease July 29, 025 9:46am Dyslipidemia July 29, 2025 9:46am Essential hypertension July 29 9:46am Chief Complaint Admit Date AFIB (NEENA) July 29, 2025 9:46am STENOSIS August 05, 2025 10:25am Amb Documentation August 05, 2025 3:06pm Additional Source Comments Source Comments (unrecognize d section and content) In the event this informatio n is protected by the Federal Confidentiality of Alcohol and Drug Abuse Patient Records regulations: The Federal rules restrict any use of the information to criminally investigate or prosecute any alcohol or drug abuse patient.[facility] the event this information is protected by the Federal Confidentiality of Alcohol and Drug Abuse Patient Records regulations: The Federal rules restrict any use of the information to criminally investigate or prosecute any alcohol or drug abuse patient.[facility] the event this information is protected by the Federal Confidentiality of Alcohol and Drug Abuse Patient Records regulations: The Federal rules restrict any use of the information to criminally investigate or prosecute any alcohol or drug abuse patient.[facility]In the event this information is protected by the Federal Confidentiality of Alcohol and Drug Abuse Patient Records regulations: The Federal rules restrict any use of the information to criminally investigate or prosecute any alcohol or drug abuse patient.[facility]In the event this information is protected by the Federal Confidentiality of Alcohol and Drug Abuse Patient Records regulations: The Federal rules restrict any use of the information to criminally investigate or prosecute any alcohol or drug abuse patient.[facility]In the event this information is protected by the Federal Confidentiality of Alcohol and Drug Abuse Patient Records regulations: The Federal rules restrict any use of the information to criminally investigate or prosecute any alcohol or drug abuse patient.[facility] the event this information is protected by the Federal Confidentiality of Alcohol and Drug Abuse Patient Records regulations: The Federal rules restrict any use of the information to criminally investigate or prosecute any alcohol or drug abuse patient.[facility] the event this information is protected by the Federal Confidentiality of Alcohol and Drug Abuse Patient Records regulations: The Federal rules restrict any use of the information to criminally investigate or prosecute any alcohol or drug abuse patient.[facility]In the event this information is protected by the Federal Confidentiality of Alcohol and Drug Abuse Patient Records regulations: The Federal rules restrict any use of the information to criminally investigate or prosecute any alcohol or drug abuse patient.[facility]In the event this information is protected by the Federal Confidentiality of Alcohol and Drug Abuse Patient Records regulations: The Federal rules restrict any use of the information to criminally investigate or prosecute any alcohol or drug abuse patient.[facility] HospitalIn the event this information is protected by the Federal Confidentiality of Alcohol and Drug Abuse Patient Records regulations: The Federal rules restrict any use of the information to criminally investigate or prosecute any alcohol or drug abuse patient.[facility]In the event this information is protected by the Federal Confidentiality of Alcohol and Drug Abuse Patient Records regulations: The Federal rules restrict any use of the information to criminally investigate or prosecute any alcohol or drug abuse patient.[facility]In the event this information is protected by the Federal Confidentiality of Alcohol and Drug Abuse Patient Records regulations: The Federal rules restrict any use of the information to criminally investigate or prosecute any alcohol or drug abuse patient.[facility]In the event this information is protected by the Federal Confidentiality of Alcohol and Drug Abuse Patient Records regulations: The Federal rules restrict any use of the information to criminally investigate or prosecute any alcohol or drug abuse patient.[facility]In the event this information is protected by the Federal Confidentiality of Alcohol and Drug Abuse Patient Records regulations: The Federal rules restrict any use of the information to criminally investigate or prosecute any alcohol or drug abuse patient.[facility]In the event this information is protected by the Federal Confidentiality of Alcohol and Drug Abuse Patient Records regulations: The Federal rules restrict any use of the information to criminally investigate or prosecute any alcohol or drug abuse patient.[facility]In the event this information is protected by the Federal Confidentiality of Alcohol and Drug Abuse Patient Records regulations: The Federal rules restrict any use of the information to criminally investigate or prosecute any alcohol or drug abuse patient.[facility]In the event this information is protected by the Federal Confidentiality of Alcohol and Drug Abuse Patient Records regulations: The Federal rules restrict any use of the information to criminally investigate or prosecute any alcohol or drug abuse patient.[facility]In the event this information is protected by the Federal Confidentiality of Alcohol and Drug Abuse Patient Records regulations: The Federal rules restrict any use of the information to criminally investigate or prosecute any alcohol or drug abuse patient.[facility] HospitalIn the event this information is protected by the Federal Confidentiality of Alcohol and Drug Abuse Patient Records regulations: The Federal rules restrict any use of the information to criminally investigate or prosecute any alcohol or drug abuse patient.[facility]In the event this information is protected by the Federal Confidentiality of Alcohol and Drug Abuse Patient Records regulations: The Federal rules restrict any use of the information to criminally investigate or prosecute any alcohol or drug abuse patient.[facility]In the event this information is protected by the Federal Confidentiality of Alcohol and Drug Abuse Patient Records regulations: The Federal rules restrict any use of the information to criminally investigate or prosecute any alcohol or drug abuse patient.[facility]In the event this information is protected by the Federal Confidentiality of Alcohol and Drug Abuse Patient Records regulations: The Federal rules restrict any use of the information to criminally investigate or prosecute any alcohol or drug abuse patient.[facility]In the event this information is protected by the Federal Confidentiality of Alcohol and Drug Abuse Patient Records regulations: The Federal rules restrict any use of the information to criminally investigate or prosecute any alcohol or drug abuse patient.[facility]In the event this information is protected by the Federal Confidentiality of Alcohol and Drug Abuse Patient Records regulations: The Federal rules restrict any use of the information to criminally investigate or prosecute any alcohol or drug abuse patient.[facility]In the event this information is protected by the Federal Confidentiality of Alcohol and Drug Abuse Patient Records regulations: The Federal rules restrict any use of the information to criminally investigate or prosecute any alcohol or drug abuse patient.[facility] HospitalIn the event this information is protected by the Federal Confidentiality of Alcohol and Drug Abuse Patient Records regulations: The Federal rules restrict any use of the information to criminally investigate or prosecute any alcohol or drug abuse patient.[facility]In the event this information is protected by the Federal Confidentiality of Alcohol and Drug Abuse Patient Records regulations: The Federal rules restrict any use of the information to criminally investigate or prosecute any alcohol or drug abuse patient.[facility]In the event this information is protected by the Federal Confidentiality of Alcohol and Drug Abuse Patient Records regulations: The Federal rules restrict any use of the information to criminally investigate or prosecute any alcohol or drug abuse patient.[facility] HospitalIn the event this information is protected by the Federal Confidentiality of Alcohol and Drug Abuse Patient Records regulations: The Federal rules restrict any use of the information to criminally investigate or prosecute any alcohol or drug abuse patient.[facility]In the event this information is protected by the Federal Confidentiality of Alcohol and Drug Abuse Patient Records regulations: The Federal rules restrict any use of the information to criminally investigate or prosecute any alcohol or drug abuse patient.[facility]In the event this information is protected by the Federal Confidentiality of Alcohol and Drug Abuse Patient Records regulations: The Federal rules restrict any use of the information to criminally investigate or prosecute any alcohol or drug abuse patient.[facility]In the event this information is protected by the Federal Confidentiality of Alcohol and Drug Abuse Patient Records regulations: The Federal rules restrict any use of the information to criminally investigate or prosecute any alcohol or drug abuse patient.[facility]In the event this information is protected by the Federal Confidentiality of Alcohol and Drug Abuse Patient Records regulations: The Federal rules restrict any use of the information to criminally investigate or prosecute any alcohol or drug abuse patient.[facility]In the event this information is protected by the Federal Confidentiality of Alcohol and Drug Abuse Patient Records regulations: The Federal rules restrict any use of the information to criminally investigate or prosecute any alcohol or drug abuse patient.[facility]In the event this information is protected by the Federal Confidentiality of Alcohol and Drug Abuse Patient Records regulations: The Federal rules restrict any use of the information to criminally investigate or prosecute any alcohol or drug abuse patient.[facility]In the event this information is protected by the Federal Confidentiality of Alcohol and Drug Abuse Patient Records regulations: The Federal rules restrict any use of the information to criminally investigate or prosecute any alcohol or drug abuse patient.[facility]In the event this information is protected by the Federal Confidentiality of Alcohol and Drug Abuse Patient Records regulations: The Federal rules restrict any use of the information to criminally investigate or prosecute any alcohol or drug abuse patient.[facility]In the event this information is protected by the Federal Confidentiality of Alcohol and Drug Abuse Patient Records regulations: The Federal rules restrict any use of the information to criminally investigate or prosecute any alcohol or drug abuse patient.[facility]In the event this information is protected by the Federal Confidentiality of Alcohol and Drug Abuse Patient Records regulations: The Federal rules restrict any use of the information to criminally investigate or prosecute any alcohol or drug abuse patient.[facility]In the event this information is protected by the Federal Confidentiality of Alcohol and Drug Abuse Patient Records regulations: The Federal rules restrict any use of the information to criminally investigate or prosecute any alcohol or drug abuse patient.[facility] the event this information is protected by the Federal Confidentiality of Alcohol and Drug Abuse Patient Records regulations: The Federal rules restrict any use of the information to criminally investigate or prosecute any alcohol or drug abuse patient.[facility] the event this information is protected by the Federal Confidentiality of Alcohol and Drug Abuse Patient Records regulations: The Federal rules restrict any use of the information to criminally investigate or prosecute any alcohol or drug abuse patient.[facility] the event this information is protected by the Federal Confidentiality of Alcohol and Drug Abuse Patient Records regulations: The Federal rules restrict any use of the information to criminally investigate or prosecute any alcohol or drug abuse patient.[facility] Care Teams (unrecognized sec tion and content) Member Of Congress Relationship Specialty Start Date End Date Ministerio Elias MD PCP - General 08/05/07 Member Of Congress Relationship Specialty Start Date End Date Ministerio Elias MD PCP - General 08/05/07 Member Of Congress Relationship Specialty Start Date End Date Ministerio Elias MD PCP - General 08/05/07 Member Of Congress Relationship Specialty Start Date End Date Ministerio Elias MD PCP - General 08/05/07 Member Of Congress Relationship Specialty Start Date End Date Ministerio Elias MD PCP - General 08/05/07 Member Of Congress Relationship Specialty Start Date End Date Ministerio Elias MD PCP - General 08/05/07 Member Of Congress Relationship Specialty Start Date End Date Minsiterio Elias MD PCP - General 08/05/07 Member Of Congress Relationship Specialty Start Date End Date Ministerio Elias MD PCP - General 08/05/07 Member Of Congress Relationship Specialty Start Date End Date Ministerio Elias MD PCP - General 08/05/07 Member Of Congress Relationship Specialty Start Date End Date Ministerio Elias MD PCP - General 08/05/07 Member Of Congress Relationship Specialty Start Date End Date Ministerio Elias MD PCP - General 08/05/07 Member Of Congress Relationship Specialty Start Date End Date Ministerio Elias MD PCP - General 08/05/07 Member Of Congress Relationship Specialty Start Date End Date Ministerio Elias MD PCP - General 08/05/07 Member Of Congress Relationship Specialty Start Date End Date Ministerio Elias MD PCP - General 08/05/07 Member Of Congress Relationship Specialty Start Date End Date Ministerio Elias MD PCP - General 08/05/07 Member Of Congress Relationship Specialty Start Date End Date Ministerio Elias MD PCP - General 08/05/07 Member Of Congress Relationship Specialty Start Date End Date Ministerio Elias MD PCP - General 08/05/07 Member Of Congress Relationship Specialty Start Date End Date Ministerio Elias MD PCP - General 08/05/07 Member Of Congress Relationship Specialty Start Date End Date Ministerio Elias MD PCP - General 08/05/07 Member Of Congress Relationship Specialty Start Date End Date Ministerio Elias MD PCP - General 08/05/07 Member Of Congress Relationship Specialty Start Date End Date Ministerio Elias MD [facility] General 08/05/07 Member Of Congress Relationship Specialty Start Date End Date Ministerio Elias MD [facility] General 08/05/07 Team Status: Active Member Role/Relationship Status Dates Dr. Ministerio Elias MD Family Provider Active Dr. Ministerio Elias MD Primary Care Provider Active Team Status: Inactive Member Role/Relationship Status Dates Dr. Ministerio Elias MD Primary Care Provider Active Start: July 29, 2025 End: July 29, 2025 Dr. Ministerio Elias MD Referring Provider Active Start: July 29, 2025 End: July 29, 2025 Dr. Jon Woodruff MD Attending Provider Active Start: July 29, 2025 End: July 29, 2025 Team Status: Active Member Role/Relationship Status Dates No Primary Care Physician Primary care physician Activ e Team Status: Inactive Member Role/Relationship Status Dates Dr. Ministerio Eilas MD Primary care physician Active Start: July 29, 2025 End: July 29, 2025 Dr. Ministerio Elias MD Referring Provider Active Start: July 29, 2025 End: July 29, 2025 Dr. Jon Woodruff MD Attending physician Active Start: July 29, 2025 End: July 29, 2025 Team Status: Inactive Member Role/Relationship Status Dates Dr. Jon Woodruff MD Attending physician Active Start: August 05, 2025 End: August 05, 2025 Dr. Jon Woodruff MD Referring Provider Active Start: August 05, 2025 End: August 05, 2025 No Primary Care Physician Primary care physician Activ e Start: August 05, 2025 End: August 05, 2025 Team Status: Active Member Role/Relationship Status Dates No Primary Care Physician Primary care physician Activ e Start: August 05, 2025 Dr. Prince Gay MD Attending physician Active Start: August 05, 2025 Dr. Jon Woodruff MD Referring Provider Active Start: August 05, 2025 Team Status: Active Member Role/Relationship Status Dates No Primary Care Physician Primary care physician Activ e Start: August 05, 2025 Viv Allred LOADER OPERATOR SUPERVISOR, LOADER OPERATOR SUPERVISOR-C Attending physician Active Start: August 05, 2025 Reason for Visit (unrecogniz ed section and content) Reason Comments Established Patient Reason Comments Results Reason Comments Appointment Reason Comments Results CBC. Increase dose o f Hydrea. Reason Comments Results Elevated TSH Reason Comments Future Appointment Reason Comments Procedure BMBX Reason Comments Established Patient Reason Comments Follow Up Reason Comments Radiology US Specialty Diagnoses / Procedures Referred By Contac t Referred To Contact US IMAGING Diagnoses Essential thrombocytosis (HCC) Procedures US ABD SPLEEN US ABDOMINAL REAL TIME W/IMAGE LIMITED Efra Neville, DO [address] [place] [address] [place] [address] Referral ID Status Reason Start Date Expiration Date V isits Requested Visits Authorized [id number] Closed Auto-Generate d Referral 06/23/2024 07/23/2025 1 1 Reason Comments Elevated PSA New Patient Reason Comments Refill Request Reason Comments Recheck Reason Onset Date Comments Refill Request 05/18/2025 Opened In Error 05/18/2025 (unrecognized sect ion and content) No Status Records FoundNo Status Records FoundNo Status Records FoundNo Status Records Found INFORMATION SOURCE (unrecogn ized section and content) DATE CREATED AUTHOR 05/04/2023 [email or web address] DATE CREATED AUTHOR AUTHOR'S ORGANIZ ATION 08/18/2025 [facility] DATE CREATED AUTHOR AUTHOR'S ORGANIZ ATION 08/28/2025 [facility] DATE CREATED AUTHOR AUTHOR'S ORGANIZ ATION 09/07/2025 [facility] Goals (unrecognized section and content) Goals may be documented in a n alternate sectionGoals may be documented in an alternate section FOR RECORDS PERTAINING TO PATIENTS WHO ARE OR HAVE BEEN ENROLLED IN A CHEMICAL DEPENDENCY/SUBSTANCEABUSE PROGRAM, SOME INFORMATION MAY BE OMITTED. This clinical summary was aggregated from multiple sources. Caution should be exercised in using it in the provision of clinical care. This summary normalizes information from multiple sources, and as a consequence, information in this document may materially change the coding, format and clinical context of patient data. In addition, data may be omitted in some cases. CLINICAL DECISIONS SHOULD BE BASED ON THE PRIMARY CLINICAL RECORDS. [facility]. provides no warranty or guarantee of the accuracy or completeness of information in this document.
[2025-09-10 15:19] LABS: Differential Indicated SCAN CRITERIA MET
[2025-09-10 15:24] LABS: Basophilic Stippling 1+; Polychromasia 1+
[2025-09-10 17:31] LABS: Anion Gap 11 (5-15); BUN 17 mg/dL (4-19); BUN/Creat Ratio 15.3 RATIO (10-20); Calcium,Total 9.2 mg/dL (7.6-11.0); Carbon Dioxide 25.1 mmol/L (21.0-32.0); Chloride 106 mmol/L (98-108); Estimated Creatinine Clearance 50.90 ml/min (50-250); Potassium 4.7 mmol/L (3.3-5.1); Pro- Brain NATRIURETIC PEPTIDE 14196 pg/mL (<=1800); Troponin T High Sensitivity 62 ng/L (<=22)
--- NOTE | 2025-09-10 18:11 | PCM.HP.STD ---
HPI - General General Date of Admission: 09/10/25 Date of Service: 09/10/25 Chief Complaint: Shortness of breath and lower extremity swelling HPI Narrative KSENIA KENNY, is a 89 M who presented to [facility] ED on 09/10/2025 with shortness of breath and lower extremity swelling. Medical history significant for chronic A-fib on Eliquis, history of CAD with CABG, hypertension, hyperlipidemia and myelodysplastic syndrome. Patient previously followed with cardiology down in the [place] area but recently established with our cardiology group here, first office visit on 07/29. He had an outpatient echo done on 08/26 that showed newly reduced EF 45%, mild concentric LV hypertrophy, stage I diastolic dysfunction, severe biatrial dilatation, moderate prolapse of the posterior mitral valve leaflet with moderate to severe mitral valve regurgitation. He now reports worsening lower extremity swelling and an approximate 15 to 20 pound weight gain over the past week or two. He is shortness of breath with minimal exertion and has orthopnea. Given these things, he came to the ED today for further evaluation. In the ED he was hypertensive to the 160s systolic, was in rate controlled A-fib with heart rate in the 80s and was satting in the low 90s on room air at rest. Chest x-ray showed CHF with bilateral pleural effusions and bibasilar atelectasis. BNP greater than 14,000. Given presumed CHF exacerbation, hospitalist was contacted for admission. I saw the patient at bedside in the ED, present. Patient was fatigued appearing but otherwise sitting back comfortably in bed, answering questions appropriately, in no acute distress. Patient lives at home with his . Previously had fairly good functional status but over the past 3 to 4 weeks he has had increased weakness in his legs and significant dyspnea on exertion, which has made it difficult for him to do things for himself at home. He denies any falls. Denies any recent illnesses. Denies any other acute concerns currently. Will be admitted for further management. [facility] Medical History Edema Atrial fibrillation Iron deficiency anemia Obstructive sleep apnea Lipoprotein deficiency disorder Diverticular disease of colon Essential hypertension History of pulmonary embolus (PE) (12/2007) Myelodysplastic syndrome Essential thrombocytosis Atherosclerosis of coronary artery of [place] heart without angina pectoris Home Medications ?Medication ?Instructions ?Recorded ?Last Taken ?Type cholecalciferol (vitamin D3) 125 125 mcg PO DAILY 07/14/21 Unknown History mcg (5,000 unit) capsule apixaban 5 mg tablet (Eliquis) 5 mg PO BID 07/29/25 Unknown History furosemide 20 mg tablet (Lasix) 20 mg PO QAM 07/29/25 Unknown History metoprolol succinate 100 mg 100 mg PO QDAY #90 tabs 07/29/25 Unknown Rx tablet,extended release 24 hr rosuvastatin 5 mg tablet 5 mg PO QDAY #90 tabs 07/29/25 Unknown Rx losartan 50 mg tablet 50 mg PO BID #180 tabs 09/08/25 Unknown Rx Allergy/AdvReac Type Severity Reaction Status Date / Time No Known Allergies Allergy Verified 09/10/25 12:39 Surgical History History of coronary artery bypass surgery (12/31/07) History of left heart catheterization (12/29/07) Social History Smoking Status: Former smoker substance use type: does not use ROS Constitutional Constitutional: Reports fatigue and weakness; Denies chills or fever(s) Eyes Eyes: Denies change in vision Cardiovascular Cardiovascular: Reports dyspnea on exertion, edema and orthopnea; Denies chest pain, lightheadedness or palpitations Respiratory/Chest Respiratory/Chest: Reports shortness of breath at rest and shortness of breath with exertion; Denies cough, productive cough or wheezing Gastrointestinal Gastrointestinal: Denies abdominal pain Genitourinary Genitourinary: Denies dysuria Musculoskeletal Musculoskeletal: Denies arthralgias or myalgias Neurologic Neurologic: Denies dizziness, focal weakness, headache(s), numbness or tingling Vital Signs Vital Signs Vital Signs: 09/10/25 12:39 09/10/25 12:50 09/10/25 13:32 Temperature 97.8 F Temperature Source Temporal Pulse Rate 83 74 Respiratory Rate 18 18 Respiratory Effort Normal Non-Labored Respiratory Depth Normal Respiratory Pattern Normal Blood Pressure 155/111 H 164/107 H Blood Pressure Mean 125 126 Pulse Ox 95 91 Oxygen Delivery Method Room Air Room Air Room Air 09/10/25 14:18 09/10/25 14:44 09/10/25 15:00 Temperature Temperature Source Pulse Rate 78 79 Respiratory Rate 18 30 H Respiratory Effort Respiratory Depth Respiratory Pattern Blood Pressure 168/107 H 149/55 H Blood Pressure Mean 127 86 Pulse Ox 93 93 92 Oxygen Delivery Method Room Air Room Air 09/10/25 16:00 09/10/25 17:00 09/10/25 18:00 Temperature Temperature Source Pulse Rate 74 76 81 Respiratory Rate 77 H 24 H 16 Respiratory Effort Respiratory Depth Respiratory Pattern Blood Pressure 151/112 H 162/98 H 170/122 H Blood Pressure Mean 125 119 138 Pulse Ox 94 91 91 Oxygen Delivery Method Room Air Room Air 09/10/25 18:10 Temperature 98.2 F Temperature Source Pulse Rate 83 Respiratory Rate 19 H Respiratory Effort Respiratory Depth Respiratory Pattern Blood Pressure 160/108 H Blood Pressure Mean 125 Pulse Ox 91 Oxygen Delivery Method Weight Weight: 86.7 kg Body Mass Index (BMI) 25.9 Physical Exam Const alert, oriented x3, no apparent distress and average body habitus Constitutional Narrative: Elderly male, fatigued appearing, otherwise sitting back comfortably in bed, conversing normally, in no acute distress. General Appearance: cooperative and comfortable HEENT normocephalic, head/scalp atraumatic, hearing grossly normal bilaterally, nasal mucous membranes and turbinates normal and moist oral mucous membranes Eyes PERRL, EOMs intact bilaterally and conjunctivae normal Neck full ROM Chest inspection of chest normal Resp normal respiratory effort and no use of accessory muscles Resp Narrative: Breathing comfortably on 2 L nasal cannula at rest. Diminished breath sounds in bilateral lung bases with crackles noted in mid lung zones bilaterally. No wheezing noted. Cardio peripheral pulses 2+ throughout Cardio Narrative: A-fib, rate controlled. Significant systolic murmur noted at cardiac apex. GI normal to inspection, nondistended, normoactive bowel sounds, soft to palpation, non-tender and non-distended Back/Spine normal ROM Extremity Extremity Narrative: +3-4 lower extremity pitting edema noted up to the lower thighs. Skin no rashes or lesions noted Psych mental status grossly normal Results Lab / Micro Data 09/10/25 14:30 09/10/25 16:25 Labs: Laboratory Results - last 24 hr 09/10/25 14:30: WBC 13.1 H, RBC 4.27 L, Hgb 12.5 L, Hct 40.9, MCV 95.8 H, MCH 29.3, MCHC 30.6 L, RDW Std Deviation 96.4 H, RDW Coeff of Yoryd 27.8 H, Plt Count 548 H, MPV 12.1 H, Immature Gran % (Auto) 0.600, Neut % (Auto) 76.1 H, Lymph % (Auto) 14.1 L, [place] % (Auto) 7.0, Eos % (Auto) 1.3, Baso % (Auto) 0.9, Absolute Neuts (auto) 10.0 H, Absolute Lymphs (auto) 1.84, Nucleated RBC % 0.3, Polychromasia 1+, Basophilic Stippling 1+, Ovalocytes 2+, Sodium Cancelled, Potassium Cancelled, Chloride Cancelled, Carbon Dioxide Cancelled, Anion Gap Cancelled, BUN Cancelled, Creatinine Cancelled, Estim Creat Clear Calc Cancelled, Est GFR (MDRD) Non-Af Cancelled, BUN/Creatinine Ratio Cancelled, Glucose Cancelled, Calcium Cancelled, Troponin T High Sens Cancelled, NT pro BNP II Cancelled 09/10/25 15:30: Sodium Cancelled, Potassium Cancelled, Chloride Cancelled, Carbon Dioxide Cancelled, Anion Gap Cancelled, BUN Cancelled, Creatinine Cancelled, Estim Creat Clear Calc Cancelled, Est GFR (MDRD) Non-Af Cancelled, BUN/Creatinine Ratio Cancelled, Glucose Cancelled, Calcium Cancelled, Troponin T High Sens Cancelled, NT pro BNP II Cancelled 09/10/25 16:25: Sodium 142, Potassium 4.7, Chloride 106, Carbon Dioxide 25.1, Anion Gap 11, BUN 17, Creatinine 1.08, Estim Creat Clear Calc 50.90, Est GFR (MDRD) Non-Af 66, BUN/Creatinine Ratio 15.3, Glucose 86, Calcium 9.2, Troponin T High Sens 62 H*, [place] [address] H Rhythm Strip Rhythm Strip: A-fib Rate: 75 Ectopy: None Imaging Radiology Impression Chest X-Ray 09/10/25 15:05 IMPRESSION: CHF with bilateral pleural effusions and bibasilar atelectasis. Follow-up recommended to ensure complete resolution Remote CABG Reading Location: [id number] Assessment & Plan Assessment/Plan (1) Acute on chronic HFrEF (heart failure with reduced ejection fraction): PLAN: Plan Patient is an 89-year-old male who presented to [facility] ED on 09/10/2025 with worsening shortness of breath and lower extremity swelling. 1. Acute on chronic HFrEF with hypoxia on exertion, mitral valve prolapse with moderate to severe mitral regurgitation ? Admit under inpatient status to PCU. Cardiology consulted. Echo on 08/26 showed newly reduced EF 45%, mild concentric LV hypertrophy, stage I diastolic dysfunction, severe biatrial dilatation, moderate prolapse of the posterior mitral valve leaflet with moderate to severe mitral valve regurgitation. Hypoxic to the low 90s on room air at rest; significant shortness of breath with minimal exertion. CXR showed showed CHF with bilateral pleural effusions and bibasilar atelectasis. BNP greater than 14,000. Patient denies history of prior heart failure exacerbation. Suspect his mitral valve prolapse with regurgitation is a significant contributor to his worsening CHF. Discussed with Dr. Brito on admission; okay for admission here and will diurese aggressively. Will initiate Lasix drip at 10 mL/h on admit, monitor urine output and daily BMP. Okay to continue home Toprol and losartan. Appreciate further cardiology recommendations. Wean supplemental oxygen as able. 2. Acute on chronic debility ? PT/OT/case management consulted. Patient lives at home with his . Has had worsening functional status recently due to general lower extremity weakness and shortness of breath with exertion. Appreciate therapy recommendations. 3. Chronic A-fib on Eliquis, history of CAD with CABG, hypertension, hyperlipidemia ? Previously followed with cardiology in the [place] area. Recently established with [facility] with first office visit on 07/29. History of CABG x 3 back in 2007. Last left heart cath in 2021 showed moderate CAD, 100% occlusion of the VERA to LAD graft, other grafts patent, no other concerning findings. In rate controlled A-fib on admit. Continue home Eliquis, Toprol, losartan and rosuvastatin. 4. Myelodysplastic syndrome ? Follows with Dr. Neville. CBC on admit with WBC count 13.1, hemoglobin 12.5, platelet count 548. Not on any home medications for this. No inpatient needs, continue close outpatient follow-up. DVT prophylaxis: Not indicated, on Eliquis CODE STATUS: Full code, verified Expected disposition: TBD Total clinical time spent by myself addressing the patient's medical issues, reviewing all the data, and collaborating with patient's care team: 79 minutes. Charges/Coding Visit Charges Inpatient E&M: 75163 Init Hosp L3
--- OUTSIDE RECORDS SUMMARY | 2025-09-10 18:37 | XMS RPT_ITS | CCD ---
Author Organization [facility] CliniSywv Care Team Providers Care Instrument Sterilizer Name Role Phone Ministerio Elias MD Primary Care Provider TRENT FOURNIER MD Attending Unavailbrandon ELIAS MD, DR MANDEL Primary Care Unavailable JADA RODRIGES, DR MANDEL Primary Care Unavailable TATE RODRIGES, DR LOUISE Consulting Unavailbrandon HOFFMAN MD, ARIA Bee Attending Unavailable Ministerio Elias MD Primary Care Provider [phone] Ministerio Elias MD Primary Care Provider Jada RODRIGES, Dr. Mandel Primary Care Provider Jada RODRIGES, Dr. Mandel Referring Provider Ranjan RODRIGES, Dr. Webb Attending Provider LYNNETTE BELLAMY Referring Unavailable NEENAFebruary HATCH SUPERVISOR Admitting Unavailable NEENAFebruary HATCH SUPERVISOR Primary Care Unavailable NEENAFebruary HATCH SUPERVISOR Attending Unavailable MINISTERIO ELIAS MD Referring Unavailable [...] Unavailable MINISTERIO ELIAS MD Attending Unavailable NEENAFebruary HATCH SUPERVISOR Attending Unavailable LYNNETTE BELLAMY Referring Unavailable NEENAFebruary HATCH SUPERVISOR Admitting Unavailable NEENAFebruary HATCH SUPERVISOR Primary Care Unavailable MINISTERIO ELIAS MD Admitting Unavailable MINISTERIO ELIAS MD Primary Care Unavailable MINISTERIO ELIAS MD Consulting Unavailable MINISTERIO ELIAS MD Attending Unavailable PROVIDER, UNKNOWN Consulting Unavailable PROVIDER, UNKNOWN Consulting Unavailable PROVIDER, UNKNOWN Consulting Unavailable Latouf , Dr. Mandel Primary Care Physician Ranjan RODRIGES, Dr. Webb Attending Physician [phone] Ranjan RODRIGES, Dr. Webb Referring Provider Care Physician, No Primary Primary Care Physicia n Unavailable Deidra RODRIGES, Dr. Morrison Attending Physician [phone] Chalino SUPERVISOR [employer], Viv Attending Physician JULIET RUIZ Attending Unavailable LATOUF, BUTROS Primary Care Unavailable LATOUF, BUTROS Primary Care Unavailable LATOUF, BUTROS Primary Care Unavailable JULIET RUIZ Attending Unavailable MASCI, EFRA A Referring Unavailable LATOUF, BUTROS Primary Care Unavailable LATOUF, BUTROS Primary Care Unavailable LATOUF, BUTROS Primary Care Unavailable MASCI, EFRA A Attending Unavailable MASCI, EFRA A Referring Unavailable LATOUF, BUTROS Primary Care Unavailable LATOUF, BUTROS Primary Care Unavailable MASCI, EFRA A Referring Unavailable LATOUF, BUTROS Primary Care Unavailable MASCI, EFRA A Referring Unavailable LATOUF, BUTROS Primary Care Unavailable LATOUF, BUTROS Primary Care Unavailable Ranjan, Jon Referring Unavailable Prince Gay Attending Unavailable Care Physician, No Primary Primary Care Unava ilable Viv Allred NP Attending Unavailable Care Physician, No Primary Primary Care Unava ilable Care Physician, No Primary Primary Care Unava ilable Ranjan, Jon Attending Unavailable Latouf, Butros Primary Care Unavailable Latouf, Butros Referring Unavailable Ranjan, Jon Attending Unavailable Ranjan, Jon Referring Unavailable Care Physician, No Primary Primary Care Unava ilable Ranjan, Jon Attending Unavailable Ranjan, Jon Referring Unavailable Care Physician, No Primary Primary Care Unava ilable Ranjan, Jon Attending Unavailable Cirilo Polo Attending Unavailable Inge oJy Primary Care Unavailable Medications Current Medications Medication [...] 2025 9:59am 500 mg PO BID on MOWE; Start: 05-09-2021 End: 06-21-2023 take 1 capsule by mouth once daily Hydroxyurea 500 mg capsule Discontinued 500 mg PO DAILY June 27, 2021 12:00am June 28, 2021 8:25am Comment on above: TAKE 1 CAPSULE BY MO [facility] ONCE DAILY ON SATURDAY, SATURDAY, SATURDAY, SATURDAY, AND ONE CAPSULE TWICE DAILY ON SATURDAY, SATURDAY, AND SATURDAY TAKE 1 CAPSULE BY MO [facility] ONCE DAILY. Take 2 capsules by [facility] once daily. TAKE 1 CAPSULE BY MOUTH [...] 0 Active take 2 tablets by mo [facility] twice daily losartan (COZAAR) 25 mg tablet [...] ascorbic acid 226 mg / beta carotene 32526 unt / cuprous oxide 0.8 mg / dl-alpha tocopheryl acetate 200 unt / zinc oxide 34.8 mg oral capsule (1 source) Vitamin C Start: 07-14-2021 End: 07-29-2025 Vitamins A,C,K-Ecrq-Inufyq (Icaps Areds) 14,320-226-200 czly-gv-vxcu capsule Discontinued 1 NMA PO TWICE A [...] day as needed. 02/24/2025 07/21/2025 Discontinued Vit C,A-Cp-Hxmyj-Lutein- Zeaxan (Preservision Areds-2) 250-90-40-1 mg capsule (2 sources) Start: 06-27-2021 End: 07-29-2025 take 2 capsules by mouth twice daily Vit C,M-Fq-Jksmu-Lutei n-Zeaxan (Preservision Areds-2) 250-90-40-1 mg capsule Discontinued [...] tablet by aramis th twice daily. Vitamins A,C,L-Tzdo-Blynjs (Icaps Areds) 14,320-226-200 mprw-oa-dsrl capsule (1 source) Start: 07-14-2021 End: 07-29-2025 Vitamins A,C,X-Gcew-Cmqckd (Icaps Areds) 14,320-226-200 uhvm-xm-vwnf capsule Discontinued 1 NMA PO TWICE A DAY July 14, 2021 12:00am July 29, 2025 9:59am Problems Active Problems Problem Classification Problem Date Documented Da te Episodic/Chronic Cardiac dysrhythmias (5 sources) Atrial fibrillation; Translations: [Unspecified atrial fibrillation] Onset: 07-29-2025 07-29-2025 Chronic Coronary atherosclerosis and other heart disease (7 sources) Coronary arteriosclerosis; Translations: [Atherosclerotic heart disease of [place] coronary artery without angina pectoris] Onset: 07-29-2025 [...] Onset: 07-29-2025 07-14-2021 Chronic Heart valve disorders (5 sources) Aortic valve stenosis; Translations: [Nonrheumatic aortic (valve) stenosis] Onset: 09-08-2025 07-29-2025 Chronic Malaise and fatigue (2 sources) [...] Test Name Value Interpretation Reference Range Facility Basic Metabolic Profile (BMP )on 09-10-2025 BUN Normal - [facility] Comment on above: Order Comment: RED W. PREVIOUS SPECIMEN REJECTED DUE TO SPECIMEN BEING HEMOLYZED. 09/10/251526 Srikanth Graves Result Comment: This specimen has been REJECTED due to Laboratory criteria: Hemolyzed. ELLIE MANDUJANO has been notified of need of recollection. 09/10/258 Bonny Lohollio Performed By: #### L 500.2500 #### [facility] [place], [address] BUN/CRE Normal 09-13 [facility] Comment on above: Order Comment: JEROME W. PREVIOUS SPECIMEN REJECTED DUE TO SPECIMEN BEING HEMOLYZED. 09/10/251526 Srikanth Graves Result Comment: This specimen has been REJECTED due to Laboratory criteria: Hemolyzed. ELLIE MANDUJANO has been notified of need of recollection. 09/10/25 1618 Bonny Lollo Performed By: #### L 500.2500 #### [facility] [address] [place], [address] Calcium Normal 7.6-11.0 [facility] Comment on above: Order Comment: REDRA W. PREVIOUS SPECIMEN REJECTED DUE TO SPECIMEN BEING HEMOLYZED. 09/10/25 152 Srikanth Graves Result Comment: This specimen has been REJECTED due to Laboratory criteria: Hemolyzed. ELLIE MANDUJANO has been notified of need of recollection. 09/10/25 1618 Bonny Lollo Performed By: #### L 500.2500 #### [facility] [address] [place], [address] CL Normal 98-108 [facility] Comment on above: Order Comment: REDRA W. PREVIOUS SPECIMEN REJECTED DUE TO SPECIMEN BEING HEMOLYZED. 09/10/251526 Srikanth Graves Result Comment: This specimen has been REJECTED due to Laboratory criteria: Hemolyzed. ELLIE MANDUJANO has been notified of need of recollection. 09/10/25 1618 Bonny Lollo Performed By: #### L 500.2500 #### [facility] [address] [place], [address] CO2 Normal 21.0-32.0 [facility] Comment on above: Order Comment: REDRA W. PREVIOUS SPECIMEN REJECTED DUE TO SPECIMEN BEING HEMOLYZED. 09/10/251526 Srikanth Graves Result Comment: This specimen has been REJECTED due to Laboratory criteria: Hemolyzed. ELLIE MANDUJANO has been notified of need of recollection. 09/10/25 1618 Bonny Lollo Performed By: #### L 500.2500 #### [facility] [address] [place], [address] CREAT,SERUM Normal 0.70-1.20 [facility] Comment on above: Order Comment: REDRA W. PREVIOUS SPECIMEN REJECTED DUE TO SPECIMEN BEING HEMOLYZED. 09/10/251526 Srikanth R Stoner. Result Comment: This specimen has been REJECTED due to Laboratory criteria: Hemolyzed. ELLIE MANDUJANO has been notified of need of recollection. 09/10/258 Bonny Lollo Performed By: #### L 500.2500 #### [facility] [address] [place], [address] eGFR Normal >60 [facility] Comment on above: Order Comment: REDRA W. PREVIOUS SPECIMEN REJECTED DUE TO SPECIMEN BEING HEMOLYZED. 09/10/25 1527 Srikanth Jason. Result Comment: This specimen has been REJECTED due to Laboratory criteria: Hemolyzed. ELLIE MANDUJANO has been notified of need of recollection. 09/10/251617 Bonny Lollo Performed By: #### L 500.2500 #### [facility] [address] [place], [address] GAP Normal 5-15 [facility] Comment on above: Order Comment: REDRA W. PREVIOUS SPECIMEN REJECTED DUE TO SPECIMEN BEING HEMOLYZED. 09/10/251526 Srikanth Jason. Result Comment: This specimen has been REJECTED due to Laboratory criteria: Hemolyzed. ELLIE MANDUJANO has been notified of need of recollection. 09/10/251617 Bonny Lollo Performed By: #### L 500.2500 #### [facility] [address] [place], [address] GLU Normal 70-99 [facility] Comment on above: Order Comment: REDRA W. PREVIOUS SPECIMEN REJECTED DUE TO SPECIMEN BEING HEMOLYZED. 09/10/251526 Srikanth Graves Result Comment: This specimen has been REJECTED due to Laboratory criteria: Hemolyzed. ELLIE MANDUJANO has been notified of need of recollection. 09/10/251617 Bonny Lollo Performed By: #### L 500.2500 #### [facility] [address] [place], [address] Potassium Normal 3.3-5.1 [facility] Comment on above: Order Comment: REDRA W. PREVIOUS SPECIMEN REJECTED DUE TO SPECIMEN BEING HEMOLYZED. 09/10/251526 Srikanth Jason. Result Comment: This specimen has been REJECTED due to Laboratory criteria: Hemolyzed. ELLIE MANDUJANO has been notified of need of recollection. 09/10/25 1618 Bonny Lollo Performed By: #### L 500.2500 #### [facility] [address] [place], [address] Basic Metabolic Profile (BMP) Normal 133-145 [facility] Comment on above: Order Comment: REDRA W. PREVIOUS SPECIMEN REJECTED DUE TO SPECIMEN BEING HEMOLYZED. 09/10/251526 Srikanth Jason. Result Comment: This specimen has been REJECTED due to Laboratory criteria: Hemolyzed. ELLIE MANDUJANO has been notified of need of recollection. 09/10/251617 Bonny Lollo Performed By: #### L 500.2500 #### [facility] [address] [place], [address] BUN Normal 4-19 [facility] Comment on above: Result Comment: This specimen has been REJECTED due to Laboratory criteria: Hemolyzed. RACHELE BARRERA ) has been notified of need of recollection. 09/10/251525 Srikanth Jason Performed By: #### L 500.2500, L100.0100 #### [facility] [address] [place], [address] BUN/CRE Normal 10-20 [facility] Comment on above: Result Comment: This specimen has been REJECTED due to Laboratory criteria: Hemolyzed. RACHELE RN ) has been notified of need of recollection. 09/10/251525 Srikanth Jason Performed By: #### L 500.2500, L100.0100 #### [facility] [address] [place], [address] Calcium Normal 7.6-11.0 [facility] Comment on above: Result Comment: This specimen has been REJECTED due to Laboratory criteria: Hemolyzed. RACHELE BARRERA ) has been notified of need of recollection. 09/10/251525 Srikanth R Stoner Performed By: #### L 500.2500, L100.0100 #### [facility] [address] [place], [address] CL Normal 98-108 [facility] Comment on above: Result Comment: This specimen has been REJECTED due to Laboratory criteria: Hemolyzed. RACHELE BARRERA ) has been notified of need of recollection. 09/10/251525 Srikanth R Stoner Performed By: #### L 500.2500, L100.0100 #### [facility] [address] [place], [address] CO2 Normal 21.0-32.0 [facility] Comment on above: Result Comment: This specimen has been REJECTED due to Laboratory criteria: Hemolyzed. RACHELE BARRERA ) has been notified of need of recollection. 09/10/251525 Srikanth R Stoner Performed By: #### L 500.2500, L100.0100 #### [facility] [address] [place], [address] CREAT,SERUM Normal 0.70-1.20 [facility] Comment on above: Result Comment: This specimen has been REJECTED due to Laboratory criteria: Hemolyzed. RACHELE BARRERA ) has been notified of need of recollection. 09/10/251525 Srikanth R Stoner Performed By: #### L 500.2500, L100.0100 #### [facility] [address] [place], [address] eGFR Normal >60 [facility] Comment on above: Result Comment: This specimen has been REJECTED due to Laboratory criteria: Hemolyzed. RACHELE BARRERA ) has been notified of need of recollection. 09/10/251525 Srikanth R Stoner Performed By: #### L 500.2500, L100.0100 #### [facility] [address] [place], [address] GAP Normal 5-15 [facility] Comment on above: Result Comment: This specimen has been REJECTED due to Laboratory criteria: Hemolyzed. RACHELE RN ) has been notified of need of recollection. 09/10/251525 Srkianth R Stoner Performed By: #### L 500.2500, L100.0100 #### [facility] [address] [place], [address] GLU Normal 70-99 [facility] Comment on above: Result Comment: This specimen has been REJECTED due to Laboratory criteria: Hemolyzed. RACHELE BARRERA ) has been notified of need of recollection. 09/10/251525 Srikanth R Stoner Performed By: #### L 500.2500, L100.0100 #### [facility] [address] [place], [address] Potassium Normal 3.3-5.1 [facility] Comment on above: Result Comment: This specimen has been REJECTED due to Laboratory criteria: Hemolyzed. RACHELE BARRERA ) has been notified of need of recollection. 09/10/251525 Srikanth R Stoner Performed By: #### L 500.2500, L100.0100 #### [facility] [address] [place], [address] Basic Metabolic Profile (BMP) Normal 133-145 [facility] Comment on above: Result Comment: This specimen has been REJECTED due to Laboratory criteria: Hemolyzed. RACHELE BARRERA ) has been notified of need of recollection. 09/10/251525 Srikanth R Stoner Performed By: #### L 500.2500, L100.0100 #### [facility] [address] [place], [address] CBC W/Diff, Automatedon 10-1 BASO STIPPLING 1+ Normal [facility] Comment on above: Performed By: #### L 500.2500, L100.0100 #### [facility] [address] [place], [address] POLYCHROMASIA 1+ Normal [facility] Comment on above: Performed By: #### L 500.2500, L100.0100 #### [facility] [address] [place], [address] OVALOCYTE 2+ Normal [facility] Comment on above: Performed By: #### L 500.2500, L100.0100 #### [facility] [address] [place], [address] Chest PA and Lateralon 09-10 Chest PA and Lateral [facility] Imaging Services [address] [place] [address] Chest PA and Lateral MR#: [id number] Acct: [id number] Name: KSENIA GALLARDO Rep #: [id number] : 1935 M 89 From: David Prince MD PCP: Dr. Inge Joy MD Status: REG ER Study: Chest PA and Lateral Date of Exam: 09/10/25 Exam# [id number] Ordering Dr: iCrilo Polo MD PROCEDURE: CHEST PA AND LATERAL 09/10/2025 REASON FOR EXAM: CHEST PAIN TECHNIQUE: Procedure Code: RADCXR Modality: DX Procedure: CHEST PA AND LATERAL COMPARISON: None FINDINGS: Hardware: EKG leads overlie the chest Heart: Remote CABG Mediastinum: The mediastinal contour is unremarkable. Lungs: Chronic interstitial changes in both lung hicks with superimposed interstitial edema, bilateral pleural effusions and likely atelectasis. Findings suggest CHF. Follow-up recommended to ensure complete resolution Bones: Bony structures show degenerative change RAD/Chest PA and Lateral IMPRESSION: CHF with bilateral pleural effusions and bibasilar atelectasis. Follow-up recommended to ensure complete resolution Remote CABG Reading Location: [id number] CC: Dr. Cirilo Polo MD; Dr. Inge Joy MD [employer] Feeder: Signed Normal [facility] CNPNon 09-06-2025 MAXIMUSN Telephone (HEMAWS) KSENIA GALLARDO ([id number]) 1935 M Date Time Provider Department 09/06/25 EFRA NEVILLE HEMALANA During your visit today, we recorded the [...] Date Reviewed: 07/21/2025 Reviewed by: Juliet Ruiz APRN.HATCH SUPERVISOR - Fully Assessed Reason for Visit: Results [...] Status:Closed by SARBJIT MALDONADO on 09/06/25 Normal [facility] Echo Completeon 08-26-[address] [facility] [address] [place] [address] Echo Complete 08/26/25 1047 MR#: [id number] Acct: [id number] Name: KSENIA GALLARDO Rep #: [id number] : 1935 89 From: Jon Woodruff MD Attending Dr: Dr. Jon Woodruff MD Status: REG CLI Ordering Dr: Jon Woodruff MD Date: 08/26/25 Location: [facility] Sex: M C Admitted: Reason For [...] Physician: Jon Woodruff Performed By: Nelida Frost RDCS 08/26/25 1304 Date Jon Woodruff MD CC: Dr. Jon Woodruff MD; No Primary Care Physician Date Dictated: 08/26/25 1047 Date Transcribed: 08/26/25 1304 [employer] Feeder: Signed Normal [facility] CBC W Auto Differential pane l (Bld)on 08-20-2025 Basophils (Bld) [#/Vol] 0.11 10*3/uL High <0.11 [facility] Comment on above: Order Comment: Speci men Type: BLOOD SPECIMEN Ordering Facility: [facility] Address: [address] [place] [address] Performed By: #### 5 7021-8 #### [facility] CLIA [id number] [address] [place] [address] [place] Basophils/100 WBC (Bld) 1.1 % Normal [facility] Comment on above: Order Comment: Speci men Type: BLOOD SPECIMEN Ordering Facility: [facility] Address: [address] [place] [address] Performed By: #### 5 7021-8 #### [facility] CLIA [id number] [address] [place] [address] [place] Differential cell count method Nom (Bld) Auto Normal [facility] Comment on above: Order Comment: Speci men Type: BLOOD SPECIMEN Ordering Facility: [facility] Address: [address] [place] [address] Performed By: #### 5 7021-8 #### [facility] CLIA [id number] [address] [place] [address] [place] Eosinophils (Bld) [#/Vol] 0.20 10*3/uL Normal <0.46 [facility] Comment on above: Order Comment: Speci men Type: BLOOD SPECIMEN Ordering Facility: [facility] Address: [address] [place] [address] Performed By: #### 5 7021-8 #### [facility] CLIA [id number] [address] [place] [address] [place] Eosinophils/100 WBC (Bld) 2.0 % Normal [facility] Comment on above: Order Comment: Speci men Type: BLOOD SPECIMEN Ordering Facility: [facility] Address: [address] [place] [address] Performed By: #### 5 7021-8 #### [facility] CLIA [id number] [address] [place] [address] [place] Erythrocyte distribution width (RBC) [Ratio] 26.9 % High 11.5-15.0 [facility] Comment on above: Order Comment: Speci men Type: BLOOD SPECIMEN Ordering Facility: [facility] Address: [address] [place] [address] Performed By: #### 5 7021-8 #### [facility] CLIA [id number] [address] [place] [address] [place] Hematocrit (Bld) [Volume fraction] 35.2 % Low 39.0-51.0 [facility] Comment on above: Order Comment: Speci men Type: BLOOD SPECIMEN Ordering Facility: [facility] Address: [address] [place] [address] Performed By: #### 5 7021-8 #### [facility] CLIA [id number] [address] [place] [address] [place] Hemoglobin (Bld) [Mass/Vol] 10.9 g/dL Low 13.0-17.0 [facility] Comment on above: Order Comment: Speci men Type: BLOOD SPECIMEN Ordering Facility: [facility] Address: [address] [place] [address] Performed By: #### 5 7021-8 #### [facility] CLIA [id number] [address] [place] [address] [place] Immature granulocytes (Bld) [#/Vol] 0.05 10*3/uL Normal <0.10 [facility] Comment on above: Order Comment: Speci men Type: BLOOD SPECIMEN Ordering Facility: [facility] Address: [address] [place] [address] Performed By: #### 5 7021-8 #### [facility] CLIA [id number] [address] [place] [address] [place] Immature granulocytes/100 WBC (Bld) 0.5 % Normal [facility] Comment on above: Order Comment: Speci men Type: BLOOD SPECIMEN Ordering Facility: [facility] Address: [address] [place] [address] Performed By: #### 5 7021-8 #### [facility] CLIA [id number] [address] [place] [address] [place] Lymphocytes (Bld) [#/Vol] 1.77 10*3/uL Normal 1.00-4.00 [facility] Comment on above: Order Comment: Speci men Type: BLOOD SPECIMEN Ordering Facility: [facility] Address: [address] [place] [address] Performed By: #### 5 7021-8 #### [facility] CLIA [id number] [address] [place] [address] [place] Lymphocytes/100 WBC (Bld) 17.9 % Normal [facility] Comment on above: Order Comment: Speci men Type: BLOOD SPECIMEN Ordering Facility: [facility] Address: [address] [place] [address] Performed By: #### 5 7021-8 #### [facility] CLIA [id number] [address] [place] [address] [place] MCH (RBC) [Entitic mass] 28.8 pg Normal 26.0-34.0 [facility] Comment on above: Order Comment: Speci men Type: BLOOD SPECIMEN Ordering Facility: [facility] Address: [address] [place] [address] Performed By: #### 5 7021-8 #### [facility] CLIA [id number] [address] [place] [address] [place] MCHC (RBC) [Mass/Vol] 31.0 g/dL Normal 30.5-36.0 [facility] Comment on above: Order Comment: Speci men Type: BLOOD SPECIMEN Ordering Facility: [facility] Address: [address] [place] [address] Performed By: #### 5 7021-8 #### [facility] CLIA [id number] [address] [place] [address] [place] MCV (RBC) [Entitic vol] 93.1 fL Normal 80.0-100.0 [facility] Comment on above: Order Comment: Speci men Type: BLOOD SPECIMEN Ordering Facility: [facility] Address: [address] [place] [address] Performed By: #### 5 7021-8 #### [facility] CLIA [id number] [address] [place] [address] [place] Monocytes (Bld) [#/Vol] 0.65 10*3/uL Normal <0.87 [facility] Comment on above: Order Comment: Speci men Type: BLOOD SPECIMEN Ordering Facility: [facility] Address: [address] [id number] Performed By: #### 5 7021-8 #### [facility] CLIA [id number] [address] [place] [address] [place] Monocytes/100 WBC (Bld) 6.6 % Normal [facility] Comment on above: Order Comment: Speci men Type: BLOOD SPECIMEN Ordering Facility: [facility] Address: [address] [place] [address] Performed By: #### 5 7021-8 #### [facility] CLIA [id number] [address] [place] [address] [place] Neutrophils (Bld) [#/Vol] 7.13 10*3/uL Normal 1.45-7.50 [facility] Comment on above: Order Comment: Speci men Type: BLOOD SPECIMEN Ordering Facility: [facility] Address: [address] [place] [address] Performed By: #### 5 7021-8 #### [facility] CLIA [id number] [address] [place] [address] [place] Neutrophils/100 WBC (Bld) 71.9 % Normal [facility] Comment on above: Order Comment: Speci men Type: BLOOD SPECIMEN Ordering Facility: [facility] Address: [address] [place] [address] Performed By: #### 5 7021-8 #### [facility] CLIA [id number] [address] [place] [address] [place] Nucleated RBC (Bld) [#/Vol] 0.03 10*3/uL High <0.01 [facility] Comment on above: Order Comment: Speci men Type: BLOOD SPECIMEN Ordering Facility: [facility] Address: [address] [place] [address] Performed By: #### 5 7021-8 #### [facility] CLIA [id number] [address] [place] [address] [place] Nucleated RBC/100 WBC (Bld) [Ratio] 0.3 /100 WBC Normal [facility] Comment on above: Order Comment: Speci men Type: BLOOD SPECIMEN Ordering Facility: [facility] Address: [address] [place] [address] Performed By: #### 5 7021-8 #### [facility] CLIA [id number] [address] [place] [address] [place] Platelet mean volume (Bld) [Entitic vol] 11.0 fL Normal 9.0-12.7 [facility] Comment on above: Order Comment: Speci men Type: BLOOD SPECIMEN Ordering Facility: [facility] Address: [address] [place] [address] Performed By: #### 5 7021-8 #### [facility] CLIA [id number] [address] [place] [address] [place] Platelets (Bld) [#/Vol] 412 10*3/uL High 150-400 [facility] Comment on above: Order Comment: Speci men Type: BLOOD SPECIMEN Ordering Facility: [facility] Address: [address] [place] [address] Result Comment: No c lot detected. Performed By: #### 5 7021-8 #### [facility] CLIA [id number] [address] [place] [address] [place] RBC (Bld) [#/Vol] 3.78 10*6/uL Low 4.20-6.00 [facility] Comment on above: Order Comment: Speci men Type: BLOOD SPECIMEN Ordering Facility: [facility] Address: [address] [place] [address] Performed By: #### 5 7021-8 #### [facility] CLIA [id number] [address] [place] [address] [place] WBC (Bld) [#/Vol] 9.91 10*3/uL Normal 3.70-11.00 [facility] Comment on above: Order Comment: Speci men Type: BLOOD SPECIMEN Ordering Facility: [facility] Address: [address] [place] [place] [address] Performed By: #### 5 7021-8 #### [facility] CLIA [id number] [address] [place] [address] [place] Calculated very low density lipoprotein (VLDL) cholesterol measurementOrdered By: Jon Woodruff on 08-05-2025 Calculated very low density lipoprotein (VLDL) cholesterol measurement 16 mg/dL 5-40 [facility] Carotid Duplex Ultrasoundon 08-05-2025 Carotid Duplex Ultrasound [facility] [address] [place] [address] Carotid Duplex Ultrasound 08/05/25 1059 MR#: [id number] Acct: [id number] Name: KSENIA GALLARDO Rep #: [id number] : 1935 89 From: Prince Gay MD Attending Dr: Dr. Jon Woodruff MD Status: REG CLI Ordering Dr: Jon Woodruff MD Date: 08/05/25 Location: [facility] Sex: M C Admitted: Reason For [...] the left vertebral artery. Procedure Carotid Duplex 95992. This is a Carotid Duplex examination using [...] Dictated: 08/05/25 1059 Date Transcribed: 08/05/25 1500 [employer] Machine Feeder: Signed Normal [facility] Duplex ultrasound of carotid artery reportOrdered By: Prince Gay on 08-05-2025 Study report [facility] [place] [address] Carotid Duplex Ultrasound 08/05/25 1059 MR#: [id number] Acct: [id number] Name: KSENIA GALLARDO Rep #:[id number] : 1935 89 From: Prince Balderas Attending [...] the left vertebral artery. Procedure Carotid Duplex 18299. This is a Carotid Duplex examination using [...] Dictated: 08/05/25 1059 Date Transcribed: 08/05/25 1500 [employer] Feeder: Signed [facility] Work Phone: LDL calc ser/plasOrdered By: Jon Woodruff on 08-05-2025 Cholesterol in LDL [Mass/Vol] 63 mg/dL [facility] Comment on above: Cwlwyznvfk=510-302 m g/dL & Higher Tcfu=723 mg/dL or greaterFriedwald Equation for LDL-C Lipid Profileon 08-05-2025 CHOL:HDL 4.21 Normal [facility] Comment on above: Performed By: #### L 500.4100 #### [facility] [address] [place], [address] Cholesterol [Mass/Vol] 104 mg/dL Normal <=200 [facility] Comment on above: Result Comment: Chol esterol level, Desirable <200 mg/dL Borderline high cholesterol 200-239 mg/dL High cholesterol >=240 mg/dL Recommendations of the NCEP Adult Treatment Panel for the following risk-cutoff thresholds for the [place] population. Performed By: #### L 500.4100 #### [facility] [address] [place], [address] Cholesterol in HDL [Mass/Vol] 25 mg/dL Low [facility] Comment on above: Result Comment: Marlin onal Cholesterol Education Program (NCEP) guidelines: <40 mg/dL: Low HDL-cholesterol (major risk factor for CHD) >= 60 mg/dL: High HDL-cholesterol (negative risk factor for CHD) HDL-cholesterol is affected by a number of factors, e.g. smoking, exercise, hormones, sex and age. Performed By: #### L 500.4100 #### [facility] [address] [place], [address] Cholesterol in LDL [Mass/Vol] 63 mg/dL Normal [facility] Comment on above: Result Comment: Bord vnuuvs=962-233 mg/dL Higher Pusy=475 mg/dL or greater Friedwald Equation for LDL-C Performed By: #### L 500.4100 #### [facility] [address] [place], [address] Cholesterol in VLDL [Mass/Vol] 16 mg/dL Normal 5-40 [facility] Comment on above: Performed By: #### L 500.4100 #### [facility] [address] [place], [address] Triglyceride [Mass/Vol] 82 mg/dL Normal [facility] Comment on above: Result Comment: The drugs N-Acetylcysteine and Metamizole may falsely depress this assay. Normal range: <150 mg/dL Borderline High: 150-199 mg/dL High: 200-499 mg/dL Very High: >500 mg/dL Performed By: #### L 500.4100 #### [facility] [address] [place], [address] Screening total cholesterol/ high density lipoprotein (HDL) cholesterol ratioOrdered By: Jon Woodruff on 08-05-2025 Cholesterol.total/Chol esterol in HDL [Mass ratio] 4.21 {ratio} [facility] Serum or plasma cholesterol in HDL measurement (mass/volume)Ordered By: Jon Woodruff on 08-05-2025 Cholesterol in HDL [Mass/Vol] 25 mg/dL Low >40 [facility] Comment on above: National Cholesterol Education Program (NCEP) guidelines:<40 mg/dL: Low HDL-cholesterol (major risk factor for CHD)>= 60 mg/dL: High HDL-cholesterol (negative risk factor for CHD)HDL-cholesterol is affected by a number of factors, e.g. smoking, exercise, hormones, sex and age. Serum or plasma cholesterol measurement (mass/volume)Ordered By: Jon Woodruff on 08-05-2025 Cholesterol [Mass/Vol] 104 mg/dL <201 [facility] Comment on above: Cholesterol level, D esirable <200 mg/dLBorderline high cholesterol 200-239 mg/dLHigh cholesterol >=240 mg/dLRecommendations of the NCEP Adult Treatment Panel for the following risk-cutoff thresholds for the [place] population. Triglycerides measurementOrd ered By: Jon Woodruff on 08-05-2025 Triglyceride [Mass/Vol] 82 mg/dL <199 [facility] Comment on above: The drugs N-Acetylcy steine and Metamizole may falsely depress this assay. Normal range: <150 mg/dLBorderline High: 150-199 mg/dLHigh: 200-499 mg/dLVery High: >500 mg/dL Cardiology Visit Reporton Cardiology Visit Report [facility] [address] [place] [address] OFFICE VISIT Date of Service: 07/29/25 MR#: [id number] Acct: [id number] Name: KSENIA GALLARDO Rep #: [id number] : 1935 Provider: Dr. Jon Woodruff MD Age/Sex: 89/M Location: [facility] Status: Signed HPI HPI History of Present Illness Details: This gentleman has past medical history significant for coronary artery disease status post three- vessel CABG in 2007, last coronary angiography revealed atretic VERA to the LAD however the [place] LAD itself was noted to have only [...] Source Monitor Intake Visit Reasons: AFIB (NEENA) Sock And Stocking Ironer Required: No Accompanied by: Is patient in [...] year?: Yes (tripped and slid down wall) [facility] Medical History (Updated 07/29/25 @ 10:[address] Jon Woodruff MD) Edema Atrial fibrillation Iron deficiency anemia Obstructive sleep apnea Lipoprotein deficiency disorder Diverticular disease of colon Essential hypertension History of pulmonary embolus (PE) (12/2007) Myelodysplastic syndrome Essential thrombocytosis Atherosclerosis of coronary artery of [place] heart without angina pectoris Surgical History History [...] 2007. VERA to the LAD atretic however [place] LAD without any significant lesions. Beta-blockers. Risk factor modification. Change metoprolol to extended release 100 mg daily. (2) History of coronary artery bypass surgery: Status: Acute Comment: CABG x 3:VERA to LAD, SVG to Diagonal and marginal 12/31/07 Plan: See #1 above. (3) Aortic valve stenosis: Status: Chronic Plan: Check echocardiogram. (4) Atrial fibrillation: Status: Chronic Plan: (more content not included)... Normal [facility] CBC W Auto Differential pane l (Bld)on 07-21-2025 Basophils (Bld) [#/Vol] 0.07 10*3/uL Normal <0.11 [facility] Comment on above: Order Comment: Speci men Type: BLOOD SPECIMEN Ordering Facility: [facility] Address: [facility] [place] [address] Performed By: #### 5 7021-8 #### [facility] CLIA [id number] [address] [place] [address] [place] Basophils/100 WBC (Bld) 0.9 % Normal [facility] Comment on above: Order Comment: Speci men Type: BLOOD SPECIMEN Ordering Facility: [facility] Address: [address] [place] [address] Performed By: #### 5 7021-8 #### [facility] CLIA [id number] [address] [place] [address] [place] Differential cell count method Nom (Bld) Auto Normal [facility] Comment on above: Order Comment: Speci men Type: BLOOD SPECIMEN Ordering Facility: [facility] Address: [address] [place] [address] Performed By: #### 5 7021-8 #### [facility] CLIA [id number] [address] [place] [address] [place] Eosinophils (Bld) [#/Vol] 0.15 10*3/uL Normal <0.46 [facility] Comment on above: Order Comment: Speci men Type: BLOOD SPECIMEN Ordering Facility: [facility] Address: [address] [place] [address] Performed By: #### 5 7021-8 #### [facility] CLIA [id number] [address] [place] [address] [place] Eosinophils/100 WBC (Bld) 1.8 % Normal [facility] Comment on above: Order Comment: Speci men Type: BLOOD SPECIMEN Ordering Facility: [facility] Address: [address] [place] [address] Performed By: #### 5 7021-8 #### [facility] CLIA [id number] [address] [place] [address] [place] Erythrocyte distribution width (RBC) [Ratio] 26.6 % High 11.5-15.0 [facility] Comment on above: Order Comment: Speci men Type: BLOOD SPECIMEN Ordering Facility: [facility] Address: [address] [place] [address] Performed By: #### 5 7021-8 #### [facility] CLIA [id number] [address] [place] [address] [place] Hematocrit (Bld) [Volume fraction] 39.1 % Normal 39.0-51.0 [facility] Comment on above: Order Comment: Speci men Type: BLOOD SPECIMEN Ordering Facility: [facility] Address: [address] [place] [address] Performed By: #### 5 7021-8 #### [facility] CLIA [id number] [address] [place] [address] [place] Hemoglobin (Bld) [Mass/Vol] 11.9 g/dL Low 13.0-17.0 [facility] Comment on above: Order Comment: Speci men Type: BLOOD SPECIMEN Ordering Facility: [facility] Address: [address] [place] [address] Performed By: #### 5 7021-8 #### [facility] CLIA [id number] [address] [place] [address] [place] Immature granulocytes (Bld) [#/Vol] 0.04 10*3/uL Normal <0.10 [facility] Comment on above: Order Comment: Speci men Type: BLOOD SPECIMEN Ordering Facility: [facility] Address: [address] [place] [address] Performed By: #### 5 7021-8 #### [facility] CLIA [id number] [address] [place] [address] [place] Immature granulocytes/100 WBC (Bld) 0.5 % Normal [facility] Comment on above: Order Comment: Speci men Type: BLOOD SPECIMEN Ordering Facility: [facility] Address: [address] [place] [address] Performed By: #### 5 7021-8 #### [facility] CLIA [id number] [address] [place] [address] [place] Lymphocytes (Bld) [#/Vol] 1.67 10*3/uL Normal 1.00-4.00 [facility] Comment on above: Order Comment: Speci men Type: BLOOD SPECIMEN Ordering Facility: [facility] Address: [address] [place] [address] Performed By: #### 5 7021-8 #### [facility] CLIA [id number] [address] [place] [address] [place] Lymphocytes/100 WBC (Bld) 20.4 % Normal [facility] Comment on above: Order Comment: Speci men Type: BLOOD SPECIMEN Ordering Facility: [facility] Address: [address] [place] [address] Performed By: #### 5 7021-8 #### [facility] CLIA [id number] [address] [place] [address] [place] MCH (RBC) [Entitic mass] 29.8 pg Normal 26.0-34.0 [facility] Comment on above: Order Comment: Speci men Type: BLOOD SPECIMEN Ordering Facility: [facility] Address: [address] [place] [address] Performed By: #### 5 7021-8 #### [facility] CLIA [id number] [address] [place] [address] [place] MCHC (RBC) [Mass/Vol] 30.4 g/dL Low 30.5-36.0 [facility] Comment on above: Order Comment: Speci men Type: BLOOD SPECIMEN Ordering Facility: [facility] Address: [address] [place], [place] [address] Performed By: #### 5 7021-8 #### [facility] CLIA [id number] [address] [place] [address] [place] MCV (RBC) [Entitic vol] 97.8 fL Normal 80.0-100.0 [facility] Comment on above: Order Comment: Speci men Type: BLOOD SPECIMEN Ordering Facility: [facility] Address: [address] [place] [address] Performed By: #### 5 7021-8 #### [facility] CLIA [id number] [address] [place] [address] [place] Monocytes (Bld) [#/Vol] 0.53 10*3/uL Normal <0.87 [facility] Comment on above: Order Comment: Speci men Type: BLOOD SPECIMEN Ordering Facility: [facility] Address: [address] [place] [address] Performed By: #### 5 7021-8 #### [facility] CLIA [id number] [address] [place] [address] [place] Monocytes/100 WBC (Bld) 6.5 % Normal [facility] Comment on above: Order Comment: Speci men Type: BLOOD SPECIMEN Ordering Facility: [facility] Address: [address] [place], [place] [address] Performed By: #### 5 7021-8 #### [facility] CLIA [id number] [address] [place] [address] [place] Neutrophils (Bld) [#/Vol] 5.74 10*3/uL Normal 1.45-7.50 [facility] Comment on above: Order Comment: Speci men Type: BLOOD SPECIMEN Ordering Facility: [facility] Address: [address] [place] [address] Performed By: #### 5 7021-8 #### [facility] CLIA [id number] [address] [place] [address] [place] Neutrophils/100 WBC (Bld) 69.9 % Normal [facility] Comment on above: Order Comment: Speci men Type: BLOOD SPECIMEN Ordering Facility: [facility] Address: [address] [place] [address] Performed By: #### 5 7021-8 #### [facility] CLIA [id number] [address] [place] [address] [place] Nucleated RBC (Bld) [#/Vol] 10*3/uL Normal <0.01 [facility] Comment on above: Order Comment: Speci men Type: BLOOD SPECIMEN Ordering Facility: [facility] Address: [address] [place] [address] Performed By: #### 5 7021-8 #### [facility] CLIA [id number] [address] [place] [address] [place] Nucleated RBC/100 WBC (Bld) [Ratio] 0.0 /100 WBC Normal [facility] Comment on above: Order Comment: Speci men Type: BLOOD SPECIMEN Ordering Facility: [facility] Address: [address] [place] [address] Performed By: #### 5 7021-8 #### [facility] CLIA [id number] [address] [place] [address] [place] Platelet mean volume (Bld) [Entitic vol] 10.7 fL Normal 9.0-12.7 [facility] Comment on above: Order Comment: Speci men Type: BLOOD SPECIMEN Ordering Facility: [facility] Address: [address] [place] [address] Performed By: #### 5 7021-8 #### [facility] CLIA [id number] [address] [place] [address] [facility] [place] Platelets (Bld) [#/Vol] 393 10*3/uL Normal 150-400 [facility] Comment on above: Order Comment: Speci men Type: BLOOD SPECIMEN Ordering Facility: [facility] Address: [address] [place] [address] Performed By: #### 5 7021-8 #### [facility] CLIA [id number] [address] [place] [address] [place] RBC (Bld) [#/Vol] 4.00 10*6/uL Low 4.20-6.00 [facility] Comment on above: Order Comment: Speci men Type: BLOOD SPECIMEN Ordering Facility: [facility] Address: [address] [place] [address] Performed By: #### 5 7021-8 #### [facility] CLIA [id number] [address] [place] [address] [place] WBC (Bld) [#/Vol] 8.20 10*3/uL Normal 3.70-11.00 [facility] Comment on above: Order Comment: Speci men Type: BLOOD SPECIMEN Ordering Facility: [facility] Address: [address] [place] [address] Performed By: #### 5 7021-8 #### [facility] CLIA [id number] [address] [place] [address] OF [place] CNOVSPon 07-21-2025 CNOVSP Visit (SP) Office (HEMAWS) KSENIA GALLARDO ([id number]) 1935 M Date Time Provider Department 07/21/25 11:00 AM JULIET RUIZ During your visit today, we recorded the following information about you: Temperature Pulse Blood pressure Weight 97.5 degrees 91/minute 173/109 76.4 kg Juliet Ruiz APRN.HATCH SUPERVISOR 07/21/2025 1:16 PM Signed Chief Complaint Patient [...] family member. Pt. self discontinued eliquis-prescribed by shoe cleaner. Appetite:I eat what I want when I [...] 1.00 - 4.00 k/uL 2.06 2.04 1.67 Dunn% % 5.9 6.3 6.5 Abs Dunn <0.87 k/uL 0.57 0.58 0.53 Eosin% % [...] asa. - Advised pt. to call his shoe cleaner and let them know that he stopped [...] as necessary for today's visit. Juliet Ruiz APRN.HATCH SUPERVISOR Allergies As of Date: 07/21/2025 (No Known Allergies) Date Reviewed: 07/21/2025 Reviewed by: Juliet Ruiz APRN.HATCH SUPERVISOR - Fully Assessed Reason for Visit: Established Patient [175] Primary Visit Diagnosis:Essential thrombocytosis [D47.3] Other Visit Diagnosis:MDS (myelodysplastic syndrome), low grade (HCC) [D46.Z] Follow (more content not included)... Normal [facility] Ferritin [Mass/Vol] 482.0 ng/mL Normal 30.3-565.7 [facility] Comment on above: Order Comment: Speci men Type: BLOOD SPECIMEN Ordering Facility: [facility] Address: [address] [place] [address] Performed By: #### 5 7021-8 #### [facility] CLIA [id number] [address] [place] [address] [place] Iron and Iron binding capaci ty panelon 07-21-2025 Iron [Mass/Vol] 67 ug/dL Normal 41-186 [facility] Comment on above: Order Comment: Speci men Type: BLOOD SPECIMEN Ordering Facility: [facility] Address: [address] [place] [address] Performed By: #### 5 7021-8 #### [facility] CLIA [id number] [address] [place] [address] STATES OF [facility] Iron binding capacity [Mass/Vol] 252 ug/dL Normal 232-386 [facility] Comment on above: Order Comment: Speci men Type: BLOOD SPECIMEN Ordering Facility: [facility] Address: [address] [place] [address] Performed By: #### 5 7021-8 #### [facility] CLIA [id number] [address] [place] [address] STATES [facility] Iron/TIBC [Molar ratio] 26.6 % Normal 15.0-57.0 [facility] Comment on above: Order Comment: Speci men Type: BLOOD SPECIMEN Ordering Facility: [facility] Address: [address] [place], [place] [address] Performed By: #### 5 7021-8 #### [facility] CLIA [id number] [address] [place] [address] [place] CMP with eGFRon 07-05-2025 AGE 89 years Normal [facility] Comment on above: Performed By: #### 2 17431 #### [facility],[address],[place] [address] Albumin [Mass/Vol] 3.8 g/dL Normal 3.4 - 5.0 [facility] Comment on above: Performed By: #### 2 03144 #### [facility],[address] [place] [address] Albumin/Globulin [Mass ratio] 2.0 {ratio} High 0.9 - 1.6 [facility] Comment on above: Performed By: #### 2 10541 #### [facility],[address] [place] [address] ALK PHOS 65 U/L Normal 46 - 116 [facility] Comment on above: Performed By: #### 2 90217 #### [facility],[address] [place] [address] ALT [Catalytic activity/Vol] 23 U/L Normal 16 - 63 [facility] Comment on above: Performed By: #### 2 59332 #### [facility],[address] [place] [address] Anion gap [Moles/Vol] 12 mmol/L Normal 10 - 20 [facility] Comment on above: Performed By: #### 2 85925 #### [facility],[address] [place] [address] AST [Catalytic activity/Vol] 24 U/L Normal 15 - 37 [facility] Comment on above: Performed By: #### 2 28920 #### [facility],[address] [place] [address] B/C RATIO 10 ratio Normal 0 - 30 [facility] Comment on above: Performed By: #### 2 06468 #### [facility],[address] [place] [address] Bilirubin [Mass/Vol] 0.9 mg/dL Normal 0.2 - 1.0 [facility] Comment on above: Performed By: #### 2 16726 #### [facility],[address] [place] [address]241 Calcium [Mass/Vol] 9.0 mg/dL Normal 8.5 - 10.1 [facility] Comment on above: Performed By: #### 2 06123 #### [facility],[address] [place] [address] 22934 Chloride [Moles/Vol] 107 mmol/L Normal 98 - 107 [facility] Comment on above: Performed By: #### 2 60054 #### [facility],[address] [place] [address] 74401 CMP with eGFR Normal [facility] Comment on above: Result Comment: COMP REHENSIVE METABOLIC PANEL Performed By: #### 2 16941 #### [facility],[address] [place] [address] 41779 CO2 [Moles/Vol] 31.5 mmol/L Normal 21.0 - 32.0 [facility] Comment on above: Performed By: #### 2 05453 #### [facility],[address] [place] [address] 78292 Creatinine [Mass/Vol] 1.15 mg/dL Normal 0.70 - 1.30 [facility] Comment on above: Performed By: #### 2 19414 #### [facility],[address] [place] [address] 86251 eGFR 60 ML/MINUTE Normal 60 - 999 [facility] Comment on above: Performed By: #### 2 18059 #### [address] [address] GFR/1.73 sq M.predicted among non-blacks MDRD (S/P/Bld) [Vol rate/Area] mL/min/{1.73_m2} Normal 60 - 999 [facility] Comment on above: Result Comment: ACCO RDING TO THE NATIONAL KIDNEY DISEASE EDUCATION PROGRAM(NKDE), A NORMAL eGFR IS A VALUE GREATER THAN OR EQUAL TO 60 ML/MIN/1.73 SQ METERS. CHRONIC KIDNEY DISEASE: <60mL/MIN/1.73 SQ METERS KIDNEY FAILURE: <15mL/MIN/1.73 SQ METERS THIS TEST SHOULD ONLY BE USED FOR PATIENTS 18 YEARS OF AGE AND OLDER. Performed By: #### 2 58045 #### [facility],[address] [place] [address] 20511 Globulin (S) [Mass/Vol] 1.9 g/dL Normal 1.5 - 3.8 [facility] Comment on above: Performed By: #### 2 49681 #### [facility],[address] [place] [address] 44944 Glucose [Mass/Vol] 94 mg/dL Normal 74 - 106 [facility] Comment on above: Performed By: #### 2 55321 #### [address] [address] Potassium [Moles/Vol] 4.1 mmol/L Normal 3.5 - 5.1 [facility] Comment on above: Performed By: #### 2 43673 #### [address] [address] Protein [Mass/Vol] 5.7 g/dL Low 6.4 - 8.2 [facility] Comment on above: Performed By: #### 2 61436 #### [address] [address] Sodium [Moles/Vol] 146 mmol/L High 136 - 145 [facility] Comment on above: Performed By: #### 2 70982 #### [address] [address] Urea nitrogen [Mass/Vol] 12 mg/dL Normal 7 - 18 [facility] Comment on above: Performed By: #### 2 77105 #### [address] [address] MAGNESIUMon 07-05-2025 Magnesium [Mass/Vol] 2.2 mg/dL Normal 1.8 - 2.4 [facility] Comment on above: Performed By: #### 2 46966 #### [facility],[address] [address] CBC W Auto Differential pane l (Bld)on 05-17-2025 Basophils (Bld) [#/Vol] 0.07 10*3/uL Normal <0.11 [facility] Comment on above: Order Comment: Speci men Type: BLOOD SPECIMEN Ordering Facility: [facility] Address: [address] [place] [address] Performed By: #### 5 7021-8 #### [facility] CLIA [id number] [address] [place] [address] [place] Basophils/100 WBC (Bld) 0.8 % Normal [facility] Comment on above: Order Comment: Speci men Type: BLOOD SPECIMEN Ordering Facility: [facility] Address: [address] [place] [address] Performed By: #### 5 7021-8 #### [facility] CLIA [id number] [address] [place] [address] [place] Differential cell count method Nom (Bld) Auto Normal [facility] Comment on above: Order Comment: Speci men Type: BLOOD SPECIMEN Ordering Facility: [facility] Address: [address] [place] [address] Performed By: #### 5 7021-8 #### [facility] CLIA [id number] [address] [place] [address] [place] Eosinophils (Bld) [#/Vol] 0.12 10*3/uL Normal <0.46 [facility] Comment on above: Order Comment: Speci men Type: BLOOD SPECIMEN Ordering Facility: [facility] Address: [address] [place] [address] Performed By: #### 5 7021-8 #### [facility] CLIA [id number] [address] [place] [address] [place] Eosinophils/100 WBC (Bld) 1.3 % Normal [facility] Comment on above: Order Comment: Speci men Type: BLOOD SPECIMEN Ordering Facility: [facility] Address: [address] [place], [place] [address] Performed By: #### 5 7021-8 #### [facility] CLIA [id number] [address] [place] [address] [place] Erythrocyte distribution width (RBC) [Ratio] 27.8 % High 11.5-15.0 [facility] Comment on above: Order Comment: Speci men Type: BLOOD SPECIMEN Ordering Facility: [facility] Address: [address] [place] [address] Performed By: #### 5 7021-8 #### [facility] CLIA [id number] [address] [place] [address] [place] Hematocrit (Bld) [Volume fraction] 35.7 % Low 39.0-51.0 [facility] Comment on above: Order Comment: Speci men Type: BLOOD SPECIMEN Ordering Facility: [facility] Address: [address] [place] [address] Performed By: #### 5 7021-8 #### [facility] CLIA [id number] [address] [place] [address] [place] Hemoglobin (Bld) [Mass/Vol] 11.1 g/dL Low 13.0-17.0 [facility] Comment on above: Order Comment: Speci men Type: BLOOD SPECIMEN Ordering Facility: [facility] Address: [address] [place] [address] Performed By: #### 5 7021-8 #### [facility] CLIA [id number] [address] [place] [address] [place] Immature granulocytes (Bld) [#/Vol] 0.12 10*3/uL High <0.10 [facility] Comment on above: Order Comment: Speci men Type: BLOOD SPECIMEN Ordering Facility: [facility] Address: [address] [place] [address] Performed By: #### 5 7021-8 #### [facility] CLIA [id number] [address] [place] [address] [place] Immature granulocytes/100 WBC (Bld) 1.3 % Normal [facility] Comment on above: Order Comment: Speci men Type: BLOOD SPECIMEN Ordering Facility: [facility] Address: [address] [place] [address] Performed By: #### 5 7021-8 #### [facility] CLIA [id number] [address] [place] [address] [place] Lymphocytes (Bld) [#/Vol] 2.04 10*3/uL Normal 1.00-4.00 [facility] Comment on above: Order Comment: Speci men Type: BLOOD SPECIMEN Ordering Facility: [facility] Address: [address] [place] [address] Performed By: #### 5 7021-8 #### [facility] CLIA [id number] [address] [place] [address] [place] Lymphocytes/100 WBC (Bld) 22.2 % Normal [facility] Comment on above: Order Comment: Speci men Type: BLOOD SPECIMEN Ordering Facility: [facility] Address: [address] [place] [address] Performed By: #### 5 7021-8 #### [facility] CLIA [id number] [address] [place] [address] [place] MCH (RBC) [Entitic mass] 29.4 pg Normal 26.0-34.0 [facility] Comment on above: Order Comment: Speci men Type: BLOOD SPECIMEN Ordering Facility: [facility] Address: [address] [place] [address] Performed By: #### 5 7021-8 #### [facility] CLIA [id number] [address] [place] [address] [place] MCHC (RBC) [Mass/Vol] 31.1 g/dL Normal 30.5-36.0 [facility] Comment on above: Order Comment: Speci men Type: BLOOD SPECIMEN Ordering Facility: [facility] Address: [address] [place] [address] Performed By: #### 5 7021-8 #### [facility] CLIA [id number] [address] [place] [address] [place] MCV (RBC) [Entitic vol] 94.4 fL Normal 80.0-100.0 [facility] Comment on above: Order Comment: Speci men Type: BLOOD SPECIMEN Ordering Facility: [facility] Address: [address] [place] [address] Performed By: #### 5 7021-8 #### [facility] CLIA [id number] [address] [place] [address] [place] Monocytes (Bld) [#/Vol] 0.58 10*3/uL Normal <0.87 [facility] Comment on above: Order Comment: Speci men Type: BLOOD SPECIMEN Ordering Facility: [facility] Address: [address] [place] [address] Performed By: #### 5 7021-8 #### [facility] CLIA [id number] [address] [place] [address] [place] Monocytes/100 WBC (Bld) 6.3 % Normal [facility] Comment on above: Order Comment: Speci men Type: BLOOD SPECIMEN Ordering Facility: [facility] Address: [address] [place] [address] Performed By: #### 5 7021-8 #### [facility] CLIA [id number] [address] [place] [address] [place] Neutrophils (Bld) [#/Vol] 6.27 10*3/uL Normal 1.45-7.50 [facility] Comment on above: Order Comment: Speci men Type: BLOOD SPECIMEN Ordering Facility: [facility] Address: [address] [place] [address] Performed By: #### 5 7021-8 #### [facility] CLIA [id number] [address] [place] [address] [place] Neutrophils/100 WBC (Bld) 68.1 % Normal [facility] Comment on above: Order Comment: Speci men Type: BLOOD SPECIMEN Ordering Facility: [facility] Address: [address] [place] [address] Performed By: #### 5 7021-8 #### [facility] CLIA [id number] [address] [place] [address] [place] Nucleated RBC (Bld) [#/Vol] 0.02 10*3/uL High <0.01 [facility] Comment on above: Order Comment: Speci men Type: BLOOD SPECIMEN Ordering Facility: [facility] Address: [address] [place] [address] Performed By: #### 5 7021-8 #### [facility] CLIA [id number] [address] [place] [address] [place] Nucleated RBC/100 WBC (Bld) [Ratio] 0.2 /100 WBC Normal [facility] Comment on above: Order Comment: Speci men Type: BLOOD SPECIMEN Ordering Facility: [facility] Address: [address] [place] [address] Performed By: #### 5 7021-8 #### [facility] CLIA [id number] [address] [place] [address] [place] Platelet mean volume (Bld) [Entitic vol] 12.2 fL Normal 9.0-12.7 [facility] Comment on above: Order Comment: Speci men Type: BLOOD SPECIMEN Ordering Facility: [facility] Address: [address] [place] [address] Performed By: #### 5 7021-8 #### [facility] CLIA [id number] [address] [place] [address] [place] Platelets (Bld) [#/Vol] 572 10*3/uL High 150-400 [facility] Comment on above: Order Comment: Speci men Type: BLOOD SPECIMEN Ordering Facility: [facility] Address: [address] [place] [address] Result Comment: No c lot detected. Performed By: #### 5 7021-8 #### [facility] CLIA [id number] [address] [place] [address] [place] RBC (Bld) [#/Vol] 3.78 10*6/uL Low 4.20-6.00 [facility] Comment on above: Order Comment: Speci men Type: BLOOD SPECIMEN Ordering Facility: [facility] Address: [address] [place] [address] Performed By: #### 5 7021-8 #### [facility] CLIA [id number] [address] [place] [address] [place] WBC (Bld) [#/Vol] 9.20 10*3/uL Normal 3.70-11.00 [facility] Comment on above: Order Comment: Speci men Type: BLOOD SPECIMEN Ordering Facility: [facility] Address: [address] [place] [address] Performed By: #### 5 7021-8 #### [facility] CLIA [id number] [address] [place] [address] [place] CBC W Auto Differential pane l (Bld)on 04-21-2025 Basophils (Bld) [#/Vol] 0.09 10*3/uL Normal <0.11 [facility] Comment on above: Order Comment: Speci men Type: BLOOD SPECIMEN Ordering Facility: [facility] Address: [address] [place] [address] Performed By: #### 5 7021-8 #### [facility] CLIA [id number] [address] [place] [address] [place] Basophils/100 WBC (Bld) 0.9 % Normal [facility] Comment on above: Order Comment: Speci men Type: BLOOD SPECIMEN Ordering Facility: [facility] Address: [address] [place] [address] Performed By: #### 5 7021-8 #### [facility] CLIA [id number] [address] [place] [address] [place] Differential cell count method Nom (Bld) Auto Normal [facility] Comment on above: Order Comment: Speci men Type: BLOOD SPECIMEN Ordering Facility: [facility] Address: [address] [place] [address] Performed By: #### 5 7021-8 #### [facility] CLIA [id number] [address] [place] [address] [place] Eosinophils (Bld) [#/Vol] 0.10 10*3/uL Normal <0.46 [facility] Comment on above: Order Comment: Speci men Type: BLOOD SPECIMEN Ordering Facility: [facility] Address: [address] [place] [address] Performed By: #### 5 7021-8 #### [facility] CLIA [id number] [address] [place] [address] [place] Eosinophils/100 WBC (Bld) 1.0 % Normal [facility] Comment on above: Order Comment: Speci men Type: BLOOD SPECIMEN Ordering Facility: [facility] Address: [address] [place] [address] Performed By: #### 5 7021-8 #### [facility] CLIA [id number] [address] [place] [address] [place] Erythrocyte distribution width (RBC) [Ratio] 26.4 % High 11.5-15.0 [facility] Comment on above: Order Comment: Speci men Type: BLOOD SPECIMEN Ordering Facility: [facility] Address: [address] [place] [address] Performed By: #### 5 7021-8 #### [facility] CLIA [id number] [address] [place] [address] [place] Hematocrit (Bld) [Volume fraction] 37.4 % Low 39.0-51.0 [facility] Comment on above: Order Comment: Speci men Type: BLOOD SPECIMEN Ordering Facility: [facility] Address: [address] [place] [address] Performed By: #### 5 7021-8 #### [facility] CLIA [id number] [address] [place] [address] [place] Hemoglobin (Bld) [Mass/Vol] 11.3 g/dL Low 13.0-17.0 [facility] Comment on above: Order Comment: Speci men Type: BLOOD SPECIMEN Ordering Facility: [facility] Address: [address] [place] [address] Performed By: #### 5 7021-8 #### [id number] [address] [place] [address] [place] Immature granulocytes (Bld) [#/Vol] 0.05 10*3/uL Normal <0.10 [facility] Comment on above: Order Comment: Speci men Type: BLOOD SPECIMEN Ordering Facility: [facility] Address: [address] [place] [address] Performed By: #### 5 7021-8 #### [facility] CLIA [id number] [address] [place] [address] [place] Immature granulocytes/100 WBC (Bld) 0.5 % Normal [facility] Comment on above: Order Comment: Speci men Type: BLOOD SPECIMEN Ordering Facility: [facility] Address: [address] [place], [place] [address] Performed By: #### 5 7021-8 #### [id number] [address] [place] [address] [place] Lymphocytes (Bld) [#/Vol] 2.06 10*3/uL Normal 1.00-4.00 [facility] Comment on above: Order Comment: Speci men Type: BLOOD SPECIMEN Ordering Facility: [facility] Address: [address] [place] [address] Performed By: #### 5 7021-8 #### [facility] CLIA [id number] [address] [place] [address] [place] Lymphocytes/100 WBC (Bld) 21.2 % Normal [facility] Comment on above: Order Comment: Speci men Type: BLOOD SPECIMEN Ordering Facility: [facility] Address: [address] [place] [address] Performed By: #### 5 7021-8 #### [facility] CLIA [id number] [address] [place] [address] [place] MCH (RBC) [Entitic mass] 29.0 pg Normal 26.0-34.0 [facility] Comment on above: Order Comment: Speci men Type: BLOOD SPECIMEN Ordering Facility: [facility] Address: [address] [place] [address] Performed By: #### 5 7021-8 #### [facility] CLIA [id number] [address] [place] [address] [place] MCHC (RBC) [Mass/Vol] 30.2 g/dL Low 30.5-36.0 [facility] Comment on above: Order Comment: Speci men Type: BLOOD SPECIMEN Ordering Facility: [facility] Address: [address] [place] [address] Performed By: #### 5 7021-8 #### [facility] CLIA [id number] [address] [place] [address] [place] MCV (RBC) [Entitic vol] 95.9 fL Normal 80.0-100.0 [facility] Comment on above: Order Comment: Speci men Type: BLOOD SPECIMEN Ordering Facility: [facility] Address: [address] [place], [place] [address] Performed By: #### 5 7021-8 #### [facility] CLIA [id number] [address] [place] [address] [place] Monocytes (Bld) [#/Vol] 0.57 10*3/uL Normal <0.87 [facility] Comment on above: Order Comment: Speci men Type: BLOOD SPECIMEN Ordering Facility: [facility] Address: [address] [place], [place] [address] Performed By: #### 5 7021-8 #### [facility] CLIA [id number] [address] [place] [address] [place] Monocytes/100 WBC (Bld) 5.9 % Normal [facility] Comment on above: Order Comment: Speci men Type: BLOOD SPECIMEN Ordering Facility: [facility] Address: [address] [place] [address] Performed By: #### 5 7021-8 #### [facility] CLIA [id number] [address] [place] [address] [place] Neutrophils (Bld) [#/Vol] 6.83 10*3/uL Normal 1.45-7.50 [facility] Comment on above: Order Comment: Speci men Type: BLOOD SPECIMEN Ordering Facility: [facility] Address: [address] [place] [address] Performed By: #### 5 7021-8 #### [facility] CLIA [id number] [address] [place] [address] [place] Neutrophils/100 WBC (Bld) 70.5 % Normal [facility] Comment on above: Order Comment: Speci men Type: BLOOD SPECIMEN Ordering Facility: [facility] Address: [address] [place] [address] Performed By: #### 5 7021-8 #### [facility] CLIA [id number] [address] [place] [address] [place] Nucleated RBC (Bld) [#/Vol] 0.03 10*3/uL High <0.01 [facility] Comment on above: Order Comment: Speci men Type: BLOOD SPECIMEN Ordering Facility: [facility] Address: [address] [place] [address] Performed By: #### 5 7021-8 #### [facility] CLIA [id number] [address] [place] [address] [place] Nucleated RBC/100 WBC (Bld) [Ratio] 0.3 /100 WBC Normal [facility] Comment on above: Order Comment: Speci men Type: BLOOD SPECIMEN Ordering Facility: [facility] Address: [address] [place] [address] Performed By: #### 5 7021-8 #### [facility] CLIA [id number] [address] [place] [address] [place] Platelet mean volume (Bld) [Entitic vol] 10.7 fL Normal 9.0-12.7 [facility] Comment on above: Order Comment: Speci men Type: BLOOD SPECIMEN Ordering Facility: [facility] Address: [address] [place] [address] Performed By: #### 5 7021-8 #### [facility] CLIA [id number] [address] [place] [address] [place] Platelets (Bld) [#/Vol] 457 10*3/uL High 150-400 [facility] Comment on above: Order Comment: Speci men Type: BLOOD SPECIMEN Ordering Facility: [facility] Address: [address] [place] [address] Performed By: #### 5 7021-8 #### [facility] CLIA [id number] [address] [place] [address] [place] RBC (Bld) [#/Vol] 3.90 10*6/uL Low 4.20-6.00 [facility] Comment on above: Order Comment: Speci men Type: BLOOD SPECIMEN Ordering Facility: [facility] Address: [address] [place] [address] Performed By: #### 5 7021-8 #### [facility] CLIA [id number] [address] [place] [address] [place] WBC (Bld) [#/Vol] 9.70 10*3/uL Normal 3.70-11.00 [facility] Comment on above: Order Comment: Speci men Type: BLOOD SPECIMEN Ordering Facility: [facility] Address: [address] [place] [address] Performed By: #### 5 7021-8 #### [facility] CLIA [id number] [address] [place] [address] [place] CNOVSPon 04-21-2025 CNOVSP Visit (SP) Office (HEMAWS) KSENIA GALLARDO ([id number]) 1935 M Date Time Provider Department 04/21/25 11:00 AM JULIET RUIZ During your visit today, we recorded the following information about you: Pulse Respiration Blood pressure Weight 63/minute 14/minute 126/70 78.5 kg Juliet Ruiz APRN.HATCH SUPERVISOR 04/21/2025 2:06 PM Signed Chief Complaint Patient [...] 1.00 - 4.00 k/uL 1.83 1.87 2.06 Dunn% % 5.2 5.8 5.9 Abs Dunn <0.87 k/uL 0.36 0.51 0.57 Eosin% % [...] as necessary for today's visit. 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 Normal [facility] CNPNon 04-21-2025 CNPN Telephone (HEMALANA) KSENIA GALLARDO ([id number]) 1935 M Date Time Provider Department 04/21/25 [...] Date Reviewed: 04/21/2025 Reviewed by: Juliet Ruiz APRN.HATCH SUPERVISOR - Fully Assessed Reason for Visit: Results [...] Status:Closed by MONALISA LAURENT on 04/21/25 Normal [facility] CBC W Auto Differential pane l (Bld)on 03-24-2025 Basophils (Bld) [#/Vol] 0.06 10*3/uL Normal <0.11 [facility] Comment on above: Order Comment: Speci men Type: BLOOD SPECIMEN Ordering Facility: [facility] Address: [address] [place] [address] Performed By: #### 5 7541-8 #### [facility] CLIA [id number] [address] [place] [address] [place] Basophils/100 WBC (Bld) 0.7 % Normal [facility] Comment on above: Order Comment: Speci men Type: BLOOD SPECIMEN Ordering Facility: [facility] Address: [address] [place] [address] Performed By: #### 5 7021-8 #### [facility] CLIA [id number] [address] [place] [address] [place] Differential cell count method Nom (Bld) Auto Normal [facility] [facility] Comment on above: Order Comment: Speci men Type: BLOOD SPECIMEN Ordering Facility: [facility] Address: [address] [place] [address] Performed By: #### 5 7021-8 #### [facility] CLIA [id number] [address] [place] [address] [place] Eosinophils (Bld) [#/Vol] 0.12 10*3/uL Normal <0.46 [facility] Comment on above: Order Comment: Speci men Type: BLOOD SPECIMEN Ordering Facility: [facility] Address: [address] [place] [address] Performed By: #### 5 7021-8 #### [facility] CLIA [id number] [address] [place] [address] [place] Eosinophils/100 WBC (Bld) 1.4 % Normal [facility] Comment on above: Order Comment: Speci men Type: BLOOD SPECIMEN Ordering Facility: [facility] Address: [address] [place] [address] Performed By: #### 5 7021-8 #### [facility] CLIA [id number] [address] [place] [address] [place] Erythrocyte distribution width (RBC) [Ratio] 26.2 % High 11.5-15.0 [facility] Comment on above: Order Comment: Speci men Type: BLOOD SPECIMEN Ordering Facility: [facility] Address: [address] [place] [address] Performed By: #### 5 7021-8 #### [facility] CLIA [id number] [address] [place] [address] [place] Hematocrit (Bld) [Volume fraction] 36.4 % Low 39.0-51.0 [facility] Comment on above: Order Comment: Speci men Type: BLOOD SPECIMEN Ordering Facility: [facility] Address: [address] [place], [place] [id number] Performed By: #### 5 7021-8 #### [facility] CLIA [id number] [address] [place] [address] [place] Hemoglobin (Bld) [Mass/Vol] 11.2 g/dL Low 13.0-17.0 [facility] Comment on above: Order Comment: Speci men Type: BLOOD SPECIMEN Ordering Facility: [facility] Address: [address] [place] [address] Performed By: #### 5 7021-8 #### [facility] CLIA [id number] [address] [place] [address] [place] Immature granulocytes (Bld) [#/Vol] 0.04 10*3/uL Normal <0.10 [facility] Comment on above: Order Comment: Speci men Type: BLOOD SPECIMEN Ordering Facility: [facility] Address: [address] [place] [address] Performed By: #### 5 7021-8 #### [facility] CLIA [id number] [address] [place] [address] [place] Immature granulocytes/100 WBC (Bld) 0.5 % Normal [facility] Comment on above: Order Comment: Speci men Type: BLOOD SPECIMEN Ordering Facility: [facility] Address: [address] [place] [address] Performed By: #### 5 7021-8 #### [facility] CLIA [id number] [address] [place] [address] [place] Lymphocytes (Bld) [#/Vol] 1.87 10*3/uL Normal 1.00-4.00 [facility] Comment on above: Order Comment: Speci men Type: BLOOD SPECIMEN Ordering Facility: [facility] Address: [address] [place] [address] Performed By: #### 5 7021-8 #### [facility] CLIA [id number] [address] [place] [address] [place] Lymphocytes/100 WBC (Bld) 21.4 % Normal [facility] Comment on above: Order Comment: Speci men Type: BLOOD SPECIMEN Ordering Facility: [facility] Address: [address] [place] [address] Performed By: #### 5 7021-8 #### [facility] CLIA [id number] [address] [place] [address] [place] MCH (RBC) [Entitic mass] 29.4 pg Normal 26.0-34.0 [facility] Comment on above: Order Comment: Speci men Type: BLOOD SPECIMEN Ordering Facility: [facility] Address: [address] [place] [address] Performed By: #### 5 7021-8 #### [facility] CLIA [id number] [address] [place] [address] [place] MCHC (RBC) [Mass/Vol] 30.8 g/dL Normal 30.5-36.0 [facility] Comment on above: Order Comment: Speci men Type: BLOOD SPECIMEN Ordering Facility: [facility] Address: [address] [place], [place] [address] Performed By: #### 5 7021-8 #### [facility] CLIA [id number] [address] [place] [address] [place] MCV (RBC) [Entitic vol] 95.5 fL Normal 80.0-100.0 [facility] Comment on above: Order Comment: Speci men Type: BLOOD SPECIMEN Ordering Facility: [facility] Address: [address] [place] [address] Performed By: #### 5 7021-8 #### [facility] CLIA [id number] [address] [place] [address] [place] Monocytes (Bld) [#/Vol] 0.51 10*3/uL Normal <0.87 [facility] Comment on above: Order Comment: Speci men Type: BLOOD SPECIMEN Ordering Facility: [facility] Address: [address] [place] [address] Performed By: #### 5 7021-8 #### [facility] CLIA [id number] [address] [place] [address] [place] Monocytes/100 WBC (Bld) 5.8 % Normal [facility] Comment on above: Order Comment: Speci men Type: BLOOD SPECIMEN Ordering Facility: [facility] Address: [address] [place] [address] Performed By: #### 5 7021-8 #### [facility] CLIA [id number] [address] [place] [address] [place] Neutrophils (Bld) [#/Vol] 6.12 10*3/uL Normal 1.45-7.50 [facility] Comment on above: Order Comment: Speci men Type: BLOOD SPECIMEN Ordering Facility: [facility] Address: [address] [place] [address] Performed By: #### 5 7021-8 #### [facility] CLIA [id number] [address] [place] [address] [place] Neutrophils/100 WBC (Bld) 70.2 % Normal [facility] Comment on above: Order Comment: Speci men Type: BLOOD SPECIMEN Ordering Facility: [facility] Address: [address] [place] [address] Performed By: #### 5 7021-8 #### [facility] CLIA [id number] [address] [place] [address] [place] Nucleated RBC (Bld) [#/Vol] 0.03 10*3/uL High <0.01 [facility] Comment on above: Order Comment: Speci men Type: BLOOD SPECIMEN Ordering Facility: [facility] Address: [address] [place] [address] Performed By: #### 5 7021-8 #### [facility] CLIA [id number] [address] [place] [address] [place] Nucleated RBC/100 WBC (Bld) [Ratio] 0.3 /100 WBC Normal [facility] Comment on above: Order Comment: Speci men Type: BLOOD SPECIMEN Ordering Facility: [facility] Address: [address] [place] [address] Performed By: #### 5 7021-8 #### [facility] CLIA [id number] [address] [place] [address] [place] Platelet mean volume (Bld) [Entitic vol] 11.5 fL Normal 9.0-12.7 [facility] Comment on above: Order Comment: Speci men Type: BLOOD SPECIMEN Ordering Facility: [facility] Address: [address] [place] [address] Performed By: #### 5 7021-8 #### [facility] CLIA [id number] [address] [place] [address] [place] Platelets (Bld) [#/Vol] 474 10*3/uL High 150-400 [facility] Comment on above: Order Comment: Speci men Type: BLOOD SPECIMEN Ordering Facility: [facility] Address: [address] [place] [address] Performed By: #### 5 7021-8 #### [facility] CLIA [id number] [address] [place] [address] [place] RBC (Bld) [#/Vol] 3.81 10*6/uL Low 4.20-6.00 [facility] Comment on above: Order Comment: Speci men Type: BLOOD SPECIMEN Ordering Facility: [facility] Address: [address] [place] [address] Performed By: #### 5 7021-8 #### [facility] CLIA [id number] [address] [place] [address] [place] WBC (Bld) [#/Vol] 8.72 10*3/uL Normal 3.70-11.00 [facility] Comment on above: Order Comment: Speci men Type: BLOOD SPECIMEN Ordering Facility: [facility] Address: [address] [place] [address] Performed By: #### 5 7021-8 #### [facility] CLIA [id number] [address] [place] [address] [place] FERRITIN [CCL]on 02-25-2025 Ferritin [Mass/Vol] 532.0 ng/mL Normal 30.3-565.7 [facility] Comment on above: Result Comment: [facility] [address] [place] [address] Kurtis Huntley III, M.D. [id number] Performed By: #### 2 64928 #### [address] [address] T4, FREE [CCL]on 02-25-2025 Free T4 [Mass/Vol] 1.1 ng/dL Normal 0.9-1.7 [facility] Comment on above: Result Comment: [facility] [address] [place], [place] [id number] Kurtis Huntley III, M.D. [id number] Performed By: #### 2 11329 #### [place] [address],[place] [address] CBC + DIFFon 02-24-2025 ANISO 1+ Normal [facility] Comment on above: Performed By: #### 2 05499 #### [facility],[address] [place] [address] Baso # 0.06 x10EE3/UL Normal 0.00 - 0.10 [facility] Comment on above: Performed By: #### 2 78414 #### [facility],[address] [place] [address] Basophils/100 WBC (Bld) 0.4 % Normal 0.0 - 2.0 [facility] Comment on above: Performed By: #### 2 13306 #### [facility],[address] [place] [address]77 CBC + DIFF Normal [facility] Comment on above: Result Comment: CBC- COMPLETE BLOOD COUNT Performed By: #### 2 92455 #### [facility],[address] [place] [address]1118 CELL COUNT 100 Normal [facility] Comment on above: Performed By: #### 2 74084 #### [facility],[address] [place] [address]90 EO # 0.09 x10EE3/UL Normal 0.00 - 0.50 [facility] Comment on above: Performed By: #### 2 09055 #### [facility],[address] [place] [address] Eosinophils/100 WBC (Bld) 0.6 % Normal 0.0 - 7.0 [facility] Comment on above: Performed By: #### 2 67931 #### [facility],[address] [place] [address] Erythrocyte distribution width (RBC) [Ratio] 28.6 % High 12.0 - 15.6 [facility] Comment on above: Performed By: #### 2 75952 #### [facility],[address] [place] [address] Hematocrit (Bld) [Volume fraction] 38.7 % Low 40.0 - 52.0 [facility] Comment on above: Performed By: #### 2 39186 #### [facility],[address] [place] [address] Hemoglobin (Bld) [Mass/Vol] 12.1 g/dL Low 13.0 - 17.5 [facility] Comment on above: Performed By: #### 2 90820 #### [facility],[address] [place] [address] Lymph # 2.18 x10EE3/UL Normal 0.80 - 2.80 [facility] Comment on above: Performed By: #### 2 66206 #### [facility],[address] [place], [place] [address] Lymphocytes/100 WBC (Bld) 15.4 % Low 20.0 - 45.0 [facility] Comment on above: Performed By: #### 2 17414 #### [facility],[address] [place] [address]23 Lymphocytes/100 WBC (Bld) 15 % Low 20 - 45 [facility] Comment on above: Performed By: #### 2 03789 #### [facility],[address] [place] [address] MANUAL DIFF SEE BELOW Normal [facility] Comment on above: Performed By: #### 2 84412 #### [facility],[address] [place] [address] MCH (RBC) [Entitic mass] 30 pg Normal 27 - 33 [facility] Comment on above: Performed By: #### 2 27468 #### [facility],[address] [place] [address] MCHC 31 X10 3 Low 32 - 36 [facility] Comment on above: Performed By: #### 2 95335 #### [facility],[address] [place], [place] [address] MCV (RBC) [Entitic vol] 97 fL Normal 81 - 98 [facility] Comment on above: Performed By: #### 2 47340 #### [facility],[address] [place] [address] MICROCYTES 1+ Normal [facility] Comment on above: Performed By: #### 2 52352 #### [facility],[address] [place] [address] Dunn # 0.53 x10EE3/UL Normal 0.20 - 1.00 [facility] Comment on above: Performed By: #### 2 40033 #### [facility],[address] [place] [address] MONOS 8 % Normal 0 - 10 [facility] Comment on above: Performed By: #### 2 57405 #### [facility],[address] [place] [address] MONOS % 3.7 % Normal 0.0 - 10.0 [facility] Comment on above: Performed By: #### 2 14858 #### [facility],[address] [place] [address] Morphology Chau (Bld) [Interp] SEE BELOW Normal [facility] Comment on above: Performed By: #### 2 85234 #### [facility],[address] [place] [address] Neut # 11.29 x10EE3/UL High 1.50 - 7.10 [facility] Comment on above: Performed By: #### 2 82673 #### [facility],[address] [place] [address] Neutrophils/100 WBC (Bld) 79.8 % High 46.0 - 76.0 [facility] Comment on above: Performed By: #### 2 34179 #### [facility],[address],[place] [address] PLATELET 613 x10EE3/UL High 150 - 450 [facility] Comment on above: Performed By: #### 2 26692 #### [facility],[address] [place] [address] Platelet mean volume (Bld) [Entitic vol] 10.2 fL Normal 6.4 - 10.5 [facility] Comment on above: Result Comment: AUTO MATED DIFFERENTIAL Performed By: #### 2 18159 #### [facility],[address] [place] [address] PLT EST INCREASED Normal [facility] Comment on above: Performed By: #### 2 48582 #### [facility],[address] [place] [address] POLYCHROM 1+ Normal [facility] Comment on above: Performed By: #### 2 90972 #### [facility],[address] [place] [address] RBC 3.99 x 10EE6/UL Low 4.50 - 6.00 [facility] Comment on above: Performed By: #### 2 02477 #### [facility],[address] [place] [address]357 SEGS 77 % High 46 - 76 [facility] Comment on above: Performed By: #### 2 65705 #### [facility],[address] [place] [address] 16384 WBC 14.2 x 10EE3/UL High 4.5 - 10.8 [facility] Comment on above: Performed By: #### 2 01226 #### [facility],[address] [place] [address] Other 1+ OVALOCYTES Normal [facility] Comment on above: Performed By: #### 2 46800 #### [facility],[address] [place] [address]20 Baso # 0.07 x10EE3/UL Normal 0.00 - 0.10 [facility] Comment on above: Performed By: #### 2 93923 #### [facility],[address] [place] [address] 09104 Basophils/100 WBC (Bld) 0.5 % Normal 0.0 - 2.0 [facility] Comment on above: Performed By: #### 2 20687 #### [facility],[address] [place] [address]90 EO 3.0 % Normal 0.0 - 7.0 [facility] Comment on above: Performed By: #### 2 34253 #### [facility],[address] [place] [address] EO # 0.06 x10EE3/UL Normal 0.00 - 0.50 [facility] Comment on above: Performed By: #### 2 51412 #### [facility],[address] [place] [address] 29900 Eosinophils/100 WBC (Bld) 0.5 % Normal 0.0 - 7.0 [facility] Comment on above: Performed By: #### 2 15890 #### [facility],[address] [place] [address]59 Hematocrit (Bld) [Volume fraction] 35.6 % Low 40.0 - 52.0 [facility] Comment on above: Performed By: #### 2 23965 #### [facility],[address] [place], [place] [address] Hemoglobin (Bld) [Mass/Vol] 11.6 g/dL Low 13.0 - 17.5 [facility] Comment on above: Performed By: #### 2 65559 #### [facility],[address] [place] [address] HYPOCHROM 1+ Normal [facility] Comment on above: Performed By: #### 2 38406 #### [facility],[address] [place], [place] [address] Lymph # 1.47 x10EE3/UL Normal 0.80 - 2.80 [facility] Comment on above: Performed By: #### 2 79916 #### [facility],[address] [place] [address]809 Lymphocytes/100 WBC (Bld) 11.1 % Low 20.0 - 45.0 [facility] Comment on above: Performed By: #### 2 26830 #### [facility],[address] [place] [address] 55085 MCH (RBC) [Entitic mass] 31 pg Normal 27 - 33 [facility] Comment on above: Performed By: #### 2 52378 #### [facility],[address] [place] [address]51 MCHC 33 X10 3 Normal 32 - 36 [facility] Comment on above: Performed By: #### 2 97323 #### [facility],[address] [place] [address] MCV (RBC) [Entitic vol] 96 fL Normal 81 - 98 [facility] Comment on above: Performed By: #### 2 77604 #### [facility],[address] [place] [address]60 Dunn # 0.58 x10EE3/UL Normal 0.20 - 1.00 [facility] Comment on above: Performed By: #### 2 93586 #### [facility],[address] [place] [address] MONOS % 4.4 % Normal 0.0 - 10.0 [facility] Comment on above: Performed By: #### 2 32540 #### [facility],[address] [place] [address] 25031 Neut # 11.13 x10EE3/UL High 1.50 - 7.10 [facility] Comment on above: Performed By: #### 2 16598 #### [address] [address] Neutrophils/100 WBC (Bld) 83.6 % High 46.0 - 76.0 [facility] Comment on above: Performed By: #### 2 46795 #### [facility],[address] [place] [address] PLATELET 530 x10EE3/UL High 150 - 450 [facility] Comment on above: Performed By: #### 2 26632 #### [facility],[address] [place] [address] 20950 Platelet mean volume (Bld) [Entitic vol] 9.9 fL Normal 6.4 - 10.5 [facility] Comment on above: Result Comment: AUTO MATED DIFFERENTIAL Performed By: #### 2 42445 #### [facility],[address] [place] [address] 01211 RBC 3.70 x 10EE6/UL Low 4.50 - 6.00 [facility] Comment on above: Performed By: #### 2 37359 #### [facility],[address] [place] [address] 68934 SEGS 89 % High 46 - 76 [facility] Comment on above: Performed By: #### 2 26934 #### [facility],[address] [place] [address] 34761 WBC 13.3 x 10EE3/UL High 4.5 - 10.8 [facility] Comment on above: Performed By: #### 2 45256 #### [facility],[address] [place] [address]903 CHEST 1 VIEWon 02-24-2025 CHEST 1 VIEW [place] [address] Patient: KSENIA GALLARDO Phone#: : [phone] Age: 89 Gender: M Pt. Type: ER Account: [id number] Location: [facility] Ordering: DESMOND AMAYA Exam Date: 02/24/2025/12:01 Family Phys: BUTROS JADA Charge Code: [id number] Physician: Dent Order #: [id number] Dose#: PROCEDURE: X-RAY CHEST 1 VIEW COMPARISON: [...] Rogers MD on 02/24/2025 at 12:33 Normal [facility] CMP with eGFRon 02-24-2025 AGE 89 years Normal [facility] Comment on above: Performed By: #### 2 19667 #### [facility],[address] [place] [address] 43150 Albumin [Mass/Vol] 4.3 g/dL Normal 3.4 - 5.0 [facility] Comment on above: Performed By: #### 2 85029 #### [facility],[address] [place] [address] 92644 Albumin/Globulin [Mass ratio] 1.4 {ratio} Normal 0.9 - 1.6 [facility] Comment on above: Performed By: #### 2 07180 #### [facility],[address] [place] [address] 38795 ALK PHOS 66 U/L Normal 46 - 116 [facility] Comment on above: Performed By: #### 2 06210 #### [facility],[address] [place] [address] 05053 ALT [Catalytic activity/Vol] 26 U/L Normal 16 - 63 [facility] Comment on above: Performed By: #### 2 85675 #### [facility],[address] [place], [place] [address] Anion gap [Moles/Vol] 11 mmol/L Normal 10 - 20 [facility] Comment on above: Performed By: #### 2 25300 #### [facility],[address] [place] [address] 79320 AST [Catalytic activity/Vol] 29 U/L Normal 15 - 37 [facility] Comment on above: Performed By: #### 2 52151 #### [facility],[address] [place] [address] 65268 B/C RATIO 16 ratio Normal 0 - 30 [facility] Comment on above: Performed By: #### 2 33854 #### [facility],[address] [place] [address] 60255 Bilirubin [Mass/Vol] 1.6 mg/dL High 0.2 - 1.0 [facility] Comment on above: Performed By: #### 2 04681 #### [facility],[address] [place] [address] 43771 Calcium [Mass/Vol] 9.0 mg/dL Normal 8.5 - 10.1 [facility] Comment on above: Performed By: #### 2 11411 #### [facility],[address] [place] [address] 97158 Chloride [Moles/Vol] 106 mmol/L Normal 98 - 107 [facility] Comment on above: Performed By: #### 2 72159 #### [facility],[address] [place] [address] 09518 CMP with eGFR Normal [facility] Comment on above: Result Comment: COMP REHENSIVE METABOLIC PANEL Performed By: #### 2 62006 #### [facility],[address] [place] [address] 48246 CO2 [Moles/Vol] 28.5 mmol/L Normal 21.0 - 32.0 [facility] Comment on above: Performed By: #### 2 94699 #### [facility],[address] [place], [place] [address] Creatinine [Mass/Vol] 1.04 mg/dL Normal 0.70 - 1.30 [facility] Comment on above: Performed By: #### 2 30441 #### [facility],[address] [place], [place] [address] GFR/1.73 sq M.predicted among non-blacks MDRD (S/P/Bld) [Vol rate/Area] mL/min/{1.73_m2} Normal 60 - 999 [facility] Comment on above: Performed By: #### 2 52952 #### [facility],[address] [place] [address] Result Comment: ACCO RDING TO THE NATIONAL KIDNEY DISEASE EDUCATION PROGRAM(NKDE), A NORMAL eGFR IS A VALUE GREATER THAN OR EQUAL TO 60 ML/MIN/1.73 SQ METERS. CHRONIC KIDNEY DISEASE: <60mL/MIN/1.73 SQ METERS KIDNEY FAILURE: <15mL/MIN/1.73 SQ METERS THIS TEST SHOULD ONLY BE USED FOR PATIENTS 18 YEARS OF AGE AND OLDER. Globulin (S) [Mass/Vol] 3.1 g/dL Normal 1.5 - 3.8 [facility] Comment on above: Performed By: #### 2 04384 #### [facility],[address] [place], [place] [id number] Glucose [Mass/Vol] 113 mg/dL High 74 - 106 [facility] Comment on above: Performed By: #### 2 18166 #### [facility],[address] [place] [address] 52037 Potassium [Moles/Vol] 4.6 mmol/L Normal 3.5 - 5.1 [facility] Comment on above: Performed By: #### 2 19637 #### [facility],[address] [place] [address] 42688 Protein [Mass/Vol] 7.4 g/dL Normal 6.4 - 8.2 [facility] Comment on above: Performed By: #### 2 07520 #### [facility],[address] [place] [address] 83170 Sodium [Moles/Vol] 141 mmol/L Normal 136 - 145 [facility] Comment on above: Performed By: #### 2 35482 #### [facility],[address] [place] [address] 30458 Urea nitrogen [Mass/Vol] 17 mg/dL Normal 7 - 18 [facility] Comment on above: Performed By: #### 2 19584 #### [facility],[address] [place] [address] 73944 AGE 89 years Normal [facility] Comment on above: Performed By: #### 2 25016 #### [facility],[address] [place] [address] 46669 Albumin [Mass/Vol] 4.1 g/dL Normal 3.4 - 5.0 [facility] Comment on above: Performed By: #### 2 75505 #### [facility],[address] [place] [address] 65023 Albumin/Globulin [Mass ratio] 1.4 {ratio} Normal 0.9 - 1.6 [facility] Comment on above: Performed By: #### 2 86402 #### [facility],[address] [place] [address] 58720 ALK PHOS 65 U/L Normal 46 - 116 [facility] Comment on above: Performed By: #### 2 41772 #### [facility],[address] [place] [address] 01815 ALT [Catalytic activity/Vol] 24 U/L Normal 16 - 63 [facility] Comment on above: Performed By: #### 2 98806 #### [facility],[address] [place] [address] 50239 Anion gap [Moles/Vol] 12 mmol/L Normal 10 - 20 [facility] Comment on above: Performed By: #### 2 50398 #### [facility],[address] [place] [address] 17842 AST [Catalytic activity/Vol] 27 U/L Normal 15 - 37 [facility] Comment on above: Performed By: #### 2 72635 #### [facility],[address] [place] [address] 58952 B/C RATIO 18 ratio Normal 0 - 30 [facility] Comment on above: Performed By: #### 2 64460 #### [facility],[address] [place] [address] 34086 Bilirubin [Mass/Vol] 1.6 mg/dL High 0.2 - 1.0 [facility] Comment on above: Performed By: #### 2 61195 #### [facility],[address] [place] [address] 20124 Calcium [Mass/Vol] 8.8 mg/dL Normal 8.5 - 10.1 [facility] Comment on above: Performed By: #### 2 36020 #### [facility],[address] [place] [address] 45502 Chloride [Moles/Vol] 105 mmol/L Normal 98 - 107 [facility] Comment on above: Performed By: #### 2 16736 #### [facility],[address] [place] [address] 86653 CMP with eGFR Normal [facility] Comment on above: Result Comment: COMP REHENSIVE METABOLIC PANEL Performed By: #### 2 88329 #### [facility],[address] [place] [address] 75425 CO2 [Moles/Vol] 27.8 mmol/L Normal 21.0 - 32.0 [facility] Comment on above: Performed By: #### 2 62185 #### [facility],[address] [place] [address] 16358 Creatinine [Mass/Vol] 1.07 mg/dL Normal 0.70 - 1.30 [facility] Comment on above: Performed By: #### 2 57089 #### [facility],[address] [place] [address] 66092 GFR/1.73 sq M.predicted among non-blacks MDRD (S/P/Bld) [Vol rate/Area] mL/min/{1.73_m2} Normal 60 - 999 [facility] Comment on above: Performed By: #### 2 26858 #### [facility],[address] [place] [address] 29487 Result Comment: ACCO RDING TO THE NATIONAL KIDNEY DISEASE EDUCATION PROGRAM(NKDE), A NORMAL eGFR IS A VALUE GREATER THAN OR EQUAL TO 60 ML/MIN/1.73 SQ METERS. CHRONIC KIDNEY DISEASE: <60mL/MIN/1.73 SQ METERS KIDNEY FAILURE: <15mL/MIN/1.73 SQ METERS THIS TEST SHOULD ONLY BE USED FOR PATIENTS 18 YEARS OF AGE AND OLDER. Globulin (S) [Mass/Vol] 3.0 g/dL Normal 1.5 - 3.8 [facility] Comment on above: Performed By: #### 2 34164 #### [facility],[address] [place] [address] 93126 Glucose [Mass/Vol] 124 mg/dL High 74 - 106 [facility] Comment on above: Performed By: #### 2 92302 #### [facility],[address] [place] [address] 10367 Potassium [Moles/Vol] 4.1 mmol/L Normal 3.5 - 5.1 [facility] Comment on above: Performed By: #### 2 98238 #### [facility],[address] [place] [address] 66476 Protein [Mass/Vol] 7.1 g/dL Normal 6.4 - 8.2 [facility] Comment on above: Performed By: #### 2 85519 #### [facility],[address] [place] [address] 94832 Sodium [Moles/Vol] 141 mmol/L Normal 136 - 145 [facility] Comment on above: Performed By: #### 2 30956 #### [facility],[address] [place] [address] 37343 Urea nitrogen [Mass/Vol] 19 mg/dL High 7 - 18 [facility] Comment on above: Performed By: #### 2 34965 #### [facility],[address] [place] [address] 97922 CORONAVIRUS (SARS) ANTIGEN T ESTon 02-24-2025 EXTERNAL QC DONE? YES Normal [facility] Comment on above: Performed By: #### 2 41923 #### [facility],[address] [place] [address] 76473 INTERNAL CONTROL PASS Normal [facility] Comment on above: Performed By: #### 2 30712 #### [facility],[address] [place] [address] 26848 SARS ANTIGEN Negative Normal NORMAL: NEGATIVE [facility] Comment on above: Performed By: #### 2 65967 #### [facility],[address] [place] [address] 10247 SEND TO ? NO Normal [facility] Comment on above: Result Comment: SARS -CoV-2 THIS TEST IS BEING USED UNDER THE FDA EUA PROCEDURE. THIS ASSAY HAS BEEN VALIDATED AT THE [facility] FOR USE WITH NASAL AND NASOPHARYNGEAL SWAB [...] PUBLIC HEALTH AUTHORITIES. Performed By: #### 2 12090 #### [facility],[address] [place] [address] CT BRAIN W/O CONTRASTon 04-0 CT BRAIN W/O CONTRAST [place] [address] Patient: KSENIA GALLARDO Phone#: : 1935 Age: 89 Gender: M Pt. Type: ER Account: [id number] Location: [facility] Ordering: DESMOND AMAYA Exam Date: 02/24/2025/12:23 Family Phys: MINISTERIO ELIAS Charge Code: [id number] Physician: Dent Order #: [id number] Dose#: 52.30 PROCEDURE: CT BRAIN WITHOUT CONTRAST [...] no significant mucosal thickening or fluid. ORBITS: [place] ocular lenses are absent. OTHER: Atherosclerotic calcifications [...] 89 Gender: M Pt. Type: ER Account: [id number] Location: 052 Ordering: DESMOND AMAYA Exam Date: 02/24/2025/12:23 Family Phys: MINISTERIO ELIAS Charge Code: [id number] Physician: Dent Order #: [id number] Dose#: 52.30 Dictated by: Regina Rogers MD on 02/24/2025 at 12:39 Approved by: Regina Rogers MD on 02/24/2025 at 12:44 Normal [facility] CT CERVICAL W/O CONTRASTon 0 02-24-2025 CT CERVICAL W/O CONTRAST [place] [address] Patient: KSENIA GALLARDO Phone#: : 1935 Age: 89 Gender: M Pt. Type: ER Account: [id number] Location: 052 Ordering: DESMOND AMAYA Exam Date: 02/24/2025/12:23 Family Phys: MINISTERIO ELIAS Charge Code: [id number] Physician: Dent Order #: [id number] Dose#: 13.00 PROCEDURE: CT CERVICAL WITHOUT CONTRAST [...] degenerative changes with multilevel osseous foraminal narrowing. [place] [id number] Patient: KSENIA GALLARDO Phone#: : 1935 Age: 89 Gender: M Pt. Type: ER Account: [id number] Location: [facility] Ordering: DESMOND AMAYA Exam Date: 02/24/2025/12:23 Family Phys: MINISTERIO ELIAS Charge Code: [id number] Physician: Dent Order #: [id number] Dose#: 13.00 Dictated by: Regina Rogers MD on 02/24/2025 at 12:44 Approved by: Regina Rogers MD on 02/24/2025 at 12:48 Normal [facility] CT LUMBAR W/O CONTRASTon CT LUMBAR W/O CONTRAST [address] [address] Patient: KSENIA GALLARDO Phone#: : 1935 Age: 89 Gender: M Pt. Type: ER Account: [id number] Location: 052 Ordering: DESMOND AMAYA Exam Date: 02/24/202512:28 Family Phys: MINISTERIO ELIAS Charge Code: [id number] Physician: Dent Order #: [id number] Dose#: [id number] PROCEDURE: CT LUMBAR SPINE WITHOUT [...] 89 Gender: M Pt. Type: ER Account: [id number] Location: 052 Ordering: DESMOND AMAYA Exam Date: 02/24/2025/12:28 Family Phys: MINISTERIO ELIAS Charge Code: [id number] Physician: Dent Order #: [id number] Dose#: 35.80 L5-S1: No significant disc/facet abnormality, spinal stenosis, or foraminal stenosis. CONCLUSION: 1. T12 superior endplate compression fracture involving the anterior and middle columns. 2. L1 and L2 right acute transverse process fractures 3. Cholelithiasis 4. Diverticulosis Dictated by: Regina Rogers MD on 02/24/2025 at 12:49 Approved by: Regnia Rogers MD on 02/24/2025 at 12:56 [facility] ED MED ADMINISTRATION DETAIL on 02-24-2025 ED MED ADMINISTRATION DETAIL Compliance Assistant Medication Administration Record [address] [address] [id number] 02/24/2025 Patient: KSENIA GALLARDO Sex: Male : 1935 Age: 89y MEASUREMENTS: Wt: 78.9 kg, Ht/Wellington: 72.0 in, BMI: 23.60 ALLERGIES: No known drug allergies Medication Ordered Medication Administration Date/Time 1 of Normal [facility] ED NURSES CLINICAL NOTEon ED NURSES CLINICAL NOTE Nurse Narrative Nurse Clinical Narrative [address] [address] [phone] 02/24/2025 Patient: KSENIA GALLARDO Sex: Male : [...] his right side.). Location of injuries: right hoahaoism, lower back and right hand. Occurred at home. Occurred 22:00 02/23/2025. No loss of consciousness. Patient is on anticoagulation (blood thinner) therapy: includes eliquis. Pre-hospital notification of patient arrival was not received. Treatment ASSOCIATE DIRECTOR QA: None. SEPSIS SCREEN: NEGATIVE. SIRS criteria negative. No possible sources of infection. -- 11:20 02/24/25 JERRYT Janna Anand R.N. 11:18 02/24/25. BP: 164/94 MAP: 117. HR: 87. RR: 14. O2 saturation: 94% Temperature: 97.9 F. Pain level now 02/01. -- 11:02/24/25 EDT Janna Anand R.N. Measurements: 11:02/24/25 Wt: 78.9 kg, Ht/Wellington: 72.0 in, BMI: 23.60 -- 11:02/24/25 JERRYT Janna Anand R.N. 1 of 4 Nurse Narrative Medications: losartan 50 mg tablet: 50 mg once a day for hypertension. -- 11:02/24/25 TOBIAS Anand R.N. amLODIPine 5 mg tablet: 5 mg once a day . -- 11:02/24/25 TOBIAS Anand R.N. rosuvastatin 20 mg tablet -- [...] 1 CAPSULE BY MOUTH ONCE DAILY -- 11:15 02/24/25 JERRYT Kota Santiago R.N. rosuvastatin 20 mg tablet: 1 tablet once a day. -- 11:15 02/24/25 JERRYT Kota Santiago R.N. Allergies: no known drug allergies -- 11:05 02/24/25 JERRYT Janna Anand R.N. Problems: Hypertension -- 11:02/24/25 JERRYT Janna Anand R.N. Hypercholesterolemia -- 11:02/24/25 JERRYT Janna Anand R.N. Atrial Fibrillation -- 11:02/24/25 JERRYT Janna Anand R.N. Anemia -- 11:02/24/25 JERRYT Janna Anand R.N. Leukemia. (BILL 2) -- 11:02/24/25 JERRYT Janna Anand R.N. Skin Cancer -- 11:02/24/25 JERRYT Janna Anand R.N. ADDITIONAL SURGERIES: Coronary Artery Bypass Graft -- 11:12 02/24/25 JERRYT Janna Anand R.N. Adenoidectomy -- 11:02/24/25 JERRYT Janna Anand R.N. Appendectomy -- 11:02/24/25 JERRYT Janna Anand R.N. Tonsillectomy -- 11:02/24/25 JERRYT Janna Anand R.N. Skin disease screening -- 11:02/24/25 JERRYT Janna Anand R.N. 2 of 4 Nurse Narrative [...] thoughts of harming or killing yourself?. -- 11:20 02/24/25 EDT Janna Anand R.N. 11:48 02/24/25. FALL RISK ASSESSMENT: Fall risk assessment completed. Risk factors identified include patient age greater than 65 years, history of fall and impairment of mobility. Fall interventions initiated. Side rails up x2. Bed in low position. Brakes on. Patient identified as a fall risk. Call light in reach of patient. Instructed not to get up without assistance. -- 11:53 02/24/25 EDT Janna Anand R.N. Interventions 10:59 02/24/25. Advanced care plan discussed with patient. Patient does not have advanced directive. Patient has a living will (full code). -- 11:20 02/24/25 JERRYT Janna Anand R.N. PHYSICAL ASSESSMENT 11:59 02/24/25. Ambulatory to room. GENERAL / NEURO / PSYCH: Alert. Oriented X 4. ( Pt tripped over his left shoe causing him to slide down the wall. Pt had no LOC.). HEENT: Head: tenderness and swelling present in the right forehead. RESPIRATORY: Respirations not labored. Chest nontender. Breath sounds within nor (more content not included)... Normal [facility] ED ORDER SHEET (CPOE ONLY)on 02-24-2025 ED ORDER SHEET (CPOE ONLY) Order Sheet Order Sheet [address] [address] [id number] 02/24/2025 Patient: KSENIA GALLARDO Sex: Male : 1935 Age: 89y MEASUREMENTS: Wt: 78.9 kg, Ht/Wellington: 72.0 in, BMI: 23.60 ALLERGIES: No known drug allergies MEDICATION/IV/DRIP/FL UID ORDERS Order Description Priority Entered Acknowledged Completed LAB ORDERS Order Description Priority Entered Acknowledged Collected Completed CBC w Diff Stat Stat 11:06 02/24/2025 11:21 02/24/2025 Lazaro Lawrence D.O. RCarlos CMP Stat Stat 11:06 02/24/2025 11:21 02/24/2025 Lazaro Lawrence D.O. R.N. Troponin-I Stat Stat 11:06 02/24/2025 11:21 02/24/2025 Lazaro Lawrence D.O. R.N. EKG - ED Stat Stat 11:06 02/24/2025 11:21 02/24/2025 Desmond Anand, 1 of 3 Order Sheet Janie Amaya R.N. Urinalysis Stat Stat 11:06 02/24/2025 11:21 02/24/2025 Lazaro Lawrence D.O. R.N. Flu Swab (Influenzae Stat 11:06 02/24/2025 11:21 02/24/2025 AAg) Stat Lazaro Lawrence D.O. R.N. Rapid COVID (SARS) Stat 11:06 02/24/2025 11:21 02/24/2025 ANTIGEN TEST Stat Lazaro Lawrence D.O. R.N. DIAGNOSTIC STUDY ORDERS Order Description Priority Entered [...] Stat 13:04 02/24/2025 13:09 Desmond Amaya, 02/24/2025 Janie Anand R.N. Reason for Study: cholelithasis on ct with elevated bilirubin STAFF ORDERS Order Description Priority Entered Acknowledged Collected Completed IV Saline Lock 11:06 02/24/2025 11:21 02/24/2025 Lazaro Lawrence D.O. RSonaliNSonali [Electronically signed by Desmond Amaya D.O. (02/24/2025 14:20 EDT)] 3 of 3 Normal [facility] ED PHYSICIAN CLINICAL REPORT on 02-24-2025 ED PHYSICIAN CLINICAL REPORT Narrative Physician Clinical [address] [address] [id number] 02/24/2025 Patient: KSENIA GALLARDO Sex: Male : [...] No swelling of head. Eyes: EOM intact. 2 of 23 Narrative ENT: No dental injury. Pharynx normal. [...] Final Above high normal EDT 02/24/2025 13:00 Dunn # 0.58 x10/UL 0.20 - 1.00 Final EDT 02/24/2025 13:00 EO # 0.06 x10/UL 0.00 - 0.50 Final EDT 02/24/2025 13:00 Baso # 0.07 x10/UL 0.00 - 0.10 Final EDT 02/24/2025 13:00 MANUAL DIFF SEE BELOW Final EDT 89 % (more content not included)... Normal [facility] ED SUPER BILLon 02-24-2025 ED SUPER BILL [address] [place] [address] [id number] 02/24/2025 Patient: KSENIA GALLARDO Sex: Male : 1935 Age: 89y Item Professional Category Description Facility Code Code Quantity Fee Total Nurse/E/M EMERGENCY 224369 1 $0.00 $0.00 DEPARTMENT VISIT HIGH/URGENT SEVERITY (93822-15) Grand Total $0.00 Providers Desmond Amaya D.O. Chief Complaint FALL. Principal Diagnosis Stable T12 fracture. Stable L1 transverse process fracture; stable L2 transverse process fracture. Cholelithiasis. Urinary tract infection. 1 of 2 [facility] ICD-10 Codes N39.0: Urinary tract infection, site not specified S22.081A: Stable burst fracture of T11-T12 vertebra, initial encounter for closed fracture K80.20: Calculus of gallbladder without cholecystitis without obstruction 2 of 2 Normal [facility] ED VISIT SUMMARYon ED VISIT SUMMARY Visit Overview Visit Overview [address] [place] [address] [id number] 02/24/2025 Patient: KSENIA GALLARDO Sex: Male : [...] EMERGENCY DEPARTMENT IV SITE INFORMATION INTAKE OUTPUT 4 Visit Overview REASSESMENT (most recent) 12:45 [...] URINARY TRACT INFECTION 4 of 4 Normal [facility] ED VITALS FLOW SHEETon 02-24 ED VITALS FLOW SHEET Vitals Vital Sign Flow Sheet [facility] [address] [place] [address] [phone] 02/24/2025 Patient: KSENIA GALLARDO Sex: Male : [...] 97.9 F 3 2 of 2 Normal [facility] Ferritin SerPl-mCncon 2024 Ferritin [Mass/Vol] 532.0 ng/mL Normal 30.3-565.7 [facility] Comment on above: Order Comment: Speci men Type: BLOOD SPECIMEN Ordering Facility: [facility] Address: [address] [place] [address] Performed By: #### 5 7021-8 #### [facility] CLIA [id number] [address] [place] [address] [place] HAND RT MIN 3 VIEWSon 2024 HAND RT MIN 3 VIEWS [place] [address] Patient: KSENIA GALLARDO Phone#: : 1935 Age: 89 Gender: M Pt. Type: ER Account: [id number] Location: [facility] Ordering: DESMOND AMAYA Exam Date: 02/24/2025/12:02 Family Phys: BUTROS LATOUF Charge Code: 536696 Physician: Dent Order #: [id number] Dose#: PROCEDURE: X-RAY HAND RT COMPLETE MIN [...] Rogers MD on 02/24/2025 at 12:37 Normal [facility] INFLUENZA VIRUS RAPID A/Bon 02-24-2025 INFLUENZA VIRUS [...] TO THREE DAYS. RESULT CRITICAL? NO Normal [facility] Comment on above: Performed By: #### 2 10311 #### [facility],[address] [place], [place] [id number] IRON AND TIBCon 02-24-2025 %SATURATION 17 % Normal [facility] Comment on above: Performed By: #### 2 69132 #### [facility],[address] [place] [address] 38632 Iron [Mass/Vol] 49 ug/dL Low 65 - 175 [facility] Comment on above: Performed By: #### 2 59453 #### [facility],[address] [place] [address] 14468 TIBC 291 ug/dl Normal 250 - 450 [facility] Comment on above: Performed By: #### 2 71030 #### [facility],[address] [place] [address] 85464 UIBC 242 ug/dL Normal 155 - 355 [facility] Comment on above: Performed By: #### 2 01919 #### [facility],[address] [place] [address] 17053 LIPID PROFILEon 02-24-2025 Cholesterol [Mass/Vol] 97 mg/dL Normal 0 - 240 [facility] Comment on above: Performed By: #### 2 24493 #### [facility],[address] [place] [address] 76189 Cholesterol in HDL [Mass/Vol] 36 mg/dL Low 40 - 60 [facility] Comment on above: Performed By: #### 2 08498 #### [facility],[address] [place] [address] 53243 Cholesterol in LDL [Mass/Vol] 50 mg/dL Normal 0 - 129 [facility] Comment on above: Performed By: #### 2 78468 #### [facility],[address] [place] [address] 46435 Cholesterol.total/Chol esterol in HDL [Mass ratio] 2.7 {ratio} Normal 0.0 - 5.0 [facility] Comment on above: Performed By: #### 2 65921 #### [facility],[address] [place] [address] 88885 Lipid 1996 panel Normal [facility] Comment on above: Result Comment: LIPI D PROFILE Performed By: #### 2 89282 #### [facility],[address] [place] [address] 46799 Triglyceride [Mass/Vol] 53 mg/dL Normal 0 - 150 [facility] Comment on above: Performed By: #### 2 97947 #### [facility],[address] [place] [address] 66611 T4 Free SerPl-mCncon 04-02-2 025 Free T4 [Mass/Vol] 1.1 ng/dL Normal 0.9-1.7 [facility] Comment on above: Order Comment: Speci men Type: BLOOD SPECIMEN Ordering Facility: [facility] Address: [address] [place] [address] Performed By: #### 5 7021-8 #### [facility] CLIA [id number] [address] [place] TROPONINon 02-24-2025 HS TROPONIN 18.6 pg/mL Normal 0.0 - 76.2 [facility] Comment on above: Performed By: #### 2 34864 #### [facility],[address] [place] [address] TSHon 02-24-2025 TSH Qn 6.42 m[IU]/L High 0.35 - 3.74 [facility] Comment on above: Performed By: #### 2 68480 #### [facility],[address] [place] [address] URINALYSISon 02-24-2025 Amorphous 1+ Normal [facility] Comment on above: Performed By: #### 2 69795 #### [facility],[address] [place], [place] [phone] Bacteria 1+ Normal [facility] Comment on above: Performed By: #### 2 43147 #### [facility],[address] [place] [address] Bilirubin Ql (U) Negative Normal NORMAL: NEGATIVE [facility] Comment on above: Performed By: #### 2 25200 #### [facility],[address] [place] [address] Casts SEE BELOW Normal [facility] Comment on above: Performed By: #### 2 73675 #### [facility],[address] [place] [address] Clarity (U) clear Normal NORMAL: CLEAR [facility] Comment on above: Performed By: #### 2 84288 #### [facility],[address] [place] [address] 97601 Color (U) zeinab Normal NORMAL: YELLOW [facility] Comment on above: Performed By: #### 2 87588 #### [facility],[address] [place] [address] 15533 Crystals LM Nom (Urine sed) NONE Normal [facility] Comment on above: Performed By: #### 2 00953 #### [facility],[address] [place], [place] [address] Epi Cells FEW Normal [facility] Comment on above: Performed By: #### 2 33170 #### [facility],[address] [place] [address] Glucose Ql (U) NORM Normal NORMAL: NORMAL [facility] Comment on above: Performed By: #### 2 05590 #### [facility],[address] [place] [address] Hemoglobin Ql (U) 10 Abnormal NORMAL: NEGATIVE [facility] Comment on above: Performed By: #### 2 86715 #### [facility],[address] [place] [address] Hyaline 1-5 Normal NORMAL: NONE [facility] Comment on above: Performed By: #### 2 39760 #### [facility],[address] [place], [place] [address] Ketone Negative Normal NORMAL: NEGATIVE [facility] Comment on above: Performed By: #### 2 47803 #### [facility],[address] [place] [address] Leukocytes 100 Abnormal NORMAL: NEGATIVE [facility] Comment on above: Performed By: #### 2 10669 #### [facility],[address] [place] [address]92 Mucous 1+ Normal [facility] Comment on above: Performed By: #### 2 64177 #### [facility],[address] [place] [address] Nitrite Ql (U) Negative Normal NORMAL: NEGATIVE [facility] Comment on above: Performed By: #### 2 37833 #### [place] [address] pH (U) 6 [pH] Normal NORMAL: 5.0-8.0 [facility] Comment on above: Performed By: #### 2 76881 #### [place] [address] Protein Ql (U) 100 Abnormal NORMAL: NEGATIVE [facility] Comment on above: Performed By: #### 2 75279 #### [place] [address] Rbc 0-5 Normal 0-3/hpf [facility] Comment on above: Performed By: #### 2 20281 #### [place] [address] Sp [place] 1.020 Normal NORMAL: 1.010-1.030 [facility] Comment on above: Performed By: #### 2 98467 #### [place] [address] Specimen Type UNSPECIFIED Normal [facility] Comment on above: Performed By: #### 2 62101 #### [place] [address] Urinalysis dipstick W Reflex Microscopic panel (U) SEE BELOW Normal [facility] Comment on above: Result Comment: MICR OSCOPIC Performed By: #### 2 52210 #### [place] [address] Urobilinog 1 Abnormal NORMAL: NORMAL [facility] Comment on above: Performed By: #### 2 70974 #### [place] [address] Wbc 11-15 Normal 0-5/hpf [facility] Comment on above: Performed By: #### 2 95914 #### [facility],[address] [place] [address]776 Yeast NONE Normal [facility] Comment on above: Performed By: #### 2 07125 #### [facility],[address] [place] [address]23 US RUQ (GB/PANCREAS)on 02-24 US RUQ (GB/PANCREAS) [place] [id number] Patient: KSENIA GALLARDO Phone#: : [phone] Age: 89 Gender: M Pt. Type: ER Account: [id number] Location: [facility] Ordering: DESMOND AMAYA Exam Date: 02/24/2025/13:10 Family Phys: MINISTERIO ELIAS Charge Code: [id number] Physician: Dent Order #: [id number] Dose#: PROCEDURE: RUQ (GB) ULTRASOUND COMPARISON: None. [...] 4. Right renal cyst. DICTATED BY: KIARRA MUARO MD ON 02/24/2025 AT 14:00 APPROVED BY: KIARRA MAURO MD ON 02/24/2025 AT 14:04 Normal [facility] CBC W Auto Differential pane l (Bld)on 01-25-2025 Basophils (Bld) [#/Vol] 0.09 10*3/uL Normal <0.11 [facility] Comment on above: Order Comment: Speci men Type: BLOOD SPECIMEN Ordering Facility: [facility] Address: [address] [place] [address] Performed By: #### 5 7021-8 #### [facility] CLIA [id number] [address] [place] [address] [place] Basophils/100 WBC (Bld) 0.9 % Normal [facility] Comment on above: Order Comment: Speci men Type: BLOOD SPECIMEN Ordering Facility: [facility] Address: [address] [place] [address] Performed By: #### 5 7021-8 #### [facility] CLIA [id number] [address] [place] [address] [place] Differential cell count method Nom (Bld) Auto Normal [facility] Comment on above: Order Comment: Speci men Type: BLOOD SPECIMEN Ordering Facility: [facility] Address: [address] [place] [address] Performed By: #### 5 7021-8 #### [facility] CLIA [id number] [address] [place] [address] [place] Eosinophils (Bld) [#/Vol] 0.21 10*3/uL Normal <0.46 [facility] Comment on above: Order Comment: Speci men Type: BLOOD SPECIMEN Ordering Facility: [facility] Address: [address] [place] [address] Performed By: #### 5 7021-8 #### [facility] CLIA [id number] [address] [place] [address] [place] Eosinophils/100 WBC (Bld) 2.1 % Normal [facility] Comment on above: Order Comment: Speci men Type: BLOOD SPECIMEN Ordering Facility: [facility] Address: [address] [place] [address] Performed By: #### 5 7021-8 #### [facility] CLIA [id number] [address] [place] [address] [place] Erythrocyte distribution width (RBC) [Ratio] 26.8 % High 11.5-15.0 [facility] Comment on above: Order Comment: Speci men Type: BLOOD SPECIMEN Ordering Facility: [facility] Address: [address] [place] [address] Performed By: #### 5 7021-8 #### [facility] CLIA [id number] [address] [place] [address] [place] Hematocrit (Bld) [Volume fraction] 37.8 % Low 39.0-51.0 [facility] Comment on above: Order Comment: Speci men Type: BLOOD SPECIMEN Ordering Facility: [facility] Address: [address] [place] [address] Performed By: #### 5 7021-8 #### [facility] CLIA [id number] [address] [place] [address] [place] Hemoglobin (Bld) [Mass/Vol] 11.3 g/dL Low 13.0-17.0 [facility] Comment on above: Order Comment: Speci men Type: BLOOD SPECIMEN Ordering Facility: [facility] Address: [address] [place] [address] Performed By: #### 5 7021-8 #### [facility] CLIA [id number] [address] [place] [address] [place] Immature granulocytes (Bld) [#/Vol] 0.04 10*3/uL Normal <0.10 [facility] Comment on above: Order Comment: Speci men Type: BLOOD SPECIMEN Ordering Facility: [facility] Address: [address] [place] [address] Performed By: #### 5 7021-8 #### [facility] CLIA [id number] [address] [place] [address] [place] Immature granulocytes/100 WBC (Bld) 0.4 % Normal [facility] Comment on above: Order Comment: Speci men Type: BLOOD SPECIMEN Ordering Facility: [facility] Address: [address] [place] [address] Performed By: #### 5 7021-8 #### [facility] CLIA [id number] [address] [place] [address] [place] Lymphocytes (Bld) [#/Vol] 2.42 10*3/uL Normal 1.00-4.00 [facility] Comment on above: Order Comment: Speci men Type: BLOOD SPECIMEN Ordering Facility: [facility] Address: [address] [place] [address] Performed By: #### 5 7021-8 #### [facility] CLIA [id number] [address] [place] [address] [place] Lymphocytes/100 WBC (Bld) 24.3 % Normal [facility] Comment on above: Order Comment: Speci men Type: BLOOD SPECIMEN Ordering Facility: [facility] Address: [address] [place] [address] Performed By: #### 5 7021-8 #### [facility] CLIA [id number] [address] [place] [address] [place] MCH (RBC) [Entitic mass] 29.6 pg Normal 26.0-34.0 [facility] Comment on above: Order Comment: Speci men Type: BLOOD SPECIMEN Ordering Facility: [facility] Address: [address] [place] [address] Performed By: #### 5 7021-8 #### [facility] CLIA [id number] [address] [place] [address] [place] MCHC (RBC) [Mass/Vol] 29.9 g/dL Low 30.5-36.0 [facility] Comment on above: Order Comment: Speci men Type: BLOOD SPECIMEN Ordering Facility: [facility] Address: [address] [place] [address] Performed By: #### 5 7021-8 #### [facility] CLIA [id number] [address] [place] [address] [place] MCV (RBC) [Entitic vol] 99.0 fL Normal 80.0-100.0 [facility] Comment on above: Order Comment: Speci men Type: BLOOD SPECIMEN Ordering Facility: [facility] Address: [address] [place] [address] Performed By: #### 5 7021-8 #### [facility] CLIA [id number] [address] [place] [address] [place] Monocytes (Bld) [#/Vol] 0.56 10*3/uL Normal <0.87 [facility] Comment on above: Order Comment: Speci men Type: BLOOD SPECIMEN Ordering Facility: [facility] Address: [address] [place] [address] Performed By: #### 5 7021-8 #### [facility] CLIA [id number] [address] [place] [address] [place] Monocytes/100 WBC (Bld) 5.6 % Normal [facility] Comment on above: Order Comment: Speci men Type: BLOOD SPECIMEN Ordering Facility: [facility] Address: [address] [place] [address] Performed By: #### 5 7021-8 #### [id number] [address] [place] [address] [place] Neutrophils (Bld) [#/Vol] 6.65 10*3/uL Normal 1.45-7.50 [facility] Comment on above: Order Comment: Speci men Type: BLOOD SPECIMEN Ordering Facility: [facility] Address: [address] [place] [address] Performed By: #### 5 7021-8 #### [facility] CLIA [id number] [address] [place] [address] [place] Neutrophils/100 WBC (Bld) 66.7 % Normal [facility] Comment on above: Order Comment: Speci men Type: BLOOD SPECIMEN Ordering Facility: [facility] Address: [address] [place] [address] Performed By: #### 5 7021-8 #### [facility] CLIA [id number] [address] [place] [address] [place] Nucleated RBC (Bld) [#/Vol] 0.03 10*3/uL High <0.01 [facility] Comment on above: Order Comment: Speci men Type: BLOOD SPECIMEN Ordering Facility: [facility] Address: [address] [place] [address] Performed By: #### 5 7021-8 #### [id number] [address] [place] [address] [place] Nucleated RBC/100 WBC (Bld) [Ratio] 0.3 /100 WBC Normal [facility] Comment on above: Order Comment: Speci men Type: BLOOD SPECIMEN Ordering Facility: [facility] Address: [address] [place] [address] Performed By: #### 5 7021-8 #### [id number] [address] [place] [address] [place] Platelet mean volume (Bld) [Entitic vol] 11.4 fL Normal 9.0-12.7 [facility] Comment on above: Order Comment: Speci men Type: BLOOD SPECIMEN Ordering Facility: [facility] Address: [address] [place] [address] Performed By: #### 5 7021-8 #### [id number] [address] [place] [address] [place] Platelets (Bld) [#/Vol] 488 10*3/uL High 150-400 [facility] Comment on above: Order Comment: Speci men Type: BLOOD SPECIMEN Ordering Facility: [facility] Address: [address] [place] [address] Performed By: #### 5 7021-8 #### [facility] CLIA [id number] [address] [place] [address] [place] RBC (Bld) [#/Vol] 3.82 10*6/uL Low 4.20-6.00 [facility] Comment on above: Order Comment: Speci men Type: BLOOD SPECIMEN Ordering Facility: [facility] Address: [address] [place], [place] [address] Performed By: #### 5 7021-8 #### [facility] CLIA [id number] [address] [place] [address] [place] WBC (Bld) [#/Vol] 9.97 10*3/uL Normal 3.70-11.00 [facility] Comment on above: Order Comment: Speci men Type: BLOOD SPECIMEN Ordering Facility: [facility] Address: [address] [place], [place] [address] Performed By: #### 5 7021-8 #### [facility] CLIA [id number] [address] [place] [address] [place] [facility] CNOVSPon 01-25-2025 CNOVSP Visit (SP) Office (HEMALANA) KSENIA GALLARDO ([id number]) 1935 M Date Time Provider Department 01/25/25 [...] Efra Neville DO Referring Provider: EFRA NEVILLE [[id number]] Allergies As of Date: 01/25/2025 (No Known [...] Service: OFFICE/OUTPATIENT ESTABLISHED MOD MDM 30 MIN [56999] Additional E/M codes: VISIT CPLX INHERENT EANDM ASSOC WITH MED * Follow-up and Disposition History for Encounter Date Provider Department Center 01/25/2025 [id number] NEVILLE HEMAWS [place] Prescriptions as of 01/31/2025 - hydroxyurea [...] Encounter Status:Closed by EFRA NEVILLE on 01/31/25 Normal [facility] CNPMaxine 11-22-2024 CNP Telephone (HEMAWS) KSENIA GALLARDO ([id number]) 1935 M Date Time Provider Department 11/22/24 EFRA NEVILLE HEMAWS During your visit today, we recorded the following information about you: Efra Neville, DO 11/22/2024 12:16 PM Signed Blood counts are [...] Status:Closed by ASHLEY PINEDA on 11/23/24 Normal [facility] CBC W Auto Differential pane l (Bld)on 11-16-2024 Basophils (Bld) [#/Vol] 0.04 10*3/uL Normal <0.11 [facility] Comment on above: Order Comment: Speci men Type: BLOOD SPECIMEN Ordering Facility: [facility] Address: [address] [place] [address] Performed By: #### 5 7021-8 #### [facility] CLIA [id number] [address] [place] [address] [place] Basophils/100 WBC (Bld) 0.6 % Normal [facility] Comment on above: Order Comment: Speci men Type: BLOOD SPECIMEN Ordering Facility: [facility] Address: [address] [place] [address] Performed By: #### 5 7021-8 #### [facility] CLIA [id number] [address] [place] [address] [place] Differential cell count method Nom (Bld) Auto Normal [facility] Comment on above: Order Comment: Speci men Type: BLOOD SPECIMEN Ordering Facility: [facility] Address: [address] [place] [address] Performed By: #### 5 7021-8 #### [facility] CLIA [id number] [address] [place] [address] [place] Eosinophils (Bld) [#/Vol] 0.18 10*3/uL Normal <0.46 [facility] Comment on above: Order Comment: Speci men Type: BLOOD SPECIMEN Ordering Facility: [facility] Address: [address] [place] [address] Performed By: #### 5 7021-8 #### [facility] CLIA [id number] [address] [place] [address] [place] Eosinophils/100 WBC (Bld) 2.6 % Normal [facility] Comment on above: Order Comment: Speci men Type: BLOOD SPECIMEN Ordering Facility: [facility] Address: [address] [place] [address] Performed By: #### 5 7021-8 #### [facility] CLIA [id number] [address] [place] [address] [place] Erythrocyte distribution width (RBC) [Ratio] 26.1 % High 11.5-15.0 [facility] Comment on above: Order Comment: Speci men Type: BLOOD SPECIMEN Ordering Facility: [facility] Address: [address] [place] [address] Performed By: #### 5 7021-8 #### [facility] CLIA [id number] [address] [place] [address] [place] Hematocrit (Bld) [Volume fraction] 34.5 % Low 39.0-51.0 [facility] Comment on above: Order Comment: Speci men Type: BLOOD SPECIMEN Ordering Facility: [facility] Address: [address] [place] [address] Performed By: #### 5 7021-8 #### [facility] CLIA [id number] [address] [place] [address] [place] Hemoglobin (Bld) [Mass/Vol] 10.7 g/dL Low 13.0-17.0 [facility] Comment on above: Order Comment: Speci men Type: BLOOD SPECIMEN Ordering Facility: [facility] Address: [address] [place] [address] Performed By: #### 5 7021-8 #### [facility] CLIA [id number] [address] [place] [address] [place] Immature granulocytes (Bld) [#/Vol] 0.04 10*3/uL Normal <0.10 [facility] Comment on above: Order Comment: Speci men Type: BLOOD SPECIMEN Ordering Facility: [facility] Address: [address] [place] [address] Performed By: #### 5 7021-8 #### [facility] CLIA [id number] [address] [place] [address] [place] Immature granulocytes/100 WBC (Bld) 0.6 % Normal [facility] Comment on above: Order Comment: Speci men Type: BLOOD SPECIMEN Ordering Facility: [facility] Address: [address] [place] [address] Performed By: #### 5 7021-8 #### [facility] CLIA [id number] [address] [place] [address] [place] Lymphocytes (Bld) [#/Vol] 1.83 10*3/uL Normal 1.00-4.00 [facility] Comment on above: Order Comment: Speci men Type: BLOOD SPECIMEN Ordering Facility: [facility] Address: [address] [place] [address] Performed By: #### 5 7021-8 #### [facility] CLIA [id number] [address] [place] [address] [place] Lymphocytes/100 WBC (Bld) 26.6 % Normal [facility] Comment on above: Order Comment: Speci men Type: BLOOD SPECIMEN Ordering Facility: [facility] Address: [address] [place] [address] Performed By: #### 5 7021-8 #### [facility] CLIA [id number] [address] [place] [address] [place] MCH (RBC) [Entitic mass] 29.4 pg Normal 26.0-34.0 [facility] Comment on above: Order Comment: Speci men Type: BLOOD SPECIMEN Ordering Facility: [facility] Address: [address] [place] [address] Performed By: #### 5 7021-8 #### [facility] CLIA [id number] [address] [place] [address] [place] MCHC (RBC) [Mass/Vol] 31.0 g/dL Normal 30.5-36.0 [facility] Comment on above: Order Comment: Speci men Type: BLOOD SPECIMEN Ordering Facility: [facility] Address: [address] [place] [address] Performed By: #### 5 7021-8 #### [id number] [address] [place] [address] [place] MCV (RBC) [Entitic vol] 94.8 fL Normal 80.0-100.0 [facility] Comment on above: Order Comment: Speci men Type: BLOOD SPECIMEN Ordering Facility: [facility] Address: [address] [place] [address] Performed By: #### 5 7021-8 #### [facility] CLIA [id number] [address] [place] [address] [place] Monocytes (Bld) [#/Vol] 0.36 10*3/uL Normal <0.87 [facility] Comment on above: Order Comment: Speci men Type: BLOOD SPECIMEN Ordering Facility: [facility] Address: [address] [place] [address] Performed By: #### 5 7021-8 #### [facility] [id number] [address] [place] [address] [place] Monocytes/100 WBC (Bld) 5.2 % Normal [facility] Comment on above: Order Comment: Speci men Type: BLOOD SPECIMEN Ordering Facility: [facility] Address: [address] [place] [address] Performed By: #### 5 7021-8 #### [facility] CLIA [id number] [address] [place] [address] [place] Neutrophils (Bld) [#/Vol] 4.44 10*3/uL Normal 1.45-7.50 [facility] Comment on above: Order Comment: Speci men Type: BLOOD SPECIMEN Ordering Facility: [facility] Address: [address] [place] [address] Performed By: #### 5 7021-8 #### [facility] CLIA [id number] [address] [place] [address] [place] Neutrophils/100 WBC (Bld) 64.4 % Normal [facility] Comment on above: Order Comment: Speci men Type: BLOOD SPECIMEN Ordering Facility: [facility] Address: [address] [place] [address] Performed By: #### 5 7021-8 #### [facility] CLIA [id number] [address] [place] [address] [place] Nucleated RBC (Bld) [#/Vol] 10*3/uL Normal <0.01 [facility] Comment on above: Order Comment: Speci men Type: BLOOD SPECIMEN Ordering Facility: [facility] Address: [address] [place] [address] Performed By: #### 5 7021-8 #### [facility] CLIA [id number] [address] [place] [address] [place] Nucleated RBC/100 WBC (Bld) [Ratio] 0.0 /100 WBC Normal [facility] Comment on above: Order Comment: Speci men Type: BLOOD SPECIMEN Ordering Facility: [facility] Address: [address] [place] [address] Performed By: #### 5 7021-8 #### [facility] CLIA [id number] [address] [place] [address] [place] Platelet mean volume (Bld) [Entitic vol] 10.7 fL Normal 9.0-12.7 [facility] Comment on above: Order Comment: Speci men Type: BLOOD SPECIMEN Ordering Facility: [facility] Address: [address] [place], [place] [address] Performed By: #### 5 7021-8 #### [facility] CLIA [id number] [address] [place] [address] [place] Platelets (Bld) [#/Vol] 424 10*3/uL High 150-400 [facility] Comment on above: Order Comment: Speci men Type: BLOOD SPECIMEN Ordering Facility: [facility] Address: [address] [place], [place] [address] Performed By: #### 5 7021-8 #### [facility] CLIA [id number] [address] [place] [address] [place] RBC (Bld) [#/Vol] 3.64 10*6/uL Low 4.20-6.00 [facility] Comment on above: Order Comment: Speci men Type: BLOOD SPECIMEN Ordering Facility: [facility] Address: [address] [place] [address] Performed By: #### 5 7021-8 #### [facility] CLIA [id number] [address] [place] [address] [place] WBC (Bld) [#/Vol] 6.89 10*3/uL Normal 3.70-11.00 [facility] Comment on above: Order Comment: Speci men Type: BLOOD SPECIMEN Ordering Facility: [facility] Address: [address] [place] [address] Performed By: #### 5 7021-8 #### [facility] CLIA [id number] [address] [place] [address] [place] CBC W Auto Differential pane l (Bld)on 09-16-2024 Basophils (Bld) [#/Vol] 0.06 10*3/uL Normal <0.11 [facility] Comment on above: Order Comment: Speci men Type: BLOOD SPECIMEN Ordering Facility: [facility] Address: [address] [place] [address] Performed By: #### 5 7021-8 #### [facility] CLIA [id number] [address] [place] [address] [place] Basophils/100 WBC (Bld) 0.8 % Normal [facility] Comment on above: Order Comment: Speci men Type: BLOOD SPECIMEN Ordering Facility: [facility] Address: [address] [place] [address] Performed By: #### 5 7021-8 #### [facility] CLIA [id number] [address] [place] [address] [place] Differential cell count method Nom (Bld) Auto Normal [facility] Comment on above: Order Comment: Speci men Type: BLOOD SPECIMEN Ordering Facility: [facility] Address: [address] [place] [address] Performed By: #### 5 7021-8 #### [facility] CLIA [id number] [address] [place] [address] [place] Eosinophils (Bld) [#/Vol] 0.13 10*3/uL Normal <0.46 [facility] Comment on above: Order Comment: Speci men Type: BLOOD SPECIMEN Ordering Facility: [facility] Address: [address] [place] [address] Performed By: #### 5 7021-8 #### [facility] CLIA [id number] [address] [place] [address] [place] Eosinophils/100 WBC (Bld) 1.7 % Normal [facility] Comment on above: Order Comment: Speci men Type: BLOOD SPECIMEN [facility]: [facility] [facility] Address: [address] [place] [address] Performed By: #### 5 7021-8 #### [facility] CLIA [id number] [address] [place] [address] [place] Erythrocyte distribution width (RBC) [Ratio] 25.2 % High 11.5-15.0 [facility] Comment on above: Order Comment: Speci men Type: BLOOD SPECIMEN Ordering Facility: [facility] Address: [address] [place] [address] Performed By: #### 5 7021-8 #### [id number] [address] [place] [address] [place] Hematocrit (Bld) [Volume fraction] 38.1 % Low 39.0-51.0 [facility] Comment on above: Order Comment: Speci men Type: BLOOD SPECIMEN Ordering Facility: [facility] Address: [address] [place] [address] Performed By: #### 5 7021-8 #### [id number] [address] [place] [address] [place] Hemoglobin (Bld) [Mass/Vol] 11.7 g/dL Low 13.0-17.0 [facility] Comment on above: Order Comment: Speci men Type: BLOOD SPECIMEN Ordering Facility: [facility] Address: [address] [place] [address] Performed By: #### 5 7021-8 #### [facility] [id number] [address] [place] [address] [place] Immature granulocytes (Bld) [#/Vol] 0.03 10*3/uL Normal <0.10 [facility] Comment on above: Order Comment: Speci men Type: BLOOD SPECIMEN Ordering Facility: [facility] Address: [address] [place] [address] Performed By: #### 5 7021-8 #### [facility] CLIA [id number] [address] [place] [address] [place] [facility] Immature granulocytes/100 WBC (Bld) 0.4 % Normal [facility] Comment on above: Order Comment: Speci men Type: BLOOD SPECIMEN Ordering Facility: [facility] Address: [address] [place] [address] Performed By: #### 5 7021-8 #### [facility] CLIA [id number] [address] [place] [address] [place] Lymphocytes (Bld) [#/Vol] 1.80 10*3/uL Normal 1.00-4.00 [facility] Comment on above: Order Comment: Speci men Type: BLOOD SPECIMEN Ordering Facility: [facility] Address: [address] [place] [address] Performed By: #### 5 7021-8 #### [facility] [id number] [address] [place] [address] [place] Lymphocytes/100 WBC (Bld) 23.3 % Normal [facility] Comment on above: Order Comment: Speci men Type: BLOOD SPECIMEN Ordering Facility: [facility] Address: [address] [place] [address] Performed By: #### 5 7021-8 #### [facility] [id number] [address] [place] [address] [place] MCH (RBC) [Entitic mass] 29.3 pg Normal 26.0-34.0 [facility] Comment on above: Order Comment: Speci men Type: BLOOD SPECIMEN Ordering Facility: [facility] Address: [address] [place] [address] Performed By: #### 5 7021-8 #### [facility] CLIA [id number] [address] [place] [address] [place] MCHC (RBC) [Mass/Vol] 30.7 g/dL Normal 30.5-36.0 [facility] Comment on above: Order Comment: Speci men Type: BLOOD SPECIMEN Ordering Facility: [facility] Address: [address] [place] [address] Performed By: #### 5 7021-8 #### [facility] CLIA [id number] [address] [place] [address] [place] MCV (RBC) [Entitic vol] 95.5 fL Normal 80.0-100.0 [facility] Comment on above: Order Comment: Speci men Type: BLOOD SPECIMEN Ordering Facility: [facility] Address: [address] [place] [address] Performed By: #### 5 7021-8 #### [facility] CLIA [id number] [address] [place] [address] [place] Monocytes (Bld) [#/Vol] 0.46 10*3/uL Normal <0.87 [facility] Comment on above: Order Comment: Speci men Type: BLOOD SPECIMEN Ordering Facility: [facility] Address: [address] [place] [address] Performed By: #### 5 7021-8 #### [facility] CLIA [id number] [address] [place] [address] [place] Monocytes/100 WBC (Bld) 6.0 % Normal [facility] Comment on above: Order Comment: Speci men Type: BLOOD SPECIMEN Ordering Facility: [facility] Address: [address] [place] [address] Performed By: #### 5 7021-8 #### [facility] CLIA [id number] [address] [place] [address] [place] Neutrophils (Bld) [#/Vol] 5.23 10*3/uL Normal 1.45-7.50 [facility] Comment on above: Order Comment: Speci men Type: BLOOD SPECIMEN Ordering Facility: [facility] Address: [address] [place] [address] Performed By: #### 5 7021-8 #### [facility] CLIA [id number] [address] [place] [address] [place] Neutrophils/100 WBC (Bld) 67.8 % Normal [facility] Comment on above: Order Comment: Speci men Type: BLOOD SPECIMEN Ordering Facility: [facility] Address: [address] [place] [id number] Performed By: #### 5 7021-8 #### [facility] CLIA [id number] [address] [place] [address] [place] Nucleated RBC (Bld) [#/Vol] 0.02 10*3/uL High <0.01 [facility] Comment on above: Order Comment: Speci men Type: BLOOD SPECIMEN Ordering Facility: [facility] Address: [address] [place] [address] Performed By: #### 5 7021-8 #### [facility] CLIA [id number] [address] [place] [address] [place] Nucleated RBC/100 WBC (Bld) [Ratio] 0.3 /100 WBC Normal [facility] Comment on above: Order Comment: Speci men Type: BLOOD SPECIMEN Ordering Facility: [facility] Address: [address] [place] [address] Performed By: #### 5 7021-8 #### [facility] CLIA [id number] [address] [place] [address] [place] Platelet mean volume (Bld) [Entitic vol] 10.5 fL Normal 9.0-12.7 [facility] Comment on above: Order Comment: Speci men Type: BLOOD SPECIMEN Ordering Facility: [facility] Address: [address] [place] [address] Performed By: #### 5 7021-8 #### [facility] CLIA [id number] [address] [place] [address] [place] Platelets (Bld) [#/Vol] 398 10*3/uL Normal 150-400 [facility] Comment on above: Order Comment: Speci men Type: BLOOD SPECIMEN Ordering Facility: [facility] Address: [address] [place] [address] Performed By: #### 5 7021-8 #### [facility] CLIA [id number] [address] [place] [address] [place] RBC (Bld) [#/Vol] 3.99 10*6/uL Low 4.20-6.00 [facility] Comment on above: Order Comment: Speci men Type: BLOOD SPECIMEN Ordering Facility: [facility] Address: [address] [place] [address] Performed By: #### 5 7021-8 #### [facility] CLIA [id number] [address] [place] [address] [place] WBC (Bld) [#/Vol] 7.71 10*3/uL Normal 3.70-11.00 [facility] Comment on above: Order Comment: Speci men Type: BLOOD SPECIMEN Ordering Facility: [facility] Address: [address] [place] [address] Performed By: #### 5 7021-8 #### [facility] [id number] [address] [place] [address] [place] UA DIP, URINE (POC)on 2023 BILIRUBIN UA (POCT) Negative Negative [facility] CLARITY UA (POCT) Slightly Cloudy Cl [facility] COLOR UA (POCT) Dark yellow [facility] GLUCOSE UA (POCT) Negative Negative mg/dL [facility] Hemoglobin Ql (U) Negative Negative [facility] Interpretation and review of laboratory results Abnormal [facility] KETONE UA (POCT) Negative Negative mg/dL [facility] LEUKOCYTES UA (POCT) Trace Abnormal Negative [facility] NITRITE UA (POCT) Negative Negative [facility] PH UA (POCT) 6.0 4.5 - 8.0 [facility] Protein Ql (U) 30 mg/dL Abnormal Negative [facility] SPECIFIC GRAVITY UA (POCT) 1.025 1.005 - 1.030 [facility] UROBILINOGEN UA (POCT) 0.2 Mary l E.U./dL [facility] Location:[facility], [address] [facility], [place], [place], [id number] [place] [address] POINT OF CARE [facility] BONE MARROW BIOPSYon 024 Juliet Ruiz APRN.CNP 06/04/2024 2:17 PM BONE MARROW BIOPSY Date/Start Time: 06/04/2024 1:40 PM Date/Stop Time: 06/04/2024 1:57 PM Performed by: Juliet Ruiz APRN.MAXIMUS Authorized by: Juliet Ruiz APRN.CNP Where was Patient When this Procedure was Performed [facility] Informed Consent Consent Obtained: Written [place] Protocol A moment to CARE was completed. [...] Plan of Care Visit completed when applicable [facility] FOLATE, SERUMon 03-26-2024 Folate [Mass/Vol] 8.4 ng/mL 4.7 - PINF ng/mL [facility] No Panel Informationon 03-26 Interpretation and review of laboratory results Normal [facility] VITAMIN B12on 03-26-2024 Cobalamin (Vitamin B12) [Mass/Vol] 391 pg/mL 232 - 1245 pg/mL [facility] CBC W Auto Differential pane l (Bld)on 03-25-2024 Basophils (Bld) [#/Vol] 0.11 10*3/uL High [facility] Basophils/100 WBC (Bld) 1.2 % [facility] Differential cell count method Nom (Bld) Auto [facility] Eosinophils (Bld) [#/Vol] 0.15 10*3/uL [facility] Eosinophils/100 WBC (Bld) 1.7 % [facility] Erythrocyte distribution width (RBC) [Ratio] 26.8 % High 11.5 - 15.0 % [facility] Hematocrit (Bld) [Volume fraction] 33.8 % Low 39.0 - 51.0 % [facility] Hemoglobin (Bld) [Mass/Vol] 10.2 g/dL Low 13.0 - 17.0 g/dL [facility] Immature granulocytes (Bld) [#/Vol] 0.04 10*3/uL [facility] Immature granulocytes/100 WBC (Bld) 0.4 % [facility] Interpretation and review of laboratory results Abnormal [facility] Lymphocytes (Bld) [#/Vol] 1.86 10*3/uL [facility] Lymphocytes/100 WBC (Bld) 20.8 % [facility] MCH (RBC) [Entitic mass] 30.7 pg 26.0 - 34.0 pg [facility] MCHC (RBC) [Mass/Vol] 30.2 g/dL Low 30.5 - 36.0 g/dL [facility] MCV (RBC) [Entitic vol] 101.8 fL High 80.0 - 100.0 fL [facility] Monocytes (Bld) [#/Vol] 0.47 10*3/uL [facility] Monocytes/100 WBC (Bld) 5.3 % [facility] Neutrophils (Bld) [#/Vol] 6.30 10*3/uL [facility] Neutrophils/100 WBC (Bld) 70.6 % [facility] Nucleated RBC (Bld) [#/Vol] 0.04 10*3/uL High NINF [facility] Nucleated RBC/100 WBC (Bld) [Ratio] 0.4 % /100 WBC [facility] Platelet mean volume (Bld) [Entitic vol] 11.6 fL 9.0 - 12.7 fL [facility] Platelets (Bld) [#/Vol] 513 10*3/uL High [facility] RBC (Bld) [#/Vol] 3.32 10*6/uL Low 4.20 - 6.0 0 m/uL [facility] WBC (Bld) [#/Vol] 8.93 10*3/uL [facility] Comprehensive metabolic 2000 panelOrdered By: Anne Marie Nieto on 03-25-2024 Albumin [Mass/Vol] 4.6 g/dL 3.9 - 4.9 g/dL [facility] ALP [Catalytic activity/Vol] 58 U/L 38 - 113 U/L [facility] ALT [Catalytic activity/Vol] 14 U/L 10 - 54 U/L [facility] Anion gap [Moles/Vol] 7 mmol/L Low 9 - 18 mmol/L [facility] AST [Catalytic activity/Vol] 19 U/L 14 - 40 U/L [facility] Bilirubin [Mass/Vol] 0.7 mg/dL 0.2 - 1 .3 mg/dL [facility] Calcium [Mass/Vol] 9.9 mg/dL 8.5 - 10. 2 mg/dL [facility] Chloride [Moles/Vol] 108 mmol/L High 97 - 10 5 mmol/L [facility] CO2 [Moles/Vol] 26 mmol/L 22 - 30 mmol/L [facility] Creatinine [Mass/Vol] 0.92 mg/dL 0.73 - 1.22 mg/dL [facility] GFR/1.73 sq M.predicted among non-blacks MDRD (S/P/Bld) [Vol rate/Area] 80 mL/min/{1.73_m2} - PINF [facility] Comment on above: Estimated Glomerular Filtration Rate [...] [Mass/Vol] 86 mg/dL 74 - 99 mg/dL [facility] Comment on above: The [place] [employer] Association (ADA) provides guidance for [...] Standards of Medical Care in Diabetes 2016, [place] [employer]. Diabetes Care. 2016.39(Suppl 1). Interpretation and review of laboratory results Abnormal [facility] Potassium [Moles/Vol] 4.1 mmol/L 3.7 - 5.1 mmol/L [facility] Protein [Mass/Vol] 7.3 g/dL 6.3 - 8.0 g/dL [facility] Sodium [Moles/Vol] 141 mmol/L 136 - 144 mmol/L [facility] Urea nitrogen [Mass/Vol] 14 mg/dL 9 - 24 mg/dL [facility] FERRITINon 03-25-2024 Ferritin [Mass/Vol] 657.0 ng/mL High 30.3 - 5 65.7 ng/mL [facility] Free T4 [Mass/Vol]on 024 Interpretation and review of laboratory results Normal [facility] Iron and Iron binding capaci ty panelon 03-25-2024 Interpretation and review of laboratory results Normal [facility] Iron [Mass/Vol] 73 ug/dL 41 - 186 ug/dL [facility] Iron binding capacity [Mass/Vol] 256 ug/dL 232 - 386 ug/dL [facility] Iron/TIBC [Molar ratio] 28.5 % 15.0 - 57.0 % [facility] No Panel Informationon 03-25 Interpretation and review of laboratory results Abnormal [facility] T4 FREE/FREE THYROXINEon Free T4 [Mass/Vol] 1.1 ng/dL 0.9 - 1.7 ng/dL [facility] THYROID STIMULATING HORMONEo n 03-25-2024 TSH Qn 5.420 m[IU]/L High [facility] CBC W Auto Differential pane l (Bld)on 10-14-2023 Basophils (Bld) [#/Vol] 0.04 10*3/uL <0.11 k/uL [facility] Basophils/100 WBC (Bld) 0.9 % [facility] Differential cell count method Nom (Bld) Auto [facility] Eosinophils (Bld) [#/Vol] 0.07 10*3/uL <0.46 k/uL [facility] Eosinophils/100 WBC (Bld) 1.5 % [facility] Erythrocyte distribution width (RBC) [Ratio] 27.5 % High 11.5 - 15.0 % [facility] Hematocrit (Bld) [Volume fraction] 30.6 % Low 39.0 - 51.0 % [facility] Hemoglobin (Bld) [Mass/Vol] 9.5 g/dL Low 13.0 - 17.0 g/dL [facility] Immature granulocytes (Bld) [#/Vol] <0.10 k/uL [facility] Immature granulocytes/100 WBC (Bld) 0.2 % [facility] Lymphocytes (Bld) [#/Vol] 1.71 10*3/uL 1.00 - 4.00 k/uL [facility] Lymphocytes/100 WBC (Bld) 36.5 % [facility] MCH (RBC) [Entitic mass] 31.5 pg 26.0 - 34.0 pg [facility] MCHC (RBC) [Mass/Vol] 31.0 g/dL 30.5 - 36.0 g/dL [facility] MCV (RBC) [Entitic vol] 101.3 fL High 80.0 - 100.0 fL [facility] Monocytes (Bld) [#/Vol] 0.30 10*3/uL <0.87 k/uL [facility] Monocytes/100 WBC (Bld) 6.4 % [facility] Neutrophils (Bld) [#/Vol] 2.55 10*3/uL 1.45 - 7.50 k/uL [facility] Neutrophils/100 WBC (Bld) 54.5 % [facility] Nucleated RBC (Bld) [#/Vol] 0.03 10*3/uL High <0.01 k/uL [facility] Nucleated RBC/100 WBC (Bld) [Ratio] 0.6 /100 WBC [facility] Platelet mean volume (Bld) [Entitic vol] 11.2 fL 9.0 - 12.7 fL [facility] Platelets (Bld) [#/Vol] 314 10*3/uL 150 - 400 k/uL [facility] RBC (Bld) [#/Vol] 3.02 10*6/uL Low 4.20 - 6.0 0 m/uL [facility] WBC (Bld) [#/Vol] 4.68 10*3/uL 3.70 - 11. 00 k/uL [facility] .GFRon 08-20-2022 GFR >60 Normal [facility] ([place]) Comment on above: Result Comment: GFR Population [...] 15 mL/min/1.73 square meters Performed By: #### Mike LOVETT, BMP #### [address] [address] GFR Non- >60 Normal [facility] ([place]) Comment on above: Result Comment: GFR Population [...] 15 mL/min/1.73 square meters Performed By: #### Mike LOVETT, BMP #### [address] [address] [facility] 08-20-2022 BUN/Creatinine Ratio 20.9 ratio Normal 10.0-22.0 [facility] ([place]) Comment on above: Performed By: #### Mike LOVETT, BMP #### [address] [address] Calcium [Mass/Vol] 9.2 mg/dL Normal 8.7-10.4 [facility] ([place]) Comment on above: Performed By: #### Mike LOVETT, BMP #### [address] [address] Chloride [Moles/Vol] 108 mmol/L Normal 98-110 [facility] ([place] Comment on above: Performed By: #### Mike LOVETT, BMP #### [address] [address] CO2 [Moles/Vol] 31 mmol/L Normal 22-32 [facility] ([place]) Comment on above: Performed By: #### Mike LOVETT, BMP #### [address] [address] Creatinine [Mass/Vol] 0.91 mg/dL Normal 0.60-1.40 [facility] ([place]) Comment on above: Performed By: #### G FR, BMP #### [address] [address] Electrolyte Balance 4.0 mEq/L Normal 4.0-15.0 [facility] ([place]) Comment on above: Performed By: #### G FR, BMP #### [address] [address] Glucose [Mass/Vol] 82 mg/dL Normal 82-115 [facility] ([place] Comment on above: Performed By: #### G FR, BMP #### [address] [address] Potassium [Moles/Vol] 4.4 mmol/L Normal 3.5-5.0 [facility] ([place]) Comment on above: Performed By: #### G FR, BMP #### [address] [address] Sodium [Moles/Vol] 143 mmol/L Normal 136-145 [facility] ([place]) Comment on above: Performed By: #### G FR, BMP #### [address] [address] Urea nitrogen [Mass/Vol] 19.0 mg/dL Normal 8.0-22.0 [facility] ([place]) Comment on above: Performed By: #### G FR, BMP #### [address] [address] Vital Signs Date Time Vital Sign Value Performing Clinician Facility 07-29-2025 10:05040 Body height 182.[address] Ministerio Elias MD Work Phone: [facility] 07-29-2025 10:05-040 Body mass index (BMI) [Ratio] 22.9 kg/m2 Dr. Ministerio Elias MD Work Phone: [facility] 07-29-2025 10:05040 Body weight 76.[address] Ministerio Elias MD Work Phone: [facility] 07-29-2025 10:05-0400 Diastolic blood pressure 84 mm[Hg] Dr. Ministerio Elias MD Work Phone: [facility] 07-29-2025 10:05-0400 Heart rate 100 /min Dr. Ministerio Elias MD Work Phone: [facility] 07-29-2025 10:05-0400 Respiratory rate 18 /min Dr. Ministerio Elias MD Work Phone: [facility] 07-29-2025 10:05-0400 Systolic blood pressure 144 mm[Hg] Dr. Ministerio Elias MD Work Phone: [facility] 07-21-2025 10:49-0400 Body mass index (BMI) [Ratio] 24.66 kg/m2 Juliet Ruiz [employer]HATCH SUPERVISOR Work Phone: [facility] 07-21-2025 10:49-0400 Body temperature 97.5 [degF] Juliet Ruiz [employer] OPERATOR.HATCH SUPERVISOR Work Phone: [facility] 07-21-2025 10:49-0400 Body weight 76.4 kg Juliet Ruiz [employer] OPERATOR.HATCH SUPERVISOR Work Phone: [facility] 07-21-2025 10:49-0400 Diastolic blood pressure 109 mm[Hg] Juliet Ruiz [employer] OPERATOR.HATCH SUPERVISOR Work Phone: [facility] 07-21-2025 10:49-0400 Heart rate 91 /min Juliet Ruiz [employer] OPERATOR.HATCH SUPERVISOR Work Phone: [facility] 07-21-2025 10:49-0400 SaO2% (BldA) [Mass fraction] 98 % Juliet Ruiz [employer] OPERATOR.HATCH SUPERVISOR Work Phone: [facility] 07-21-2025 10:49-0400 Systolic blood pressure 173 mm[Hg] Juliet Ruiz [employer] T[employer] OPERATOR.HATCH SUPERVISOR Work Phone: [facility] 04-21-2025 11:04-0400 Diastolic blood pressure 70 mm[Hg] Juliet Ruiz [employer] T[employer] OPERATOR.HATCH SUPERVISOR Work Phone: [facility] 04-21-2025 11:04-0400 Systolic blood pressure 126 mm[Hg] Juliet Ruiz [employer] T[employer] OPERATOR.HATCH SUPERVISOR Work Phone: [facility] 04-21-2025 10:58-0400 Heart rate 63 /min Juliet Robledoenter [employer] OPERATOR.HATCH SUPERVISOR Work Phone: [facility] 04-21-2025 10:58-0400 Respiratory rate 14 /min Juliet Ruiz [employer] OPERATOR.HATCH SUPERVISOR Work Phone: [facility] 04-21-2025 10:58-0400 SaO2% (BldA) [Mass fraction] 95 % Juliet Ruiz [employer] T[employer] OPERATOR.HATCH SUPERVISOR Work Phone: [facility] 04-21-2025 10:57-0400 Body mass index (BMI) [Ratio] 25.34 kg/m2 Juliet Robledoenter [employer] OPERATOR.HATCH SUPERVISOR Work Phone: [facility] 04-21-2025 10:57-0400 Body weight 78.5 kg Juliet Ruiz [employer] OPERATOR.HATCH SUPERVISOR Work Phone: [facility] 01-25-2025 10:02-0500 Body mass index (BMI) [Ratio] 27.24 kg/m2 Efra Gloriai DO Work Phone: [facility] 01-25-2025 10:02-0500 Body temperature 97.11 [degF] Efra Masci DO Work Phone: [facility] 01-25-2025 10:02-0500 Body weight 84.37 kg Efra Masci DO Work Phone: [facility] 01-25-2025 10:02-0500 Diastolic blood pressure 95 mm[Hg] Efra Masci DO Work Phone: [facility] 01-25-2025 10:02-0500 Heart rate 78 /min Efra Gloriai DO Work Phone: [facility] 01-25-2025 10:02-0500 SaO2% (BldA) [Mass fraction] 98 % Efra Masci DO Work Phone: [facility] 01-25-2025 10:02-0500 Systolic blood pressure 167 mm[Hg] Efra Masci DO Work Phone: [facility] 07-14-2024 15:07-0400 Body mass index (BMI) [Ratio] 26.5 kg/m2 Epifanio Gunderson PA-C Work Phone: [facility] 07-14-2024 15:07-0400 Body temperature 98.1 [degF] Epifanio Gunderson PA-C Work Phone: [facility] 07-14-2024 15:07-0400 Body weight 82.1 kg Epifanio Gunderson PA-C Work Phone: [facility] 07-14-2024 15:07-0400 Diastolic blood pressure 88 mm[Hg] Epifanio Gunderson PA-C Work Phone: [facility] 07-14-2024 15:07-0400 Heart rate 98 /min Epifanio Gunderson PA-C Work Phone: [facility] 07-14-2024 15:07-0400 Respiratory rate 16 /min Epifanio Gunderson PA-C Work Phone: [facility] 07-14-2024 15:07-0400 SaO2% (BldA) [Mass fraction] 98 % Epifanio Gunderson PA-C Work Phone: [facility] 07-14-2024 15:07-0400 Systolic blood pressure 130 mm[Hg] Epifanio Gunderson PA-C Work Phone: [facility] 06-23-2024 11:32-0400 Body mass index (BMI) [Ratio] 26.87 kg/m2 Efra Masci DO Work Phone: [facility] 06-23-2024 11:32-0400 Body temperature 98.1 [degF] Efra Masci DO Work Phone: [facility] 06-23-2024 11:32-0400 Body weight 83.23 kg Efra Masci DO Work Phone: [facility] 06-23-2024 11:32-0400 Diastolic blood pressure 92 mm[Hg] Efra Masci DO Work Phone: [facility] 06-23-2024 11:32-0400 Heart rate 104 /min Efra Masci DO Work Phone: [facility] 06-23-2024 11:32-0400 SaO2% (BldA) [Mass fraction] 100 % Efra Masci DO Work Phone: [facility] 06-23-2024 11:32-0400 Systolic blood pressure 140 mm[Hg] Efra Masci DO Work Phone: [facility] 06-04-2024 14:02-0400 Diastolic blood pressure 89 mm[Hg] [place] Ruiz [employer] OPERATOR.HATCH SUPERVISOR Work Phone: [facility] 06-04-2024 14:02-0400 Heart rate 103 /min [place] Ruiz REMELT PAN TANK OPERATOR.HATCH SUPERVISOR Work Phone: [facility] 06-04-2024 14:02-0400 Systolic blood pressure 152 mm[Hg] Juliet Ruiz REMELT PAN TANK OPERATOR.HATCH SUPERVISOR Work Phone: [facility] 06-04-2024 13:41-0400 Body temperature 97.9 [degF] Juliet Ruiz REMELT PAN TANK OPERATOR.HATCH SUPERVISOR Work Phone: [facility] 06-04-2024 13:41-0400 Respiratory rate 12 /min Juliet Ruiz REMELT PAN TANK OPERATOR.HATCH SUPERVISOR Work Phone: [facility] 06-04-2024 13:41-0400 SaO2% (BldA) [Mass fraction] 95 % Juliet Ruiz REMELT PAN TANK OPERATOR.HATCH SUPERVISOR Work Phone: [facility] 05-15-2024 10:21-0400 Body mass index (BMI) [Ratio] 26.94 kg/m2 Efra Masci DO Work Phone: [facility] 05-15-2024 10:21-0400 Body temperature 97.7 [degF] Efra Masci DO Work Phone: [facility] 05-15-2024 10:21-0400 Body weight 83.46 kg Efra Masci DO Work Phone: [facility] 05-15-2024 10:21-0400 Diastolic blood pressure 91 mm[Hg] Efra Masci DO Work Phone: [facility] 05-15-2024 10:21-0400 Heart rate 100 /min Efra Masci DO Work Phone: [facility] 05-15-2024 10:21-0400 SaO2% (BldA) [Mass fraction] 97 % Efra Masci DO Work Phone: [facility] 05-15-2024 10:21-0400 Systolic blood pressure 152 mm[Hg] Efra Masci DO Work Phone: [facility] 03-25-2024 10:34-0400 Body mass index (BMI) [Ratio] 27.16 kg/m2 Efra Masci DO Work Phone: [facility] 03-25-2024 10:34-0400 Body temperature 98.1 [degF] Efra Masci DO Work Phone: [facility] 03-25-2024 10:34-0400 Body weight 84.14 kg Efra Masci DO Work Phone: [facility] 03-25-2024 10:34-0400 Diastolic blood pressure 88 mm[Hg] Efra Masci DO Work Phone: [facility] 03-25-2024 10:34-0400 Heart rate 76 /min Efra Masci DO Work Phone: [facility] 03-25-2024 10:34-0400 SaO2% (BldA) [Mass fraction] 99 % Efra Masci DO Work Phone: [facility] 03-25-2024 10:34-0400 Systolic blood pressure 144 mm[Hg] Efra Masci DO Work Phone: [facility] 02-12-2024 11:00-0400 Body temperature 97.81 [degF] Juliet Ruiz APRN.HATCH SUPERVISOR Work Phone: [facility] 02-12-2024 11:00-0400 Body weight 82.83 kg Juliet Robledoenter REMELT PAN TANK OPERATOR.HATCH SUPERVISOR Work Phone: [facility] 02-12-2024 11:00-0400 Diastolic blood pressure 95 mm[Hg] Juliet Ruiz REMELT PAN TANK OPERATOR.HATCH SUPERVISOR Work Phone: [facility] 02-12-2024 11:00-0400 Heart rate 73 /min Juliet Ruiz REMELT PAN TANK OPERATOR.HATCH SUPERVISOR Work Phone: [facility] 02-12-2024 11:00-0400 SaO2% (BldA) [Mass fraction] 99 % Juliet Ruiz REMELT PAN TANK OPERATOR.HATCH SUPERVISOR Work Phone: [facility] 02-12-2024 11:00-0400 Systolic blood pressure 147 mm[Hg] Juliet Ruiz REMELT PAN TANK OPERATOR.HATCH SUPERVISOR Work Phone: [facility] 11-07-2022 11:15-0500 Diastolic blood pressure 90 mm[Hg] Efra Masci DO Work Phone: [facility] 11-07-2022 11:15-0500 Systolic blood pressure 141 mm[Hg] Efra Masci DO Work Phone: [facility] 11-07-2022 11:11-0500 Body height 178 cm Efra Masci DO Work Phone: [facility] 11-07-2022 11:11-0500 Body temperature 97.5 [degF] Efra Masci DO Work Phone: [facility] 11-07-2022 11:11-0500 Body weight 82.1 kg Efra Masci DO Work Phone: [facility] 11-07-2022 11:11-0500 Heart rate 63 /min Efra Masci DO Work Phone: [facility] 11-07-2022 11:11-0500 Respiratory rate 18 /min Efra Masci DO Work Phone: [facility] 11-07-2022 11:11-0500 SaO2% (BldA) [Mass fraction] 98 % Efra Masci DO Work Phone: [facility] 05-09-2022 10:56-0400 Body temperature 98.1 [degF] Efra Castroi DO Work Phone: [facility] 05-09-2022 10:56-0400 Body weight 80.74 kg Efra Castroi DO Work Phone: [facility] 05-09-2022 10:56-0400 Diastolic blood pressure 95 mm[Hg] Efra Castroi DO Work Phone: [facility] 05-09-2022 10:56-0400 Heart rate 72 /min Efra Castroi DO Work Phone: [facility] 05-09-2022 10:56-0400 SaO2% (BldA) [Mass fraction] 98 % Efra Castroi DO Work Phone: [facility] 05-09-2022 10:56-0400 Systolic blood pressure 182 mm[Hg] Efra Castroi DO Work Phone: [facility] Encounters Encounter Date Encounter Type Care Provider Facility Start: 09-10-2025 Emergency department patient visit Cirilo Polo Facility:[facility] Start: 08-26-2025 ambulatory No Primary Car e Physician Facility:[facility] Start: 08-26-2025 End: 08-26-2025 ambulatory Jon Woodruff Facility:[facility] Start: 08-20-2025 End: 08-20-2025 ambulatory MINISTERIO ELIAS Facility:[facility] Start: 08-16-2025 End: 08-16-2025 ambulatory MINISTERIO ELIAS [facility] Start: 08-05-2025 Non-patient / Non-visit Viv linares NP-C -[facility] Work Phone: Start: 08-05-2025 ambulatory Viv Allred NP Facili ty:[facility] Start: 08-05-2025 Non-patient / Non-visit Dr. Prince swann MD -[facility] Start: 08-05-2025 End: 08-05-[address] Ministerio Elias MD Work Phone: -[facility] Start: 08-05-2025 End: 08-05-[address] Jon Woodruff MD -[facility] Work Phone: Start: 08-05-2025 End: 08-05-2025 ambulatory Jon Woodruff Facility:[facility] Start: 07-29-2025 End: 07-29-[address] Jon Woodruff MD -[facility] Work Phone: Start: 07-29-2025 End: 07-29-[address] Ministerio Elias MD Work Phone: -[facility] Start: 07-21-2025 End: 07-21-2025 Patient encounter procedure Juliet Ruiz APRN.HATCH SUPERVISOR Work Phone: Hematology/Oncology Start: 07-21-2025 End: 07-21-2025 ambulatory Juliet Ruiz APRN.HATCH SUPERVISOR Work Phone: Hematology/Oncology Comment on above: Essential thrombocyt osis (Primary Dx); MDS (myelodysplastic syndrome), low grade (HCC) Start: 07-12-2025 End: 07-12-2025 ambulatory MINISTERIO RODRIGES [facility] Start: 07-05-2025 End: 07-05-2025 ambulatory LYNNETTE Bee [facility] Start: 05-18-2025 End: 05-18-2025 Refill Efra Neville DO Work Phone: Hematology/Oncology Comment on above: Refill Request; Open ed In Error Start: 05-17-2025 End: 07-17-2025 Follow-up encounter Efra Neville DO Work Phone: Hematology/Oncology Start: 05-17-2025 End: 05-17-2025 ambulatory MINISTERIO ELIAS Facility:[facility] Start: 04-21-2025 End: 04-21-2025 Telephone encounter Efra Neville DO Work Phone: Hematology/Oncology Comment on above: Results Start: 04-21-2025 End: 04-21-2025 Patient encounter procedure Juliet Ruiz APRN.HATCH SUPERVISOR Work Phone: Hematology/Oncology Start: 04-21-2025 End: 04-21-2025 ambulatory Juliet Ruiz REMELT PAN TANK OPERATORSonaliHATCH SUPERVISOR Work Phone: Hematology/Oncology Comment on above: Essential thrombocyt osis (Primary Dx); MDS (myelodysplastic syndrome), low grade (HCC); Anemia, unspecified type Start: 03-24-2025 End: 03-29-2025 Follow-up encounter Efra Neville DO Work Phone: [place] [facility] Start: 03-24-2025 End: 03-24-2025 ambulatory [facility] Facility:[facility] Start: 02-24-2025 End: 02-24-2025 [facility] Start: 02-24-2025 End: 02-24-2025 Emergency department patient visit MINISTERIO RODRIGES [facility] Start: 01-25-2025 End: 01-25-2025 Office outpatient visit 25 minutes Efra Neville DO Work Phone: Hematology/Oncology Comment on above: Essential thrombocyt osis (Primary Dx); MDS (myelodysplastic syndrome), low grade (HCC); Anemia, unspecified type Start: 01-25-2025 End: 01-25-2025 ambulatory [facility] Facility:[facility] Start: 11-22-2024 End: 11-23-2024 Telephone encounter Efra Neville DO Work Phone: Hematology/Oncology Comment on above: Results Start: 11-16-2024 End: 11-16-2024 ambulatory EFRA NEVILLE Facility:[facility] Start: 11-06-2024 End: 11-06-2024 Refill Efra Neville DO Work Phone: Hematology/Oncology Comment on above: Refill Request Start: 09-16-2024 End: 09-16-2024 ambulatory EFRA NEVILLE Facility:[facility] Start: 08-20-2024 End: 08-24-2024 Telephone encounter Efra [...] End: 07-08-2024 Subsequent hospital visit by physician [facility] Work Phone: Radiology Comment [...] Start: 06-04-2024 End: 06-04-2024 ambulatory Juliet Ruiz APRN.HATCH SUPERVISOR Work Phone: Hematology/Oncology Comment on above: Essential thrombocyt osis (HCC) (Primary Dx); Macrocytic anemia Start: 06-04-2024 End: 06-04-2024 Patient encounter procedure Juliet Ruiz REMELT PAN TANK OPERATOR.HATCH SUPERVISOR Work Phone: Hematology/Oncology Start: 05-19-2024 Telephone encounter Efra garsia DO Work Phone: Hematology/Oncology Comment on above: Future Appointment Start: 05-15-2024 End: 05-15-2024 ambulatory Efra Neville DO Work Phone: Hematology/Oncology Comment on above: Essential thrombocyt osis (HCC) (Primary Dx); Macrocytic anemia Start: 05-15-2024 End: 05-15-2024 Patient encounter procedure Efra Neville DO Work Phone: Hematology/Oncology Start: 04-28-2024 Telephone encounter Efra Andry Irlanda garsia DO Work Phone: Hematology/Oncology Comment on above: Results Start: 04-02-2024 Telephone encounter Efra Fournier sun DO Work Phone: Hematology/Oncology Comment on above: Results Start: 03-25-2024 End: 03-25-2024 ambulatory Efra Andry Kelin DO Work Phone: Hematology/Oncology Comment on above: Essential thrombocyt osis (HCC) (Primary Dx); Macrocytic anemia Start: 03-25-2024 End: 03-25-2024 Patient encounter procedure Efra Andry Kelin DO Work Phone: Hematology/Oncology Start: 03-19-2024 Telephone encounter Efra Andry Fournier ci DO Work Phone: Hematology/Oncology Comment on above: Results Start: 02-13-2024 Telephone encounter Juliet cárdenas APRN.HATCH SUPERVISOR Work Phone: Hematology/Oncology Comment on above: Results Start: 02-12-2024 End: 02-12-2024 ambulatory Juliet Ruiz REMELT PAN TANK OPERATOR.HATCH SUPERVISOR Work Phone: Hematology/Oncology Comment on above: Essential thrombocyt osis (HCC) (Primary Dx) Start: 02-12-2024 End: 02-12-2024 Patient encounter procedure [place] REMELT PAN TANK OPERATOR.HATCH SUPERVISOR Work Phone: [facility] Start: 02-10-2024 Telephone encounter Mona Arelis can Work Phone: Hematology/Oncology Comment on above: Appointment Start: 10-14-2023 Telephone encounter Efra Andry Fournier sun DO Work Phone: Hematology/Oncology Comment on above: Results (Elevated TS H) Start: 10-14-2023 End: 10-14-2023 Patient encounter procedure Lab [facility] Comment on above: Essential thrombocyt osis (HCC) Start: 10-11-2023 Orders Only Efra Neville D O Work Phone: Hematology/Oncology Comment on above: Essential thrombocyt osis (HCC) (Primary Dx) Start: 08-09-2023 Orders Only Efra Balderas O Work Phone: Hematology/Oncology Comment on above: Essential thrombocyt osis (HCC) (Primary Dx) Start: 07-19-2023 Telephone encounter Efra garsia DO Work Phone: Hematology/Oncology Comment on above: Results Start: 07-17-2023 Orders Only Efra Balderas O Work Phone: [...] above: Appointment Start: 05-08-2023 Orders Only Efra Mason Work Phone: Hematology/Oncology [...] encounter procedure Efra Neville DO Work Phone: [facility] Start: 11-06-2022 Orders Only Efra Neville D O Work Phone: Hematology/Oncology Comment on above: Essential thrombocyt osis (HCC) (Primary Dx) Start: 08-20-2022 End: 08-20-[address] MINISTERIO ELIAS MD Facility:[facility] Start: 06-07-2022 ambulatory TRENT FOURNIER MD Fa cility:A Start: 05-09-2022 End: 05-09-2022 ambulatory Efra Neville DO Work Phone: Hematology/Oncology Comment on above: Essential thrombocyt osis (Primary Dx) Start: 05-09-2022 End: 05-09-2022 Patient encounter procedure Efra Neville DO Work Phone: [facility] Start: 05-08-2022 Orders Only Efra Neville D O Work Phone: Hematology/Oncology Comment on above: Essential thrombocyt osis (HCC) (Primary Dx) Procedures Date Procedure Procedure Detail Performing Clinician Start: 02-24-2025 PSA screening LYNNETTE BELLAMY Comment on above: Performed By: #### [id number] #### [place] [id number] Start: 02-24-2025 Urinalysis LYNNETTE BELLAMY Comment on above: Result Comment: URIN ALYSIS Performed By: #### [id number] #### [place] [id number] Start: 07-14-2024 Urnls dip stick/tabl et rgnt auto w/o microscopy Epifanio Gunderson PA-C Work Phone: Start: 06-04-2024 Diagnostic bone destiny ow biopsies & aspirations Juliet Ruiz REMELT PAN TANK OPERATOR.HATCH SUPERVISOR Work Phone: Start: 10-14-2023 Blood count complete auto&auto difrntl wbc Efra Neville DO Work Phone: Start: 12-31-2007 History of coronary artery bypass grafting History of coronary artery bypass surgery Dr. Jon Woodruff MD Comment on above: CABG x 3:VERA to LAD , SVG to Diagonal and marginal 12/31/07 Plan of Treatment Date Care Activity Detail Author Start: 03-25-2027 Diabetes Screening Diabetes Screenin g [facility] Start: 10-22-2026 Diabetes Screening Diabetes Screenin g [facility] Start: 10-22-2025 End: 10-22-2025 ambulatory [facility] Comment on above: CBC/iron studies. 3 MTH OV* LABS EARLI ER Start: 09-17-2025 End: 09-17-2025 ambulatory 09/17/2025 11:00 AM EDT Results Only [facility] [address] [place] [address] QMO CBC [facility] Comment on above: QMO CBC Start: 08-20-2025 End: 08-20-2025 ambulatory 08/20/2025 11:00 AM EDT Results Only [facility] [address] [place] [address] QMO CBC [facility] Comment on above: QMO CBC Start: 07-29-2025 End: 07-29-2025 Evaluation of diagnostic study results [facility] Start: 07-26-2025 Influenza vaccination [facility] Start: 07-21-2025 End: 07-21-2025 ambulatory [facility] Comment on above: CBC/iron studies 3 MO OV/LABS EARLY* Start: 06-21-2025 End: 06-21-2025 ambulatory 06/21/2025 10:30 AM EDT Results Only [facility] [address] [place] [address] QMO CBC [facility] Comment on above: QMO CBC Start: 05-21-2025 End: 05-21-2025 ambulatory 05/21/2025 10:30 AM EDT Results Only [facility] [address] [place] [address] QMO CBC [facility] Comment on above: QMO CBC Start: 04-21-2025 End: 04-21-2025 ambulatory [facility] Comment on above: (SO)CBC 3MO OV/EARLY LABS* Start: 03-24-2025 End: 03-24-2025 ambulatory 03/24/2025 1:00 PM EDT Results Only [facility] [address] [place] [address] (SO)CBC [facility] Comment on above: (SO)CBC Start: 02-24-2025 End: 02-24-2025 ambulatory 02/24/2025 1:00 PM EDT Results Only [facility] [address] [place] [address] (SO)CBC [facility] Comment on above: (SO)CBC Start: 01-25-2025 End: 01-25-2025 ambulatory [facility] Comment on above: (SO)CBC 2MO OV/EARLY LABS* Start: 2024 Advance Directive Discussion Advance Directive Discussion [facility] Start: 11-16-2024 End: 11-16-2024 ambulatory 11/16/2024 10:00 AM EST Results Only [facility] [address] [place] [address] CBC [facility] Comment on above: CBC Start: 09-16-2024 End: 09-16-2024 ambulatory 09/16/2024 10:00 AM EDT Results Only [facility] [address] [place] [address] Q2WK (SO) CBC* [facility] Comment on above: Q2WK (SO) CBC* Start: 08-19-2024 End: 08-19-2024 ambulatory 08/19/2024 10:45 AM EDT Results Only [facility] [address] [place] [address] Q2WK (SO) CBC* [facility] Comment on above: Q2WK (SO) CBC* Start: 08-05-2024 End: 08-05-2024 ambulatory 08/05/2024 10:45 AM EDT Results Only [facility] [address] [place] [address] Q2WK (SO) CBC* [facility] [place] [facility] Comment on above: Q2WK (SO) CBC* Start: 07-26-2024 Covid-19 Vaccine ( season) Covid-19 Vaccine ( season) [facility] Start: 07-26-2024 Influenza vaccination [facility] Start: 07-22-2024 End: 07-22-2024 ambulatory 07/22/2024 10:45 AM EDT Results Only [facility] [address] [place] [address] Q2WK (SO) CBC* [facility] [place] [facility] Comment on above: Q2WK (SO) CBC* Start: 07-14-2024 End: 07-14-2024 Patient encounter procedure 07/14/2024 3:00 PM EDT Office Visit Urology [address] [place] [address] Epifanio Gunderson PA-C [address] [place], [place] [id number] Elevated PSA Urology Comment on above: Elevated PSA Start: 07-08-2024 End: 07-08-2024 ambulatory 07/08/2024 10:45 AM EDT Results Only [facility] [address] [place] [address] Q2WK (SO) CBC* [facility] [facility] Comment on above: Q2WK (SO) CBC* Start: 07-08-2024 End: 07-08-2024 Patient encounter procedure 07/08/2024 10:00 AM EDT Appointment Radiology [address] [place] [address] Essential thrombocytosis (HCC) [D47.3] Radiology Comment on above: Essential thrombocyt osis (HCC) [D47.3] Start: 06-23-2024 End: 06-23-2024 ambulatory [facility] Comment on above: OV/CBC* OV* Start: 06-04-2024 End: 09-03-2024 DNA EXTRACTION BONE MARROW (BUFFY COAT) [place] Work Phone: Comment on above: Expected: 06/04/2024 , Expires: 09/03/2024 Start: 06-04-2024 End: 09-03-2024 FLOW CYTOMETRY FOR LEUKEMIA/LYMPHOMA (FCLL) [facility] Comment on above: Expected: 06/04/2024 , Expires: 09/03/2024 Start: 06-04-2024 End: 06-04-2024 ambulatory [facility] Comment on above: CBC* CBC/BMBX/PBSX2* Start: 06-01-2024 End: 06-01-2024 ambulatory 06/01/2024 1:30 PM EDT Visit (SP) Office Hematology/Oncology [address] [place] [address] Juliet Ruiz APRN.HATCH SUPERVISOR [address] [place] [address] CBC/BMBX/PBSX2* Hematology/Oncology Comment on above: CBC/BMBX/PBSX2* Start: 05-15-2024 End: 05-15-2024 ambulatory [facility] Comment on above: CBC/iron studies 3MO OV/LABS EARLY* Start: 04-17-2024 End: 04-17-2024 ambulatory 04/17/2024 11:00 AM EDT Results Only [facility] [address] [place] [address] CBC* [facility] Comment on above: CBC* Start: 03-25-2024 End: 06-24-2024 COPPER BLOOD [place] Work Phone: Comment on above: Expected: 03/25/2024 , Expires: 06/24/2024 Start: 03-25-2024 End: 06-24-2024 Methylmalonate [Moles/volume] in Serum or Plasma [facility] Comment on above: Expected: 03/25/2024 , Expires: 06/24/2024 Start: 03-25-2024 End: 03-25-2024 ambulatory 03/25/2024 10:50 AM EDT Visit (SP) Office Hematology/Oncology [address] [place] [address] Efra Neville DO [address] [place] [address] OV/DISCUSS MEDICATION CONCERNS PER 03/19 TE* Hematology/Oncology Comment on above: OV/DISCUSS MEDICATIO N CONCERNS PER 03/19 TE* Start: 2023 Advance Directive Discussion Advance Directive Discussion [facility] Start: 2023 Behavioral Health Screening Behavioral Health Screening [facility] Start: 2023 Depression Assessment Depression Ass essment [facility] Start: 10-14-2023 End: 01-13-2024 CBC W Auto Differential panel - Blood CBC + DIFF Lab STAT Essential thrombocytosis (HCC) Expected: 10/14/2023, Expires: 01/13/2024 [place] Work Phone: Comment on above: Expected: 10/14/2023 , Expires: 01/13/2024 Start: 08-12-2023 End: 10-12-2023 CBC W Auto Differential panel - Blood CBC + DIFF Lab STAT Essential thrombocytosis (HCC) Expected: 08/12/2023, Expires: 10/12/2023 [place] Work Phone: Comment on above: Expected: 08/12/2023 , Expires: 10/12/2023 Start: 07-26-2023 Covid-19 Vaccine () Covid-19 Vaccine () [facility] Start: 07-26-2023 Influenza vaccination [facility] Start: 07-18-2023 End: 09-17-2023 CBC W Auto Differential panel - Blood CBC + DIFF Lab STAT Essential thrombocytosis (HCC) Expected: 07/18/2023, Expires: 09/17/2023 [place] Work Phone: Comment on above: Expected: 07/18/2023 , Expires: 09/17/2023 Start: 06-21-2023 End: 08-21-2023 CBC W Auto Differential panel - Blood CBC + DIFF Lab STAT Essential thrombocytosis (HCC) Expected: 06/21/2023, Expires: 08/21/2023 [place] Work Phone: Comment on above: Expected: 06/21/2023 , Expires: 08/21/2023 Start: 05-10-2023 End: 07-10-2023 CBC W Auto Differential panel - Blood CBC + DIFF Lab STAT Essential thrombocytosis (HCC) Expected: 05/10/2023, Expires: 07/10/2023 [place] Work Phone: Comment on above: Expected: 05/10/2023 , Expires: 07/10/2023 Start: 05-04-2023 DIABETES SCREEN DIABETES SCREEN [facility] Start: 05-04-2023 Diabetes Screening Diabetes Screenin g [facility] Start: 02-04-2023 End: 04-06-2023 CBC W Auto Differential panel - Blood CBC + DIFF Lab STAT Essential thrombocytosis (HCC) Expected: 02/04/2023, Expires: 04/06/2023 [place] Work Phone: Comment on above: Expected: 02/04/2023 , Expires: 04/06/2023 Start: 2022 ADVANCE DIRECTIVE DISCUSSION ADVANCE DIRECTIVE DISCUSSION [facility] Start: 2022 DEPRESSION ASSESSMENT DEPRESSION ASS ESSMENT [facility] Start: 11-07-2022 End: 01-07-2023 CBC W Auto Differential panel - Blood CBC + DIFF Lab STAT Essential thrombocytosis (HCC) Expected: 11/07/2022, Expires: 01/07/2023 [place] Work Phone: Comment on above: Expected: 11/07/2022 , Expires: 01/07/2023 Start: 07-26-2022 Influenza vaccination [facility] Start: 05-09-2022 End: 07-09-2022 CBC W Auto Differential panel - Blood CBC + DIFF Lab STAT Essential thrombocytosis (HCC) Expected: 05/09/2022, Expires: 07/09/2022 [place] Work Phone: Comment on above: Expected: 05/09/2022 , Expires: 07/09/2022 Start: 2021 ADVANCE DIRECTIVE DISCUSSION ADVANCE DIRECTIVE DISCUSSION [facility] Start: 2021 DEPRESSION ASSESSMENT DEPRESSION ASS ESSMENT [facility] Start: 2010 RSV Vaccine (1 - 1-d ose 75+ series) RSV Vaccine (1 - 1-dose 75+ series) [facility] Start: 12-02-2009 Pneumococcal Vaccine : 65+ (2 - PCV) Pneumococcal Vaccine: 65+ (2 - PCV) [facility] Start: 12-02-2009 PNEUMOCOCCAL: 65+ (2 - PCV) PNEUMOCOCCAL: 65+ (2 - PCV) [facility] Start: 09-25-2009 Medicare Annual Well ness Visit Medicare Annual Wellness Visit [facility] Start: 1995 RSV Vaccine (1 - 1-d ose 60+ series) RSV Vaccine (1 - 1-dose 60+ series) [facility] Start: 1985 SHINGRIX VACCINE (1 of 2) SHINGRIX VACCINE (1 of 2) [facility] Start: 1954 SHINGRIX VACCINE (1 of 2) SHINGRIX VACCINE (1 of 2) [facility] Start: 1954 Urine microalbumin profile [facility] Start: 1953 Anxiety Screening Anxiety Screening [facility] Start: 1953 Depression Screening Depression Scre ening [facility] Start: 1940 COVID-19 VACCINE (#1) COVID-19 VACCI NE (#1) [facility] Start: 05-25-1936 COVID-19 VACCINE (#1) COVID-19 VACCI NE (#1) [facility] BONE MARROW ANALYSIS BONE MARROW ANALYSIS Lab Routine Essential thrombocytosis (HCC) Macrocytic anemia 06/04/2024 1:54 PM EDT [facility] BONE MARROW CHROMOSO ME ANAL BONE MARROW CHROMOSOME ANAL Lab Routine Essential thrombocytosis (HCC) Macrocytic anemia 06/04/2024 1:54 PM EDT [facility] FLOW CYTOMETRY FOR LEUKEMIA/LYMPHOMA (FCLL) PERFORMABLE FLOW CYTOMETRY FOR LEUKEMIA/LYMPHOMA (FCLL) PERFORMABLE Lab Routine Essential thrombocytosis (HCC) Macrocytic anemia 06/04/2024 2:34 PM EDT [facility] Lipid 1996 panel - S piter or Plasma [facility] Carotid arteries [facility] Heart [facility] End: 07-23-2025 US Spleen US ABD SPLEEN Radiology Routine Essential thrombocytosis (HCC) 1 Occurrences starting 06/23/2024 until 07/23/2025 [place] Work Phone: Comment on above: 1 Occurrences starti ng 06/23/2024 until 07/23/2025 US Spleen US ABD SPLEEN Ra diology Routine Essential thrombocytosis (HCC) 07/08/2024 10:16 AM EDT [place] Work Phone: [facility] Immunizations Immunization Date Immunization Notes Care Provider [facility] 08-19-2009 influenza virus vacc ine, unspecified formulation Efra Neville DO Work Phone: [facility] 12-02-2008 pneumococcal polysaccharide vaccine, 23 valent Efra Neville DO Work Phone: [facility] Work Phone: Payers Date Payer Category Payer Self-pay 2009 Medicare [id number] 2000 Medicare MEDICARE MEDICAR E A AND B [id number] 2000-Present [phone] [place] [address] Medicare [id number] 2000 Medicare [id number] 1935 Unknown [id number] [id number] 1935 Unknown [id number] [id number] 1935 Unknown [id number] 2.16.840.1.318352.3.579.2.651 1935 Unknown [id number] 2.16.840.1.154551.3.579.2.651 1935 Unknown [id number] 2.16.840.1.216373.3.579.2.651 1935 Unknown [id number] 2.16.840.1.307274.3.579.2.651 1935 Unknown [id number] 2.16.840.1.454025.3.579.2.651 1935 Unknown [id number] 2.16.840.1.706840.3.579.2.651 Unknown [id number] 2.16.840.1.550191.3.579.2.462 Unknown [id number] 2.16.840.1.369766.3.579.2.462 Unknown [id number] 2.16.840.1.265068.3.579.2.462 Unknown [id number] 2.16.840.1.446900.3.579.2.462 Unknown [id number] 2.16.840.1.154023.3.579.2.462 Unknown [id number] [id number] Unknown [id number] [id number] Social History Date Type Detail Facility Start: 09-23-2007 End: 07-15-2025 Tobacco smoking status NHIS Ex-smoker [facility] Start: 03-25-1957 End: 09-23-1958 History of tobacco use Current smoker [facility] Start: 03-25-1957 End: 09-23-1958 History of tobacco use Cigarette Smoker [facility] Start: 11-08-2021 End: 07-13-2024 Alcohol intake Current drinker of alcohol (finding) [facility] Start: 12-22-2007 History SDOH Alcohol Comment very occ beer [facility] Start: 1935 Sex Assigned At Not on file [facility] Start: 09-23-2007 End: 08-12-2023 Cigarettes smoked current (pack per day) - Reported 1 [facility] Start: 09-23-2007 End: 07-14-2024 Tobacco use and exposure Smokeless tobacco non-user [facility] Work Phone: Start: 11-07-2022 End: 08-12-2023 Tobacco use panel [facility] Start: 10-26-2012 Adult Depression Screening Assessment 0 [facility] Start: 07-14-2024 End: 07-21-2025 Alcoholic beverage intake Ex-drinker (finding) [facility] How often to you hav e a drink containing alcohol? Monthly or less [facility] How many standard drinks containing alcohol do you have on a typical day? 1 or 2 [facility] How often do you hav e 6 or more drinks on 1 occasion? Less than monthly [facility] Start: 1935 Sex Assigned At Male W [facility] Functional Status Date Assessment Result Facility 07-21-2025 Total score [AUDIT-C] 2 07/21/20 25 10:55 AM Karly Schafer MA [facility] 06-28-2015 Are you deaf, or do you have serious difficulty hearing No 06/28/2015 10:00 AM Dali Burnett LPN No [facility] 06-28-2015 Are you blind, or do you have serious difficulty seeing, even when wearing glasses No 06/28/2015 10:00 AM Dali Burnett LPN No [facility] 06-28-2015 Do you have serious difficulty walking or climbing stairs No 06/28/2015 10:00 AM EDT Dali Loza LPN No [facility] 06-28-2015 Do you have difficul ty dressing or bathing No 06/28/2015 10:00 AM EDT Dali Loza LPN No [facility] 06-28-2015 Because of a physica l, mental, or emotional condition, do you have difficulty doing errands alone such as visiting a physician's office or shopping No 06/28/2015 10:00 AM EDT Dali Loza LPN No [facility] Mental Status Date Assessment Result Facility 06-28-2015 Because of a physica l, mental, or emotional condition, do you have serious difficulty concentrating, remembering, or making decisions No 06/28/2015 10:00 AM EDDali Zambrano LPN No [facility] Clinical Notes 12-31-2007 to 07-29-2025 Note Date & Type Note Facility 07-29-2025 Progress note [facility] 07-29-2025 Progress note Note Date/Time July 29, 2025 10:39am [facility] [address] [place] [address] OFFICE VISIT Date of Service: 07/29/25 MR#: [id number] Acct: [id number] Name: KSENIA GALLARDO Rep #: [id number] : 1935 Provider: Dr. Erasto Woodruff MD Age/Sex: 89/M Location: [facility] Status: Signed HPI HPI History of Present Illness Details: This gentleman has past medical history significant for coronary artery disease status post three-vessel CABG in 2007, last coronary angiography revealed atretic VERA to the LAD however the [place] LAD itself was noted to have only [...] Source Monitor Intake Visit Reasons: AFIB (NEENA) Sock And Stocking Ironer Required: No Accompanied by: Is patient in [...] year?: Yes (tripped and slid down wall) [facility] Medical History (Updated 07/29/25 @ 10:[address] Jon Woodruff MD) Edema Atrial fibrillation Iron deficiency anemia Obstructive sleep apnea Lipoprotein deficiency disorder Diverticular disease of colon Essential hypertension History of pulmonary embolus (PE) (12/2007) Myelodysplastic syndrome Essential thrombocytosis Atherosclerosis of coronary artery of [place] heart without angina pectoris Surgical History History [...] 2007. VERA to the LAD atretic however [place] LAD without any significant lesions. Beta-blockers. Risk factor modification. Change metoprolol to extended newnuzn751 mg daily. (2) History of coronary artery [...] Cosigner Signature: Date (if applicable) CC: ~ [place] [employer] Work Phone: 1(873) 540-298708-27-2025 NoteHNO ID: [id number] Author: JULIET RUIZ APRN.HATCH SUPERVISOR Service: ? Author Type: Nurse Practitioner Type: [...] family member. Pt. self discontinued eliquis-prescribed by shoe cleaner. Appetite:I eat what I want when I [...] 1.00 - 4.00 k/uL 2.06 2.04 1.67 Dunn% % 5.9 6.3 6.5 Abs Dunn <0.87 k/uL 0.57 0.58 0.53 Eosin% % [...] asa. - Advised pt. to call his shoe cleaner and let them know that he stopped [...] as necessary for today's visit. Juliet Ruiz APRN.[facility]08-27-2025 History of Present illness Narrative* Juliet Ruiz APRN.[employer] - 07/21/2025 10:38 AM EDT Chief Complaint [...] family member. Pt. self discontinued eliquis-prescribed by shoe cleaner. Appetite:I eat what I want when I [...] 1.00 - 4.00 k/uL 2.06 2.04 1.67 Dunn% % 5.9 6.3 6.5 Abs Dunn <0.87 k/uL 0.57 0.58 0.53 Eosin% % [...] asa. - Advised pt. to call his shoe cleaner and let them know that he stopped [...] as necessary for today's visit. Juliet Ruiz APRN.HATCH SUPERVISOR documented in this encounterWright-[facility] Center06-23-2025 Progress note* Result Encounter Note - Efra Neville DO - 05/17/2025 1:26 PM EDT Continue current dose of Hydrea 1 capsule daily. Recheck CBC in 2 months. [facility]06-23-2025 Miscellaneous Notes* Result Encounter Note - Efra Neville DO - 05/17/2025 1:26 PM EDT Continue current dose of Hydrea 1 capsule daily. Recheck CBC in 2 months. documented in this encounterWright-Patterson [facility] Center05-28-2025 Telephone encounter Note * Telephone Encounter - Monalisa Laurent LPN - 04/21/2025 1:56 PM EDT Patient notified and is scheduled for labs in 1 month. Monalisa Laurent LPN [facility]05-28-2025 Miscellaneous Notes* Telephone Encounter - Monalisa Laurent [...] CBC in a month. documented in this encounterWright-[facility] Center05-28-2025 Telephone encounter Note * Telephone Encounter - Jacklyn Ortega LPN - 04/21/2025 1:11 PM EDT No answer, will try again. Jacklyn Ortega LPN [facility]05-28-2025 Telephone encounter Note* Telephone Encounter - Efra Neville DO - 04/21/2025 12:55 PM EDT Can let him know blood counts are stable. Continue current dose of Hydrea and recheck CBC in a month. [facility]05-28-2025 NoteHNO ID: [id number] Author: JULIET RUIZ APRN.HATCH SUPERVISOR Service: ? Author Type: Nurse Practitioner Type: [...] 1.00 - 4.00 k/uL 1.83 1.87 2.06 Dunn% % 5.2 5.8 5.9 Abs Dunn <0.87 k/uL 0.36 0.51 0.57 Eosin% % [...] as necessary for today's visit. Juliet Ruiz APRN.[facility]05-28-2025 History of Present illness Narrative* Juliet RuizPIOTR.HATCH SUPERVISOR - 04/21/2025 11:02 AM EDT Chief Complaint [...] 1.00 - 4.00 k/uL 1.83 1.87 2.06 Dunn% % 5.2 5.8 5.9 Abs Dunn <0.87 k/uL 0.36 0.51 0.57 Eosin% % [...] visit. Juliet Ruiz APRN.[employer] documented in this encounterWright-[facility] Center05-01-2025 Telephone encounter Note * Telephone Encounter - Monalisa Laurent LPN - 03/25/2025 8:07 AM EDT Left detailed message on patient's identified VM. Monalisa Laurent LPN [facility]05-01-2025 Miscellaneous Notes* Telephone Encounter - Monalisa Laurent LPN - 03/25/2025 8:07 AM EDT Left detailed message on patient's identified VM. Monalisa Laurent LPN * Result Encounter Note - Efra Neville DO - 03/24/2025 5:09 PM EDT Blood counts are stable. Continue current dose of Hydrea. Recheck as scheduled. documented in this encounterWright-Patterson Medical Center04-30-2025 Progress note* Result Encounter Note - Efra Neville DO - 03/24/2025 5:09 PM EDT Blood counts are stable. Continue current dose of Hydrea. Recheck as scheduled. [facility]04-02-2025 NoteDischarge Instructions Discharge Summary [place] [id number] [place] [address] [id number] 02/24/2025 Patient: KSENIA GALLARDO Sex: Male : 1935 Age: 89y Thank you for visiting [facility]. You have been evaluated today by Desmond Amaya D.O. for the following condition(s): Principal Diagnosis Stable T12 fracture. Stable L1 transverse process fracture; stable L2 transverse process fracture. Cholelithiasis. Urinary tract infection. INSTRUCTIONS Prescription Medications: tramadol 50 mg tablet: Take 1 tablet by mouth three times a day as needed for pain for 3 days, dispense 9 tablet. Refills 0. Pharmacy: [facility] [id number] [place] [address]. cephalexin 500 mg capsule: Take 1 capsule by mouth twice a day for 7 days, dispense 14 capsule. Refills 0. Pharmacy: [facility] [address] [place] [address]. Follow-up: Follow up with your healthcare provider in three days. Call for an appointment. Follow-up with: Madhav Xiong, Orthopedics, Phone: [phone], [place], [place]. Follow up in three days.Call for 1 of 19 Discharge Instructions an appointment. Pieter Maciel MD, [facility], General Surgery, Phone: [phone], [address] [place] [address] [place] [address]. Follow up in three days. Call for an appointment. You have been given the following additional information: Bladder Infection, Male (Adult) Vertebral Compression Fracture TRAMADOL - ORAL CEPHALEXIN - ORAL Patient Signature Facility [employer] Date/Time General Instructions with ExitWriter [facility] [address] [place] [address] [phone] 02/24/2025 Patient: KSENIA GALLARDO Sex: Male : 1935 Age: 89y Thank you for visiting [facility]. You have been evaluated today [...] days, dispense 9 tablet. Refills 0. Pharmacy: [facility] [id number] [place] [address]. cephalexin 500 mg capsule: Take 1 capsule by mouth twice a day for 7 days, dispense 14 capsule. Refills 0. Pharmacy: [facility] [address] [place] [address]. Follow-up: Follow up with your healthcare provider in three days. Call for an appointment. Follow-up with: Madhav Xiong, Orthopedics, Phone: [phone], [place], [place] Follow up in three days.Call for an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 Abuse Patient Records regulations: The Federal rules restrict any use of the information to criminally investigate or prosecute any alcohol or drug abuse patient.[facility] CenterIn the event this information is protected by the Federal Confidentiality of Alcohol and Drug Abuse Patient Records regulations: The Federal rules restrict any use of the information to criminally investigate or prosecute any alcohol or drug abuse patient.[facility] CenterIn the event this information is protected by the Federal Confidentiality of Alcohol and Drug Abuse Patient Records regulations: The Federal rules restrict any use of the information to criminally investigate or prosecute any alcohol or drug abuse patient.[facility] CenterIn the event this information is protected by the Federal Confidentiality of Alcohol and Drug Abuse Patient Records regulations: The Federal rules restrict any use of the information to criminally investigate or prosecute any alcohol or drug abuse patient.[facility] CenterIn the event this information is protected by the Federal Confidentiality of Alcohol and Drug Abuse Patient Records regulations: The Federal rules restrict any use of the information to criminally investigate or prosecute any alcohol or drug abuse patient.[facility] CenterIn the event this information is protected by the Federal Confidentiality of Alcohol and Drug Abuse Patient Records regulations: The Federal rules restrict any use of the information to criminally investigate or prosecute any alcohol or drug abuse patient.[facility] CenterIn the event this information is protected by the Federal Confidentiality of Alcohol and Drug Abuse Patient Records regulations: The Federal rules restrict any use of the information to criminally investigate or prosecute any alcohol or drug abuse patient.[facility] CenterIn the event this information is protected by the Federal Confidentiality of Alcohol and Drug Abuse Patient Records regulations: The Federal rules restrict any use of the information to criminally investigate or prosecute any alcohol or drug abuse patient.[facility] CenterIn the event this information is protected by the Federal Confidentiality of Alcohol and Drug Abuse Patient Records regulations: The Federal rules restrict any use of the information to criminally investigate or prosecute any alcohol or drug abuse patient.[facility] CenterIn the event this information is protected by the Federal Confidentiality of Alcohol and Drug Abuse Patient Records regulations: The Federal rules restrict any use of the information to criminally investigate or prosecute any alcohol or drug abuse patient.[facility] CenterIn the event this information is protected by the Federal Confidentiality of Alcohol and Drug Abuse Patient Records regulations: The Federal rules restrict any use of the information to criminally investigate or prosecute any alcohol or drug abuse patient.[facility] CenterIn the event this information is protected by the Federal Confidentiality of Alcohol and Drug Abuse Patient Records regulations: The Federal rules restrict any use of the information to criminally investigate or prosecute any alcohol or drug abuse patient.[facility] CenterIn the event this information is protected by the Federal Confidentiality of Alcohol and Drug Abuse Patient Records regulations: The Federal rules restrict any use of the information to criminally investigate or prosecute any alcohol or drug abuse patient.[facility] CenterIn the event this information is protected by the Federal Confidentiality of Alcohol and Drug Abuse Patient Records regulations: The Federal rules restrict any use of the information to criminally investigate or prosecute any alcohol or drug abuse patient.[facility] CenterIn the event this information is protected by the Federal Confidentiality of Alcohol and Drug Abuse Patient Records regulations: The Federal rules restrict any use of the information to criminally investigate or prosecute any alcohol or drug abuse patient.[facility] CenterIn the event this information is protected by the Federal Confidentiality of Alcohol and Drug Abuse Patient Records regulations: The Federal rules restrict any use of the information to criminally investigate or prosecute any alcohol or drug abuse patient.[facility] CenterIn the event this information is protected by the Federal Confidentiality of Alcohol and Drug Abuse Patient Records regulations: The Federal rules restrict any use of the information to criminally investigate or prosecute any alcohol or drug abuse patient.[facility] CenterIn the event this information is protected by the Federal Confidentiality of Alcohol and Drug Abuse Patient Records regulations: The Federal rules restrict any use of the information to criminally investigate or prosecute any alcohol or drug abuse patient.[facility] CenterIn the event this information is protected by the Federal Confidentiality of Alcohol and Drug Abuse Patient Records regulations: The Federal rules restrict any use of the information to criminally investigate or prosecute any alcohol or drug abuse patient.[facility] CenterIn the event this information is protected by the Federal Confidentiality of Alcohol and Drug Abuse Patient Records regulations: The Federal rules restrict any use of the information to criminally investigate or prosecute any alcohol or drug abuse patient.[facility] CenterIn the event this information is protected by the Federal Confidentiality of Alcohol and Drug Abuse Patient Records regulations: The Federal rules restrict any use of the information to criminally investigate or prosecute any alcohol or drug abuse patient.[facility] CenterIn the event this information is protected by the Federal Confidentiality of Alcohol and Drug Abuse Patient Records regulations: The Federal rules restrict any use of the information to criminally investigate or prosecute any alcohol or drug abuse patient.[facility] CenterIn the event this information is protected by the Federal Confidentiality of Alcohol and Drug Abuse Patient Records regulations: The Federal rules restrict any use of the information to criminally investigate or prosecute any alcohol or drug abuse patient.[facility] CenterIn the event this information is protected by the Federal Confidentiality of Alcohol and Drug Abuse Patient Records regulations: The Federal rules restrict any use of the information to criminally investigate or prosecute any alcohol or drug abuse patient.[facility] CenterIn the event this information is protected by the Federal Confidentiality of Alcohol and Drug Abuse Patient Records regulations: The Federal rules restrict any use of the information to criminally investigate or prosecute any alcohol or drug abuse patient.[facility] CenterIn the event this information is protected by the Federal Confidentiality of Alcohol and Drug Abuse Patient Records regulations: The Federal rules restrict any use of the information to criminally investigate or prosecute any alcohol or drug abuse patient.[facility] CenterIn the event this information is protected by the Federal Confidentiality of Alcohol and Drug Abuse Patient Records regulations: The Federal rules restrict any use of the information to criminally investigate or prosecute any alcohol or drug abuse patient.[facility] CenterIn the event this information is protected by the Federal Confidentiality of Alcohol and Drug Abuse Patient Records regulations: The Federal rules restrict any use of the information to criminally investigate or prosecute any alcohol or drug abuse patient.[facility] CenterIn the event this information is protected by the Federal Confidentiality of Alcohol and Drug Abuse Patient Records regulations: The Federal rules restrict any use of the information to criminally investigate or prosecute any alcohol or drug abuse patient.[facility] Care Teams (unrecognized sec tion and content) Instrument Sterilizer Relationship Specialty Start Date End Date Ministerio Elias MD PCP - General 08/05/07 Instrument Sterilizer Relationship Specialty Start Date End Date Ministerio Elias MD PCP - General 08/05/07 Instrument Sterilizer Relationship Specialty Start Date End Date Ministerio Elias MD PCP - General 08/05/07 Instrument Sterilizer Relationship Specialty Start Date End Date Ministerio Elias MD PCP - General 08/05/07 Instrument Sterilizer Relationship Specialty Start Date End Date Ministerio Elias MD PCP - General 08/05/07 Instrument Sterilizer Relationship Specialty Start Date End Date Ministerio Elias MD PCP - General 08/05/07 Instrument Sterilizer Relationship Specialty Start Date End Date Ministerio Elias MD PCP - General 08/05/07 Instrument Sterilizer Relationship Specialty Start Date End Date Ministerio Elias MD PCP - General 08/05/07 Instrument Sterilizer Relationship Specialty Start Date End Date Ministerio Elias MD PCP - General 08/05/07 Instrument Sterilizer Relationship Specialty Start Date End Date Ministerio Elias MD PCP - General 08/05/07 Instrument Sterilizer Relationship Specialty Start Date End Date Ministerio Elias MD PCP - General 08/05/07 Instrument Sterilizer Relationship Specialty Start Date End Date Ministerio Elias MD PCP - General 08/05/07 Instrument Sterilizer Relationship Specialty Start Date End Date Ministerio Elias MD PCP - General 08/05/07 Instrument Sterilizer Relationship Specialty Start Date End Date Ministerio Elias MD PCP - General 08/05/07 Instrument Sterilizer Relationship Specialty Start Date End Date Ministerio Elias MD PCP - General 08/05/07 Instrument Sterilizer Relationship Specialty Start Date End Date Ministerio Elias MD PCP - General 08/05/07 Instrument Sterilizer Relationship Specialty Start Date End Date Ministerio Elias MD PCP - General 08/05/07 Instrument Sterilizer Relationship Specialty Start Date End Date Ministerio Elias MD PCP - General 08/05/07 Instrument Sterilizer Relationship Specialty Start Date End Date Ministerio Elias MD PCP - General 08/05/07 Instrument Sterilizer Relationship Specialty Start Date End Date Ministerio Elias MD PCP - General 08/05/07 Instrument Sterilizer Relationship Specialty Start Date End Date Ministerio Elias MD PCP - General 08/05/07 Instrument Sterilizer Relationship Specialty Start Date End Date Ministerio Elias MD PCP - General 08/05/07 Team Status: Active Member Role/Relationship [...] Status: Inactive Member Role/Relationship Status Dates Dr. Ministeiro Elias MD Primary care physician Active Start: July [...] e Start: August 05, 2025 Viv Allred [employer], [employer] Attending physician Active Start: August 05, 2025 [...] ABDOMINAL REAL TIME W/IMAGE LIMITED Efra Nev[place], [address] [place] [address] [place] [address] Referral ID Status Reason Start Date Expiration Date V isits Requested Visits Authorized [id number] Closed Auto-Generate d Referral 06/23/2024 07/23/2025 1 1 Reason Comments Elevated PSA New Patient Reason Comments Refill Request Reason Comments Recheck Reason Onset Date Comments Refill Request 05/18/2025 Opened In Error 05/18/2025 (unrecognized sect ion and content) No Status Records FoundNo Status Records FoundNo Status Records FoundNo Status Records Found INFORMATION SOURCE (unrecogn ized section and content) DATE CREATED AUTHOR 05/04/2023 [facility] ([place]) DATE CREATED AUTHOR AUTHOR'S ORGANIZ ATION 08/18/2025 [facility] DATE CREATED AUTHOR AUTHOR'S ORGANIZ ATION 09/07/2025 [facility] DATE CREATED AUTHOR AUTHOR'S ORGANIZ ATION 09/10/2025 [facility] Goals (unrecognized section and content) Goals may [...] BE BASED ON THE PRIMARY CLINICAL RECORDS. [employer] [facility]. provides no warranty or guarantee of the accuracy or completeness of information in this document.
[2025-09-10] MEDS: APIXABAN 5 MG TABLET PO (20:18)
[2025-09-10] MEDS: Furosemide 500 MG in Empty Viaflex 50 mL 1 EACH CONT INF (20:18)
[2025-09-10] MEDS: 0.9% Saline Lock 10 ML Syringe IV (20:19)
[2025-09-10 21:14] LABS: Troponin T High Sens 2 HR 82 ng/L (<=22)
[2025-09-10 22:09] LABS: Troponin T High Sens 4 HR 71 ng/L (<=22)
[2025-09-11 01:53] LABS: Glucose 86 mg/dL (70-99)
[2025-09-11 03:15] VITALS: BP 142/91; PULSE 88; RESP 18; TEMP 36.6; O2SAT 94
[2025-09-11 05:39] VITALS: BMI 22.1
[2025-09-11 06:24] LABS: Hematocrit 37.8 % (40-54); Hemoglobin 11.5 g/dL (13.0-16.5); Mean Corp Hgb Conc 30.4 g/dL (32-36); Mean Corpuscular Volume 94.3 fL (80-94); Mean Platelet Vol. 11.2 fl (6.2-12.0); POSITIVE MORPHOLOGY YES; Platelet Count 492 K/mm3 (150-450); RBC Distribution Width CV 27.9 % (11.6-14.6); RBC Distribution Width SD 96.1 fl (35.1-43.9); Red Blood Count 4.01 M/mm3 (4.6-6.2); White Blood Count 12.9 K/mm3 (4.4-11.0)
[2025-09-11 06:49] LABS: Anion Gap 11 (5-15); BUN 17 mg/dL (4-19); BUN/Creat Ratio 14.0 RATIO (10-20); Calcium,Total 9.2 mg/dL (7.6-11.0); Carbon Dioxide 30.2 mmol/L (21.0-32.0); Chloride 103 mmol/L (98-108); Estimated Creatinine Clearance 47.74 ml/min (50-250); Glucose 98 mg/dL (70-99); Potassium 3.3 mmol/L (3.3-5.1)
[2025-09-11 07:15] LABS: Scan Indicated on CBC? Y/N YES- FLAGS NOTED
--- NOTE | 2025-09-11 09:43 | PCM.CONS.C ---
Assessment & Plan Assessment/Plan (1) Acute on chronic HFrEF (heart failure with reduced ejection fraction): PLAN: Patient presents with acute on chronic congestive heart failure. The above is likely a combination of volume overload, atrial fibrillation, mitral regurgitation and pulmonary hypertension. Recommendation will be to continue with IV diuresis Rate control for the beta-sherif Would recommend starting an ARB with losartan 50 mg a day (2) Chronic a-fib: PLAN: He does have chronic atrial fibrillation with a controlled ventricular response rate. Will continue the beta-sherif as well as the anticoagulation for now. (3) Hx of CABG: PLAN: He does have a history of coronary bypass surgery as noted above. His bypass grafts are noted to be patent with an atretic nonfunctional VERA but the LAD is patent. (4) Essential hypertension: PLAN: Continue aggressive therapy for his blood pressure. (5) Mitral valve posterior leaflet prolapse: PLAN: He does have evidence of mitral valve prolapse. This appears to be moderate of the posterior leaflet with an anteriorly directed jet. I would recommend at this time that we continue to aggressively diurese him. He can likely be followed up as an outpatient and may be set up to see whether he will be a candidate for mitral valve clip. HPI Consult Data Date of Consult: 09/11/25 HPI Narrative HPI Narrative: KSENIA KENNY, is a 89 M who presents to was the hospital with shortness of breath and lower extremity swelling. The patient's past medical history significant for hypertension, hyperlipidemia, coronary artery bypass surgery with a left internal mammary artery to the left anterior descending artery which is atretic, saphenous vein graft to the first diagonal vessel which is patent and saphenous vein graft to obtuse marginal branch which is patent. Left circumflex artery and right coronary artery are without significant disease in the left anterior descending artery has a 30% stenosis outside cardiac catheterization in 2021. He also has a history of chronic persistent atrial fibrillation and more recently has developed myelodysplastic syndrome. He was recently seen in the heart group offices and an echocardiogram was performed which demonstrated preserved ejection fraction moderate posterior mitral valve prolapse and at least moderate anterior directed mitral regurgitation with pulm artery systolic pressure in the high 70s. It does not appear that the patient was noted to be a candidate for surgery however he may be considered for other therapies. On presentation to the emergency room he was fatigued denied any chest pain he had dyspnea on exertion and significant pedal edema. An electrocardiogram done demonstrated atrial fibrillation with a controlled ventricular response rate. Cardiology was called for further evaluation and management. [facility] Medical History Edema Atrial fibrillation Iron deficiency anemia Obstructive sleep apnea Lipoprotein deficiency disorder Diverticular disease of colon Essential hypertension History of pulmonary embolus (PE) (12/2007) Myelodysplastic syndrome Essential thrombocytosis Atherosclerosis of coronary artery of [place] heart without angina pectoris Home Medications ?Medication ?Instructions ?Recorded ?Last Taken ?Type cholecalciferol (vitamin D3) 125 125 mcg PO DAILY 07/14/21 Unknown History mcg (5,000 unit) capsule apixaban 5 mg tablet (Eliquis) 5 mg PO BID 07/29/25 Unknown History furosemide 20 mg tablet (Lasix) 20 mg PO QAM 07/29/25 Unknown History metoprolol succinate 100 mg 100 mg PO QDAY #90 tabs 07/29/25 Unknown Rx tablet,extended release 24 hr rosuvastatin 5 mg tablet 5 mg PO QDAY #90 tabs 07/29/25 Unknown Rx losartan 50 mg tablet 50 mg PO BID #180 tabs 09/08/25 Unknown Rx hydroxyurea 500 mg capsule 500 mg PO DAILY Myelodysplastic 09/11/25 Unknown History syndrome Allergy/AdvReac Type Severity Reaction Status Date / Time No Known Allergies Allergy Verified 09/10/25 12:39 Surgical History History of coronary artery bypass surgery (12/31/07) History of left heart catheterization (12/29/07) Social History Smoking Status: Former smoker substance use type: does not use ROS Constitutional Constitutional: Denies fever(s) or weight loss Eyes Eyes: Reports systems reviewed and no addt'l complaints, except as documented ENT HEENT: Reports systems reviewed and no addt'l complaints, except as documented Cardiovascular Cardiovascular: Reports dyspnea at rest, dyspnea on exertion, edema and weight gain; Denies chest pain at rest, chest pain with activity, palpitations or paroxysmal nocturnal dyspnea Respiratory/Chest Respiratory/Chest: Reports dyspnea on exertion, shortness of breath at rest and shortness of breath with exertion; Denies productive cough Gastrointestinal Gastrointestinal: Denies change in bowel habits, nausea, vomiting or weight changes Genitourinary Genitourinary: Denies difficulty urinating Musculoskeletal Musculoskeletal: Denies joint stiffness or muscle weakness Integumentary Integumentary: Denies lesions Neurologic Neurologic: Denies dizziness or syncope Psychiatric Psychiatric: Denies anxiety Endocrine Endocrinology: Denies excessive sweating or fatigue Hematologic/Lymphatic Hematologic/Lymphatic: Denies anemia Allergic/Immunologic Allergic/Immunologic: Denies seasonal rhinorrhea Physical Exam Const alert and oriented x3 Orientation / Consciousness: awake HEENT normocephalic Eyes PERRL Neck Carotids: normal carotid upstroke Chest inspection of chest normal Resp Auscultation: diminished lung sounds Cardio Rhythm: abnormal rhythm irregularly irregular Extremity General Extremity: edema Objective Data Vital Signs: Vital Signs Temp Pulse Resp BP Pulse Ox O2 Del Method O2 Flow Rate 97.9 F 88 18 142/91 H 94 Nasal Cannula 4 09/11/25 03:15 09/11/25 03:15 09/11/25 03:15 09/11/25 03:15 09/11/25 03:15 09/11/25 03:18 09/11/25 03:18 Oxygen Flow Rate (L/min) 4 Oxygen Delivery Method Nasal Cannula Weight: 176 lb 12.972 oz Body Mass Index (BMI) 22.1 Intake & Output: Intake and Output for Last 24 Hours 09/09/25 09/10/25 09/11/25 23:59 23:59 23:59 Intake Total 200 / 200 100 / 100 Output Total 3800 / 3800 2150 / 2150 Balance -3600 / -3600 -2049 / -2049 Lab / Micro Data 09/11/25 05:44 09/11/25 05:44 Labs: Laboratory Results - last 24 hr 09/10/25 14:30: WBC 13.1 H, RBC 4.27 L, Hgb 12.5 L, Hct 40.9, MCV 95.8 H, MCH 29.3, MCHC 30.6 L, RDW Std Deviation 96.4 H, RDW Coeff of Yordy 27.8 H, Plt Count 548 H, MPV 12.1 H, Immature Gran % (Auto) 0.600, Neut % (Auto) 76.1 H, Lymph % (Auto) 14.1 L, Door % (Auto) 7.0, Eos % (Auto) 1.3, Baso % (Auto) 0.9, Absolute Neuts (auto) 10.0 H, Absolute Lymphs (auto) 1.84, Nucleated RBC % 0.3, Polychromasia 1+, Basophilic Stippling 1+, Ovalocytes 2+, Sodium Cancelled, Potassium Cancelled, Chloride Cancelled, Carbon Dioxide Cancelled, Anion Gap Cancelled, BUN Cancelled, Creatinine Cancelled, Estim Creat Clear Calc Cancelled, Est GFR (MDRD) Non-Af Cancelled, BUN/Creatinine Ratio Cancelled, Glucose Cancelled, Calcium Cancelled, Troponin T High Sens Cancelled, NT pro BNP II Cancelled 09/10/25 15:30: Sodium Cancelled, Potassium Cancelled, Chloride Cancelled, Carbon Dioxide Cancelled, Anion Gap Cancelled, BUN Cancelled, Creatinine Cancelled, Estim Creat Clear Calc Cancelled, Est GFR (MDRD) Non-Af Cancelled, BUN/Creatinine Ratio Cancelled, Glucose Cancelled, Calcium Cancelled, Troponin T High Sens Cancelled, NT pro BNP II Cancelled 09/10/25 16:25: Sodium 142, Potassium 4.7, Chloride 106, Carbon Dioxide 25.1, Anion Gap 11, BUN 17, Creatinine 1.08, Estim Creat Clear Calc 50.90, Est GFR (MDRD) Non-Af 66, BUN/Creatinine Ratio 15.3, Glucose 86, Calcium 9.2, Troponin T High Sens 62 H*, [place] [address] H 09/10/25 19:34: Troponin T Hi Sens 2 Hr 82 H* 09/10/25 20:11: Troponin T Hi Sens 4Hr 71 H* 09/11/25 05:44: WBC 12.9 H, RBC 4.01 L, Hgb 11.5 L, Hct 37.8 L, MCV 94.3 H, MCH 28.7, MCHC 30.4 L, RDW Std Deviation 96.1 H, RDW Coeff of Yordy 27.9 H, Plt Count 492 H, MPV 11.2, Sodium 144, Potassium 3.3, Chloride 103, Carbon Dioxide 30.2, Anion Gap 11, BUN 17, Creatinine 1.19, Estim Creat Clear Calc 47.74 L, Est GFR (MDRD) Non-Af 58 L, BUN/Creatinine Ratio 14.0, Glucose 98, Calcium 9.2 Rhythm Strip Rhythm Strip: A-fib Rate: 75 Ectopy: None Cardiology Labs/Tests 09/10/25 14:30: WBC 13.1 H, RBC 4.27 L, Hgb 12.5 L, Hct 40.9, MCV 95.8 H, MCH 29.3, MCHC 30.6 L, Plt Count 548 H, MPV 12.1 H, Immature Gran % (Auto) 0.600, Neut % (Auto) 76.1 H, Lymph % (Auto) 14.1 L, Door % (Auto) 7.0, Eos % (Auto) 1.3, Baso % (Auto) 0.9, Absolute Neuts (auto) 10.0 H, Nucleated RBC % 0.3, Sodium Cancelled, Potassium Cancelled, Chloride Cancelled, Carbon Dioxide Cancelled, Anion Gap Cancelled, BUN Cancelled, Creatinine Cancelled, Est GFR (MDRD) Non-Af Cancelled, BUN/Creatinine Ratio Cancelled, Glucose Cancelled, Calcium Cancelled 09/10/25 15:30: Sodium Cancelled, Potassium Cancelled, Chloride Cancelled, Carbon Dioxide Cancelled, Anion Gap Cancelled, BUN Cancelled, Creatinine Cancelled, Est GFR (MDRD) Non-Af Cancelled, BUN/Creatinine Ratio Cancelled, Glucose Cancelled, Calcium Cancelled 09/10/25 16:25: Sodium 142, Potassium 4.7, Chloride 106, Carbon Dioxide 25.1, Anion Gap 11, BUN 17, Creatinine 1.08, Est GFR (MDRD) Non-Af 66, BUN/Creatinine Ratio 15.3, Glucose 86, Calcium 9.2 09/11/25 05:44: WBC 12.9 H, RBC 4.01 L, Hgb 11.5 L, Hct 37.8 L, MCV 94.3 H, MCH 28.7, MCHC 30.4 L, Plt Count 492 H, MPV 11.2, Sodium 144, Potassium 3.3, Chloride 103, Carbon Dioxide 30.2, Anion Gap 11, BUN 17, Creatinine 1.19, Est GFR (MDRD) Non-Af 58 L, BUN/Creatinine Ratio 14.0, Glucose 98, Calcium 9.2 Rhythm: EKG: ECHO: Stress Test: Cardiac Cath: PCI: CT Surgery: Holter monitor: EPS: PPM: CXR: Chest CT Scan: Radiography Diagnostic Testing: Radiology Impression Chest X-Ray 09/10/25 15:05 IMPRESSION: CHF with bilateral pleural effusions and bibasilar atelectasis. Follow-up recommended to ensure complete resolution Remote CABG Reading Location: [id number] Risk Score for UA/STEMI Assesmment (YES = 1) Risk Stratification Applicable: No
[2025-09-11 10:10] VITALS: BP 128/76; PULSE 82; RESP 18; TEMP 37.3; O2SAT 94
[2025-09-11 10:11] VITALS: BP 128/76; PULSE 80
[2025-09-11] MEDS: APIXABAN 5 MG TABLET PO ×2 (10:11→22:33)
[2025-09-11] MEDS: Metoprolol(XL)Succ 100 MG Tablet PO (10:11)
[2025-09-11] MEDS: Cholecalciferol (Vit D3) 125 MCG CAPSULE (5,000 UNITS) PO (10:11)
[2025-09-11] MEDS: Ensure Plus High Protein 120 ML LIQUID PO (13:29)
[2025-09-11 16:10] VITALS: BP 112/65; PULSE 76; RESP 18; TEMP 36.8; O2SAT 97
--- NOTE | 2025-09-11 16:28 | CASEMGMT ---
HOLLY ELLIOTT Assessment: Face to Face with pt for initial transition planning/care coordination assessment. HOLLY ELLIOTT introduced self and role at [facility], pt voices understanding and consents to assessment. Pt is A&O x4 and answers all questions appropriately at this time. Pt sitting up in chair in no distress, sitting at the bedside. Pt agreeable to DC planning assessment with present. Care providers, pharmacy, and demographics verified/updated. Strata: 2 Admitting Dx: CHF exacerbation with hypoxia. PCP: Benita Specialists: MARTHA [facility] Pharmacy: [facility] Insurance: [facility] A [facility] B Prescription Benefit: yes LNOK: Eileen Living Arrangements: Pt lives with in a 1 story home with 3 steps to enter. ADLs: Pt needing some assistance with ADLs and IADLs. Transportation: Pt provides transportation. DME: Rollator, WC, Cane, grab bars. HHC/SNF:Previously at [facility] for rehab. Pt states no concerns with going home at time of dc. HOLLY ELLIOTT discussed possible need for O2 at DC, provided verbal list of DME providers. Pt chose [facility] as provider of choice. HOLLY ELLIOTT discussed HHC for PT and OT. Pt does not feel he needs it at this time, Pt tried to encourage him to get HHC. Pt discussed needing to help him more and more in the home with ADLs, asked if they would like a list of HH companies that provide aides, agreeable to this. HOLLY ELLIOTT provided them with a list. Pt states no further concerns/needs. CM to follow. Advised pt to ask CM if any further question/concerns/needs arise, voices understanding. Pt Goal: Home Plan: Home with family support. Follow for O2 requirements. Sharonda BARRERA CM
--- NOTE | 2025-09-11 20:05 | PCM.PN.HOSP ---
Reason for Visit Chief Complaint: Shortness of breath and lower extremity swelling Subjective Subjective Patient was seen and examined today, he remains on IV Lasix drip for CHF. Patient is currently on 4 L of oxygen via nasal cannula Objective Data Objective Data Vital Signs: Vital Signs Temp Pulse Resp BP Pulse Ox O2 Del Method O2 Flow Rate 98.2 F 76 18 112/65 97 Nasal Cannula 4 09/11/25 16:10 09/11/25 16:10 09/11/25 16:10 09/11/25 16:10 09/11/25 16:10 09/11/25 16:10 09/11/25 16:10 Oxygen Flow Rate (L/min) 4 Oxygen Delivery Method Nasal Cannula Weight: 80.2 kg Body Mass Index (BMI) 22.1 Intake & Output: Intake and Output for Last 24 Hours 09/09/25 09/10/25 09/11/25 23:59 23:59 23:59 Intake Total 200 / 200 950 / 950 Output Total 3800 / 3800 6100 / 6100 Balance -3600 / -3600 -5150 / -5150 Lab / Micro Data 09/11/25 05:44 09/11/25 05:44 Labs: Laboratory Results - last 24 hr 09/10/25 16:25: Glucose 86 09/10/25 19:34: Troponin T Hi Sens 2 Hr 82 H* 09/10/25 20:11: Troponin T Hi Sens 4Hr 71 H* 09/11/25 05:44: WBC 12.9 H, RBC 4.01 L, Hgb 11.5 L, Hct 37.8 L, MCV 94.3 H, MCH 28.7, MCHC 30.4 L, RDW Std Deviation 96.1 H, RDW Coeff of Yordy 27.9 H, Plt Count 492 H, MPV 11.2, Sodium 144, Potassium 3.3, Chloride 103, Carbon Dioxide 30.2, Anion Gap 11, BUN 17, Creatinine 1.19, Estim Creat Clear Calc 47.74 L, Est GFR (MDRD) Non-Af 58 L, BUN/Creatinine Ratio 14.0, Glucose 98, Calcium 9.2 Rhythm Strip Rhythm Strip: A-fib Rate: 75 Ectopy: None Physical Exam Const alert, oriented x3 and no apparent distress General Appearance: cooperative, well kempt and well developed Orientation / Consciousness: awake, oriented to person, oriented to place and oriented to time HEENT normocephalic, head/scalp atraumatic and moist oral mucous membranes Eyes PERRL, EOMs intact bilaterally and conjunctivae normal Neck supple, no JVD, thyroid normal and no carotid bruits General: trachea midline Resp normal respiratory effort, no retractions, no use of accessory muscles and clear to auscultation bilaterally Auscultation: Negative for rales, rhonchi or wheezes Cardio no murmurs, no rub and no gallops Cardio Narrative: Heart rate and rhythm is irregular GI normal to inspection, nondistended, normoactive bowel sounds, soft to palpation, non-tender and non-distended Extremity no clubbing, cyanosis or edema Skin no rashes or lesions noted General Skin Exam: no breakdown Neuro oriented x3, CN's II-XII intact bilaterally, moves all extremities, no focal motor deficits and no sensory deficits noted Sensorium / Orientation: awake and alert Speech: speech normal Psych affect normal Assessment & Plan Assessment/Plan (1) Acute on chronic HFrEF (heart failure with reduced ejection fraction): PLAN: Plan 1. Acute on chronic congestive heart failure with intermediate ejection fraction-patient will remain on Lasix drip, a beta-sherif, and losartan #2 severe pulmonary hypertension-again patient is on Lasix drip #3 chronic atrial fibrillation-patient is on rate control medications and Eliquis #4 hyperlipidemia-patient is on a statin #5 essential hypertension-blood pressure will be monitored, medicines will be adjusted accordingly #6 coronary artery disease-complicates care, management, recovery, and prognosis Total clinical time spent by myself addressing the patient's medical issues, reviewing all of his data, and collaborating with patient's care team: 35 minutes Charges/Coding Visit Charges Inpatient E&M: 97691 Subs Hosp L2
[2025-09-11 22:00] VITALS: O2SAT 100
[2025-09-11 22:17] VITALS: BP 134/83; PULSE 80; RESP 16; TEMP 36.3; O2SAT 100
[2025-09-12] VITALS (8 sets, daily range): BP systolic 108–130; BP diastolic 77–85; PULSE 68–88; RESP 16–20; TEMP 36.1–37.2; O2SAT 91–100; BMI 22.5
--- NOTE | 2025-09-12 09:01 | PCM.PN.CARD ---
Subjective Subjective Patient seen and evaluated. Sleeping. Otherwise appears to be doing better. On no oxygen and lying flat. Objective Data Vital Signs: Vital Signs Temp Pulse Resp BP Pulse Ox O2 Del Method O2 Flow Rate 97.0 F L 80 16 130/85 H 95 Room Air 2 09/12/25 03:23 09/12/25 03:23 09/12/25 03:23 09/12/25 03:23 09/12/25 03:28 09/12/25 03:28 09/11/25 22:17 Oxygen Flow Rate (L/min) 2 Oxygen Delivery Method Room Air Weight: 180 lb 1.883 oz Body Mass Index (BMI) 22.5 Intake & Output: Intake and Output for Last 24 Hours 09/10/25 09/11/25 09/12/25 23:59 23:59 23:59 Intake Total 200 / 200 950 / 950 Output Total 3800 / 3800 6100 / 7400 3600 / 3600 Balance -3600 / -3600 -5150 / -6450 -3600 / -3600 Lab / Micro Data 09/11/25 05:44 09/11/25 05:44 Rhythm Strip Rhythm Strip: A-fib Rate: 75 Ectopy: None Cardiology Labs/Tests Rhythm: EKG: ECHO: Stress Test: Cardiac Cath: PCI: CT Surgery: Holter monitor: EPS: PPM: CXR: Chest CT Scan: Physical Exam Const alert, oriented x3 and no apparent distress General Appearance: cooperative, well kempt and well developed Orientation / Consciousness: awake, oriented to person, oriented to place and oriented to time HEENT normocephalic, head/scalp atraumatic and moist oral mucous membranes Eyes PERRL, EOMs intact bilaterally and conjunctivae normal Neck supple, no JVD, thyroid normal and no carotid bruits General: trachea midline Resp normal respiratory effort, no retractions, no use of accessory muscles and clear to auscultation bilaterally Auscultation: Negative for rales, rhonchi or wheezes Cardio no rub and no gallops Cardio Narrative: Heart rate and rhythm is irregular Rate: regular rate Rhythm: regular rhythm Heart Sounds: murmur GI normal to inspection, nondistended, normoactive bowel sounds, soft to palpation, non-tender and non-distended Extremity no clubbing, cyanosis or edema Skin no rashes or lesions noted General Skin Exam: no breakdown Neuro oriented x3, CN's II-XII intact bilaterally, moves all extremities, no focal motor deficits and no sensory deficits noted Sensorium / Orientation: awake and alert Speech: speech normal Psych affect normal Assessment & Plan Assessment/Plan (1) Acute on chronic HFrEF (heart failure with reduced ejection fraction): PLAN: Patient presents with acute on chronic congestive heart failure. The above is likely a combination of volume overload, atrial fibrillation, mitral regurgitation and pulmonary hypertension. Recommendation will be to continue with IV diuresis Rate control for the beta-sherif Would recommend continuing with losartan 50 mg a day (2) Chronic a-fib: PLAN: He does have chronic atrial fibrillation with a controlled ventricular response rate. Will continue the beta-sherif as well as the anticoagulation for now. (3) Hx of CABG: PLAN: He does have a history of coronary bypass surgery as noted above. His bypass grafts are noted to be patent with an atretic nonfunctional VERA but the LAD is patent. (4) Essential hypertension: PLAN: Continue aggressive therapy for his blood pressure. (5) Mitral valve posterior leaflet prolapse: PLAN: He does have evidence of mitral valve prolapse. This appears to be moderate of the posterior leaflet with an anteriorly directed jet. I would recommend at this time that we continue to aggressively diurese him. He can likely be followed up as an outpatient and may be set up to see whether he will be a candidate for mitral valve clip.
[2025-09-12] MEDS: APIXABAN 5 MG TABLET PO ×2 (10:44→22:28)
[2025-09-12] MEDS: Cholecalciferol (Vit D3) 125 MCG CAPSULE (5,000 UNITS) PO (10:45)
[2025-09-12] MEDS: Metoprolol(XL)Succ 100 MG Tablet PO (10:48)
[2025-09-12] MEDS: Furosemide 500 MG in Empty Viaflex 50 mL 1 EACH CONT INF (10:58)
[2025-09-12] MEDS: 0.9% Saline Lock 10 ML Syringe IV (11:03)
--- NOTE | 2025-09-12 15:46 | PCM.PN.HOSP ---
Reason for Visit Chief Complaint: Shortness of breath and lower extremity swelling Subjective Subjective Patient was seen and examined today, earlier today he was on room air, at the time of this his dictation in the afternoon he is on 2 L. Patient appears in no distress. I talked briefly with cardiology about his care, they are not planning on any testing such as a stress test or cardiac catheterization at this time. Patient remains on IV Lasix Objective Data Objective Data Vital Signs: Vital Signs Temp Pulse Resp BP Pulse Ox O2 Del Method O2 Flow Rate 98.4 F 86 20 H 111/77 93 Nasal Cannula 2 09/12/25 15:10 09/12/25 15:10 09/12/25 15:10 09/12/25 15:10 09/12/25 15:10 09/12/25 15:10 09/12/25 15:10 Oxygen Flow Rate (L/min) 2 Oxygen Delivery Method Nasal Cannula Weight: 81.7 kg Body Mass Index (BMI) 22.5 Intake & Output: Intake and Output for Last 24 Hours 09/10/25 09/11/25 09/12/25 23:59 23:59 23:59 Intake Total 200 / 200 950 / 950 38.67 / 38.67 Output Total 3800 / 3800 6100 / 7400 3600 / 3600 Balance -3600 / -3600 -5150 / -6450 -3561.33 / -3561.33 Lab / Micro Data 09/11/25 05:44 09/11/25 05:44 Rhythm Strip Rhythm Strip: A-fib Rate: 75 Ectopy: None Physical Exam Narrative alert, oriented x3 and no apparent distress General Appearance: cooperative, well kempt and well developed Orientation / Consciousness: awake, oriented to person, oriented to place and oriented to time HEENT normocephalic, head/scalp atraumatic and moist oral mucous membranes Eyes PERRL, EOMs intact bilaterally and conjunctivae normal Neck supple, no JVD, thyroid normal and no carotid bruits General: trachea midline Resp normal respiratory effort, no retractions, no use of accessory muscles and clear to auscultation bilaterally Auscultation: Negative for rales, rhonchi or wheezes Cardio no murmurs, no rub and no gallops Cardio Narrative: Heart rate and rhythm is irregular GI normal to inspection, nondistended, normoactive bowel sounds, soft to palpation, non-tender and non-distended Extremity no clubbing, cyanosis or edema Skin no rashes or lesions noted General Skin Exam: no breakdown Neuro oriented x3, CN's II-XII intact bilaterally, moves all extremities, no focal motor deficits and no sensory deficits noted Sensorium / Orientation: awake and alert Speech: speech normal Psych affect normal Assessment & Plan Assessment/Plan (1) Acute on chronic HFrEF (heart failure with reduced ejection fraction): PLAN: Plan 1. Acute on chronic congestive heart failure with intermediate ejection fraction-patient will remain on Lasix drip, a beta-sherif, and losartan, cardiology is participating in his care #2 severe pulmonary hypertension-again patient is on Lasix drip #3 chronic atrial fibrillation-patient is on rate control medications and Eliquis #4 hyperlipidemia-patient is on a statin #5 essential hypertension-blood pressure will be monitored, medicines will be adjusted accordingly #6 coronary artery disease-complicates care, management, recovery, and prognosis Total clinical time spent by myself addressing the patient's medical issues, reviewing all of his data, and collaborating with patient's care team: 35 minutes Charges/Coding Visit Charges Inpatient E&M: 35133 Subs Hosp L2
[2025-09-13] VITALS (9 sets, daily range): BP systolic 100–120; BP diastolic 65–75; PULSE 73–93; RESP 16–18; TEMP 36.1–36.6; O2SAT 85–100
[2025-09-13 06:17] LABS: Anion Gap 11 (5-15); BUN 29 mg/dL (4-19); BUN/Creat Ratio 19.0 RATIO (10-20); Calcium,Total 9.6 mg/dL (7.6-11.0); Carbon Dioxide 37.6 mmol/L (21.0-32.0); Chloride 94 mmol/L (98-108); Estimated Creatinine Clearance 37.82 ml/min (50-250); Glucose 82 mg/dL (70-99); Potassium 3.0 mmol/L (3.3-5.1)
--- NOTE | 2025-09-13 07:22 | PN.CARD_ITS ---
Subjective Subjective Patient seen and evaluated. Rather talkative this morning. Objective Data Vital Signs: Vital Signs Temp Pulse Resp BP Pulse Ox O2 Del Method O2 Flow Rate 96.9 F L 73 16 110/74 100 Nasal Cannula 2 09/13/25 03:30 09/13/25 03:30 09/13/25 03:30 09/13/25 03:30 09/13/25 03:30 09/13/25 03:30 09/13/25 03:30 Oxygen Flow Rate (L/min) 2 Oxygen Delivery Method Nasal Cannula Weight: 180 lb 1.883 oz Body Mass Index (BMI) 22.5 Intake & Output: Intake and Output for Last 24 Hours 09/11/25 09/12/25 09/13/25 23:59 23:59 23:59 Intake Total 950 / 950 758.67 / 758.67 Output Total 6100 / 7400 5300 / 6130 2195 / 2195 Balance -5150 / -6450 -4541.33 / -5371.33 -2195 / -2195 Lab / Micro Data 09/11/25 05:44 09/13/25 05:04 Labs: Laboratory Results - last 24 hr 09/13/25 05:04: Sodium 143, Potassium 3.0 L, Chloride 94 L, Carbon Dioxide 37.6 H, Anion Gap 11, BUN 29 H, Creatinine 1.53 H, Estim Creat Clear Calc 37.82 L, E st GFR (MDRD) Non-Af 43 L, BUN/Creatinine Ratio 19.0, Glucose 82, Calcium 9.6 Rhythm Strip Rhythm Strip: A-fib Rate: 75 Ectopy: None Cardiology Labs/Tests 09/13/25 05:04: Sodium 143, Potassium 3.0 L, Chloride 94 L, Carbon Dioxide 37.6 H, Anion Gap 11, BUN 29 H, Creatinine 1.53 H, Est GFR (MDRD) Non-Af 43 L, BUN/Creatinine Ratio 19.0, Glucose 82, Calcium 9.6 Rhythm: EKG: ECHO: Stress Test: Cardiac Cath: PCI: CT Surgery: Holter monitor: EPS: PPM: CXR: Chest CT Scan: Physical Exam Const alert, oriented x3 and no apparent distress General Appearance: cooperative, well kempt and well developed Orientation / Consciousness: awake, oriented to person, oriented to place and oriented to time HEENT normocephalic, head/scalp atraumatic and moist oral mucous membranes Eyes PERRL, EOMs intact bilaterally and conjunctivae normal Neck supple, no JVD, thyroid normal and no carotid bruits General: trachea midline Resp normal respiratory effort, no retractions, no use of accessory muscles and clear to auscultation bilaterally Auscultation: Negative for rales, rhonchi or wheezes Cardio no rub and no gallops Cardio Narrative: Heart rate and rhythm is irregular Rate: regular rate Rhythm: regular rhythm Heart Sounds: murmur GI normal to inspection, nondistended, normoactive bowel sounds, soft to palpation, non-tender and non-distended Extremity no clubbing, cyanosis or edema Skin no rashes or lesions noted General Skin Exam: no breakdown Neuro oriented x3, CN's II-XII intact bilaterally, moves all extremities, no focal motor deficits and no sensory deficits noted Sensorium / Orientation: awake and alert Speech: speech normal Psych affect normal Assessment & Plan Assessment/Plan (1) Acute on chronic HFrEF (heart failure with reduced ejection fraction): PLAN: Patient presents with acute on chronic congestive heart failure. The above is likely a combination of volume overload, atrial fibrillation, mitral regurgitation and pulmonary hypertension. Recommendation will be to continue with IV diuresis and potentially switch to p.o. Lasix today Rate control for the beta-sherif Would recommend continuing with losartan 50 mg a day (2) Chronic a-fib: PLAN: He does have chronic atrial fibrillation with a controlled ventricular response rate. Will continue the beta-sherif as well as the anticoagulation for now. (3) Hx of CABG: PLAN: He does have a history of coronary bypass surgery as noted above. His bypass grafts are noted to be patent with an atretic nonfunctional VERA but the LAD is patent. (4) Essential hypertension: PLAN: Continue aggressive therapy for his blood pressure. (5) Mitral valve posterior leaflet prolapse: PLAN: He does have evidence of mitral valve prolapse. This appears to be moderate of the posterior leaflet with an anteriorly directed jet. I would recommend at this time that we continue to aggressively diurese him. He can likely be followed up as an outpatient and may be set up to see whether he will be a candidate for mitral valve clip. He does have many other major comorbidities. Which need to be taken into consideration.
[2025-09-13] MEDS: Furosemide 500 MG in Empty Viaflex 50 mL 1 EACH CONT INF (07:58)
--- NOTE | 2025-09-13 08:55 | PN.HOSP_ITS ---
Reason for Visit Chief Complaint: Shortness of breath and lower extremity swelling Subjective Subjective Feeling well. Objective Data Objective Data Vital Signs: Vital Signs Temp Pulse Resp BP Pulse Ox O2 Del Method O2 Flow Rate 36.1 C L 73 16 110/74 98 Nasal Cannula 2 09/13/25 03:30 09/13/25 03:30 09/13/25 03:30 09/13/25 03:30 09/13/25 07:34 09/13/25 08:01 09/13/25 08:01 Oxygen Flow Rate (L/min) 2 Oxygen Delivery Method Nasal Cannula Weight: 81.7 kg Body Mass Index (BMI) 22.5 Intake & Output: Intake and Output for Last 24 Hours 09/11/25 09/12/25 09/13/25 23:59 23:59 23:59 Intake Total 950 / 950 758.67 / 758.67 Output Total 6100 / 7400 5300 / 6130 2195 / 2195 Balance -5150 / -6450 -4541.33 / -5371.33 -2174 / -2174 Lab / Micro Data 09/11/25 05:44 09/13/25 05:04 Labs: Laboratory Results - last 24 hr 09/13/25 05:04: Sodium 143, Potassium 3.0 L, Chloride 94 L, Carbon Dioxide 37.6 H, Anion Gap 11, BUN 29 H, Creatinine 1.53 H, Estim Creat Clear Calc 37.82 L, E st GFR (MDRD) Non-Af 43 L, BUN/Creatinine Ratio 19.0, Glucose 82, Calcium 9.6 Rhythm Strip Rhythm Strip: A-fib Rate: 75 Ectopy: None Physical Exam Const alert and no apparent distress HEENT head/scalp atraumatic and moist oral mucous membranes Resp normal respiratory effort, no retractions, no use of accessory muscles and clear to auscultation bilaterally Cardio regular rate, regular rhythm, S1 normal heart sound and S2 normal heart sound GI normal to inspection, nondistended, normoactive bowel sounds, soft to palpation, non-tender and non-distended Extremity normal to inspection and full ROM Neuro Sensorium / Orientation: awake and alert Assessment & Plan Assessment/Plan (1) Acute on chronic HFrEF (heart failure with reduced ejection fraction): PLAN: Plan Acute on chronic HFrEF * EF 45%, severe biatrial dilation. RVSP 78mmHg. Small loculated pericardial effusion * DC furosemide gtt as creatinine has gone up * losartan and metoprolol succinate severe pulmonary hypertension * group 2 * again patient is on Lasix drip Chronic conditions: * chronic atrial fibrillation-patient is on rate control medications and Eliquis * hyperlipidemia-patient is on a statin * essential hypertension-blood pressure will be monitored, medicines will be adjusted accordingly * coronary artery disease-complicates care, management, recovery, and prognosis VTE prophylaxis: on apixaban. Check home oxygen evaluation. Charges/Coding Visit Charges Inpatient E&M: 35093 Subs Hosp L2
[2025-09-13] MEDS: 0.9% Saline Lock 10 ML Syringe IV (09:29)
[2025-09-13] MEDS: APIXABAN 5 MG TABLET PO (09:38)
[2025-09-13] MEDS: Cholecalciferol (Vit D3) 125 MCG CAPSULE (5,000 UNITS) PO (11:45)
[2025-09-13] MEDS: Metoprolol(XL)Succ 100 MG Tablet PO (11:46)
--- NOTE | 2025-09-13 14:38 | DS.PCM_ITS ---
Providers Date of Admission: 09/10/25 Primary Care Physician: Dr. Inge Joy MD Consultations 09/10/25 19:19 Consult: Cardiology Routine Consulting Provider: Hal Brito Reason for Consult: CHF exacerbation, MVP w/ mod to severe MR EMERGENT Consult: No MD Notified: Yes Date Notified: 09/11/25 Time Notified: 06:51 Method of Notification: Text Reason For Visit: CHF EXACERBATION WITH HYPOXIA Diagnosis Discharge Diagnosis (1) Acute on chronic HFrEF (heart failure with reduced ejection fraction): Status: Chronic Code(s): I50.23 - Acute on chronic systolic (congestive) heart failure Plan Acute on chronic HFrEF * EF 45%, severe biatrial dilation. RVSP 78mmHg. Small loculated pericardial effusion * DC furosemide gtt as creatinine has gone up * losartan and metoprolol succinate severe pulmonary hypertension * group 2 * treat the underlying cause with CHF Chronic conditions: * chronic atrial fibrillation-patient is on rate control medications and Eliquis * hyperlipidemia-patient is on a statin * essential hypertension-blood pressure will be monitored, medicines will be adjusted accordingly * coronary artery disease-complicates care, management, recovery, and prognosis VTE prophylaxis: on apixaban. Medications at Discharge Home Medications cholecalciferol (vitamin D3) 125 mcg (5,000 unit) capsule 125 mcg PO DAILY 07/14/21 apixaban 5 mg tablet (Eliquis) 5 mg PO BID 07/29/25 furosemide 20 mg tablet (Lasix) 20 mg PO QAM 07/29/25 metoprolol succinate 100 mg tablet,extended release 24 hr 100 mg PO QDAY #90 tabs 07/29/25 rosuvastatin 5 mg tablet 5 mg PO QDAY #90 tabs 07/29/25 losartan 50 mg tablet 50 mg PO BID #180 tabs 09/08/25 hydroxyurea 500 mg capsule 500 mg PO DAILY Myelodysplastic syndrome 09/11/25 Hospital Course Operations None Procedures None Summary of Care Provided Hospital Course: Greater than 30-minute spent on discharge This is an 89-year-old male presents with shortness of breath and lower extremity edema. Patient stated they also put on roughly 20 pounds over the past couple weeks. Chest x-ray showed findings consistent with CHF and patient was started on furosemide infusion. With diuresis, his fluid balance was -16 L. Today, his creatinine went up to 1.5 so the furosemide infusion was discontinued. On him at home he was taking 20 mg of furosemide daily will increase that to 40 mg daily. He also continue with losartan as well. He will require oxygen with activity at 2 L. Weight / BMI Weight Weight: 81.7 kg Body Mass Index (BMI) 22.5 ABG / Lab / Microbiology Data 09/11/25 05:44 09/13/25 05:04 Laboratory: Laboratory Results - last 24 hr 09/13/25 05:04: Sodium 143, Potassium 3.0 L, Chloride 94 L, Carbon Dioxide 37.6 H, Anion Gap 11, BUN 29 H, Creatinine 1.53 H, Estim Creat Clear Calc 37.82 L, E st GFR (MDRD) Non-Af 43 L, BUN/Creatinine Ratio 19.0, Glucose 82, Calcium 9.6 D/C Instructions DC O2, CPAP, BIPAP Needs Home O2 Discharge instructions: Yes Type of respiratory needs?: Oxygen Oxygen frequency: With Ambulation Oxygen liters per minute during Ambulation: 2 DC home with Oxygen: Yes Home O2 MD Review: I have reviewed the oxygen testing, and the patient qualifies for home oxygen equipment and portability. The patient is mobile in the home and the community. Meaningful Use Info Meaningful Use Meaningful Use Diagnoses (Choose all that apply): CHF CHF ALFA/ARB ordered at discharge?: Yes Documented LVEF (%): 45 Discharge Plan Admission Admit Date/Time: 09/10/25 18:11 Attending Provider: Prince Tong Primary Care Provider: Inge Joy Consulting Providers: Hal Brito; Stephan Hernandez; Carlos Beach Discharge Orders/Prescriptions Prescriptions: No Action cholecalciferol (vitamin D3) 125 mcg (5,000 unit) capsule 125 mcg PO DAILY furosemide [Lasix] 20 mg tablet 20 mg PO QAM Patient Comments: states he only takes this sometimes Eliquis 5 mg tablet 5 mg PO BID Patient Comments: pt states sometimes he only takes this once hydroxyurea 500 mg capsule 500 mg PO DAILY metoprolol succinate 100 mg tablet extended release 24 hr 100 mg PO QDAY Qty: 90 3RF rosuvastatin 5 mg tablet 5 mg PO QDAY Qty: 90 3RF losartan 50 mg tablet 50 mg PO BID Qty: 180 3RF Referrals / Follow Up: Inge Joy MD [Primary Care Provider, Internal Medicine] Care Physician,No Primary [Non-Staff, Medical] Disposition Disposition (needs filled in before D/C Order can be placed): Home, Self Care Charges/Coding Visit Charges Inpatient E&M: 63550 Disch Hosp >30min
--- NOTE | 2025-09-13 15:36 | CASEMGMT ---
RN EARL noted DC plan, [place] with [place] summary [place] [facility] DASCO asked RN CM to deliver O2 Tank from stock. RN EARL asked Pt nurse to deliver to pt.
--- NOTE | 2025-09-13 16:21 | CHAPLAIN ---
Type of Pastoral Visit _x__ Initial Visit ___ Follow-up Visit ___ On-call Visit ___ General Patient Visit ___ Spiritual Assessment ___ Family Conference ___ Bereavement ___ Rapid Response ___ Code Blue ___ Other (describe below) Pastoral Care Referral From _x__ Patient ___ Family ___ Nurse ___ Physician ___ Journalism Teacher ___ Credit Operations Specialist ___ Other (describe below) Sacrament/Intervention _x__ Active listening ___ Anointing ___ Judaism ___ Bereavement ___ Communion _x__ Rita exploration ___ _x__ Life review _x__ Prayer ___ Reconciliation ___ Sacrament of Sick _x__ Supportive presence ___ Wedding ___ Other (describe below) Pastoral Comments patient is welcoming and very talkative; pt gives detailed review of his health concerns and thoughts/feelings about it all; pt gives lots of life review and carries the conversation to his topics; pt is offered support and he states I am very pleased with the care being given and the help of this hospital and its people; pt continues with his life review and denies any real worries or concerns;
--- NOTE | 2025-09-13 16:35 | PHA.DC.MC.R ---
Pharmacy [facility] Counseling Pharmacy Service has performed discharge medication reconciliation and counseling for this patient. The patient's discharge medication list was reviewed for discrepancies and discrepancies were resolved. The patient was counseled on the following discharge medications and changes in medications for homegoing were reviewed. The Reason for Use, instructions for use, and potential side effects were reviewed for all new medications. The patient's questions regarding all of their medications were answered. 1. Furosemide 40 mg PO daily 2. Losartan 25 mg PO BID The patient was able to verbally demonstrate an understanding of their discharge medications. Medications at Discharge Home Medications cholecalciferol (vitamin D3) 125 mcg (5,000 unit) capsule 125 mcg PO DAILY 07/14/21 apixaban 5 mg tablet (Eliquis) 5 mg PO BID 07/29/25 metoprolol succinate 100 mg tablet,extended release 24 hr 100 mg PO QDAY #90 tabs 07/29/25 rosuvastatin 5 mg tablet 5 mg PO QDAY #90 tabs 07/29/25 hydroxyurea 500 mg capsule 500 mg PO DAILY Myelodysplastic syndrome 09/11/25 furosemide 20 mg tablet 40 mg (2 x 20 mg) PO DAILY #30 tabs 09/13/25 losartan 50 mg tablet 25 mg (1/2 x 50 mg) PO BIDCM #60 tabs 09/13/25
== END 2025-09-13 17:27 | disposition home or self-care (01) | DRG 291 ==
LOC: ED 18:17 → PCU 18:35
PROVIDERS: Internal Medicine; Admitting Provider Hospitalist; Emergency Provider Emergency Medicine; PCP Student in an Organized Health Care Education/Training Program
DX: I11.0 Hypertensive heart disease with heart failure (principal); I50.23 Acute on chronic systolic (congestive) heart failure; I48.20 Chronic atrial fibrillation, unspecified; I27.20 Pulmonary hypertension, unspecified; Z79.01 Long term (current) use of anticoagulants; I34.0 Nonrheumatic mitral (valve) insufficiency; I25.10 Atherosclerotic heart disease of native coronary artery without angina pectoris; E78.5 Hyperlipidemia, unspecified; I34.1 Nonrheumatic mitral (valve) prolapse; Z87.891 Personal history of nicotine dependence; R09.02 Hypoxemia; Z79.899 Other long term (current) drug therapy; Z95.1 Presence of aortocoronary bypass graft; R53.81 Other malaise
CPT/HCPCS: 36415; 51702; 71046; 80048; 83880; 84484; 85025; 85027; 93005; 97116; 97162; 97166; 97530; 97802; 99285; A4216; J1938

== ENCOUNTER → 2025-09-24 | Outpatient (CLI) | payer MEDICARE, SELFPAY ==
[2025-09-24 15:09] LABS: Color, Urine Yellow (Yellow); Glucose, Dipstick Normal (Normal); Ketone-Dipstick Negative (Negative); Leukocyte Esterase-Dipstick 25 /ul (Negative); Nitrite-Dipstick Positive (Negative); Occult Blood-Urine 150 /ul (Negative); Protein-Dipstick 30 mg/dl (Negative); Specific Gravity, Urine 1.010 (1.002-1.030); Urine Bilirubin Dipstick Negative (Negative)
[2025-09-24 15:42] LABS: AST(SGOT) 28 U/L (<=37); Alanine Aminotransfer ALT/SGPT 12 U/L (<=46); Albumin, Serum 4.4 g/dL (3.4-4.8); Alkaline Phosphatase 80 U/L (40-129); Anion Gap 10 (5-15); BUN 33 mg/dL (4-19); BUN/Creat Ratio 23.2 RATIO (10-20); Bilirubin, Direct 0.45 mg/dL (0.00-0.30); Calcium,Total 9.7 mg/dL (7.6-11.0); Carbon Dioxide 27.8 mmol/L (21.0-32.0); Chloride 106 mmol/L (98-108); Cholesterol 109 mg/dL (<=200); Globulin 2.8 g/dL (2.2-4.2); Glucose 83 mg/dL (70-99); Low Density Lipoprotein Calc. 62 mg/dL; Potassium 4.3 mmol/L (3.3-5.1); Triglycerides 93 mg/dL; Very Low Density Lipoprotein 19 mg/dL (5-40); cholesterol:hdl ratio screen 3.72
== END | disposition home or self-care (01) ==
LOC: LAB 14:15
PROVIDERS: PCP Student in an Organized Health Care Education/Training Program; Referring Provider Nurse Practitioner Gerontology; Visit Provider Nurse Practitioner Gerontology
DX: E78.2 Mixed hyperlipidemia (principal); E87.6 Hypokalemia; R31.9 Hematuria, unspecified
CPT/HCPCS: 36415; 80048; 80061; 80076; 81002